=== PATIENT | male | born 1940 | race African-American/Black ===

== ENCOUNTER 2020-02-02 15:12 | Observation (INO) | payer OTHER ==
--- OUTSIDE RECORDS SUMMARY | 2020-02-02 15:14 | XMS REPORT ---
:1940 Author Organization [facility] t Address [address] [place] [address] Care Team Providers Name Role Phone Unavailable Unavailable Unavailable Problems This patient has no known problems. Allergies, Adverse Reactions, Alerts This patient has no known allergies or adverse reactions. Medications This patient has no known medications.
--- NOTE | 2020-02-02 16:06 | RAD REPORT ---
EXAM DESCRIPTION: RAD - Chest Single View - 02/02/2020 3:44 pm CLINICAL HISTORY: fall, chest pain COMPARISON: 2016 TECHNIQUE: AP portable chest image was obtained 02/02/2020 3:44 pm . FINDINGS: Lung volumes are low. No pulmonary contusion or focal lung parenchymal process. Interstiti al markings are not substantially different. Heart and vasculature are normal. No measurable pleural effusion and no pneumothorax. Bone detail is limited. Directed imaging can be performed as warranted. No acute aortic findings suspected. IMPRESSION: No acute cardiopulmonary process.
--- NOTE | 2020-02-02 16:17 | RAD REPORT ---
EXAM DESCRIPTION: CT - CTHCSPWOC - 02/02/2020 4:04 pm CLINICAL HISTORY: fall, head and neck injury COMPARISON: HEAD BRAIN W O CONTRAST dated 05/20/2012 TECHNIQUE: Axial 5 mm thick images of the head were obtained. Axial 2 mm thick images of the cervic al spine were obtained with sagittal and coronal reconstruction images generated and reviewed. All CT scans are performed using dose optimization technique as appropriate and may include automated exposure control or mA/KV adjustment according to patient size. FINDINGS: No intracranial hemorrhage, mass, edema or acute intracranial finding. No suspicion for ac mi'kmaq infarction. Moderate severity atrophy and chronic ischemic changes are present. These changes hav e progressed from 2012. Ventricles are in proportion to volume loss. Mastoid air cells and paranasal sinuses are clear. No globe or orbit abnormality seen. No significant scalp hematoma or soft tissue i njury. Cervical bodies are normal in height. Significant C5-6 and C6-7 disc space narrowing and endplate spu rring. Bilateral bony foraminal encroachment changes are present. Minimal C4-5 disc space narrowing. There is minimal retrolisthesis of C5 on C6. No fracture or acute bony abnormality. Central canal de tail is inherently limited. No paraspinal mass or hematoma. IMPRESSION: Atrophy and chronic ischemic change progressive from the 2012 comparison. No acute intra cranial finding. Prominent cervical spine degenerative change without acute finding.
[2020-02-02 16:24] LABS: ALT/SGPT 32 U/L (12-78); Albumin 3.6 g/dL (3.4-5.0); Alkaline Phosphatase 80 U/L (45-117); BUN Blood Urea Nitrogen 14 mg/dL (7-18); Bicarbonate 24 mmol/L (21-32); Bilirubin Direct 0.1 mg/dL (0-0.2); Bilirubin Total 0.5 mg/dL (0.2-1.0); Glucose Level 96 mg/dL (74-106); NT PRO-BNP 406 pg/mL (<450); Potassium 3.6 mmol/L (3.5-5.1); Protein, Total 7.7 g/dL (6.4-8.2); Sodium Level 140 mmol/L (136-145); Troponin (Emerg Dept Use Only) < 0.02 ng/mL (0.0-0.045)
[2020-02-02 16:25] LABS: AST/SGOT 34 U/L (15-37); Magnesium 1.9 mg/dL (1.8-2.4)
[2020-02-02 16:29] LABS: Absolute Lymphocytes (CBC) 0.5 K/uL (0.7-4.9); Basophils % 0.2 % (0-1.3); Hematocrit 47.3 % (39.6-49.0); Lymphocytes % 7.1 % (15.3-44.8); MPV 9.7 fL (7.6-11.3); Protime INR 1.07; RBC Red Blood Cell Count 4.95 M/uL (4.33-5.43)
[2020-02-02] MEDS ORDERED: METOPROLOL TAR 25 MG TAB ONE (16:29)
[2020-02-02] MEDS ORDERED: ASPIRIN 81 MG CHEWABLE TABLET ONE (17:20)
[2020-02-02] MEDS ORDERED: ACETAMINOPHEN 325 MG TABLET ONE (17:20)
[2020-02-02] MEDS ORDERED: ENOXAPARIN 80 MG/0.8 ML SQ ONE (17:21)
--- NOTE | 2020-02-02 17:36 | EDPHYS ---
Physician Documentation [facility] Name: Wade Chavez Age: 79 yrs Sex: Male : 1940 Arrival Date: 02/02/2020 Time: 15:15 Bed 5 Private MD: ED Physician Sterling Dotson HPI: 02/01 15:30 This 79 yrs old Black Male presents to ER via EMS with complaints of fall. cp 15:30 Details of fall: The patient fell from an upright position, while walking. Onset: The cp symptoms/episode began/occurred last night. Associated injuries: The patient sustained injury to the head, pain, neck injury, pain with movement. 15:30 Patient reports trip and fall times 2 yesterday evening while walking. Tripped over cp carpet on floor. Reports dizziness that is worse when moving head over past several days. Denies loss of consciousness . Historical: - Allergies: 16:13 No Known Allergies; ls4 - Home Meds: 20:07 metoprolol tartrate 50 mg Oral tab 1 tab 2 times per day [Active]; losartan 25 mg oral rv tab 1 tab once daily [Active]; amlodipine 5 mg tab 1 tab once daily [Active]; lovastatin 20 mg Oral tab 1 tab once daily [Active]; - PMHx: 16:13 GERD; High Cholesterol; Hypertension; ls4 20:07 Atrial Fib; prostate cancer; Cancer; rv - PSHx: 16:13 chest surg; right hand pain; ls4 - Immunization history:: Adult Immunizations up to date, Flu vaccine is up to date. - Social history:: Smoking status: Patient denies any tobacco usage or history of. ROS: 15:35 Constitutional: Negative for body aches, chills, fever, poor PO intake. cp 15:35 Eyes: Negative for injury, pain, redness, and discharge. cp 15:35 ENT: Negative for drainage from ear(s), ear pain, sore throat, difficulty swallowing, difficulty handling secretions. 15:35 Neck: Positive for pain with movement. 15:35 Cardiovascular: Negative for chest pain, edema, palpitations. 15:35 Respiratory: Negative for cough, shortness of breath, wheezing. 15:35 Abdomen/GI: Negative for abdominal pain, nausea, vomiting, and diarrhea. 15:35 Back: Negative for pain at rest, pain with movement. 15:35 MS/extremity: Negative for injury or acute deformity, decreased range of motion, paresthesias. 15:35 Skin: Negative for rash. 15:35 Neuro: Positive for headache, Negative for altered mental status, dizziness, weakness. 15:35 All other systems are negative. Exam: 15:45 Constitutional: The patient appears in no acute distress, alert, awake, cp non-diaphoretic, non-toxic, well developed, well nourished. 15:45 Head/Face: Normocephalic, atraumatic. cp 15:45 Eyes: Periorbital structures: appear normal, Pupils: equal, round, and reactive to light and accomodation, Extraocular movements: intact throughout, Conjunctiva: normal, no exudate, no injection, Lids and lashes: appear normal, bilaterally. 15:45 ENT: External ear(s): are unremarkable, Nose: is normal, Mouth: Lips: moist, Oral mucosa: moist, Posterior pharynx: is normal, airway is patent. 15:45 Neck: C-spine: vertebral tenderness, that is mild, appreciated at C6 and C7, crepitus, is not appreciated, ROM/movement: pain, that is mild, with any movement, limited range of motion, is not appreciated, nuchal rigidity, is not appreciated. 15:45 Chest/axilla: Inspection: normal, Palpation: is normal, no crepitus, no tenderness. 15:45 Cardiovascular: Rate: normal, Rhythm: irregular, Edema: is not appreciated, JVD: is not appreciated. 15:45 Respiratory: the patient does not display signs of respiratory distress, Respirations: normal, no use of accessory muscles, no retractions, labored breathing, is not present, Breath sounds: are clear throughout, no decreased breath sounds. 15:45 Abdomen/GI: Inspection: abdomen appears normal, Bowel sounds: active, all quadrants, Palpation: abdomen is soft and non-tender, in all quadrants. 15:45 Back: pain, is absent, ROM is normal. 15:45 Neuro: Orientation: to person, place \T\ time. Mentation: is normal, Cerebellar function: cp is grossly normal, Motor: moves all fours, strength is normal, Sensation: is normal. 15:50 ECG was reviewed by the Attending Physician. cp Vital Signs: 15:15 BP 129 / 89; Pulse 97; Resp 14; Temp 97.9(O); Pulse Ox 99% on R/A; Weight 76.66 kg; ls4 Height 5 ft. 6 in. (167.64 cm) (R); Pain 3/10; 16:44 BP 134 / 92; Pulse 95; Resp 14; Temp 98.0(O); Pulse Ox 99% on R/A; Pain 3/10; ls4 17:29 BP 136 / 90; Pulse 88; Resp 14; Pulse Ox 99% on R/A; Pain 0/10; ls4 18:20 BP 127 / 96; Pulse 90; Resp 15; Pulse Ox 95% ; bp 19:00 BP 127 / 96; Pulse 87; Resp 14; Temp 97.8(O); Pulse Ox 99% on R/A; Pain 0/10; ls4 20:27 BP 134 / 99; Pulse 91; Resp 13; Pulse Ox 94% on R/A; ls4 15:15 Body Mass Index 27.28 (76.66 kg, 167.64 cm) ls4 MDM: 15:25 Patient medically screened. cp 16:00 Differential diagnosis: closed head injury, contusion, fracture, multiple trauma. cp 16:50 Data reviewed: vital signs, nurses notes, lab test result(s), EKG, radiologic studies, cp and as a result, I will admit patient. 16:50 Test interpretation: by ED physician or midlevel provider: ECG. cp 16:51 Physician consultation: Hector Doty DO was called at 16:51, left message on [email or web address] 02/01 15:27 Order name: Basic Metabolic Panel; Complete Time: 16:46 cp 02/01 15:27 Order name: CBC with Diff cp 02/01 16:46 Interpretation: Normal except: JOAQUIN% 86.9; LYM% 7.1; LYMA 0.5. cp 02/01 15:27 Order name: Hepatic Function; Complete Time: 16:46 cp 02/01 16:47 Interpretation: Normal except: GLOB 4.1; A/G 0.9. cp 02/01 15:27 Order name: Magnesium; Complete Time: 16:46 cp 02/01 15:27 Order name: NT PRO-BNP; Complete Time: 16:46 cp 02/01 15:27 Order name: Protime (+inr); Complete Time: 16:46 cp 02/01 15:27 Order name: Troponin (emerg Dept Use Only); Complete Time: 16:46 cp 02/01 18:12 Order name: Alcohol Serum/Plasma EDMS 02/01 18:12 Order name: Urine Drug Screen EDMS 02/01 18:12 Order name: Basic Metabolic Panel EDMS 02/01 18:12 Order name: Basic Metabolic Panel EDMS 02/01 18:12 Order name: Basic Metabolic Panel EDMS 02/01 18:13 Order name: CBC with Automated Diff EDMS 02/01 18:13 Order name: CBC with Automated Diff EDMS 02/01 15:27 Order name: CT Head C Spine; Complete Time: 16:22 cp 02/01 15:27 Order name: XRAY Chest (1 view); Complete Time: 16:22 cp 02/01 18:12 Order name: Echo with Doppler EDMS 02/01 18:13 Order name: CBC with Automated Diff EDMS 02/01 18:13 Order name: T4 Free EDMS 02/01 18:13 Order name: T4 Free EDMS 02/01 18:13 Order name: Thyroid Stimulating Hormone EDMS 02/01 18:13 Order name: Thyroid Stimulating Hormone EDMS 02/01 18:13 Order name: Troponin I EDMS 02/01 18:13 Order name: Troponin I EDMS 02/01 18:13 Order name: Troponin I EDMS 02/01 18:18 Order name: Magnesium EDMS 02/01 18:18 Order name: Magnesium EDMS 02/01 18:18 Order name: Magnesium EDMS 02/01 19:29 Order name: CBC Smear Scan EDMS 02/01 15:27 Order name: EKG; Complete Time: 15:29 cp 07 15:27 Order name: Cardiac monitoring; Complete Time: 17:35 cp 0507 15:27 Order name: EKG - Nurse/Tech; Complete Time: 17:35 cp 0507 15:27 Order name: IV Saline Lock; Complete Time: 17:35 cp 05/07 15:27 Order name: Labs collected and sent; Complete Time: 17:35 cp 05/07 15:27 Order name: O2 Per Protocol; Complete Time: 17:35 cp 0507 15:27 Order name: O2 Sat Monitoring; Complete Time: 17:35 cp 0507 18:12 Order name: CONS Physician Consult [facility] 02/01 18:12 Order name: Heart Healthy [facility] 02/01 18:12 Order name: EKG Electrocardiogram [facility] 02/01 18:12 Order name: EKG Electrocardiogram [facility] EC:50 Rate is 91 beats/min. Rhythm is irregularly irregular. QRS interval is normal. QT cp interval is normal. T waves are Inverted in leads III, aVF, aVR. Interpreted by me. Reviewed by me. Administered Medications: 16:23 Drug: Lopressor (metoprolol TARTRATE) 25 mg Route: PO; ls4 17:01 Drug: Lovenox 80 mg Route: Sub-Q; Site: left lower abdomen; ls4 17:30 Follow up: Response: No adverse reaction; Marked relief of symptoms ls4 17:01 Drug: Tylenol 650 mg Route: PO; ls4 17:30 Follow up: Response: No adverse reaction; Marked relief of symptoms; Pain is decreased ls4 17:01 Drug: Aspirin Chewable Tablet 324 mg Route: PO; ls4 17:30 Follow up: Response: No adverse reaction; Marked relief of symptoms; Pain is decreased ls4 Disposition: 02/02 01:25 Co-signature as Attending Physician, Sterling Dotson MD I agree with the assessment and kdr plan of care. Disposition: 02/02/20 17:35 Hospitalization ordered by Hector Doty for Observation. Preliminary diagnosis is Unspecified atrial fibrillation. - Bed requested for Telemetry/MedSurg (observation). - Status is Observation. ls4 - Condition is Stable. - Problem is new. - Symptoms have improved. Signatures: Dispatcher [employer] [facility] Cierra [place] RN RN dw Rittger, Kevin, MD MD [facility] Mark Fuchs PA PA cp Douglas Correia RN RN rv Belem Perez RN RN ls4 Corrections: (The following items were deleted from the chart) 02/01 16:46 16:46 Normal except: JOAQUIN% 86.9; LYM% 7.1. cp cp 18:17 17:35 Hospitalization Ordered by Hector Doty DO for Observation. Preliminary dw diagnosis is Unspecified atrial fibrillation. Bed requested for Telemetry/MedSurg (observation). Status is Observation. Condition is Stable. Problem is new. Symptoms have improved. cp 20: 16:13 Home Meds: lisinopril 10 mg Oral tab 1 tab once daily; ls4 rv 20:07 16:13 Home Meds: metoprolol tartrate 50 mg Oral tab 1 tab 2 times per day; ls4 rv 20: 16:13 Home Meds: pantoprazole 40 mg Oral TbEC 1 tab once daily; ls4 rv 20: 16:13 Home Meds: unknown cholesterol medication; ls4 rv 20:41 18:17 02/02/2020 17:35 Hospitalization Ordered by Hector Doty DO for Observation. ls4 Preliminary diagnosis is Unspecified atrial fibrillation. Bed requested for Telemetry/MedSurg (observation). Status is Observation. Condition is Stable. Problem is new. Symptoms have improved. dw
--- NOTE | 2020-02-02 17:36 | ER ---
Nurse's Notes [facility] Name: Wade Chavez Age: 79 yrs Sex: Male : 1940 Arrival Date: 02/02/2020 Time: 15:15 Bed 5 Private MD: Diagnosis: Unspecified atrial fibrillation Presentation: 02/01 15:15 Chief complaint: EMS states: PT HAD A FALL LAST EVENING. PT HIT HEAD AND NOW NECK AND ls4 HEAD HURT WHEN HE TURNS HIS HEAD. PT STATES HIS FOOT GOT STUCK ON THE TAPE THAT HOLDS HIS CARPET DOWN TO THE FLOOR. PT DENIES DIZZINESS BEFORE FALL BUT NOW HAS SOME DIZZINESS. PT DOES NOT TAKE BLOOD THINNERS OR ASPIRIN. Coronavirus screen: Proceed with normal triage. Patient denies a cough. Patient denies shortness of breath or difficulty breathing. Patient denies measured and/or subjective temperature greater than 100.4F prior to today's visit. Patient denies travel on a cruise ship or to a country the [facility] currently lists as an affected area. Patient denies contact with known and/or suspected case of COVID-19. Ebola Screen: No symptoms or risks identified at this time. Initial Sepsis Screen: Does the patient meet any 2 criteria? No. Patient's initial sepsis screen is negative. Does the patient have a suspected source of infection? No. Patient's initial sepsis screen is negative. Risk Assessment: Do you want to hurt yourself or someone else? Patient reports no desire to harm self or others. Onset of symptoms was February 01, 2020 at 18:00. Care prior to arrival: None. Activity prior to arrival: None. 15:15 Method Of Arrival: EMS: [facility] ls4 15:15 Acuity: SHER 3 ls4 Triage Assessment: 16:18 General: Appears in no apparent distress. comfortable, Behavior is calm, cooperative. ls4 Pain: Complains of pain in left parietal area, right parietal area, occipital area, base of the skull and right base of the skull Pain currently is 3 out of 10 on a pain scale. at worst was 7 out of 10 on a pain scale. Neuro: No deficits noted. Cardiovascular: Denies chest pain, diaphoresis, fatigue, lightheadedness, nausea, palpitations, shortness of breath, syncope, vomiting, Capillary refill < 3 seconds Clubbing of nail beds is absent Thorax Patient's skin is warm and dry. Rhythm is atrial fibrillation With PVC's. Respiratory: Airway is patent Respiratory effort is even, unlabored, Respiratory pattern is regular, Breath sounds are clear bilaterally. GI: No deficits noted. No signs and/or symptoms were reported involving the gastrointestinal system. : No deficits noted. No signs and/or symptoms were reported regarding the genitourinary system. Derm: No deficits noted. No signs and/or symptoms reported regarding the dermatologic system. Musculoskeletal: No deficits noted. No signs and/or symptoms reported regarding the musculoskeletal system. Historical: - Allergies: 16:13 No Known Allergies; ls4 - Home Meds: 20:07 metoprolol tartrate 50 mg Oral tab 1 tab 2 times per day [Active]; losartan 25 mg oral rv tab 1 tab once daily [Active]; amlodipine 5 mg tab 1 tab once daily [Active]; lovastatin 20 mg Oral tab 1 tab once daily [Active]; - PMHx: 16:13 GERD; High Cholesterol; Hypertension; ls4 20:07 Atrial Fib; prostate cancer; Cancer; rv - PSHx: 16:13 chest surg; right hand pain; ls4 - Immunization history:: Adult Immunizations up to date, Flu vaccine is up to date. - Social history:: Smoking status: Patient denies any tobacco usage or history of. Screenin:20 Fall Risk None identified. ls4 16:10 Abuse screen: Denies threats or abuse. Denies injuries from another. Nutritional ls4 screening: No deficits noted. Tuberculosis screening: No symptoms or risk factors identified. Assessment: 17:35 Reassessment: Patient appears in no apparent distress at this time. No changes from ls4 previously documented assessment. Patient and/or family updated on plan of care and expected duration. Pain level reassessed. Patient is alert, oriented x 3, equal unlabored respirations, skin warm/dry/pink. General: Appears in no apparent distress. comfortable. Respiratory: Airway is patent Respiratory effort is even, unlabored, Respiratory pattern is regular, Breath sounds are clear bilaterally. Denies cough, shortness of breath labored breathing, pain with respiration, pain with cough, pain with movement, air hunger. 18:20 Reassessment: ADMIT IN PROCESS. BED ASSIGNED FOR FOLLOWING SHIFT. VS STABLE ON MONITOR. bp 19:02 Reassessment: Patient appears in no apparent distress at this time. No changes from ls4 previously documented assessment. Patient and/or family updated on plan of care and expected duration. Pain level reassessed. Patient is alert, oriented x 3, equal unlabored respirations, skin warm/dry/pink. CALLED TO GIVE REPORT. TORY ANSWERED, PUT ON HOLD AND WILL CALL BACK AFTER SHIFT CHANGE. Vital Signs: 15:15 BP 129 / 89; Pulse 97; Resp 14; Temp 97.9(O); Pulse Ox 99% on R/A; Weight 76.66 kg; ls4 Height 5 ft. 6 in. (167.64 cm) (R); Pain 3/10; 16:44 BP 134 / 92; Pulse 95; Resp 14; Temp 98.0(O); Pulse Ox 99% on R/A; Pain 3/10; ls4 17:29 BP 136 / 90; Pulse 88; Resp 14; Pulse Ox 99% on R/A; Pain 0/10; ls4 18:20 BP 127 / 96; Pulse 90; Resp 15; Pulse Ox 95% ; bp 19:00 BP 127 / 96; Pulse 87; Resp 14; Temp 97.8(O); Pulse Ox 99% on R/A; Pain 0/10; ls4 20:27 BP 134 / 99; Pulse 91; Resp 13; Pulse Ox 94% on R/A; ls4 15:15 Body Mass Index 27.28 (76.66 kg, 167.64 cm) ls4 ED Course: 15:15 Patient arrived in ED. em1 15:18 Mark Fuchs PA is PHCP. cp 15:18 Sterling Dotson MD is Attending Physician. cp 15:20 Patient has correct armband on for positive identification. Bed in low position. Call ls4 light in reach. Side rails up X 1. welder oxyhydrogen on. Pulse ox on. NIBP on. Warm blanket given. Verbal reassurance given. Diet: Patient is NPO. 15:20 No provider procedures requiring assistance completed. Inserted saline lock: 18 gauge ls4 in right forearm, using aseptic technique. Blood collected. Patient maintains SpO2 saturation greater than 95% on room air. 15:44 XRAY Chest (1 view) In Process Unspecified. EDMS 16:05 CT Head C Spine In Process Unspecified. EDMS 16:06 Belem Perez, RN is Primary Nurse. ls4 16:10 Triage completed. ls4 16:11 Arm band placed on. ls4 17:35 Hector Doty DO is Hospitalizing Provider. cp 20:21 Patient admitted, IV remains in place. ls4 Administered Medications: 16:23 Drug: Lopressor (metoprolol TARTRATE) 25 mg Route: PO; ls4 17:01 Drug: Lovenox 80 mg Route: Sub-Q; Site: left lower abdomen; ls4 17:30 Follow up: Response: No adverse reaction; Marked relief of symptoms ls4 17:01 Drug: Tylenol 650 mg Route: PO; ls4 17:30 Follow up: Response: No adverse reaction; Marked relief of symptoms; Pain is decreased ls4 17:01 Drug: Aspirin Chewable Tablet 324 mg Route: PO; ls4 17:30 Follow up: Response: No adverse reaction; Marked relief of symptoms; Pain is decreased ls4 Outcome: 17:35 Decision to Hospitalize by Provider. cp 20:18 Admitted to Tele accompanied by tech, room 206, with chart, Report called to BETHANY murguia RN 20:18 Condition: stable 20:18 Instructed on the need for admit, SPOKE TO PT . PT UPDATED MEDLIST. PT IS COMPLIANT WITH MEDICATIONS PER . PT NO LONGER ON OMEPRAZOLE OR LISINIPRIL. CONFIRMED THAT HE HAD 2 MECHANICAL FALLS LAST EVENING WHEN TAPE FROM AN AREA RUG WAS STUCK TO HIS SHOE AND ON THE 2ND FALL HE HIT THE COFFEE TABLE WITH HIS HEAD. (PT HAS NO VISIBLE OR PALPABLE INJURY) Demonstrated understanding of instructions. 20:41 Patient left the ED. ls4 Signatures: Dispatcher [employer] [place] em1 Mark Fuchs PA PA cp Alphonse Blankenship RN RN bp Douglas Correia RN RN rv Belem Perez RN RN ls4 Corrections: (The following items were deleted from the chart) 20:07 16:13 Home Meds: lisinopril 10 mg Oral tab 1 tab once daily; ls4 rv 20: 16:13 Home Meds: metoprolol tartrate 50 mg Oral tab 1 tab 2 times per day; ls4 rv 20: 16:13 Home Meds: pantoprazole 40 mg Oral TbEC 1 tab once daily; ls4 rv 20: 16:13 Home Meds: unknown cholesterol medication; ls4 rv
[2020-02-02] MEDS ORDERED: ONDANSETRON 4 MG/2 ML VIAL IV PRN (18:02)
--- NOTE | 2020-02-02 18:16 | P.HP ---
Certification for Inpatient Patient admitted to: Observation With expected LOS: <2 Midnights Patient will require the following post-hospital care: None Practitioner: I am a practitioner with admitting privileges, knowledge of patient current condition, hospital course, and medical plan of care. Services: Services provided to patient in accordance with Admission requirements found in Title 42 Section 412.3 of the Code of Federal Regulations <Clint Harrell - Last Filed: 02/02/20 18:11> Patient History Date of Service: 02/02/20 Primary Care Provider: Unknown Reason for admission: New onset atrial fibrillation, dizziness History of Present Illness: 79-year-old male with history of hypertension, GERD, hyperlipidemia presented to the emergency department 2 days status post mechanical fall over the carpet in his living room with complaint of dizziness. During his evaluation in the emergency department the patient was found to have atrial fibrillation. This was not present on his prior EKGs. Patient received cardiac workup while in the emergency department which did not show any elevation in his troponin or BNP, chest x-ray was without any acute findings. At this time ER provider requested admission for further evaluation and management of this patient's condition. When I saw the patient in the immediate emergency department he appeared calm, cooperative, and in no distress. The patient reported that around noon today he began to notice that he is feeling dizzy but denies any chest pain or palpitations. Patient's heart rate was in the 90s. Patient reports that he has not had this feeling before, denies any known history of atrial fibrillation. Patient states that he does not take any blood thinners currently. Patient will be admitted for further evaluation management of his new onset atrial fibrillation. Home medications list reviewed: Yes - Past Medical/Surgical History Has patient received pneumonia vaccine in the past: No Diabetic: No -: Hypertension -: GERD -: Hyperlipidemia Past Surgical History: Reviewed- Non-Contributory Psychosocial/ Personal History: Patient lives at home with family. - Family History Family History: Reviewed- Non-Contributory - Social History Smoking Status: Never smoker Alcohol use: Yes CD- Drugs: No Caffeine use: Yes Place of Residence: Home <Clint Harrell - Last Filed: 02/02/20 18:11> Date of Service: 02/02/20 <Hector Doty - Last Filed: 02/02/20 18:29> Allergies No Known Allergies Allergy (Unverified 05/20/12 18:57) Home Medications: Lisinopril 10 mg PO DAILY 05/20/12 Metoprolol Tartrate 50 mg PO BID 05/20/12 Baclofen 10 mg PO DAILYPRN PRN #0 tablet 05/22/12 Lisinopril 10 mg PO DAILY #0 tablet 05/22/12 Metoprolol Tartrate [Lopressor] 50 mg PO BID #0 tablet 05/22/12 Pantoprazole [Protonix Tab] 40 mg PO BID #0 tab 05/22/12 Review of Systems General: Unremarkable Eyes: Unremarkable ENT: Unremarkable Respiratory: Unremarkable Cardiovascular: Unremarkable Gastrointestinal: Unremarkable Genitourinary: Unremarkable Musculoskeletal: Unremarkable Integumentary: Unremarkable Neurological: Other (Lightheadedness), As per HPI Lymphatics: Unremarkable <Clint Harrell - Last Filed: 02/02/20 18:11> Physical Examination - Physical Exam General: Alert, In no apparent distress, Oriented x3 HEENT: Atraumatic, Normocephalic Neck: Supple Respiratory: Clear to auscultation bilaterally, Normal air movement Cardiovascular: No edema, Normal S1 S2, Irregular heart rate/rhythm Capillary refill: <2 Seconds Gastrointestinal: Normal bowel sounds, Soft and benign Musculoskeletal: No clubbing, No swelling, No contractures Integumentary: No significant lesion Neurological: Normal speech, Normal tone - Studies Laboratory Data (last 24 hrs) 02/02/20 15:55: PT 12.6 H, INR 1.07 02/02/20 15:55: WBC 7.2, Hgb 15.9, Hct 47.3, Plt Count 183 02/02/20 15:55: Sodium 140, Potassium 3.6, BUN 14, Creatinine 0.89, Glucose 96, Magnesium 1.9, Total Bilirubin 0.5, AST 34, ALT 32, Alkaline Phosphatase 80 <Clint Harrell - Last Filed: 02/02/20 18:11> - Studies Laboratory Data (last 24 hrs) 02/02/20 15:55: PT 12.6 H, INR 1.07 02/02/20 15:55: WBC 7.2, Hgb 15.9, Hct 47.3, Plt Count 183 02/02/20 15:55: Sodium 140, Potassium 3.6, BUN 14, Creatinine 0.89, Glucose 96, Magnesium 1.9, Total Bilirubin 0.5, AST 34, ALT 32, Alkaline Phosphatase 80 <Hector Doty - Last Filed: 02/02/20 18:29> Assessment and Plan - Plan Assessment Dizziness likely secondary to new onset atrial fibrillation not on chronic anticoagulation Hypertension GERD Hyperlipidemia Plan Dizziness likely secondary to new onset atrial fibrillation not on chronic anticoagulation- patient received a CT scan of head and neck in the emergency department to rule out any traumatic causes of his dizziness. Patient states he did not know when the patient fibrillation began as he did not have any palpitations or chest pain. Will place patient on Lovenox 1 milligram/kilogram twice daily and obtain an echocardiogram to evaluate heart function. Will assess thyroid function with the morning labs and obtain a urine drug screen in addition to a serum alcohol level. Cardiology has been consulted on this case and will assist in determining the need for chronic anticoagulation. Patient will remain on telemetry throughout this hospitalization. Hypertension- patient takes metoprolol 50 mg once daily at home and lisinopril, blood pressure is on the low end of normal in the emergency department. Will resume metoprolol at 25 mg once daily and continue to monitor blood pressure. GERD- will obtain and continue patient's home medication. Hyperlipidemia-will obtain and continue patient's home medication. Discharge Plan: Home Plan to discharge in: 24 Hours - Advance Directives Does patient have a Living Will: No Does patient have a Durable POA for Healthcare: No - Code Status/Comfort Care Code Status Assessed: Yes (Patient is full code) Critical Care: No Time Spent Managing Pts Care (In Minutes): 55 <Clint Harrell - Last Filed: 02/02/20 18:11> - Plan Case discussed at length with nurse practitioner. Agree with current plan of care. Patient likely with new onset atrial fibrillation. Will consult cardiology. Cardiology informed. Will continue with metoprolol at this time. Patient currently on Lovenox. This can be transition to chronic anti coagulation therapy-Xarelto or Eliquis at discharge. Await further recommendations from cardiology. Will obtain echocardiogram. Will also check thyroid panel. Patient with history of hypertension, GERD, alcohol. Will obtain urine drug screen and alcohol level. <Hector Doty - Last Filed: 02/02/20 18:29>
[2020-02-02] MEDS ORDERED: NA CHLORIDE 0.9% 1,000 ML IV SCH (19:00)
[2020-02-02 19:29] LABS: Blood Morphology Comment NOT SEEN (NOT SEEN); Platelet Estimate ADEQ; Urine White Blood Cell Casts OK
[2020-02-02 23:06] VITALS: BMI 27.3
[2020-02-02] MEDS ORDERED: PANTOPRAZOLE 40MG TABLET PO ONE (23:28)
[2020-02-02 23:57] LABS: Barbiturates NEGATIVE (NEGATIVE); Benzodiazepines NEGATIVE (NEGATIVE); Cocaine NEGATIVE (NEGATIVE); METHAMPHETAM NEGATIVE (NEGATIVE); Methadone NEGATIVE (NEGATIVE); Opiates POSITIVE (NEGATIVE); Phencyclidine NEGATIVE (NEGATIVE); THC Cannibis NEGATIVE (NEGATIVE)
[2020-02-03] MEDS: ENOXAPARIN 80 MG/0.8 ML SQ SCH ×2 (05:24→17:11)
[2020-02-03] MEDS ORDERED: METOPROLOL XL 25 MG TAB PO SCH (06:00)
[2020-02-03 06:07] LABS: Absolute Lymphocytes (CBC) 0.7 K/uL (0.7-4.9); Basophils % 0.2 % (0-1.3); Hematocrit 45.2 % (39.6-49.0); Lymphocytes % 9.9 % (15.3-44.8); MPV 9.8 fL (7.6-11.3); RBC Red Blood Cell Count 4.67 M/uL (4.33-5.43)
[2020-02-03] MEDS ORDERED: PANTOPRAZOLE 40MG TABLET PO SCH (06:30)
[2020-02-03 06:57] LABS: BUN Blood Urea Nitrogen 13 mg/dL (7-18); Bicarbonate 26 mmol/L (21-32); Glucose Level 92 mg/dL (74-106); Magnesium 1.6 mg/dL (1.8-2.4); Sodium Level 137 mmol/L (136-145); Thyroid Stimulating Hormone 0.898 uIU/mL (0.360-3.740); Troponin I < 0.02 ng/mL (0.0-0.045)
[2020-02-03] MEDS ORDERED: MAGNESIUM SULFATE 1 gm IVPB 1 GM/100 ML BAG IV ONE (06:58)
[2020-02-03] MEDS: ACETAMINOPHEN 500 MG TAB PO PRN ×3 (08:28→15:41)
[2020-02-03] MEDS ORDERED: AMLODIPINE 5 MG TAB PO SCH (09:00)
[2020-02-03] MEDS ORDERED: METOPROLOL XL 50 MG TAB PO SCH (09:00)
[2020-02-03] MEDS ORDERED: LOSARTAN POTASSIUM 50 MG TABLET PO SCH (09:00)
[2020-02-03] MEDS ORDERED: HOME MED 1 EA UNK (Losartan Potassium [Losartan Potassium] 25 MG) PO SCH (09:00)
--- NOTE | 2020-02-03 09:48 | RAD REPORT ---
EXAM DESCRIPTION: RAD - Chest Pa And Lat (2 Views) - 02/03/2020 9:11 am CLINICAL HISTORY: cough, eval for chf Chest pain. COMPARISON: Chest Single View dated 02/02/2020; Chest Single View dated 04/04/2017; CHEST SINGLE VIEW da wes 03/01/2015; CHEST PA AND LAT 2 VIEW dated 05/22/2014 FINDINGS: The lungs are clear. The heart is mildly prominent size with a tortuous thoracic aorta. No displaced fractures.
--- NOTE | 2020-02-03 10:36 | EKG ---
Test Date: 2020-02-02 Test Time: 15:45:21 [employer]: ROJELIO MEASUREMENT RESULTS: Intervals: Rate: 91 OR: QRSD: 82 QT: 382 QTc: 469 [place]: P: OR: QRS: 168 T: -14 INTERPRETIVE STATEMENTS: Atrial fibrillation Right axis deviation Moderate voltage criteria for LVH, may be normal variant T wave abnormality, consider inferior ischemia or digitalis effect Abnormal ECG Compared to ECG 04/04/2017 02:04:51 Right-axis deviation now present Left ventricular hypertrophy now present Sinus rhythm no longer present Left-axis deviation no longer present T-wave abnormality still present Possible ischemia still present Electronically Signed On 02-03-20 10:34:49 CDT by Delroy Rodriguez
[2020-02-03] MEDS ORDERED: PNEUMOCOCCAL VACCINE 0.5 ML IMVAC ONE (11:00)
--- NOTE | 2020-02-03 11:23 | ECHO ---
HEIGHT: 5 ft 5 in WEIGHT: 164 lb 0 oz DATE OF STUDY: 02/03/[address]: Clint Harrell NP 2-DIMENSIONAL: YES M.MODE: YES DOPPLER: YES COLOR FLOW: YES TDS: PORTABLE: DEFINITY: BUBBLE STUDY: DIAGNOSIS: NEW ONSET ATRIAL FIBRILLATION CARDIAC HISTORY: CATHERIZATION: NO SURGERY: NO PROSTHETIC VALVE: NO PACEMAKER: NO MEASUREMENTS (cm) DIASTOLIC (NORMALS) SYSTOLIC (NORMALS) IVSd 0.9 (0.6-1.2) LA Diam 3.6 (1.9-4.0) LVEF 63% LVIDd 4.7 (3.5-5.7) LVIDs 3.1 (2.0-3.5) %FS 34% LVPWd 1.0 (0.6-1.2) Ao Diam 3.2 (2.0-3.7) 2 DIMENSIONAL ASSESSMENT: RIGHT ATRIUM: NORMAL LEFT ATRIUM: NORMAL RIGHT VENTRICLE: NORMAL LEFT VENTRICLE: NORMAL TRICUSPID VALVE: NORMAL MITRAL VALVE: NORMAL PULMONIC VALVE: NORMAL AORTIC VALVE: NORMAL PERICARDIAL EFFUSION: NONE AORTIC ROOT: NORMAL LEFT VENTRICULAR WALL MOTION: NORMAL DOPPLER/COLOR FLOW: NORMAL COMMENTS: ATRIAL FIBRILLATION. NORMAL LEFT VENTRICULAR SIZE AND FUNCTION. NO WALL MOTION ABNORMALITY. NO EFFUSION. TECHNOLOGIST: KAI BURKETT
--- NOTE | 2020-02-03 15:00 | P.DS ---
Admission Date: 02/02/20 Discharge Date: 02/03/20 Primary Care Provider: Unknown Disposition: ROUTINE DISCHARGE Discharge Condition: GOOD Reason for Admission: New onset atrial fibrillation, dizziness Consultations: Cardiology-Dr. Rodriguez Procedures: CT Head: FINDINGS: No intracranial hemorrhage, mass, edema or acute intracranial finding. No suspicion for acute infarction. Moderate severity atrophy and chronic ischemic changes are present. These changes have progressed from 2012. Ventricles are in proportion to volume loss. Mastoid air cells and paranasal sinuses are clear. No globe or orbit abnormality seen. No significant scalp hematoma or soft tissue injury. Cervical bodies are normal in height. Significant C5-6 and C6-7 disc space narrowing and endplate spurring. Bilateral bony foraminal encroachment changes are present. Minimal C4-5 disc space narrowing. There is minimal retrolisthesis of C5 on C6. No fracture or acute bony abnormality. Central canal detail is inherently limited. No paraspinal mass or hematoma. IMPRESSION: Atrophy and chronic ischemic change progressive from the 2012 comparison. No acute intracranial finding. Prominent cervical spine degenerative change without acute finding. ECHO: EF 63% FINDINGS: No intracranial hemorrhage, mass, edema or acute intracranial finding. No suspicion for acute infarction. Moderate severity atrophy and chronic ischemic changes are present. These changes have progressed from 2012. Ventricles are in proportion to volume loss. Mastoid air cells and paranasal sinuses are clear. No globe or orbit abnormality seen. No significant scalp hematoma or soft tissue injury. Cervical bodies are normal in height. Significant C5-6 and C6-7 disc space narrowing and endplate spurring. Bilateral bony foraminal encroachment changes are present. Minimal C4-5 disc space narrowing. There is minimal retrolisthesis of C5 on C6. No fracture or acute bony abnormality. Central canal detail is inherently limited. No paraspinal mass or hematoma. IMPRESSION: Atrophy and chronic ischemic change progressive from the 2012 comparison. No acute intracranial finding. Prominent cervical spine degenerative change without acute finding. CXR: COMPARISON: Chest Single View dated 02/02/2020; Chest Single View dated 04/04/2017; CHEST SINGLE VIEW dated 03/01/2015; CHEST PA AND LAT 2 VIEW dated 05/22/2014 FINDINGS: The lungs are clear. The heart is mildly prominent size with a tortuous thoracic aorta. No displaced fractures. Medical problem list: Dizziness likely secondary to new onset atrial fibrillation now on chronic anti coagulation therapy Hypertension GERD Hyperlipidemia Alcohol abuse Brief History of Present Illness: 71-year-old male with history of hypertension presented with dizziness. Patient found to have atrial fibrillation patient was admitted for further evaluation. Hospital Course: Patient presented with dizziness. Patient found to have new onset atrial fibrillation. Patient was admitted for further evaluation. Cardiology recommended rate control medication-metoprolol which he has been taking. Patient also started on anti coagulation therapy. Patient has done well. Echocardiogram unremarkable. At discharge patient will continue with Toprol-XL 50 mg 1 pill twice daily and Eliquis 5 mg 1 pill twice daily. Education on a to fibrillation, Eliquis will be provided. Recommend follow up with Cardiology in 1 week to follow up this hospitalization. Patient with underlying hypertension. This has remained stable. At discharge he will continue with Toprol-XL 50 mg 1 pill twice daily, Norvasc 5 mg daily, and Cozaar 25 mg daily. Recommend to maintain blood pressure less 150/80. Further adjustment to be done by his PCP or cardiology. Patient with GERD. At discharge patient may continue with his medication Protonix 40 mg daily. Patient with hyperlipidemia. This is remained stable. At discharge will continue with lovastatin 20 mg daily. Patient with elevated alcohol level. Alcohol cessation education provided. It will be important patient ceases alcohol as patient will be on chronic anti coagulation therapy. This could be further monitored by cardiology and PCP. Vital Signs/Physical Exam: Temp Pulse Resp BP Pulse Ox 97.2 F 117 H 20 133/97 H 97 02/03/20 12:00 02/03/20 12:00 02/03/20 12:00 02/03/20 12:00 02/03/20 12:00 General: Alert, In no apparent distress, Oriented x3, Cooperative HEENT: Atraumatic Neck: Supple Respiratory: Clear to auscultation bilaterally, Normal air movement Cardiovascular: Irregular heart rate/rhythm (AFib rate better controlled) Gastrointestinal: Normal bowel sounds, Soft and benign, Non-distended Integumentary: No erythema, No warmth, No cyanosis Neurological: Normal speech, Normal strength at 5/5 x4 extr, Normal tone, Normal affect Laboratory Data at Discharge: WBC 7.2 K/uL (4.3-10.9) 02/03/20 05:10 Hgb 15.3 g/dL (13.6-17.9) 02/03/20 05:10 Hct 45.2 % (39.6-49.0) 02/03/20 05:10 Plt Count 163 K/uL (152-406) 02/03/20 05:10 PT 12.6 SECONDS (9.5-12.5) H 02/02/20 15:55 INR 1.07 02/02/20 15:55 Sodium 137 mmol/L (136-145) 02/03/20 05:10 Potassium 4.0 mmol/L (3.5-5.1) 02/03/20 05:10 BUN 13 mg/dL (7-18) 02/03/20 05:10 Creatinine 0.71 mg/dL (0.55-1.3) 02/03/20 05:10 Glucose 92 mg/dL (74-106) 02/03/20 05:10 Magnesium 1.6 mg/dL (1.8-2.4) L 02/03/20 05:10 Total Bilirubin 0.5 mg/dL (0.2-1.0) 02/02/20 15:55 AST 34 U/L (15-37) 02/02/20 15:55 ALT 32 U/L (12-78) 02/02/20 15:55 Alkaline Phosphatase 80 U/L (45-117) 02/02/20 15:55 Troponin I < 0.02 ng/mL (0.0-0.045) 02/03/20 05:10 Home Medications: Albuterol Sulfate [Proair Hfa] 8.5 gm IH BID 02/02/20 Amlodipine [Norvasc*] 5 mg PO DAILY 02/02/20 Lovastatin 20 mg PO BEDTIME 02/02/20 Apixaban [Eliquis] 5 mg PO BID #60 tablet 02/03/20 Losartan Potassium 25 mg PO DAILY #30 02/03/20 Metoprolol Succinate [Toprol Xl*] 50 mg PO BID #60 tab 02/03/20 Pantoprazole [Protonix Tab*] 40 mg PO DAILYAC #30 tab 02/03/20 New Medications: Apixaban [Eliquis] 5 mg PO BID #60 tablet Losartan Potassium 25 mg PO DAILY #30 Pantoprazole [Protonix Tab*] 40 mg PO DAILYAC #30 tab Metoprolol Succinate [Toprol Xl*] 50 mg PO BID #60 tab Patient Discharge Instructions: 1. Recommend follow up with PCP in 1 week to follow up this hospitalization. 2. Patient presented with dizziness. Patient found to have new onset atrial fibrillation. Patient was admitted for further evaluation. Cardiology recommended rate control medication-metoprolol which he has been taking. Patient also started on anti coagulation therapy. Patient has done well. Echocardiogram unremarkable. At discharge patient will continue with Toprol-XL 50 mg 1 pill twice daily and Eliquis 5 mg 1 pill twice daily. Education on a to fibrillation, Eliquis will be provided. Recommend follow up with Cardiology in 1 week to follow up this hospitalization. 3. Patient with underlying hypertension. This has remained stable. At discharge he will continue with Toprol-XL 50 mg 1 pill twice daily, Norvasc 5 mg daily, and Cozaar 25 mg daily. Recommend to maintain blood pressure less 150/80. Further adjustment to be done by his PCP or cardiology. Patient with GERD. At discharge patient may continue with his medication Protonix 40 mg daily. 4. Patient with hyperlipidemia. This is remained stable. At discharge will continue with lovastatin 20 mg daily. 5. Patient with elevated alcohol level. Alcohol cessation education provided. It will be important patient ceases alcohol as patient will be on chronic anti coagulation therapy. This could be further monitored by cardiology and PCP. Diet: AHA Activity: Ad codie Time spent managing pt's care (in minutes): 55
[2020-02-03 15:07] VITALS: O2SAT 98
[2020-02-03 16:12] VITALS: BP 157/102; TEMP 96.7
--- NOTE | 2020-02-03 17:06 | EKG ---
Test Date: 2020-02-03 Test Time: 10:18:47 [employer] Controller: SERENA MEASUREMENT RESULTS: Intervals: Rate: 102 [place]: QRSD: 78 QT: 308 QTc: 401 [place]: P: AL: QRS: -46 T: -5 INTERPRETIVE STATEMENTS: Atrial fibrillation with rapid ventricular response Left axis deviation Abnormal ECG Compared to ECG 02/02/2020 15:45:21 Left-axis deviation now present Right-axis deviation no longer present Left ventricular hypertrophy no longer present T-wave abnormality no longer present Possible ischemia no longer present Electronically Signed On 02-03-20 17:04:27 CDT by Delroy Rodriguez
[2020-02-03] MEDS ORDERED: ATORVASTATIN 10 MG TAB PO SCH (21:00)
[2020-02-03] MEDS ORDERED: HOME MED 1 EA UNK (Lovastatin [Lovastatin] 20 MG) PO SCH (21:00)
--- NOTE | 2020-02-04 06:34 | CON ---
Date of Consultation: 02/03/2020 Reason For Consultation: Atrial fibrillation. History Of Present Illness: Mr. Chavez is a 79-year-old black male. He is known to have chronic atri al fibrillation. Has had a history of prostate cancer, gastroesophageal reflux disease, hypertension , dyslipidemia as well as COPD. He fell on the back of his head, but no syncope. He denied any ches t pain, shortness of breath, nausea, vomiting, diaphoresis, PND, orthopnea, pedal edema, or palpitati on. When he was admitted, he was noted to have atrial fibrillation at rate of 115. He was hypertens reynold, had positive opiates on his drug screen. His workup otherwise was fairly unremarkable. TSH was still pending. Past Medical History: As stated above. Allergies: NONE. Review of Systems: Negative. Social History: Negative. Family History: Noncontributory. Medications: At home include metformin, Norvasc, losartan, inhalers, and lovastatin. Physical Examination: Vital Signs: He was in atrial fibrillation at rate 115. No symptoms. Blood pressure is 185/110. HEENT: Negative. Neck: Supple with no bruit. Chest: Clear. Cardiac: Revealed atrial fibrillation. Abdomen: Benign. Extremities: Revealed no clubbing, cyanosis, or edema. Diagnostic Data: As stated earlier. Impression And Plan: Chronic atrial fibrillation, rapid ventricular response. I think he needs to b e on beta-blockers, and I think he needs to be anticoagulated with Eliquis or Xarelto. I think he ne eds to have an echocardiogram, TSH. His other problems including hypertension, chronic obstructive p ulmonary disease, dyslipidemia, gastroesophageal reflux disease seem to be stable. We will see what the echo shows, but I am comfortable with him going home on beta-blockers and an anticoagulant and I will see him in the office as an outpatient. Patient is not having any cardiac symptoms and he did n ot have any syncope. JACQUELINE/SAMANTHA Voice ID: [id number] Report ID: [id number]
== END 2020-02-03 17:25 | disposition home or self-care (01) ==
LOC: ER 15:12 → ERHOLD 17:51 → 2ND 20:21
PROVIDERS: ADMIT Family Medicine; ATTEND Family Medicine
DX: I48.91 Unspecified atrial fibrillation (principal); I10 Essential (primary) hypertension; J44.9 Chronic obstructive pulmonary disease, unspecified; E78.5 Hyperlipidemia, unspecified; K21.9 Gastro-esophageal reflux disease without esophagitis; F10.10 Alcohol abuse, uncomplicated; W01.0XXA Fall on same level from slipping, tripping and stumbling without subsequent striking against object, initial encounter; Y93.9 Activity, unspecified; Y92.9 Unspecified place or not applicable; Z72.89 Other problems related to lifestyle; R78.1 Finding of opiate drug in blood; Z23 Encounter for immunization; Z85.46 Personal history of malignant neoplasm of prostate
CPT/HCPCS: 93005 ×2; 93306; 85025 ×2; 80048 ×2; 36415 ×2; 80320; 83735 ×2; 85610; 80076; 80307 ×8; 84443; 84484 ×2; 84439; 83880; 70450; 72125; 71045; 71046; 90471; 90670; 96372; 99285; J3475; J1650 ×3; J7030; J2405; G0378 ×3

== ENCOUNTER 2021-12-08 10:53 | Emergency (ER) | payer OTHER ==
--- OUTSIDE RECORDS SUMMARY | 2021-12-08 10:55 | XMS REPORT | Continuity of Care Document ---
:1940 Author Organization [facility] t Address [address] [place] [address] Dr. Gonsalez [address] [place] [id number] Care Team Providers Name Role Phone Unavailable Unavailable Unavailable Problems This patient has no known problems. Allergies, Adverse Reactions, Alerts This patient has no known allergies or adverse reactions. Medications This patient has no known medications. Procedures This patient has no known procedures. Results This patient has no known results.
[2021-12-08 11:12] LABS: Hematocrit 43.4 % (39.6-49.0); Lymphocytes % 16.4 % (15.3-44.8); MPV 8.9 fL (7.6-11.3); RBC Red Blood Cell Count 4.56 M/uL (4.33-5.43)
[2021-12-08 11:21] LABS: Protime INR 1.19
[2021-12-08 11:32] LABS: ALT/SGPT 20 U/L (12-78); AST/SGOT 19 U/L (15-37); Albumin 3.2 g/dL (3.4-5.0); Alkaline Phosphatase 69 U/L (45-117); BUN Blood Urea Nitrogen 14 mg/dL (7-18); Bicarbonate 25 mmol/L (21-32); Bilirubin Direct 0.1 mg/dL (0-0.2); Bilirubin Total 0.3 mg/dL (0.2-1.0); Glucose Level 130 mg/dL (74-106); Magnesium 1.8 mg/dL (1.8-2.4); Potassium 3.6 mmol/L (3.5-5.1); Sodium Level 144 mmol/L (136-145)
[2021-12-08 11:33] LABS: NT PRO-BNP 472 pg/mL (<450)
[2021-12-08] MEDS ORDERED: NITROGLYCERIN 0.4 MG/TAB SL ONE (12:18)
--- NOTE | 2021-12-08 12:30 | RAD REPORT ---
EXAM DESCRIPTION: RAD - Chest Single View - 12/08/2021 12:05 pm CLINICAL HISTORY: CHEST PAIN COMPARISON: Chest Pa And Lat (2 Views) dated 02/03/2020; Chest Single View dated 02/02/2020; Chest Singl e View dated 04/04/2017; CHEST SINGLE VIEW dated 03/01/2015 FINDINGS: Lines: None. Lungs: No evidence of edema or pneumonia. Pleural: No significant pleural effusions or pneumothorax. Cardiac: The heart size is within normal limits. Bones: No acute fractures. Other: IMPRESSION: No acute cardiopulmonary disease.
[2021-12-08] MEDS ORDERED: FENTANYL CITR 100 MCG/2 ML ONE (12:42)
[2021-12-08] MEDS ORDERED: ONDANSETRON 4 MG/2 ML VIAL ONE (12:42)
[2021-12-08] MEDS ORDERED: NA CHLORIDE 0.9% 500 ML ONE (12:42)
[2021-12-08] MEDS ORDERED: PANTOPRAZOLE 40 MG INJ ONE (13:15)
[2021-12-08] MEDS ORDERED: OCTREOTIDE ACETATE 100 MCG/ML ONE (13:16)
[2021-12-08] MEDS ORDERED: OCTREOTIDE 500 MCG in NA CHLORIDE 0.9% 500 ML IV SCH (14:00)
[2021-12-08] MEDS ORDERED: PANTOPRAZOLE INJ 80 MG in NA CHLORIDE 0.9% 250 ML IV SCH (14:00)
--- NOTE | 2021-12-08 14:41 | ER ---
Nurse's Notes [facility] Name: Wade Chavez Age: 80 yrs Sex: Male : 1940 Arrival Date: 12/08/2021 Time: 10:55 Bed 7 Private MD: Diagnosis: GI Bleed/ Gastrointestinal hemorrhage, unspecified-Upper GI bleed Presentation: 12/08 10:55 Chief complaint: EMS states: Pt c/o mid-sternal chest pain that began at approx 2 am ph this morning when he got up to use the restroom. Describes pain as intermittent and squeezing. Denies N/V, or SOB. Hx of GERD and HTN, BP 116/80, HR 99 Spo2 98% RA. Coronavirus screen: Vaccine status: Patient reports receiving the 2nd dose of the covid vaccine. At this time, the client does not indicate any symptoms associated with coronavirus-19. Ebola Screen: No symptoms or risks identified at this time. Initial Sepsis Screen: Does the patient meet any 2 criteria? No. Patient's initial sepsis screen is negative. Does the patient have a suspected source of infection? No. Patient's initial sepsis screen is negative. Risk Assessment: Do you want to hurt yourself or someone else? Patient reports no desire to harm self or others. Onset of symptoms was December 08, 2021. 10:55 Method Of Arrival: EMS: [facility] 10:55 Acuity: SHER 3 ph Triage Assessment: 11:01 General: Appears in no apparent distress. comfortable, Behavior is calm, cooperative, ph appropriate for age, Denies fever, feeling ill. Pain: Complains of pain in mid-sternal area Pain radiates to diaphragm Quality of pain is described as sharp, squeezing. Neuro: Level of Consciousness is awake, alert, obeys commands, Oriented to person, place, time, situation. Cardiovascular: Reports chest pain, Denies diaphoresis, lightheadedness, nausea, shortness of breath, Capillary refill < 3 seconds in bilateral fingers Patient's skin is warm and dry. Rhythm is irregular Chest pain quality is sharp, squeezing. Respiratory: Airway is patent Respiratory effort is even, unlabored, Respiratory pattern is regular, symmetrical. GI: Reports epigastric pain, Patient currently denies diarrhea, nausea, vomiting. : No signs and/or symptoms were reported regarding the genitourinary system. Derm: Skin is intact, Skin is pink, warm \\T\\ dry. 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 Circulation, motion, and sensation intact. Range of motion: intact in all extremities. Historical: - Allergies: 11:00 No Known Allergies; ph - Home Meds: 11:00 amlodipine 5 mg tab 1 tab once daily [Active]; losartan 25 mg Oral tab 1 tab once daily ph [Active]; lovastatin 20 mg Oral tab 1 tab once daily [Active]; metoprolol tartrate 50 mg Oral tab 1 tab 2 times per day [Active]; - PMHx: 11:00 Atrial Fib; Cancer; GERD; High Cholesterol; Hypertension; Prostate Cancer; ph - Immunization history:: Adult Immunizations unknown. - Social history:: Smoking status: Patient denies any tobacco usage or history of. Screenin:03 Abuse screen: Denies threats or abuse. Denies injuries from another. Nutritional ph screening: No deficits noted. Tuberculosis screening: No symptoms or risk factors identified. Fall Risk None identified. Assessment: 12:55 Reassessment: Patient appears in no apparent distress at this time. Patient and/or ph family updated on plan of care and expected duration. Pain level reassessed. Patient is alert, oriented x 3, equal unlabored respirations, skin warm/dry/pink. Pt reports that chest pain has increased, no relief from nitro, ERP notified and order received for IV pain medication. Returned to pt's room and states, " He just threw up the lining of his stomach again. He's had to be in the hospital for that before." also states, " He likes to drink that alcohol too." Reports that pt is not a daily drinker but drinks regularly. States, " He don't drink every day but when he does he will finish the bottle." Small amount of coffee ground emesis noted in basin. Guaiac + for blood. PRASANNA Osei notified, additional labs ordered. 14:00 Reassessment: Patient appears in no apparent distress at this time. Patient and/or ph family updated on plan of care and expected duration. Pain level reassessed. Patient is alert, oriented x 3, equal unlabored respirations, skin warm/dry/pink. Patient denies pain at this time. 15:31 Reassessment: Patient appears in no apparent distress at this time. Patient and/or ph family updated on plan of care and expected duration. Pain level reassessed. Patient is alert, oriented x 3, equal unlabored respirations, skin warm/dry/pink. Report called to Cierra CASTRO at [facility], awaiting EMS for transport. 16:30 Reassessment: Patient appears in no apparent distress at this time. Patient and/or ph family updated on plan of care and expected duration. Pain level reassessed. Patient is alert, oriented x 3, equal unlabored respirations, skin warm/dry/pink. [facility] at bedside, pt transferred to [facility]. Vital Signs: 10:55 BP 120 / 98; Pulse 105; Resp 18; Temp 97.9; Pulse Ox 95% ; Weight 79.38 kg; Height 5 ph ft. 6 in. (167.64 cm); 12:28 BP 97 / 70; Pulse 124; Resp 22; Pulse Ox 100% on R/A; ph 13:33 BP 117 / 84; Pulse 79; Resp 18; Pulse Ox 98% on R/A; ph 14:31 BP 117 / 98; Pulse 116; Resp 15; Pulse Ox 95% ; jl7 15:21 BP 143 / 99; Pulse 115; Resp 18; Temp 97.8; Pulse Ox 97% on R/A; ph 10:55 Body Mass Index 28.25 (79.38 kg, 167.64 cm) ph Vitals: 12:28 Cardiac Rhythm Assessment Atrial fibrillation. ph ED Course: 10:55 Patient arrived in ED. ph 11:00 Sea Carlson NP is PHCP. pm1 11:00 Mark Qureshi MD is Attending Physician. pm1 11:00 Triage completed. 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 11:03 Patient has correct armband on for positive identification. Bed in low position. Call light in reach. Side rails up X 1. collar turner on. Pulse ox on. NIBP on. Door closed. Noise minimized. Warm blanket given. 11:03 Patient maintains SpO2 saturation greater than 95% on room air. ph 11:08 Inserted saline lock: 20 gauge in right forearm, using aseptic technique. Blood jw7 collected. 11:11 Cortney Villavicencio, RN is Primary Nurse. ph 11:21 EKG done, by ED staff, reviewed by Sea Carlson NP. jw7 12:05 XRAY Chest (1 view) In Process Unspecified. EDMS 13:30 Inserted saline lock: 22 gauge in left hand, using aseptic technique. ph 15:22 No provider procedures requiring assistance completed. Patient transferred, IV remains ph in place. 15:23 1425 started transfer to [facility]. sp 15:[address] Kristopher Man accepted pt 1438 [facility] admin approval. sp Administered Medications: 11:15 Drug: Nitroglycerin 0.4 mg Route: Sublingual; ph 13:32 Follow up: Response: No adverse reaction; Pain is unchanged, physician notified ph 12:50 Drug: NS 0.9% 500 ml Volume: 500 ml; Route: IV; Rate: 1 bolus; Site: right antecubital; ph 13:33 Follow up: Response: No adverse reaction; IV Status: Completed infusion; IV Intake: ph 500ml 12:53 Drug: Zofran (Ondansetron) 4 mg Route: IVP; Site: right antecubital; ph 13:32 Follow up: Response: No adverse reaction; Nausea is decreased; Vomiting decreased ph 12:55 Drug: fentaNYL (PF) 25 mcg Route: IVP; Site: right antecubital; ph 13:32 Follow up: Response: No adverse reaction; Pain is decreased; RASS: Drowsy (-1) ph 13:25 Drug: Octreotide 50 mcg Route: IV; Rate: calculated rate; Site: right antecubital; ph 15:22 Follow up: Response: No adverse reaction; IV Status: Completed infusion ph 13:26 Drug: ProTONIX (pantoprazole) 40 mg Route: IVP; Site: right antecubital; ph 13:32 Follow up: Response: No adverse reaction ph 13:56 Drug: ProTONIX (pantoprazole) 8 mg/hr Route: IV; Rate: 25 ml/hr; Site: right jl7 antecubital; 15:22 Follow up: Response: No adverse reaction; IV Status: Infusion continued upon transfer ph 13:57 Drug: Octreotide Infusion (50 mcg/hr) - (Octreotide 500 mcg, NS 0.9% 500 ml) Route: IV; jl7 Rate: 50 ml/hr; Site: left hand; 15:22 Follow up: Response: No adverse reaction; IV Status: Infusion continued upon transfer ph Intake: 13:33 IV: 500ml; Total: 500ml. ph Outcome: 14:41 ER care complete, transfer ordered by . pm1 16:38 Patient left the ED. ph 16:38 Transferred by ground EMS [facility] to [facility], Transfer ph form completed. X-rays sent w/ patient. 16:38 Condition: stable 16:38 Instructed on the need for admit. Signatures: Dispatcher [employer] EDMS Kellie García Patricia, RN RN Sea Pereyra, PRASANNA FIELD CONTROL INSPECTOR pm1 Jason Durbin RN RN jl7 Annemarie Siddiqi 7
--- NOTE | 2021-12-08 14:42 | EDPHYS ---
Physician Documentation [facility] Name: Wade Chavez Age: 80 yrs Sex: Male : 1940 Arrival Date: 12/08/2021 Time: 10:55 Bed 7 Private MD: ED Physician Mark Qureshi HPI: 12/08 11:00 This 80 yrs old Black Male presents to ER via EMS with complaints of Chest Pain. pm1 11:00 The patient or guardian reports chest pain that is located primarily in the mid-sternal pm1 area. Onset: today, at 02:00. The pain radiates to back and forth between right and left chest. Associated signs and symptoms: Pertinent negatives: abdominal pain, cough, dizziness, headache, nausea, shortness of breath, vomiting, diarrhea. The chest pain is described as sharp. Duration: The patient or guardian reports multiple episodes, that wax and wane. Modifying factors: The symptoms are alleviated by nothing. the symptoms are aggravated by nothing. Severity of pain: in the emergency department the pain is a 8 / 10. EMS care prior to arrival includes: aspirin. The patient has not experienced similar symptoms in the past. The patient has not recently seen a physician. Patient presents to the ER with complaints of chest pain that started at 2 AM today. Patient was awake at that time. The pain lasted approximately 2 hours and then resolved. Patient went to sleep and then the pain resolved and returned a few times. Prior to arrival his chest pain lasted for 1 hour. 13:19 Patient drank 1 pint [place], whiskey yesterday. Drank similar amount of alcohol 3 pm1 days prior. Patient drinks heavy 2-3 times per week. Patient denies alcohol withdrawal or seizures. Drinking like this his whole life per . Historical: - Allergies: 11:00 No Known Allergies; ph - Home Meds: 11:00 amlodipine 5 mg tab 1 tab once daily [Active]; losartan 25 mg Oral tab 1 tab once daily ph [Active]; lovastatin 20 mg Oral tab 1 tab once daily [Active]; metoprolol tartrate 50 mg Oral tab 1 tab 2 times per day [Active]; - PMHx: 11:00 Atrial Fib; Cancer; GERD; High Cholesterol; Hypertension; Prostate Cancer; ph - Immunization history:: Adult Immunizations unknown. - Social history:: Smoking status: Patient denies any tobacco usage or history of. ROS: 11:00 Constitutional: Negative for fever, chills, and weight loss, Respiratory: Negative for pm1 shortness of breath, cough, wheezing, and pleuritic chest pain. 11:00 Abdomen/GI: Negative for abdominal pain, nausea, vomiting, diarrhea, and constipation, Back: Negative for injury and pain, MS/Extremity: Negative for injury and deformity, Skin: Negative for injury, rash, and discoloration, Neuro: Negative for headache, weakness, numbness, tingling, and seizure. 11:00 Cardiovascular: Positive for chest pain, Negative for edema. 11:00 All other systems are negative. Exam: 11:00 Constitutional: This is a well developed, well nourished patient who is awake, alert, pm1 and in no acute distress. Head/Face: Normocephalic, atraumatic. 11:00 Back: No spinal tenderness. No costovertebral tenderness. Full range of motion. Skin: Warm, dry with normal turgor. Normal color with no rashes, no lesions, and no evidence of cellulitis. MS/ Extremity: Pulses equal, no cyanosis. Neurovascular intact. Full, normal range of motion. 11:00 ENT: Mouth: no acute changes, Lips: normal, moist, Oral mucosa: normal, pink and intact, moist. 11:00 Cardiovascular: Exam negative for acute changes, Rate: tachycardic, actual rate is 105 bpm, Rhythm: irregular, Pulses: no pulse deficits are appreciated, Heart sounds: normal, normal S1and S2, Edema: 11:00 Respiratory: Exam negative for acute changes, respiratory distress, shortness of breath, Breath sounds: are clear throughout. 11:00 Neuro: Exam negative for acute changes, Orientation: is normal, Mentation: is normal, Motor: is normal, moves all fours. 12:52 Abdomen/GI: small amount, approximately 60 mL of coffee ground emesis present in basin. pm1 14:29 Abdomen/GI: Rectal exam: rectal tone normal, Stool: brown, guaiac negative, Patient Service Specialist: pm1 Annemarie internetworking technician RN nurse. Vital Signs: 10:55 BP 120 / 98; Pulse 105; Resp 18; Temp 97.9; Pulse Ox 95% ; Weight 79.38 kg; Height 5 ph ft. 6 in. (167.64 cm); 12:28 BP 97 / 70; Pulse 124; Resp 22; Pulse Ox 100% on R/A; ph 13:33 BP 117 / 84; Pulse 79; Resp 18; Pulse Ox 98% on R/A; ph 14:31 BP 117 / 98; Pulse 116; Resp 15; Pulse Ox 95% ; jl7 15:21 BP 143 / 99; Pulse 115; Resp 18; Temp 97.8; Pulse Ox 97% on R/A; ph 10:55 Body Mass Index 28.25 (79.38 kg, 167.64 cm) ph MDM: 11:00 Patient medically screened. pm1 11:03 Data reviewed: vital signs. pm1 14:39 Physician consultation: MD Man was contacted at 14:39, regarding patient's condition, pm1 and will see patient. 12/08 11:00 Order name: Basic Metabolic Panel pm1 12/08 11:00 Order name: CBC with Diff pm1 12/08 11:00 Order name: LFT's pm1 12/08 11:00 Order name: Magnesium; Complete Time: 11:37 pm1 12/08 11:00 Order name: NT PRO-BNP; Complete Time: 11:37 pm1 12/08 11:00 Order name: PT-INR; Complete Time: 11:37 pm1 12/08 11:00 Order name: Troponin HS; Complete Time: 11:37 pm1 12/08 11:01 Order name: Basic Metabolic Panel; Complete Time: 11:37 EDMS 12/08 11:01 Order name: CBC with Automated Diff; Complete Time: 11:37 EDMS 12/08 11:01 Order name: Liver (Hepatic) Function; Complete Time: 11:37 EDMS 12/08 12:52 Order name: ETOH Level; Complete Time: 14:08 pm1 12/08 13:08 Order name: COVID-19 SARS RT PCR (Document "Date of Onset" if Symptomatic); Complete pm1 Time: 14:22 12/08 13:08 Order name: Type And Screen; Complete Time: 15:50 pm1 12/08 14:31 Order name: Lactate pm1 12/08 11:00 Order name: XRAY Chest (1 view); Complete Time: 12:35 pm1 12/08 11:00 Order name: EKG; Complete Time: 11:01 pm1 12/08 11:00 Order name: Cardiac monitoring; Complete Time: 11: pm12/08 11:00 Order name: EKG - Nurse/Tech; Complete Time: : pm12/08 11:00 Order name: IV Saline Lock; Complete Time: : pm12/08 11:00 Order name: Labs collected and sent; Complete Time: : pm12/08 11:00 Order name: O2 Per Protocol; Complete Time: 12/08 11:00 Order name: O2 Sat Monitoring; Complete Time: : pm Administered Medications: 11:15 Drug: Nitroglycerin 0.4 mg Route: Sublingual; ph 13:32 Follow up: Response: No adverse reaction; Pain is unchanged, physician notified ph 12:50 Drug: NS 0.9% 500 ml Volume: 500 ml; Route: IV; Rate: 1 bolus; Site: right antecubital; ph 13:33 Follow up: Response: No adverse reaction; IV Status: Completed infusion; IV Intake: ph 500ml 12:53 Drug: Zofran (Ondansetron) 4 mg Route: IVP; Site: right antecubital; ph 13:32 Follow up: Response: No adverse reaction; Nausea is decreased; Vomiting decreased ph 12:55 Drug: fentaNYL (PF) 25 mcg Route: IVP; Site: right antecubital; ph 13:32 Follow up: Response: No adverse reaction; Pain is decreased; RASS: Drowsy (-1) ph 13:25 Drug: Octreotide 50 mcg Route: IV; Rate: calculated rate; Site: right antecubital; ph 15:22 Follow up: Response: No adverse reaction; IV Status: Completed infusion ph 13:26 Drug: ProTONIX (pantoprazole) 40 mg Route: IVP; Site: right antecubital; ph 13:32 Follow up: Response: No adverse reaction ph 13:56 Drug: ProTONIX (pantoprazole) 8 mg/hr Route: IV; Rate: 25 ml/hr; Site: right jl7 antecubital; 15:22 Follow up: Response: No adverse reaction; IV Status: Infusion continued upon transfer ph 13:57 Drug: Octreotide Infusion (50 mcg/hr) - (Octreotide 500 mcg, NS 0.9% 500 ml) Route: IV; jl7 Rate: 50 ml/hr; Site: left hand; 15:22 Follow up: Response: No adverse reaction; IV Status: Infusion continued upon transfer ph Disposition: 18:31 Co-signature as Attending Physician, Mark LI I agree with the assessment and opal plan of care. Disposition Summary: 12/08/21 14:41 Transfer Ordered Transfer Location: [facility] pm1 Reason: Higher level of care pm1 Condition: Stable pm1 Problem: new pm1 Symptoms: have improved pm1 Accepting Physician: Donovan(12/08/21 16:38) ph Diagnosis - GI Bleed/ Gastrointestinal hemorrhage, unspecified - Upper GI bleed pm1 Forms: - Medication Reconciliation Form pm1 - SBAR form pm1 Signatures: Dispatcher [employer] EDMark Maciel MD MD cha Hall, Patricia, RN RN ph Sea Carlson, PRASANNA INPATIENT AUDITOR pm1 Jason Durbin RN RN jl7 Corrections: (The following items were deleted from the chart) 16:38 14:41 Donovan pm1 ph
[2021-12-08 16:56] VITALS: BP 143/99; TEMP 97.8; O2SAT 97
== END 2021-12-08 16:38 | disposition short-term general hospital (02) ==
LOC: ER 10:53
DX: K92.2 Gastrointestinal hemorrhage, unspecified (principal); I10 Essential (primary) hypertension; E78.00 Pure hypercholesterolemia, unspecified; K21.9 Gastro-esophageal reflux disease without esophagitis; I48.91 Unspecified atrial fibrillation; Z20.822 Contact with and (suspected) exposure to COVID-19
CPT/HCPCS: 93005; 85025; 80048; 36415; 80320; 86900; 83735; 86850; 85610; 86901; 80076; 84484; 83880; 71045; 99285; U0003; J2354 ×2; C9113 ×2; J3010; J7050; J7040 ×2; J2405

== ENCOUNTER 2025-06-16 10:48 | Inpatient (IN) | payer OTHER ==
--- OUTSIDE RECORDS SUMMARY | 2025-06-16 11:02 | XMS REPORT | Continuity of Care Document ---
Author Name Unknown Address [address] [facility] [address] [place] [address] Organization [facility] [place] Address [address] [facility] 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 Name Role Phone [facility] NATA, [facility] Primary Care Physician BON NORMAN Attending Clinician Unavailable Rivka Ureña Attending Clinician [phone] DK ACE Attending Clinician Unavailable Dk Ace MD Attending Clinician +- [phone] Doctor Unassigned, [place] Attending Clinician U Cesar Woods Attending Clinician +- [phone] CESAR MERCEDES Attending Clinician Unavailable 2, [facility] Attending Clinician Unavailable Vaccine, [facility] Attending Clinician Unavailable TOMMY KRAUS Attending Clinician Unavailable Tommy Kraus MD Attending Clinician [phone] Savage Lopez MD Attending Clinician [phone] Tommy Paez MD Attending Clinician [phone] TOMMY PAEZ Attending Clinician UnavailLORETA Whittaker Attending Clinician UnavailLoreta Whittaker MD Attending Clinician Julia Varner RN Attending Clinician Unavailable MIRTHA JOHNSON Attending Clinician UnavailYadiel Weir MD Attending Clinician Mariann LI, Mirtha Ca Attending Clinician TOMMY KRAUS Admitting Clinician Unavailable MIRTHA JOHNSON Admitting Clinician Unavailab jesenia Johnson MD, Mirtha Ca Admitting Clinician Payers Payer Name Policy Type Policy Number Effective Date Expirati on Date Source [place] [id number] 2021 00:00:00 Problems Condition Name Condition Details Condition Category Status Onset Date Resolution Date Last Treatment Date Treating Clinician Comments Source Mixed hyperlipid emia Mixed hyperlipid emia Disease Active 5-17 00:00: 00 [facility] Low vitamin D level Low vitamin D level Disease Active 5-17 00:00: 00 [facility] Arthritis, multiple joint involvemen t Arthritis, multiple joint involvemen t Disease Active 5-17 00:00: 00 [facility] Tachycardi a Tachycardi a Disease Active 7-05 00:00: 00 [facility] Chronic liver disease Chronic liver disease Disease Active 4- 00:00: 00 [facility] Calculus of gallbladde r without cholecysti tis without obstructio n Calculus of gallbladde r without cholecysti tis without obstructio n Disease Active 4-01 00:00: 00 [facility] Chronic alcohol use Chronic alcohol use Disease Active 4- 00:00: 00 [facility] Prostate carcinoma Prostate carcinoma Disease Active 4-01 00:00: 00 [facility] Chronic atrial fibrillati on Chronic atrial fibrillati on Disease Active 4-01 00:00: 00 [facility] Essential hypertensi on Essential hypertensi on Disease Active 4-01 00:00: 00 [facility] 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 Disease Active 3-13 00:00: 00 [facility] Allergies, Adverse Reactions, Alerts Allergy Name Allergy Type Status Severity Reaction(s) Onset Date Inactive Date Treating Clinician Comments Source none (Not Checked) Propensi ty to adverse reaction to drug Active 01-25 00:00: 00 Eric Stanton NO KNOWN ALLERGIE S Drug Class Active [facility] Social History Social Habit Start Date Stop Date Quantity Comments Source Gender identity [facility] SDOH Alcohol Frequency [facility] History SDOH Alcohol Std Drinks [facility] History SDOH Alcohol Binge [facility] Alcohol intake 2023-09-08 00:00:00 2023-09-08 00:00:00 Current drinker of alcohol (finding) [facility] Alcoholic beverage intake 2023-09-08 00:00:00 2023-09-08 00:00:00 Current drinker of alcohol (finding) [facility] Exposure to SARS-CoV-2 (event) 2023-02-01 00:00:00 2023-02-11 07:47:[address] [facility] History of Social function 2022-10-14 00:00:00 2022-10-14 00:00:[address] [facility] Tobacco use and exposure 2021-12-08 00:00:00 2021-12-08 00:00:00 Smokeless tobacco non-user [facility] Alcohol Comment 2021-12-08 00:00:00 2021-12-08 00:00:00 heavy hard liquor usage 2-[address] [facility] Sex assigned at 1940 00:00:00 1940 00:00:[address] [facility] Smoking Status Start Date Stop Date Source Never smoked tobacco [facility] Medications Ordered Medication Name Filled Medication Name Start Date Stop Date Current Medication? Ordering Clinician Indication Dosage Frequency Signature (SIG) Comments Components Source thiamine HCl (vitamin B1) 100 mg tablet 04-18 00:00: 00 Yes 1mg Eric Stanton amlodipine 5 mg tablet 04-18 00:00: 00 Yes 1mg Eric Stanton folic acid 1 mg tablet 04-18 00:00: 00 Yes 1mg Eric Stanton metoprolol succinate ER 25 mg tablet,exte nded release 24 hr - 00:00: 00 Yes 3mg Eric Stanton lovastatin 20 mg tablet - 00:00: 00 Yes 1mg Eric Stanton losartan 25 mg tablet - 00:00: 00 Yes 1mg Eric Stanton gabapentin 100 mg capsule - 00:00: 00 Yes 1mg Eric Stanton thiamine HCl (vitamin B1) 100 mg tablet 5-29 00:00: 00 Yes 1mg Eric Stanton folic acid 1 mg tablet -25 00:00: 00 Yes 1mg Eric Stanton metoprolol succinate ER 25 mg tablet,exte nded release 24 hr -25 00:00: 00 Yes 3mg Eric Stanton amlodipine 5 mg tablet 4-16 00:00: 00 Yes 1mg Eric Stanton lovastatin 20 mg tablet 4-16 00:00: 00 Yes 1mg Eric Stanton losartan 25 mg tablet 4-16 00:00: 00 Yes 1mg Eric Stanton gabapentin 100 mg capsule 4-16 00:00: 00 Yes 1mg Eric Statnon amlodipine 5 mg tablet 2023-09 2- 00:00: 00 Yes 1mg Eric Stanton losartan 25 mg tablet 2023-09 2- 00:00: 00 Yes 1mg Eric Stanton gabapentin 100 mg capsule 2023-09 2-02 00:00: 00 Yes 1mg Eric Stanton benzonatate 100 mg capsule 2023-09 0-15 00:00: 00 Yes 12mg Eric Stanton thiamine HCl (vitamin B1) 100 mg tablet 2023-09 0-11 00:00: 00 Yes mg Eric Stanton folic acid 1 mg tablet 2023-09 0-11 00:00: 00 Yes 1mg Eric Stanton montelukast 10 mg tablet 2023-09 0-11 00:00: 00 Yes 1mg Eric Stanton amlodipine 5 mg tablet 9-09 00:00: 00 Yes 1mg Eric Stanton David Low Dose Aspirin 81 mg tablet,carole yed release 01-25 00:00: 00 Yes 1mg Eric Stanton amlodipine 5 mg tablet 01-25 00:00: 00 Yes 1mg Eric Stanton folic acid 1 mg tablet 01-25 00:00: 00 Yes 1mg Eric Stanton furosemide 20 mg tablet 01-25 00:00: 00 Yes 1mg Eric Stanton metoprolol succinate ER 25 mg tablet,exte nded release 24 hr 01-25 00:00: 00 Yes 3mg Eric Stanton lovastatin 20 mg tablet 01-25 00:00: 00 Yes 1mg Eric Stanton thiamine HCl (vitamin B1) 100 mg tablet 01-25 00:00: 00 Yes 1mg Eric Stanton losartan 25 mg tablet 01-25 00:00: 00 Yes 1mg Eric Stanton gabapentin 100 mg capsule 01-25 00:00: 00 Yes 1mg Eric Stanton losartan 25 mg tablet 12-22 00:00: 00 Yes mg Eric Stanton thiamine 100 mg tablet 3 00:00: 00 Yes [id number] 100mg TAKE 1 TABLET BY MOUTH EVERY DAY IN THE MORNING [facility] thiamine HCl (vitamin B1) 100 mg tablet 12-06 00:00: 00 Yes mg Eric Stanton amlodipine 5 mg tablet 2- 00:00: 00 Yes mg Eric Stanton amLODIPine 5 mg tablet 2022-09 2 00:00: 00 Yes [id number] 5mg Take 1 tablet by mouth in the morning. [facility] furosemide 20 mg tablet 2022-09 00:00: 00 Yes [id number] 20mg Take 1 tablet by mouth in the morning. [facility] gabapentin 100 mg capsule 2022-09 00:00: 00 Yes [id number] 100mg Take 1 capsule by mouth in the morning and 1 capsule at noon and 1 capsule in the evening. [facility] losartan 25 mg tablet 2022-0915 00:00: 00 Yes [id number] 25mg Take 1 tablet by mouth in the morning. [facility] lovastatin 20 mg tablet 2022-09 00:00: 00 Yes [id number] 20mg Take 1 tablet by mouth at bedtime. [facility] metoprolol succinate XL 25 mg 24 hr tablet 2022-09 00:00: 00 Yes [id number] TAKE 3 TABLES BY MOUTH TWICE A DAY [facility] pantoprazol e 40 mg EC tablet 2022-09 00:00: 00 Yes [id number] 40mg Take 1 tablet by mouth in the morning and 1 tablet in the evening. [facility] TAKE 1 TABLET BY MOUTH EVERYDAY AT BEDTIME 2022-09 00:00: 00 Yes Eric Stanton TAKE 1 TABLET BY MOUTH EVERY DAY IN THE MORNING 2022-09 00:00: 00 Yes Eric Stanton TAKE 1 TABLET BY MOUTH EVERY DAY IN THE MORNING 2022-09 00:00: 00 Yes Eric Stanton TAKE 1 CAPSULE BY MOUTH IN THE MORNING AT AT NOON AND IN THE EVENING 2022-09 00:00: 00 Yes Eric Stanton cetirizine 10 mg tablet 2022-09 09:08: 51 09-08 00:00 :00 No 10mg Take 10 mg by mouth daily. [facility] metoprolol succinate ER 25 mg tablet,exte nded release 24 hr 2022-09 00:00: 00 Yes mg Eric Stanton gabapentin 100 mg capsule 2022-09 00:00: 00 09-11 00:00 :00 No [id number] TAKE 1 CAPSULE BY MOUTH THREE TIMES A DAY, MORNING, NOON, AND EVENING [facility] TAKE 3 TABLETS BY MOUTH TWICE A DAY 06-03 00:00: 00 Yes Eric Stanton TAKE 1 TABLET DAILY. 03-11 00:00: 00 02-08 00:00 :00 No 20 Eric Stanton TAKE 5 ML EVERY 4 TO 6 HOURS NEEDED. 03-11 00:00: 00 02-08 00:00 :00 No [id number] Eric Stanton TAKE 2 TABLETS ON DAY 1 THEN TAKE 1 TABLET A DAY FOR 4 DAYS. 03-11 00:00: 00 02-08 00:00 :00 No 250 Eric Stanton 1 CAP EVERY 8 HOURS NEEDED FOR COUGH 03-11 00:00: 00 02-08 00:00 :00 No 200 Eric Stanton gabapentin 100 mg capsule 02-12 00:00: 00 Yes mg Eric Stanton TAKE 1 TABLET BY MOUTH EVERY DAY IN THE MORNING 02-11 00:00: 00 Yes Eric Stanton furosemide 20 mg tablet 02-11 00:00: 00 Yes mg Eric Stanton TAKE 1 CAPSULE BY MOUTH IN THE MORNING AT AT NOON AND IN THE EVENING 02-11 00:00: 00 Yes Eric Stanton TAKE 1 TABLET BY MOUTH EVERY DAY IN THE MORNING 02-11 00:00: 00 Yes Eric Stanton TAKE 1 TABLET BY MOUTH EVERY DAY IN THE MORNING 02-11 00:00: 00 Yes Eric Stanton thiamine 100 mg tablet 02-11 00:00: 00 12-06 00:00 :00 No [id number] 100mg Take 1 tablet by mouth in the morning. [facility] pantoprazol e 40 mg EC tablet 02-11 00:00: 00 09-11 00:00 :00 No [id number] 40mg Take 1 tablet by mouth in the morning and 1 tablet in the evening. [facility] losartan 25 mg tablet 02-11 00:00: 00 09-11 00:00 :00 No [id number] 25mg Take 1 tablet by mouth in the morning. [facility] furosemide 20 mg tablet 02-11 00:00: 00 09-11 00:00 :00 No [id number] 20mg Take 1 tablet by mouth in the morning. [facility] amLODIPine 5 mg tablet 02-11 00:00: 00 09-11 00:00 :00 No [id number] 5mg Take 1 tablet by mouth in the morning. [facility] lovastatin 20 mg tablet 02-11 00:00: 00 09-11 00:00 :00 No [id number] 20mg Take 1 tablet by mouth at bedtime. [facility] gabapentin 100 mg capsule -17 00:00: 00 09-08 00:00 :00 No [id number] 100mg Take 1 capsule by mouth in the morning and 1 capsule at noon and 1 capsule in the evening. [facility] lovastatin 20 mg tablet 5-16 00:00: 00 Yes mg Eric Stanton TAKE 1 TABLET BY MOUTH EVERY DAY -24 00:00: 00 Yes Eric Stanton TAKE 3 TABLES BY MOUTH TWICE A DAY -19 00:00: 00 Yes Eric Stanton TAKE 1 TABLET BY MOUTH DAILY 2- 00:00: 00 02-08 00:00 :00 No 20 Eric Stanton TAKE 1 TABLET DAILY. - 00:00: 00 02-08 00:00 :00 No 5 Eric Stanton TAKE 1 TABLET BY MOUTH EVERYDAY AT BEDTIME 10-14 00:00: 00 Yes Eric Stanton lovastatin 20 mg tablet 10-14 00:00: 00 02-11 00:00 :00 No [id number] 20mg Take 1 tablet by mouth at bedtime. [facility] TAKE 1 TABLET BY MOUTH EVERY DAY -09 00:00: 00 Yes Eric Stanton TAKE 1 TABLET BID 2021-09 00:00: 00 02-08 00:00 :00 No 5 Eric Stanton TAKE 1 TABLET DAILY. 2021-09 00:00: 00 02-08 00:00 :00 No 5 Eric Stanton Dose Unknown 2021-09 00:00: 00 Yes Eric Stanton TAKE 1 TABLET BY MOUTH EVERY DAY 2021-09- 00:00: 00 No METOPROLOL SUCCINATE ER 50MG ER TAB 2021-09 0-18 00:00: 00 Yes Eric Stanton METOPROLOL SUCCINATE ER 50MG ER TAB 2021-09 0-18 00:00: 00 No TAKE 1 TABLET BY MOUTH EVERY MORNING 2021-09 00:00: 00 Yes Eric Stanton vitamin B-12 (B-12 DOTS) 500 mcg tablet 2021-09 09:38: 45 07-02 00:00 :00 No 500ug Take 500 mcg by mouth daily. [facility] TAKE 1 TABLET BY MOUTH EVERY DAY IN THE MORNING 2021-09 00:00: 00 Yes Eric Stanton TAKE 1 TABLET BY MOUTH EVERY DAY IN THE MORNING 2021-09 00:00: 00 Yes Eric Stanton foLIC acid 1 mg tablet 2021-09 00:00: 00 Yes [id number] 1mg Take 1 tablet by mouth in the morning. [facility] calcium carbonate (CALCIUM 500) 500 mg calcium (1,250 mg) tablet 2021-09 00:00: 00 Yes [id number] 500mg Take 1 tablet by mouth in the morning. [facility] vitamin B-12 (B-12 DOTS) 500 mcg tablet 2021-09 00:00: 00 Yes [id number] 500ug Take 1 tablet by mouth in the morning. [facility] Diclofenac Sodium (VOLTAREN) 1 % gel 2021-09 00:00: 00 Yes [id number] 103 Apply 4g to affected area QID [facility] Lidocaine 5 % cream 2021-09 00:00: 00 Yes [id number] 103 Apply to area(s) 2 (two) times daily as needed for Pain (scale 4-6). Apply 5g to affected areas BID PRN [facility] thiamine 100 mg tablet 2021-09 00:00: 00 02-11 00:00 :00 No [id number] 100mg Take 1 tablet by mouth in the morning. [facility] pantoprazol e 40 mg EC tablet 2021-09 00:00: 00 02-11 00:00 :00 No [id number] 40mg Take 1 tablet by mouth in the morning and 1 tablet in the evening. [facility] apixaban (ELIQUIS) 2.5 mg tablet 2021-09 00:00: 00 02-11 00:00 :00 No [id number] 5mg Take 2 tablets by mouth in the morning and 2 tablets in the evening. Indication s: atrial fibrillati on [facility] amLODIPine 5 mg tablet 2021-09 0- 00:00: 00 02-11 00:00 :00 No [id number] 5mg Take 1 tablet by mouth in the morning. [facility] furosemide 20 mg tablet 2021-09 0- 00:00: 00 02-11 00:00 :00 No [id number] 20mg Take 1 tablet by mouth in the morning. [facility] losartan 25 mg tablet 2021-09 0 00:00: 00 02-11 00:00 :00 No [id number] 25mg Take 1 tablet by mouth in the morning. [facility] gabapentin 100 mg capsule 2021-09 0 00:00: 00 02-11 00:00 :00 No [id number] 103 100mg Take 1 capsule by mouth in the morning and 1 capsule at noon and 1 capsule in the evening. [facility] metoprolol succinate XL 25 mg 24 hr tablet 2021-09 00:00: 00 01-14 00:00 :00 No [id number] 50mg Take 2 tablets by mouth in the morning and 2 tablets in the evening. [facility] METOPROLOL SUCCINATE XL 25 mg 24 hr tablet 04-17 00:00: 00 07-02 00:00 :00 No [id number] TAKE 3 TABLETS BY MOUTH 2 TIMES DAILY. [facility] ELIQUIS 5MG 04-14 00:00: 00 Yes 5000 Eric Stanton AMLODIPINE BESYLATE 5MG TAB 04-07 00:00: 00 Yes Eric Stanton TAKE 1 TABLET BY MOUTH EVERY DAY 04-07 00:00: 00 Yes 100 Eric Stanton AMLODIPINE BESYLATE 5MG TAB 04-07 00:00: 00 No TAKE 1 TABLET BY MOUTH EVERY DAY 04-07 00:00: 00 No 100 METOPROLOL SUCCINATE ER 25MG ER 04-05 00:00: 00 Yes [id number] Eric Stanton FUROSEMIDE 20MG 04-01 00:00: 00 Yes Eric Stanton PANTOPRAZOL E SODIUM 40MG DR 04-01 00:00: 00 Yes Eric Stanton TAKE 1 TABLET BY MOUTH EVERY DAY 04-01 00:00: 00 Yes Eric Stanton TAKE 1 TABLET BY MOUTH EVERY DAY 04-01 00:00: 00 Yes Eric Stanton TAKE 1 TABLET BY MOUTH EVERY DAY 04-01 00:00: 00 Yes Eric Stanton multivitami n tablet 04-01 00:00: 00 Yes [id number] 1{tbl} Take 1 tablet by mouth daily. [facility] metoprolol succinate XL 25 mg 24 hr tablet 04-01 00:00: 00 Yes [id number] 75mg Take 3 tablets by mouth 2 (two) times daily. [facility] apixaban (ELIQUIS) 2.5 mg tablet 04-01 00:00: 00 07-02 00:00 :00 No [id number] 5mg Take 2 tablets by mouth 2 (two) times daily. Indication s: atrial fibrillati on [facility] losartan 25 mg tablet 04-01 00:00: 00 07-02 00:00 :00 No [id number] 25mg Take 1 tablet by mouth daily. [facility] furosemide 20 mg tablet 04-01 00:00: 00 07-02 00:00 :00 No [id number] 20mg Take 1 tablet by mouth daily. [facility] amLODIPine 5 mg tablet 04-01 00:00: 00 07-02 00:00 :00 No [id number] 5mg Take 1 tablet by mouth daily. [facility] thiamine 100 mg tablet 04-01 00:00: 00 07-02 00:00 :00 No [id number] 100mg Take 1 tablet by mouth daily. [facility] pantoprazol e 40 mg EC tablet 04-01 00:00: 00 07-02 00:00 :00 No [id number] 40mg Take 1 tablet by mouth 2 (two) times daily. [facility] foLIC acid 1 mg tablet 05 00:00: 00 07-02 00:00 :00 No [id number] 1mg Take 1 tablet by mouth daily. [facility] AMLODIPINE BESYLATE 5MG 01-21 00:00: 00 Yes 5000 Eric Satnton cetirizine 10 mg tablet 12-27 14:03: 37 Yes 10mg Take 10 mg by mouth daily. [facility] Cholecalcif obi, Vitamin D3, 25 mcg (1,000 unit) capsule 12-27 14:03: 37 Yes 1{saqibu le} Take 1 capsule by mouth. [facility] NON-FORMULA RY MEDICATION 12-27 14:03: 37 Yes 1250mg 1,250 mg daily. Elderberry Sambucus [facility] vitamin B-12 (B-12 DOTS) 500 mcg tablet 12-27 14:03: 37 Yes 500ug Take 500 mcg by mouth daily. [facility] amLODIPine 5 mg tablet 12-27 00:00: 00 04-01 00:00 :00 No [id number] 5mg Take 1 tablet by mouth daily. [facility] apixaban (ELIQUIS) 2.5 mg tablet 12-27 00:00: 00 04-01 00:00 :00 No [id number] 5mg Take 2 tablets by mouth 2 (two) times daily. Indication s: atrial fibrillati on [facility] furosemide 20 mg tablet 12-27 00:00: 00 04-01 00:00 :00 No [id number] 20mg Take 1 tablet by mouth daily. [facility] losartan 25 mg tablet 12-27 00:00: 00 04-01 00:00 :00 No [id number] 25mg Take 1 tablet by mouth daily. [facility] foLIC acid 1 mg tablet 3-16 00:00: 00 04-01 00:00 :00 No [id number] 1mg Take 1 tablet by mouth daily. [facility] multivitami n tablet 12-11 00:00: 00 04-01 00:00 :00 No [id number] 1{tbl} Take 1 tablet by mouth daily. [facility] thiamine 100 mg tablet 12-11 00:00: 00 04-01 00:00 :00 No [id number] 100mg Take 1 tablet by mouth daily. [facility] METOPROLOL SUCCINATE ER 25MG ER 12-10 00:00: 00 Yes [id number] Eric Stanton TAKE 1 TABLET BY MOUTH EVERY DAY 12-10 00:00: 00 Yes Eric Stanton TAKE 1 TABLET BY MOUTH EVERY DAY 12-10 00:00: 00 Yes Eric Stanton metoprolol succinate XL 25 mg 24 hr tablet 12-10 00:00: 00 04-01 00:00 :00 No [id number] 75mg Take 3 tablets by mouth 2 (two) times daily. [facility] pantoprazol e 40 mg EC tablet 12-10 00:00: 00 04-01 00:00 :00 No [id number] 40mg Take 1 tablet by mouth 2 (two) times daily. [facility] pantoprazol e 40 mg tablet,carole yed release 2019-09 00:00: 00 Yes 1mg Eric Stanton furosemide 20 mg tablet 2019-09 00:00: 00 Yes 1mg Eric Stanton pantoprazol e 40 mg tablet,carole yed release 2019-09 00:00: 00 No 1mg furosemide 20 mg tablet 2019-09 00:00: 00 No 1mg metoprolol succinate ER 50 mg tablet,exte nded release 24 hr 02-05 00:00: 00 Yes 1mg Eric Stanton Eliquis 5 mg tablet 02-05 00:00: 00 Yes 1mg Eric Stanton metoprolol succinate ER 50 mg tablet,exte nded release 24 hr 02-05 00:00: 00 No 1mg Eliquis 5 mg tablet 02-05 00:00: 00 No 1mg ProAir HFA 90 mcg/actuati on aerosol inhaler 12-05 00:00: 00 Yes 12mcg/a arlyn samy Stanton amlodipine 5 mg tablet 12-05 00:00: 00 Yes 1mg Eric Stanton lovastatin 20 mg tablet 12-05 00:00: 00 Yes 1mg rEic Stanton losartan 25 mg tablet 12-05 00:00: 00 Yes 1mg Eric Stanton metoprolol tartrate 50 mg tablet 12-05 00:00: 00 Yes 1mg Eric Stanton ProAir HFA 90 mcg/actuati on aerosol inhaler 12-05 00:00: 00 No 12mcg/a lorino samy amlodipine 5 mg tablet 12-05 00:00: 00 No 1mg lovastatin 20 mg tablet 12-05 00:00: 00 No 1mg losartan 25 mg tablet 12-05 00:00: 00 No 1mg metoprolol tartrate 50 mg tablet 12-05 00:00: 00 No 1mg amlodipine 5 mg tablet 2018-09 0 00:00: 00 Yes 1mg Eric Stanton lovastatin 20 mg tablet 2018-09 0 00:00: 00 Yes 1mg Eric Stanton losartan 25 mg tablet 2018-09 0 00:00: 00 Yes 1mg Eric Stanton metoprolol tartrate 50 mg tablet 2018-09 0 00:00: 00 Yes 1mg Eric Stanton amlodipine 5 mg tablet 2018-09 0 00:00: 00 No 1mg lovastatin 20 mg tablet 2018-09 00:00: 00 No 1mg losartan 25 mg tablet 2018-09 0 00:00: 00 No 1mg metoprolol tartrate 50 mg tablet 2018-09 0 00:00: 00 No 1mg amlodipine 5 mg tablet 03-23 00:00: 00 Yes 1mg Eric Stanton lovastatin 20 mg tablet 03-23 00:00: 00 Yes 1mg Eric Stanton metoprolol tartrate 50 mg tablet 03-23 00:00: 00 Yes 1mg Eric Stanton amlodipine 5 mg tablet 03-23 00:00: 00 No 1mg lovastatin 20 mg tablet 03-23 00:00: 00 No 1mg metoprolol tartrate 50 mg tablet 03-23 00:00: 00 No 1mg chlorpromaz ine 25 mg tablet 10-08 00:00: 00 Yes 1mg Eric Stanton chlorpromaz ine 25 mg tablet 10-08 00:00: 00 No 1mg amlodipine 5 mg tablet 10-07 00:00: 00 Yes 1mg Eric Stanton lovastatin 20 mg tablet 10-07 00:00: 00 Yes 1mg Eric Stanton metoprolol tartrate 50 mg tablet 10-07 00:00: 00 Yes 1mg Eric Stanton Zofran 4 mg tablet 10-07 00:00: 00 Yes 1mg Eric Stanton amlodipine 5 mg tablet 10-07 00:00: 00 No 1mg lovastatin 20 mg tablet 10-07 00:00: 00 No 1mg metoprolol tartrate 50 mg tablet 10-07 00:00: 00 No 1mg Zofran 4 mg tablet 10-07 00:00: 00 No 1mg amlodipine 5 mg tablet 2017-09 00:00: 00 Yes 1mg Eric Stanton amlodipine 5 mg tablet 2017-09 00:00: 00 No 1mg amlodipine 10 mg tablet 2017-09 00:00: 00 Yes 1mg Eric Stanton amlodipine 10 mg tablet 2017-09 00:00: 00 No 1mg amlodipine 5 mg tablet 2017-09 00:00: 00 No 1mg lisinopril 10 mg tablet 2017-09 00:00: 00 No 1mg amlodipine 5 mg tablet 2017-09 00:00: 00 Yes 1mg Eric Stanton lisinopril 10 mg tablet 2017-09 00:00: 00 Yes 1mg Eric Stanton amlodipine 5 mg tablet 06-04 00:00: 00 No 1mg amlodipine 5 mg tablet 06-04 00:00: 00 Yes 1mg Eric Stanton lovastatin 20 mg tablet 05-21 00:00: 00 No 1mg metoprolol tartrate 50 mg tablet 05-21 00:00: 00 No 1mg lovastatin 20 mg tablet 05-21 00:00: 00 Yes 1mg Eric Stanton metoprolol tartrate 50 mg tablet 05-21 00:00: 00 Yes 1mg Eric Stanton lovastatin 20 mg tablet 03-04 00:00: 00 No 1mg lovastatin 20 mg tablet 03-04 00:00: 00 Yes 1mg Eric Stanton lovastatin 20 mg tablet 11-11 00:00: 00 No 1mg lovastatin 20 mg tablet 11-11 00:00: 00 Yes 1mg Eric Stanton metoprolol tartrate 50 mg tablet 11-03 00:00: 00 No 1mg metoprolol tartrate 50 mg tablet 11-03 00:00: 00 Yes 1mg Eric Stanton lovastatin 20 mg tablet 2016-09 00:00: 00 No 1mg lisinopril 10 mg tablet 2016-09 00:00: 00 No 1mg lovastatin 20 mg tablet 2016-09 00:00: 00 Yes 1mg Eric Stanton lisinopril 10 mg tablet 2016-09 00:00: 00 Yes 1mg Eric Stanton metoprolol tartrate 50 mg tablet 2016-09 00:00: 00 No 1mg metoprolol tartrate 50 mg tablet 2016-09 00:00: 00 Yes 1mg Eric Stanton lovastatin 20 mg tablet 03-04 00:00: 00 Yes 1mg Eric Stanton lovastatin 20 mg tablet 03-04 00:00: 00 No 1mg pantoprazol e 20 mg tablet,carole yed release 03-03 00:00: 00 Yes 1mg Eric Stanton lisinopril 10 mg tablet 03-03 00:00: 00 Yes 1mg Eric Stanton metoprolol tartrate 50 mg tablet 03-03 00:00: 00 Yes 1mg Eric Stanton pantoprazol e 20 mg tablet,carole yed release 03-03 00:00: 00 No 1mg lisinopril 10 mg tablet 03-03 00:00: 00 No 1mg metoprolol tartrate 50 mg tablet 03-03 00:00: 00 No 1mg pantoprazol e 40 mg tablet,carole yed release 12-10 00:00: 00 Yes 1mg Eric Stanton metoprolol tartrate 50 mg tablet 12-10 00:00: 00 Yes 1mg Eric Stanton pantoprazol e 40 mg tablet,carole yed release 12-10 00:00: 00 No 1mg metoprolol tartrate 50 mg tablet 12-10 00:00: 00 No 1mg metoprolol tartrate 50 mg tablet 11-11 00:00: 00 Yes 1mg Eric Stanton amlodipine 5 mg tablet 11-11 00:00: 00 Yes 1mg Eric Stanton metoprolol tartrate 50 mg tablet 11-11 00:00: 00 No 1mg amlodipine 5 mg tablet 11-11 00:00: 00 No 1mg pantoprazol e 40 mg tablet,carole yed release 2015-09 00:00: 00 Yes 1mg Eric Stanton pantoprazol e 40 mg tablet,carole yed release 2015-09 00:00: 00 No 1mg amlodipine 5 mg tablet 04-23 00:00: 00 Yes 1mg Eric Stanton Protonix 40 mg tablet,carole yed release 04-23 00:00: 00 Yes 1mg Eric Stanton metoprolol tartrate 50 mg tablet 04-23 00:00: 00 Yes 1mg Eric Stanton amlodipine 5 mg tablet 04-23 00:00: 00 No 1mg Protonix 40 mg tablet,carole yed release 04-23 00:00: 00 No 1mg metoprolol tartrate 50 mg tablet 04-23 00:00: 00 No 1mg Protonix 40 mg tablet,carole yed release 04-09 00:00: 00 Yes 1mg Eric Stanton amlodipine 5 mg tablet 04-09 00:00: 00 Yes 1mg Eric Stanton metoprolol tartrate 50 mg tablet 04-09 00:00: 00 Yes 1mg Eric Stanton Protonix 40 mg tablet,carole yed release 04-09 00:00: 00 No 1mg amlodipine 5 mg tablet 04-09 00:00: 00 No 1mg metoprolol tartrate 50 mg tablet 04-09 00:00: 00 No 1mg Immunizations Ordered Immunization Name Filled Immunization Name Date Status Comments Source Influenza Virus Vaccine,quad Im,preserve Free 65+ (FLUAD) 2023-12-07 00:00:[address] [facility] Pneumococcal Polysaccharide, PPSV23 (PNEUMOVAX) 2023-12-07 00:00:[address] [facility] SARS-COV-2 COVID-19 MODERNA 12+ YRS VACCINE 2023-12-07 00:00:[address] [facility] SARS-COV-2 COVID-19 VACCINE 12 YRS+, BIVALENT 0.5ML, IM, (MODERNA-BLUE TOP) 2023-12-07 00:00:[address] [facility] Pneumococcal 20 Conjugate, PCV20 (Prevnar 20) 2023-12-07 00:00:[address] [facility] Pneumococcal Polysaccharide, PPSV23 (PNEUMOVAX) 2023-09-23 00:00:[address] [facility] SARS-COV-2 COVID-19 MODERNA 12+ YRS VACCINE 2023-09-23 00:00:[address] [facility] SARS-COV-2 COVID-19 VACCINE 12 YRS+, BIVALENT 0.5ML, IM, (MODERNA-BLUE TOP) 2023-09-23 00:00:[address] [facility] Pneumococcal 20 Conjugate, PCV20 (Prevnar 20) 2023-09-23 00:00:[address] [facility] Influenza Virus Vaccine,quad Im,preserve Free 65+ (FLUAD) 2023-09-23 00:00:[address] [facility] Influenza Virus Vaccine,quad Im,preserve Free 65+ (FLUAD) 2023-09-11 00:00:[address] [facility] Pneumococcal Polysaccharide, PPSV23 (PNEUMOVAX) 2023-09-11 00:00:[address] [facility] SARS-COV-2 COVID-19 MODERNA 12+ YRS VACCINE 2023-09-11 00:00:[address] [facility] SARS-COV-2 COVID-19 VACCINE 12 YRS+, BIVALENT 0.5ML, IM, (MODERNA-BLUE TOP) 2023-09-11 00:00:[address] [facility] Pneumococcal 20 Conjugate, PCV20 (Prevnar 20) 2023-09-11 00:00:[address] [facility] Influenza Virus Vaccine,quad Im,preserve Free 65+ (FLUAD) 2023-09-10 00:00:[address] [facility] Pneumococcal Polysaccharide, PPSV23 (PNEUMOVAX) 2023-09-10 00:00:[address] [facility] SARS-COV-2 COVID-19 MODERNA 12+ YRS VACCINE 2023-09-10 00:00:[address] [facility] SARS-COV-2 COVID-19 VACCINE 12 YRS+, BIVALENT 0.5ML, IM, (MODERNA-BLUE TOP) 2023-09-10 00:00:[address] [facility] Pneumococcal 20 Conjugate, PCV20 (Prevnar 20) 2023-09-10 00:00:[address] [facility] Pneumococcal Polysaccharide, PPSV23 (PNEUMOVAX) 2023-09-08 09:00:[address] [facility] SARS-COV-2 COVID-19 VACCINE 12 YRS+, BIVALENT 0.5ML, IM, (MODERNA-BLUE TOP) 2023-09-08 09:00:[address] [facility] Pneumococcal 20 Conjugate, PCV20 (Prevnar 20) 2023-09-08 09:00:[address] [facility] Influenza Virus Vaccine,quad Im,preserve Free 65+ (FLUAD) 2023-09-08 09:00:[address] [facility] SARS-COV-2 COVID-19 MODERNA 12+ YRS VACCINE 2023-09-08 09:00:[address] [facility] Influenza Virus Vaccine,quad Im,preserve Free 65+ (FLUAD) 2023-09-08 00:00:[address] [facility] Pneumococcal Polysaccharide, PPSV23 (PNEUMOVAX) 2023-09-08 00:00:[address] [facility] SARS-COV-2 COVID-19 MODERNA 12+ YRS VACCINE 2023-09-08 00:00:[address] [facility] SARS-COV-2 COVID-19 VACCINE 12 YRS+, BIVALENT 0.5ML, IM, (MODERNA-BLUE TOP) 2023-09-08 00:00:[address] [facility] Pneumococcal 20 Conjugate, PCV20 (Prevnar 20) 2023-09-08 00:00:[address] [facility] Influenza Virus Vaccine,quad Im,preserve Free 65+ (FLUAD) 2023-09-08 00:00:[address] [facility] Pneumococcal Polysaccharide, PPSV23 (PNEUMOVAX) 2023-09-08 00:00:[address] [facility] SARS-COV-2 COVID-19 MODERNA 12+ YRS VACCINE 2023-09-08 00:00:[address] [facility] SARS-COV-2 COVID-19 VACCINE 12 YRS+, BIVALENT 0.5ML, IM, (MODERNA-BLUE TOP) 2023-09-08 00:00:[address] [facility] Pneumococcal 20 Conjugate, PCV20 (Prevnar 20) 2023-09-08 00:00:[address] [facility] Influenza Virus Vaccine,quad Im,preserve Free 65+ (FLUAD) 2023-09-08 00:00:[address] [facility] Pneumococcal 20 Conjugate, PCV20 (Prevnar 20) 2023-09-08 00:00:00 Completed Influenza Virus Vaccine,quad Im,preserve Free 65+ (FLUAD) 2023-09-07 00:00:[address] [facility] Pneumococcal Polysaccharide, PPSV23 (PNEUMOVAX) 2023-09-07 00:00:[address] [facility] SARS-COV-2 COVID-19 MODERNA 12+ YRS VACCINE 2023-09-07 00:00:[address] [facility] SARS-COV-2 COVID-19 VACCINE 12 YRS+, BIVALENT 0.5ML, IM, (MODERNA-BLUE TOP) 2023-09-07 00:00:[address] [facility] Influenza Virus Vaccine,quad Im,preserve Free 65+ 2022-10-14 00:00:[address] [facility] SARS-COV-2 COVID-19 VACCINE 12 YRS+, BIVALENT 0.5ML, IM, (MODERNA) 2022-10-14 00:00:[address] [facility] Influenza Virus Vaccine,quad Im,preserve Free 65+ 2022-10-14 00:00:[address] [facility] SARS-COV-2 COVID-19 VACCINE 12 YRS+, BIVALENT 0.5ML, IM, (MODERNA-BLUE TOP) 2022-10-14 00:00:[address] [facility] Influenza Virus Vaccine,quad Im,preserve Free 65+ 2022-10-14 00:00:[address] [facility] SARS-COV-2 COVID-19 VACCINE 12 YRS+, BIVALENT 0.5ML, IM, (MODERNA-BLUE TOP) 2022-10-14 00:00:[address] [facility] Influenza Virus Vaccine,quad Im,preserve Free 65+ (FLUAD) 2022-10-14 00:00:[address] [facility] SARS-COV-2 COVID-19 VACCINE 12 YRS+, BIVALENT 0.5ML, IM, (MODERNA-BLUE TOP) 2022-10-14 00:00:[address] [facility] Influenza Virus Vaccine,quad Im,preserve Free 65+ (FLUAD) 2022-10-14 00:00:00 Completed SARS-COV-2 COVID-19 VACCINE 12 YRS+, BIVALENT 0.5ML, IM, (MODERNA-BLUE TOP) 2022-10-14 00:00:00 Completed Influenza Virus Vaccine,quad Im,preserve Free 65+ 2022-10-14 00:00:[address] [facility] SARS-COV-2 COVID-19 VACCINE 12 YRS+, BIVALENT 0.5ML, IM, (MODERNA BOOSTER) 2022-10-14 00:00:[address] [facility] Influenza Virus Vaccine,quad Im,preserve Free 65+ 2022-10-14 00:00:[address] [facility] SARS-COV-2 COVID-19 VACCINE 12 YRS+, BIVALENT 0.5ML, IM, (MODERNA BOOSTER) 2022-10-14 00:00:[address] [facility] Influenza Virus Vaccine,quad Im,preserve Free 65+ 2022-10-14 00:00:[address] [facility] SARS-COV-2 COVID-19 VACCINE 12 YRS+, BIVALENT 0.5ML, IM, (MODERNA BOOSTER) 2022-10-14 00:00:[address] [facility] SARS-COV-2 COVID-19 MODERNA 12+ YRS VACCINE 2022-04-05 00:00:[address] [facility] SARS-COV-2 COVID-19 MODERNA 12+ YRS VACCINE 2022-04-05 00:00:[address] [facility] SARS-COV-2 COVID-19 MODERNA 12+ YRS VACCINE 2022-04-05 00:00:[address] [facility] SARS-COV-2 COVID-19 MODERNA 12+ YRS VACCINE 2022-04-05 00:00:[address] [facility] SARS-COV-2 COVID-19 MODERNA 12+ YRS VACCINE 2022-04-05 00:00:00 Completed SARS-COV-2 COVID-19 MODERNA 12+ YRS VACCINE 2022-04-05 00:00:[address] [facility] SARS-COV-2 COVID-19 MODERNA 12+ YRS VACCINE 2022-04-05 00:00:[address] [facility] SARS-COV-2 COVID-19 MODERNA 12+ YRS VACCINE 2022-04-05 00:00:[address] [facility] SARS-COV-2 COVID-19 MODERNA 12+ YRS VACCINE 2022-04-05 00:00:[address] [facility] SARS-COV-2 COVID-19 MODERNA 12+ YRS VACCINE 2022-04-05 00:00:[address] [facility] SARS-COV-2 COVID-19 MODERNA 12+ YRS VACCINE 2022-04-05 00:00:[address] [facility] Influenza Virus Vaccine,quad Im,preserve Free 2021 00:00:[address] [facility] Pneumococcal Polysaccharide, PPSV23 (PNEUMOVAX) 2021 00:00:[address] [facility] Influenza Virus Vaccine,quad Im,preserve Free 2021 00:00:[address] [facility] Pneumococcal Polysaccharide, PPSV23 (PNEUMOVAX) 2021 00:00:00 Completed [facility] Influenza Virus Vaccine,quad Im,preserve Free 65+ 2021 00:00:[address] [facility] Pneumococcal Polysaccharide, PPSV23 (PNEUMOVAX) 2021 00:00:[address] [facility] Influenza Virus Vaccine,quad Im,preserve Free 65+ (FLUAD) 2021 00:00:[address] [facility] Pneumococcal Polysaccharide, PPSV23 (PNEUMOVAX) 2021 00:00:[address] [facility] Influenza Virus Vaccine,quad Im,preserve Free 65+ (FLUAD) 2021 00:00:[address] [facility] Pneumococcal Polysaccharide, PPSV23 (PNEUMOVAX) 2021 00:00:00 Completed Influenza Virus Vaccine,quad Im,preserve Free 65+ 2021 00:00:[address] [facility] Pneumococcal Polysaccharide, PPSV23 (PNEUMOVAX) 2021 00:00:[address] [facility] Influenza Virus Vaccine,quad Im,preserve Free 65+ 2021 00:00:[address] [facility] Pneumococcal Polysaccharide, PPSV23 (PNEUMOVAX) 2021 00:00:[address] [facility] Influenza Virus Vaccine,quad Im,preserve Free 65+ 2021 00:00:[address] [facility] Pneumococcal Polysaccharide, PPSV23 (PNEUMOVAX) 2021 00:00:[address] [facility] Influenza Virus Vaccine,quad Im,preserve Free 65+ 2021 00:00:[address] [facility] Pneumococcal Polysaccharide, PPSV23 (PNEUMOVAX) 2021 00:00:[address] [facility] Influenza Virus Vaccine,quad Im,preserve Free 65+ 2021 00:00:[address] [facility] Pneumococcal Polysaccharide, PPSV23 (PNEUMOVAX) 2021 00:00:[address] [facility] Influenza Virus Vaccine,quad Im,preserve Free 65+ 2021 00:00:[address] [facility] Pneumococcal Polysaccharide, PPSV23 (PNEUMOVAX) 2021 00:00:[address] [facility] Influenza Virus Vaccine,quad Im,preserve Free + 2021 00:00:[address] [facility] Pneumococcal Polysaccharide, PPSV23 (PNEUMOVAX) 2021 00:00:[address] [facility] Influenza Virus Vaccine,quad Im,preserve Free 65+ 2021 00:00:[address] [facility] Pneumococcal Polysaccharide, PPSV23 (PNEUMOVAX) 2021 00:00:[address] [facility] SARS-COV-2 COVID-19 MODERNA 12+ YRS VACCINE 2021-08-26 00:00:[address] [facility] SARS-COV-2 COVID-19 MODERNA 12+ YRS VACCINE 2021-08-26 00:00:[address] [facility] SARS-COV-2 COVID-19 MODERNA 12+ YRS VACCINE 2021-08-26 00:00:[address] [facility] SARS-COV-2 COVID-19 MODERNA 12+ YRS VACCINE 2021-08-26 00:00:[address] [facility] SARS-COV-2 COVID-19 MODERNA 12+ YRS VACCINE 2021-08-26 00:00:00 Completed SARS-COV-2 COVID-19 MODERNA 12+ YRS VACCINE 2021-08-26 00:00:[address] [facility] SARS-COV-2 COVID-19 MODERNA 12+ YRS VACCINE 2021-08-26 00:00:[address] [facility] SARS-COV-2 COVID-19 MODERNA 12+ YRS VACCINE 2021-08-26 00:00:[address] [facility] SARS-COV-2 COVID-19 MODERNA 12+ YRS VACCINE 2021-08-26 00:00:[address] [facility] SARS-COV-2 COVID-19 MODERNA 12+ YRS VACCINE 2021-08-26 00:00:[address] [facility] SARS-COV-2 COVID-19 MODERNA 12+ YRS VACCINE 2021-08-26 00:00:[address] [facility] Moderna COVID-19 Vaccine Moderna COVID-19 Vaccine 2020-12-08 00:00:00 Completed Eric Stanton Moderna COVID-19 Vaccine 2020-12-08 00:00:00 Completed SARS-COV-2 COVID-19 MODERNA 12+ YRS VACCINE 2020-12-07 00:00:[address] [facility] SARS-COV-2 COVID-19 MODERNA 12+ YRS VACCINE 2020-12-07 00:00:[address] [facility] SARS-COV-2 COVID-19 MODERNA 12+ YRS VACCINE 2020-12-07 00:00:[address] [facility] SARS-COV-2 COVID-19 MODERNA 12+ YRS VACCINE 2020-12-07 00:00:[address] [facility] SARS-COV-2 COVID-19 MODERNA 12+ YRS VACCINE 2020-12-07 00:00:00 Completed SARS-COV-2 COVID-19 MODERNA 12+ YRS VACCINE 2020-12-07 00:00:[address] [facility] SARS-COV-2 COVID-19 MODERNA 12+ YRS VACCINE 2020-12-07 00:00:[address] [facility] SARS-COV-2 COVID-19 MODERNA 12+ YRS VACCINE 2020-12-07 00:00:[address] [facility] SARS-COV-2 COVID-19 MODERNA 12+ YRS VACCINE 2020-12-07 00:00:[address] [facility] SARS-COV-2 COVID-19 MODERNA 12+ YRS VACCINE 2020-12-07 00:00:[address] [facility] SARS-COV-2 COVID-19 MODERNA 12+ YRS VACCINE 2020-12-07 00:00:[address] [facility] SARS-COV-2 COVID-19 MODERNA 12+ YRS VACCINE 2020-11-02 00:00:[address] [facility] SARS-COV-2 COVID-19 MODERNA 12+ YRS VACCINE 2020-11-02 00:00:[address] [facility] SARS-COV-2 COVID-19 MODERNA 12+ YRS VACCINE 2020-11-02 00:00:[address] [facility] SARS-COV-2 COVID-19 MODERNA 12+ YRS VACCINE 2020-11-02 00:00:[address] [facility] SARS-COV-2 COVID-19 MODERNA 12+ YRS VACCINE 2020-11-02 00:00:00 Completed SARS-COV-2 COVID-19 MODERNA 12+ YRS VACCINE 2020-11-02 00:00:[address] [facility] SARS-COV-2 COVID-19 MODERNA 12+ YRS VACCINE 2020-11-02 00:00:[address] [facility] SARS-COV-2 COVID-19 MODERNA 12+ YRS VACCINE 2020-11-02 00:00:[address] [facility] SARS-COV-2 COVID-19 MODERNA 12+ YRS VACCINE 2020-11-02 00:00:[address] [facility] SARS-COV-2 COVID-19 MODERNA 12+ YRS VACCINE 2020-11-02 00:00:[address] [facility] SARS-COV-2 COVID-19 MODERNA 12+ YRS VACCINE 2020-11-02 00:00:[address] [facility] Influenza, seasonal, inj Influenza, seasonal, inj 2018-08-05 00:00:00 Completed Eric Stanton Influenza, seasonal, inj 2018-08-05 00:00:00 Completed Tdap Tdap 2018-06-04 00:00:00 Completed Eric Stanton pneumococcal polysacchar pneumococcal polysacchar 2018-06-04 00:00:00 Completed Eric Stanton Tdap 2018-06-04 00:00:00 Completed pneumococcal polysacchar 2018-06-04 00:00:00 Completed Vital Signs Vital Name Observation Time Observation Value Comments S ource Systolic blood pressure 2023-09-08 14:49:00 121 mm[Hg] [facility] Diastolic blood pressure 2023-09-08 14:49:00 87 mm[Hg] [facility] Heart rate 2023-09-08 14:49:00 90 /min [facility] Body temperature 2023-09-08 14:49:[address] [facility] Body height 2023-09-08 14:49:00 167.6 cm [facility] Body weight 2023-09-08 14:49:00 75.297 kg [facility] BMI 2023-09-08 14:49:00 26.79 kg/m2 [facility] Oxygen saturation in Arterial blood by Pulse oximetry 2023-09-08 14:49:00 97 /min [facility] Systolic blood pressure 2023-02-11 13:11:00 104 mm[Hg] [facility] Diastolic blood pressure 2023-02-11 13:11:00 71 mm[Hg] [facility] Heart rate 2023-02-11 13:11:00 85 /min [facility] Respiratory rate 2023-02-11 13:11:00 18 /min [facility] Body height 2023-02-11 13:11:00 165.1 cm [facility] Body weight 2023-02-11 13:11:00 74.934 kg [facility] BMI 2023-02-11 13:11:00 27.49 kg/m2 [facility] Oxygen saturation in Arterial blood by Pulse oximetry 2023-02-11 13:11:00 95 /min [facility] Systolic blood pressure 2022-10-14 15:09:00 136 mm[Hg] [facility] Diastolic blood pressure 2022-10-14 15:09:00 83 mm[Hg] [facility] Heart rate 2022-10-14 15:09:00 109 /min [facility] Body temperature 2022-10-14 15:09:[address] [facility] Respiratory rate 2022-10-14 15:09:00 18 /min [facility] Body height 2022-10-14 15:09:00 167.6 cm [facility] Body weight 2022-10-14 15:09:00 77.565 kg [facility] BMI 2022-10-14 15:09:00 27.60 kg/m2 [facility] Oxygen saturation in Arterial blood by Pulse oximetry 2022-10-14 15:09:00 94 /min [facility] Systolic blood pressure 2022-07-02 13:56:00 123 mm[Hg] [facility] Diastolic blood pressure 2022-07-02 13:56:00 77 mm[Hg] [facility] Heart rate 2022-07-02 13:56:00 80 /min [facility] Body temperature 2022-07-02 13:56:[address] [facility] Respiratory rate 2022-07-02 13:56:00 18 /min [facility] Body height 2022-07-02 13:56:00 167.6 cm [facility] Body weight 2022-07-02 13:56:00 76.975 kg [facility] BMI 2022-07-02 13:56:00 27.39 kg/m2 [facility] Oxygen saturation in Arterial blood by Pulse oximetry 2022-07-02 13:56:00 98 /min [facility] Systolic blood pressure 2022-04-01 14:13:00 123 mm[Hg] [facility] Diastolic blood pressure 2022-04-01 14:13:00 85 mm[Hg] [facility] Heart rate 2022-04-01 14:13:00 97 /min [facility] Body temperature 2022-04-01 14:13:[address] [facility] Respiratory rate 2022-04-01 14:13:00 18 /min [facility] Body height 2022-04-01 14:13:00 165.1 cm [facility] Body weight 2022-04-01 14:13:00 77.111 kg [facility] BMI 2022-04-01 14:13:00 28.29 kg/m2 [facility] Oxygen saturation in Arterial blood by Pulse oximetry 2022-04-01 14:13:00 94 /min [facility] BP Systolic 2025-04-18 08:38:00 105 mm[Hg] Ruy Stanton BP Diastolic 2025-04-18 08:38:00 74 mm[Hg] Yung Stanton Weight Measured 2025-04-18 08:38:00 167.80 pounds Eric Stanton Height Measured 2025-04-18 08:38:00 Eric Stanton Body Temperature 2025-04-18 08:38:00 98.10 degrees Eric Stanton Heart Rate 2025-04-18 08:38:00 82.00 /min Kristen en F Maixmino Respiratory Rate 2025-04-18 08:38:00 18.00 /min Eric F Maximino BP Systolic 2025-03-22 14:26:00 113 mm[Hg] Step hen F Maximino BP Diastolic 2025-03-22 14:26:00 82 mm[Hg] Yung phen F Maximino Weight Measured 2025-03-22 14:26:00 165.60 pounds Eric F Maximino Height Measured 2025-03-22 14:26:00 64.50 inches Eric F Maximino Body Temperature 2025-03-22 14:26:00 98.30 degrees Eric F Maximino Heart Rate 2025-03-22 14:26:00 75.00 /min Kristen en F Maximino Respiratory Rate 2025-03-22 14:26:00 18.00 /min Eric F Maximino BP Systolic 2025-01-11 10:24:00 122 mm[Hg] Step hen F Maximino BP Diastolic 2025-01-11 10:24:00 80 mm[Hg] Yung phen F Maximino Weight Measured 2025-01-11 10:24:00 165.00 pounds Eric F Maximino Height Measured 2025-01-11 10:24:00 64.50 inches Eric F Maximino Body Temperature 2025-01-11 10:24:00 98.10 degrees Eric F Maximino Heart Rate 2025-01-11 10:24:00 86.00 /min Kristen en F Maximino Respiratory Rate 2025-01-11 10:24:00 18.00 /min Eric F Maximion BP Systolic 2024-08-29 14:03:00 125 mm[Hg] Step hen F Maximino BP Diastolic 2024-08-29 14:03:00 75 mm[Hg] Yung phen F Maximino Weight Measured 2024-08-29 14:03:00 170.00 pounds Eric F Maximino Height Measured 2024-08-29 14:03:00 64.50 inches Eric F Maximino Body Temperature 2024-08-29 14:03:00 97.60 degrees Eric F Maximino Heart Rate 2024-08-29 14:03:00 84.00 /min Kristen en F Maximino Respiratory Rate 2024-08-29 14:03:00 16.00 /min Eric F Maximino BP Systolic 2024-07-12 16:07:00 102 mm[Hg] Step hen F Maximino BP Diastolic 2024-07-12 16:07:00 71 mm[Hg] Yung phen F Maximino Weight Measured 2024-07-12 16:07:00 169.40 pounds Eric F Maximino Height Measured 2024-07-12 16:07:00 64.50 inches Eric F Maximino Body Temperature 2024-07-12 16:07:00 98.30 degrees Eric F Maximino Heart Rate 2024-07-12 16:07:00 88.00 /min Kristen en F Maximino Respiratory Rate 2024-07-12 16:07:00 18.00 /min Eric F Maximino BP Systolic 2024-07-08 11:28:00 108 mm[Hg] Step hen F Maximino BP Diastolic 2024-07-08 11:28:00 77 mm[Hg] Yung phen F Maximino Weight Measured 2024-07-08 11:28:00 168.80 pounds Eric F Maximino Height Measured 2024-07-08 11:28:00 64.50 inches Eric F Maximino Body Temperature 2024-07-08 11:28:00 98.60 degrees Eric F Maximino Heart Rate 2024-07-08 11:28:00 71.00 /min Kristen en F Maximino Respiratory Rate 2024-07-08 11:28:00 18.00 /min Eric F Maximino Weight Measured 2024-01-26 08:03:00 169.20 pounds Eric F Maximino Height Measured 2024-01-26 08:03:00 64.50 inches Eric F Maximino Body Temperature 2024-01-26 08:03:00 97.40 degrees Eric F Maximino Heart Rate 2024-01-26 08:03:00 77.00 /min Kristen en F Maximino Respiratory Rate 2024-01-26 08:03:00 18.00 /min Eric F Maximino BP Systolic 2024-01-26 08:03:00 118 mm[Hg] Step hen F Maximino BP Diastolic 2024-01-26 08:03:00 84 mm[Hg] Yung phen F Maximino BP Systolic 2023-03-11 14:31:00 125 mm[Hg] Step hen F Maximino BP Diastolic 2023-03-11 14:31:00 83 mm[Hg] Yung phen F Maximino Weight Measured 2023-03-11 14:31:00 167.00 pounds Eric F Maximino Height Measured 2023-03-11 14:31:00 64.50 inches Eric F Maximino Body Temperature 2023-03-11 14:31:00 98.20 degrees Eric F Maximino Heart Rate 2023-03-11 14:31:00 73.00 /min Kristen en F Maximino Respiratory Rate 2023-03-11 14:31:00 18.00 /min Eric F Maximino BP Systolic 2022-11-07 16:51:00 112 mm[Hg] Step hen F Maximino BP Diastolic 2022-11-07 16:51:00 75 mm[Hg] Yung phen F Maximino Weight Measured 2022-11-07 16:51:00 170.80 pounds Eric F Maximino Height Measured 2022-11-07 16:51:00 64.50 inches Eric F Maximino Body Temperature 2022-11-07 16:51:00 98.20 degrees Eric F Maximino Heart Rate 2022-11-07 16:51:00 86.00 /min Kristen en F Maximino Respiratory Rate 2022-11-07 16:51:00 18.00 /min Eric F Maximino BP Systolic 2022-08-07 16:42:00 112 mm[Hg] Step hen F Maximino BP Diastolic 2022-08-07 16:42:00 61 mm[Hg] Yung phen F Maximino Weight Measured 2022-08-07 16:42:00 170.80 pounds Eric F Maximino Height Measured 2022-08-07 16:42:00 64.50 inches Eric F Maximino Body Temperature 2022-08-07 16:42:00 98.30 degrees Eric F Maximino Heart Rate 2022-08-07 16:42:00 83.00 /min Kristen en F Maximino Respiratory Rate 2022-08-07 16:42:00 16.00 /min Eric F Maximino BP Systolic 2020-08-14 10:40:00 104 mm[Hg] Step hen F Maximino BP Diastolic 2020-08-14 10:40:00 72 mm[Hg] Yung phen F Maximino Weight Measured 2020-08-14 10:40:00 174.60 pounds Eric F Maximino Height Measured 2020-08-14 10:40:00 64.50 inches Eric F Maximino Body Temperature 2020-08-14 10:40:00 98.70 degrees Eric F Maximino Heart Rate 2020-08-14 10:40:00 97.00 /min Kristen en F Maximino Respiratory Rate 2020-08-14 10:40:00 16.00 /min Eric F Maximino BP Systolic 2020-02-06 15:58:00 115 mm[Hg] Step hen F Maximino BP Diastolic 2020-02-06 15:58:00 75 mm[Hg] Yung phen F Maximino Weight Measured 2020-02-06 15:58:00 163.60 pounds Eric F Maximino Height Measured 2020-02-06 15:58:00 64.50 inches Eric F Maximino Body Temperature 2020-02-06 15:58:00 97.80 degrees Eric F Maximino Heart Rate 2020-02-06 15:58:00 90.00 /min Kristen en F Maximnio Respiratory Rate 2020-02-06 15:58:00 18.00 /min Eric F Maximino BP Systolic 2019-12-06 11:03:00 156 mm[Hg] Step hen F Maximino BP Diastolic 2019-12-06 11:03:00 115 mm[Hg] Yung phen F Maximino Weight Measured 2019-12-06 11:03:00 169.00 pounds Eric F Maximino Height Measured 2019-12-06 11:03:00 64.50 inches Eric F Maximino Body Temperature 2019-12-06 11:03:00 98.60 degrees Eric F Maximino Heart Rate 2019-12-06 11:03:00 107.00 /min Step hen F Maximino Respiratory Rate 2019-12-06 11:03:00 18.00 /min Eric F Maximino BP Systolic 2019-07-07 09:52:00 112 mm[Hg] Step hen F Maximino BP Diastolic 2019-07-07 09:52:00 80 mm[Hg] Yung phen F Maximino Weight Measured 2019-07-07 09:52:00 169.20 pounds Eric F Maximino Height Measured 2019-07-07 09:52:00 64.50 inches Eric F Maximino Body Temperature 2019-07-07 09:52:00 98.70 degrees Eric F Maximino Heart Rate 2019-07-07 09:52:00 96.00 /min Kristen en F Maximino Respiratory Rate 2019-07-07 09:52:00 Eric F Maximino BP Systolic 2019-03-23 10:39:00 129 mm[Hg] Step hen F Maximino BP Diastolic 2019-03-23 10:39:00 91 mm[Hg] Yung phen F Maximino Weight Measured 2019-03-23 10:39:00 168.40 pounds Eric F Maximino Height Measured 2019-03-23 10:39:00 64.50 inches Eric F Maximino Body Temperature 2019-03-23 10:39:00 98.40 degrees Eric F Maximino Heart Rate 2019-03-23 10:39:00 104.00 /min Step hen F Maximino Respiratory Rate 2019-03-23 10:39:00 16.00 /min Eric F Maximino BP Systolic 2018-10-07 10:19:00 113 mm[Hg] Step hen F Maximino BP Diastolic 2018-10-07 10:19:00 76 mm[Hg] Yung phen F Maximino Weight Measured 2018-10-07 10:19:00 166.80 pounds Eric F Maximino Height Measured 2018-10-07 10:19:00 64.50 inches Eric F Maximino Body Temperature 2018-10-07 10:19:00 98.50 degrees Eric F Maximino Heart Rate 2018-10-07 10:19:00 87.00 /min Kristen en F Maximino Respiratory Rate 2018-10-07 10:19:00 16.00 /min Eric F Maximino BP Systolic 2018-09-03 09:06:00 111 mm[Hg] BP Diastolic 2018-09-03 09:06:00 84 mm[Hg] Weight Measured 2018-09-03 09:06:00 167.60 pounds Height Measured 2018-09-03 09:06:00 64.50 inches Body Temperature 2018-09-03 09:06:00 98.20 degrees Heart Rate 2018-09-03 09:06:00 72.00 /min Respiratory Rate 2018-09-03 09:06:00 16.00 /min BP Systolic 2018-08-05 09:53:00 119 mm[Hg] BP Diastolic 2018-08-05 09:53:00 85 mm[Hg] Weight Measured 2018-08-05 09:53:00 169.00 pounds Height Measured 2018-08-05 09:53:00 64.50 inches Body Temperature 2018-08-05 09:53:00 98.10 degrees Heart Rate 2018-08-05 09:53:00 96.00 /min Respiratory Rate 2018-08-05 09:53:00 16.00 /min BP Systolic 2018-06-17 11:08:00 114 mm[Hg] BP Diastolic 2018-06-17 11:08:00 73 mm[Hg] Weight Measured 2018-06-17 11:08:00 167.20 pounds Height Measured 2018-06-17 11:08:00 64.50 inches Body Temperature 2018-06-17 11:08:00 98.40 degrees Heart Rate 2018-06-17 11:08:00 84.00 /min Respiratory Rate 2018-06-17 11:08:00 16.00 /min Procedures Procedure Date / Time Performed Performing Clinician Source EXTERNAL PROVIDER RECORDS 2023-09-23 06:01:00 Doctor Unassigned, [place] [facility] FLU VACC(),65+YR,0. 5 ML,IM,ADJUVANTED,QUAD(FL UAD) 2023-09-08 15:13:[address] [facility] PNEUMOCOCCAL 20 CONJUGATE (PREVNAR 20) VACCINE 2023-09-08 15:13:[address] [facility] AUTHORIZATION TO RELEASE PHI TO [facility] 2023-09-08 06:01:00 Doctor Unassigned, [place] [facility] ASSIGNMENT OF BENEFITS 2023-02-11 12:47:03 Docto r Unassigned, [place] [facility] SARS-COV-2 COVID-19 VACCINE 12 YRS+, BIVALENT 0.5ML, IM (MODERNA BOOSTER) 2022-10-14 15:36:37 Doctor Unassigned, [place] [facility] FLU VACC(),65+YR,0. 5 ML,IM,ADJUVANTED,QUAD([place] UAD) 2022-10-14 15:21:[address] [facility] NOTICE OF BILLING PRACTICES FOR MEDICARE PATIENTS 2022-10-14 14:59:14 Doctor Unassigned, [place] [facility] [address] Ecg Routine Ecg W/least 12 Lds W/i r 2016-12-09 00:00:00 Eric Stanton 01958 Ecg Routine Ecg W/least 12 Lds W/i r 2016-11-11 00:00:00 Eric Stanton Plan of Care Planned Activity Planned Date Details Comments Source Goal Plan of Care Note [code = 78640-5] Goal Plan of Care Note [code = 53905-9] Goal Plan of Care Note [code = 24813-7] Goal Plan of Care Note [code = 42489-9] Goal Plan of Care Note [code = 52046-3] Goal Plan of Care Note [code = 71550-9] Goal Plan of Care Note [code = 98210-7] Goal Plan of Care Note [code = 60788-9] Goal Plan of Care Note [code = 14788-4] Goal Plan of Care Note [code = 57638-1] Goal Plan of Care Note [code = 03758-7] Goal Plan of Care Note [code = 94747-1] Goal Plan of Care Note [code = 42104-3] Goal Plan of Care Note [code = 50893-1] Goal Plan of Care Note [code = 27375-5] Goal Plan of Care Note [code = 76679-4] Goal Plan of Care Note [code = 85151-0] Goal Plan of Care Note [code = 59201-2] Goal Plan of Care Note [code = 30830-3] Goal Plan of Care Note [code = 79216-8] Goal Plan of Care Note [code = 67364-8] Goal Plan of Care Note [code = 17586-2] Goal Plan of Care Note [code = 41291-0] Goal Plan of Care Note [code = 29804-4] Goal Plan of Care Note [code = 18178-8] Goal Plan of Care Note [code = 49554-1] Goal Plan of Care Note [code = 62172-4] Encounters Start Date/Time End Date/Time Encounter Type Admission Type Attending Clinicians Care Facility Care Department Encounter ID Source 2025-05-23 14:30:00 2025-05-23 14:30:00 Outpatient R [facility] [id number] [facility] 2025-05-17 00:00:00 2025-05-17 17:08:42 Letter (Out) Rivka Ureña [facility] 1.2.840.114 350.1.13.10 4.2.7.2.686 [id number] [facility] 2025-04-18 08:38:09 2025-04-18 08:38:09 Outpatient SFA S[facility] [id number] Eric Stanton 2025-04-18 00:00:00 2025-04-18 00:00:00 Outpatient Visit SFA [id number] Eric Stanton 2025-03-22 14:16:49 2025-03-22 14:16:49 Outpatient SFA SFA [id number] Eric Stanton 2025-03-22 00:00:00 2025-03-22 00:00:00 Outpatient Visit SFA [id number] Eric Stanton 2025-03-06 10:41:41 2025-03-06 10:41:41 Outpatient SFA SFA [id number] Eric Stanton 2025-02-14 14:41:08 2025-02-14 14:41:08 Outpatient SFA SFA [id number] Eric Stanton 2025-01-24 11:31:44 2025-01-24 11:31:44 Outpatient SFA SFA [id number] Eric Stanton 2025-01-19 14:51:44 2025-01-19 14:51:44 Outpatient SFA SFA [id number] Eric Stanton 2025-01-11 10:17:26 2025-01-11 10:17:26 Outpatient SFA SFA [id number] Eric Estrada Maximino 2025-01-11 00:00:00 2025-01-11 00:00:00 Outpatient Visit SFA [id number] Eric Stanton 2024-08-29 13:50:30 2024-08-29 13:50:30 Outpatient SFA SFA [id number] Eric Estrada Maximino 2024-08-29 00:00:00 2024-08-29 00:00:[address] [facility] [id number] Eric Stanton 2024-07-12 00:00:00 2024-07-12 00:00:[address] [facility] [id number] Eric Stanton 2024-07-08 11:19:08 2024-07-08 11:19:[address] [facility] [id number] Eric Stanton 2024-07-08 00:00:00 2024-07-08 00:00:[address] [facility] [id number] Eric Stanton 2024-03-09 08:40:00 2024-03-09 08:40:00 Outpatient R [facility] [id number] [facility] 2024-01-26 08:20:32 2024-01-26 08:20:[address] [facility] [id number] Eric Stanton 2024-01-26 00:00:00 2024-01-26 00:00:[address] [facility] [id number] Eric Stanton 2024-01-22 13:09:31 2024-01-22 13:09:[address] [facility] [id number] Eric Estrada Maximino 2023-12-07 00:00:00 2023-12-07 00:00:00 Refill Dk Ace [facility] .840.114 350.1.13.10 4.2.7.2.686 [id number] [facility] 2023-09-23 00:00:00 2023-09-23 00:00:00 Orders Only Doctor Unassigned, [place] [facility] .840.114 350.1.13.10 4.2.7.2.686 [id number] [facility] 2023-09-11 00:00:00 2023-09-11 00:00:00 Telephone Cesar Mercedes [facility] 1.2.840.114 350.1.13.10 4.2.7.2.686 [id number] [facility] 2023-09-10 00:00:00 2023-09-10 00:00:00 Refill Dk Ace [facility] 1.2840.114 350.1.13.10 4.2.7.2.686 [id number] [facility] 2023-09-08 09:00:00 2023-09-08 09:26:43 Outpatient R [facility] [id number] [facility] 2023-09-08 09:00:00 2023-09-08 09:26:43 Office Visit Cesar Mercedes [facility] 1.2840.114 350.1.13.10 4.2.7.2.686 [id number] [facility] 2023-09-08 00:00:00 2023-09-08 00:00:00 Telephone Dk Ace [facility] 1.2.840.114 350.1.13.10 4.2.7.2.686 [id number] [facility] 2023-09-08 00:00:00 2023-09-08 00:00:00 Orders Only Doctor Unassigned, [place] [facility] 1.2840.114 350.1.13.10 4.2.7.2.686 [id number] [facility] 2023-09-07 00:00:00 2023-09-07 00:00:00 Refill [place], Peter [facility] 1.2.840.114 350.1.13.10 4.2.7.2.686 [id number] [facility] 2023-08-14 08:40:00 2023-08-14 08:40:00 Outpatient R D[facility] [id number] [facility] 2023-06-03 00:00:00 2023-06-03 00:00:00 Refill Dk Ace [facility] 1.2.840.114 350.1.13.10 4.2.7.2.686 [id number] [facility] 2023-03-11 14:19:18 2023-03-11 14:19:[address] [facility] [id number] Eric Stanton 2023-03-10 13:00:00 2023-03-10 13:00:00 Outpatient R [facility] [id number] [facility] 2023-02-11 08:00:00 2023-02-11 08:47:03 Office Visit Dk Ace [facility] 1.2.840.114 350.1.13.10 4.2.7.2.686 [id number] [facility] 2023-02-11 08:00:00 2023-02-11 08:47:03 Outpatient R DK [facility] [id number] [facility] 2023-02-11 00:00:00 2023-02-11 00:00:00 Orders Only Doctor Unassigned, [place] [facility] 1.2.840.114 350.1.13.10 4.2.7.2.686 [id number] [facility] 2023-02-05 10:15:00 2023-02-05 10:30:00 Lithographer Apprentice Visit 2, Adc Lab [place], Peter [facility] 1..840.114 350.1.13.10 4.2.7.2.686 [id number] [facility] 2023-02-05 10:15:00 2023-02-05 09:24:17 Outpatient R DK [facility] [id number] [facility] 2023-01-14 00:00:00 2023-01-14 00:00:00 Refill Dk Ace [facility] 1.2840.114 350.1.13.10 4.2.7.2.686 [id number] [facility] 2022-11-07 16:44:39 2022-11-07 16:44:[address] [facility] [id number] Eric Stanton 2022-10-14 09:00:00 2022-10-14 09:41:53 Outpatient R [facility] [id number] [facility] 2022-10-14 09:00:00 2022-10-14 09:41:53 [facility] 1.284.114 350.1.13.10 4.2.7.2.686 [id number] [facility] 2022-10-14 09:30:00 2022-10-14 09:30:00 Imm/Inj Visit Vaccine, Adc Family Medicine Cesar Mercedes [facility] 1.284.114 350.1.13.10 4.2.7.2.686 [id number] [facility] 2022-10-14 00:00:00 2022-10-14 00:00:00 Orders Only Doctor Unassigned, [place] [facility] 1.20.114 350.1.13.10 4.2.7.2.686 [id number] [facility] 2022-10-07 10:15:00 2022-10-07 10:51:39 Outpatient R DK [facility] [id number] [facility] 2022-10-07 10:15:00 2022-10-07 10:30:00 Lithographer Apprentice Visit 2, [facility] 1..840.114 350.1.13.10 4.2.7.2.686 [id number] [facility] 2022-09-30 08:00:00 2022-09-30 08:00:00 Outpatient R DK [facility] [id number] [facility] 2022-08-07 16:36:46 2022-08-07 16:36:[address] [facility] [id number] Eric Stanton 2022-08-07 00:00:00 2022-08-07 00:00:00 Outpatient Visit [id number] 2022-07-02 08:40:00 2022-07-02 09:51:53 Outpatient R DK [facility] [id number] [facility] 2022-07-02 08:40:00 2022-07-02 09:51:53 Office Visit Alejandrodennyleticia [facility] 1..840.114 350.1.13.10 4.2.7.2.686 [id number] [facility] 2022-04-16 00:00:00 2022-04-16 00:00:[address] [facility] 1..840.114 350.1.13.10 4.2.7.2.686 [id number] [facility] 2022-04-01 09:00:00 2022-04-01 10:04:30 Outpatient R DK [facility] [id number] [facility] 2022-04-01 09:00:00 2022-04-01 10:04:30 [facility] 1.2.840.114 350.1.13.10 4.2.7.2.686 [id number] [facility] 2022-04-01 09:00:00 2022-04-01 10:04:30 Outpatient R DK [facility] [id number] [facility] 2022-04-01 09:00:00 2022-04-01 09:00:00 Outpatient R DK [facility] [id number] [facility] 2022-04-01 09:00:00 2022-04-01 09:00:00 Outpatient R DK [facility] [id number] [facility] 2022-04-01 09:00:00 2022-04-01 09:00:00 Outpatient R DK [facility] [id number] [facility] 2022-04-01 09:00:00 2022-04-01 09:00:00 Outpatient R DK [facility] [id number] [facility] 2022-04-01 00:00:00 2022-04-01 00:00:00 Telephone Dk Ace [facility] 1.2.840.114 350.1.13.10 4.2.7.2.686 [id number] [facility] 2022-02-20 13:35:05 2022-02-20 23:59:00 Outpatient R TOMMY KRAUS [facility] [id number] [facility] 2022-02-20 13:35:05 2022-02-20 23:59:00 Hospital [facility] Tommy Kraus [facility] 1..840.114 350.1.13.10 4.2.7.2.686 [id number] [facility] 2022-02-03 00:00:00 2022-02-03 00:00:00 Outpatient TOMMY VUONG [facility] [id number] [facility] 2022-01-30 11:00:00 2022-01-30 11:30:00 Office Visit Savage Lopez [facility] 1..840.114 350.1.13.10 4.2.7.2.686 [id number] [facility] 2022-01-30 11:00:00 2022-01-30 11:00:00 Outpatient R TOMMY PAEZ [facility] [id number] [facility] 2022-01-30 11:00:00 2022-01-30 11:00:00 Outpatient R TOMMY PAEZ [facility] [id number] [facility] 2022-01-30 11:00:00 2022-01-30 11:00:00 Outpatient R TOMMY PAEZ [facility] [id number] [facility] 2022-01-30 11:00:00 2022-01-30 11:00:00 Outpatient R TOMMY PAEZ [facility] [id number] [facility] 2022-01-14 11:00:00 2022-01-14 12:54:08 Outpatient R LORETA BAE [facility] [id number] [facility] 2022-01-14 11:00:00 2022-01-14 12:54:08 Office Visit L[facility] 1..840.114 350.1.13.10 4.2.7.2.686 [id number] [facility] 2022-01-14 11:00:00 2022-01-14 12:54:08 Outpatient R LORETA BAE [facility] [id number] [facility] 2022-01-14 11:00:00 2022-01-14 12:54:08 Outpatient R LORETA BAE [facility] [id number] [facility] 2022-01-14 11:00:00 2022-01-14 11:00:00 Outpatient R LORETA BAE [facility] [id number] [facility] 2022-01-14 11:00:00 2022-01-14 11:00:00 Outpatient R LORETA BAE [facility] [id number] [facility] 2022-01-14 09:00:00 2022-01-14 09:55:24 Office Visit Tommy Kraus [facility] 1.2.840.114 350.1.13.10 4.2.7.2.686 [id number] [facility] 2022-01-14 09:00:00 2022-01-14 09:55:24 Outpatient R TOMMY KRAUS [facility] [id number] [facility] 2022-01-14 09:00:00 2022-01-14 09:55:24 Outpatient R TOMMY KRAUS [facility] [id number] [facility] 2022-01-14 09:00:00 2022-01-14 09:55:24 Outpatient R TOMMY KRAUS [facility] [id number] [facility] 2022-01-14 09:00:00 2022-01-14 09:55:24 Outpatient R TOMMY KRAUS [facility] [id number] [facility] 2021 14:40:00 2021 15:28:37 Outpatient R DK [facility] [id number] [facility] 2021 14:40:00 2021 15:28:37 Office Visit Dk Ace [facility] 1.2.840.114 350.1.13.10 4.2.7.2.686 [id number] [facility] 2021 14:00:00 2021 15:21:12 Outpatient R DK [facility] [id number] [facility] 2021 14:00:00 2021 15:21:12 Office Visit Dk Ace [facility] 1.2840.114 350.1.13.10 4.2.7.2.686 [id number] [facility] 2021 14:00:00 2021 15:21:12 Outpatient R DK [facility] [id number] [facility] 2021 14:00:00 2021 15:21:12 Outpatient R DK [facility] [id number] [facility] 2021 14:00:00 2021 15:21:12 Outpatient R DK [facility] [id number] [facility] 2021-12-23 00:00:00 2021-12-23 00:00:00 Orders Only Doctor Unassigned, [place] [facility] 1.840.114 350.1.13.10 4.2.7.2.686 [id number] [facility] 2021-12-11 00:00:00 2021-12-11 00:00:00 Transition of Care Julia Varner 1.84.114 350.1.13.10 4.2.7.2.686 [id number] [facility] 2021-12-08 17:56:00 2021-12-10 17:51:00 Outpatient [facility] [id number] [facility] 2021-12-08 17:56:00 2021-12-10 17:51:00 Hospital Encounter Yadiel Kulkarni Owen [facility] 1.2.840.114 350.1.13.10 4.2.7.2.686 [id number] [facility] 2021-12-08 17:56:00 2021-12-10 17:51:00 Outpatient MIRTHA SH[facility] [id number] [facility] 2021-12-08 17:56:00 2021-12-10 17:51:00 Outpatient MIRTHA SH[facility]MA [facility] [id number] [facility] 2021-12-08 17:56:00 2021-12-10 17:51:00 Outpatient MIRTHA SH[facility]MA [facility] [id number] [facility] Results Test Description Test Time Test Comments Results Result Co mments Source Eric StantonPSA (FREE AND TOTAL)2025-03-08 00:00:00* Test Item Value Reference Range Interpretation Comme nts PSA, TOTAL (test code = 2857-1) 6.8 ng/mL PSA, FREE (test code = 22645-8) 0.8 ng/mL PSA, % FREE (test code = 35816-3) 12 %(calc) Eric StantonVITAMIN B1 (THIAMINE), BLOOD, LC/MS/[id number] 00:00:00* Test Item Value Reference Range Interpretation Comme nts VITAMIN B1 (THIAMINE), BLOOD , LC/MS/MS (test code = 91341-6) 63 nmol/L Eric StantonVITAMIN B1 (THIAMINE), BLOOD, LC/MS/[id number] 00:00:00* Test Item Value Reference Range Interpretation Comme nts VITAMIN B1 (THIAMINE), BLOOD , LC/MS/MS (test code = 09217-3) 63 nmol/L Eric CablaleroA, [id number] 00:00:00* Test Item Value Reference Range Interpretation Comme nts PSA, TOTAL (test code = 2857-1) 5.20 ng/mL Eric StantonFOLATE, [id number] 00:00:00* Test Item Value Reference Range Interpretation Comme nts FOLATE, SERUM (test code = 2284-8) >24.0 ng/mL Eric StantonPSA, [id number] 00:00:00* Test Item Value Reference Range Interpretation Comme nts PSA, TOTAL (test code = 2857-1) 5.20 ng/mL Eric StantonFOLATE, [id number] 00:00:00* Test Item Value Reference Range Interpretation Comme nts FOLATE, SERUM (test code = 2284-8) >24.0 ng/mL Eric StantonCOMPREHENSIVE METABOLIC [id number] 00:00:00* Test Item Value Reference Range Interpretation Comme nts GLUCOSE (test code = 2345-7) 103 mg/dL UREA NITROGEN (BUN) (test code = 3094-0) 11 mg/dL CREATININE (test code = 2160-0) 0.87 mg/dL EGFR (test code = 88553-7) 86 mL/min/1.73m2 BUN/CREATININE RATIO (test code = 3097-3) SEE NOTE: (calc) SODIUM (test code = 2951-2) 140 mmol/L POTASSIUM (test code = 2823-3) 4.4 mmol/L CHLORIDE (test code = 2075-0) 103 mmol/L CARBON DIOXIDE (test code = 2027-9) 27 mmol/L CALCIUM (test code = 38607-0) 9.7 mg/dL PROTEIN, TOTAL (test code = 2885-2) 6.8 g/dL ALBUMIN (test code = 1751-7) 3.5 g/dL GLOBULIN (test code = 19723-0) 3.3 g/dL(calc) ALBUMIN/GLOBULIN RATIO (test code = 1759-0) 1.1 (calc) BILIRUBIN, TOTAL (test code = 1975-2) 0.8 mg/dL ALKALINE PHOSPHATASE (test code = 6768-6) 68 U/L AST (test code = 1920-8) 23 U/L ALT (test code = 1742-6) 17 U/L Eric StantonHEMOGLOBIN [id number] 00:00:00* Test Item Value Reference Range Interpretation Comme charo HEMOGLOBIN A1c (test code = 4548-4) 5.6 % Eric StantonLIPID [id number] 00:00:00* Test Item Value Reference Range Interpretation Comme nts CHOLESTEROL, TOTAL (test cod e = 2093-3) 170 mg/dL HDL CHOLESTEROL (test code = 2085-9) 52 mg/dL TRIGLYCERIDES (test code = 2571-8) 77 mg/dL LDL-CHOLESTEROL (test code = 52804-8) 101 mg/dL(calc) CHOL/HDLC RATIO (test code = 9830-1) 3.3 (calc) NON HDL CHOLESTEROL (test code = 12031-6) 118 mg/dL(calc) Eric StantonCOMPREHENSIVE METABOLIC [id number] 00:00:00* Test Item Value Reference Range Interpretation Comme nts GLUCOSE (test code = 2345-7) 103 mg/dL UREA NITROGEN (BUN) (test code = 3094-0) 11 mg/dL CREATININE (test code = 2160-0) 0.87 mg/dL EGFR (test code = 22907-4) 86 mL/min/1.73m2 BUN/CREATININE RATIO (test code = 3097-3) SEE NOTE: (calc) SODIUM (test code = 2951-2) 140 mmol/L POTASSIUM (test code = 2823-3) 4.4 mmol/L CHLORIDE (test code = 2075-0) 103 mmol/L CARBON DIOXIDE (test code = 2027-9) 27 mmol/L CALCIUM (test code = 50131-3) 9.7 mg/dL PROTEIN, TOTAL (test code = 2885-2) 6.8 g/dL ALBUMIN (test code = 1751-7) 3.5 g/dL GLOBULIN (test code = 33974-5) 3.3 g/dL(calc) ALBUMIN/GLOBULIN RATIO (test code = 1759-0) 1.1 (calc) BILIRUBIN, TOTAL (test code = 1975-2) 0.8 mg/dL ALKALINE PHOSPHATASE (test code = 6768-6) 68 U/L AST (test code = 1920-8) 23 U/L ALT (test code = 1742-6) 17 U/L Eric StantonHEMOGLOBIN [id number] 00:00:00* Test Item Value Reference Range Interpretation Comme nts HEMOGLOBIN A1c (test code = 4548-4) 5.6 % Eric StantonLIPID [id number] 00:00:00* Test Item Value Reference Range Interpretation Comme nts CHOLESTEROL, TOTAL (test cod e = 2093-3) 170 mg/dL HDL CHOLESTEROL (test code = 2085-9) 52 mg/dL TRIGLYCERIDES (test code = 2571-8) 77 mg/dL LDL-CHOLESTEROL (test code = 18616-7) 101 mg/dL(calc) CHOL/HDLC RATIO (test code = 9830-1) 3.3 (calc) NON HDL CHOLESTEROL (test code = 51265-0) 118 mg/dL(calc) Eric StantonCOMPREHENSIVE METABOLIC [id number] 06:32:39* Test Item Value Reference Range Interpretation Comme nts GLUCOSE (test code = 7) 83 MG/DL 70-99 BUN (test code = 8) 13 MG/DL 8-23 CREATININE (test code = 2214) 0.96 MG/DL 0.80-1.40 eGFR (2020 CKD-EPI) (test co de = 92424) 79 ML/MIN/1.73 >60 CALC BUN/CREAT (test code = 2235) 14 RATIO 6-28 SODIUM (test code = 2231) 140 MEQ/L 133-146 POTASSIUM (test code = 2228) 4.8 MEQ/L 3.5-5.4 CHLORIDE (test code = 2215) 104 MEQ/L 95-107 CARBON DIOXIDE (test code = 2206) 23 MEQ/L 19-31 CALCIUM (test code = 2209) 9.6 MG/DL 8.5-10.5 PROTEIN, TOTAL (test code = 2229) 6.9 G/DL 6.1-8.3 ALBUMIN (test code = 2201) 4.1 G/DL 3.5-5.2 CALC GLOBULIN (test code = 2240) 2.8 G/DL 1.9-3.7 CALC A/G RATIO (test code = 2234) 1.5 RATIO 1.0-2.6 BILIRUBIN, TOTAL (test code = 7) 0.5 MG/DL <=1.2 ALKALINE PHOSPHATASE (test code = 4) 69 U/L 40-125 AST (test code = 2218) 28 U/L 9-50 ALT (test code = 2219) 17 U/L 5-50 LIPID [id number] 06:32:39* Test Item Value Reference Range Interpretation Comme nts CHOLESTEROL (test code = 2210) 173 MG/DL <200 TRIGLYCERIDES (test code = 2232) 56 MG/DL <150 HDL CHOLESTEROL (test code = 2220) 44 MG/DL >39 CALC LDL CHOL (test code = 2237) 115 MG/DL <100 H NOTE: CALCULATED LDL IS BASED ON RAYSHAWN-MCFADDEN METHOD WHICHINCLUDES ADJUSTABLE TRIGLYCERIDE:VLDL CHOLESTEROL RATIO.THIS FACTOR VARIES BY MEASURED TRIGLYCERIDE AND NON-HDLCHOLESTEROL CONCENTRATIONS WITH INCREASED CALCULATED LDL SEENIN HIGHER TRIGLYCERIDE OR LOWER NON-HDL SPECIMENS. FOR MOREINFORMATION, SEE CLIENT ANNOUNCEMENT AT [email or web address] [email or web address] RATIO LDL/HDL (test code = 2238) 2.61 RATIO <3.55 UNLESS OTHERW ISE INDICATED, ALL TESTING PERFORMED AT [facility] [address] [place] [address] REACH TRUCK OPERATOR: TAE JC M.D. IA NUMBER [id number] [facility] [place]. [id number] COMPREHENSIVE METABOLIC [id number] 00:00:00* Test Item Value Reference Range Interpretation Comme nts GLUCOSE (test code = 2217) 83 MG/DL BUN (test code = 2208) 13 MG/DL CREATININE (test code = 2214) 0.96 MG/DL eGFR (2020 CKD-EPI) (test co de = 98954) 79 ML/MIN/1.73 CALC BUN/CREAT (test code = 2235) 14 RATIO SODIUM (test code = 2231) 140 MEQ/L POTASSIUM (test code = 2228) 4.8 MEQ/L CHLORIDE (test code = 2215) 104 MEQ/L CARBON DIOXIDE (test code = 2206) 23 MEQ/L CALCIUM (test code = 2209) 9.6 MG/DL PROTEIN, TOTAL (test code = 2229) 6.9 G/DL ALBUMIN (test code = 2201) 4.1 G/DL CALC GLOBULIN (test code = 2240) 2.8 G/DL CALC A/G RATIO (test code = 2234) 1.5 RATIO BILIRUBIN, TOTAL (test code = 2207) 0.5 MG/DL ALKALINE PHOSPHATASE (test code = 2204) 69 U/L AST (test code = 2218) 28 U/L ALT (test code = 2219) 17 U/L Eric StantonLIPID [id number] 00:00:00* Test Item Value Reference Range Interpretation Comme nts CHOLESTEROL (test code = 2210) 173 MG/DL TRIGLYCERIDES (test code = 2232) 56 MG/DL HDL CHOLESTEROL (test code = 2220) 44 MG/DL CALC LDL CHOL (test code = 2237) 115 MG/DL RISK RATIO LDL/HDL (test cod e = 2238) 2.61 RATIO Eric StantonCOMPREHENSIVE METABOLIC [id number] 00:00:00* Test Item Value Reference Range Interpretation Comme nts GLUCOSE (test code = 2217) 83 MG/DL BUN (test code = 2208) 13 MG/DL CREATININE (test code = 2214) 0.96 MG/DL eGFR (2020 CKD-EPI) (test co de = 61987) 79 ML/MIN/1.73 CALC BUN/CREAT (test code = 2235) 14 RATIO SODIUM (test code = 2231) 140 MEQ/L POTASSIUM (test code = 2228) 4.8 MEQ/L CHLORIDE (test code = 2215) 104 MEQ/L CARBON DIOXIDE (test code = 2206) 23 MEQ/L CALCIUM (test code = 2209) 9.6 MG/DL PROTEIN, TOTAL (test code = 2229) 6.9 G/DL ALBUMIN (test code = 2201) 4.1 G/DL CALC GLOBULIN (test code = 2240) 2.8 G/DL CALC A/G RATIO (test code = 2234) 1.5 RATIO BILIRUBIN, TOTAL (test code = 2207) 0.5 MG/DL ALKALINE PHOSPHATASE (test code = 2204) 69 U/L AST (test code = 2218) 28 U/L ALT (test code = 2219) 17 U/L Eric StantonLIPID [id number] 00:00:00* Test Item Value Reference Range Interpretation Comme nts CHOLESTEROL (test code = 2210) 173 MG/DL TRIGLYCERIDES (test code = 2232) 56 MG/DL HDL CHOLESTEROL (test code = 2220) 44 MG/DL CALC LDL CHOL (test code = 2237) 115 MG/DL RISK RATIO LDL/HDL (test cod e = 2238) 2.61 RATIO Eric F AustinCOMPREHENSIVE METABOLIC [id number] 00:00:00* Test Item Value Reference Range Interpretation Comme nts GLUCOSE (test code = 2217) 83 MG/DL BUN (test code = 2208) 13 MG/DL CREATININE (test code = 2214) 0.96 MG/DL eGFR (2020 CKD-EPI) (test co de = 05156) 79 ML/MIN/1.73 CALC BUN/CREAT (test code = 2235) 14 RATIO SODIUM (test code = 2231) 140 MEQ/L POTASSIUM (test code = 2228) 4.8 MEQ/L CHLORIDE (test code = 2215) 104 MEQ/L CARBON DIOXIDE (test code = 2206) 23 MEQ/L CALCIUM (test code = 2209) 9.6 MG/DL PROTEIN, TOTAL (test code = 2229) 6.9 G/DL ALBUMIN (test code = 2201) 4.1 G/DL CALC GLOBULIN (test code = 2240) 2.8 G/DL CALC A/G RATIO (test code = 2234) 1.5 RATIO BILIRUBIN, TOTAL (test code = 2207) 0.5 MG/DL ALKALINE PHOSPHATASE (test code = 2204) 69 U/L AST (test code = 2218) 28 U/L ALT (test code = 2219) 17 U/L Eric Estrada AustinLIPID [id number] 00:00:00* Test Item Value Reference Range Interpretation Comme nts CHOLESTEROL (test code = 2210) 173 MG/DL TRIGLYCERIDES (test code = 2232) 56 MG/DL HDL CHOLESTEROL (test code = 2220) 44 MG/DL CALC LDL CHOL (test code = 2237) 115 MG/DL RISK RATIO LDL/HDL (test cod e = 2238) 2.61 RATIO Eric Estrada AustinCOMPREHENSIVE METABOLIC [id number] 00:00:00* Test Item Value Reference Range Interpretation Comme nts GLUCOSE (test code = 2217) 83 MG/DL BUN (test code = 2208) 13 MG/DL CREATININE (test code = 2214) 0.96 MG/DL eGFR (2020 CKD-EPI) (test co de = 34270) 79 ML/MIN/1.73 CALC BUN/CREAT (test code = 2235) 14 RATIO SODIUM (test code = 2231) 140 MEQ/L POTASSIUM (test code = 2228) 4.8 MEQ/L CHLORIDE (test code = 2215) 104 MEQ/L CARBON DIOXIDE (test code = 2206) 23 MEQ/L CALCIUM (test code = 2209) 9.6 MG/DL PROTEIN, TOTAL (test code = 2229) 6.9 G/DL ALBUMIN (test code = 2201) 4.1 G/DL CALC GLOBULIN (test code = 2240) 2.8 G/DL CALC A/G RATIO (test code = 2234) 1.5 RATIO BILIRUBIN, TOTAL (test code = 2207) 0.5 MG/DL ALKALINE PHOSPHATASE (test code = 2204) 69 U/L AST (test code = 2218) 28 U/L ALT (test code = 2219) 17 U/L Eric Estrada [place] RidgeLIP[place] [id number] 00:00:00* Test Item Value Reference Range Interpretation Comme nts CHOLESTEROL (test code = 2210) 173 MG/DL TRIGLYCERIDES (test code = 2232) 56 MG/DL HDL CHOLESTEROL (test code = 2220) 44 MG/DL CALC LDL CHOL (test code = 2237) 115 MG/DL RISK RATIO LDL/HDL (test cod e = 2238) 2.61 RATIO Eric Estrada MaximinoCOMPREHENSIVE METABOLIC [id number] 00:00:00* Test Item Value Reference Range Interpretation Comme nts GLUCOSE (test code = 2217) 83 MG/DL BUN (test code = 2208) 13 MG/DL CREATININE (test code = 2214) 0.96 MG/DL eGFR (2020 CKD-EPI) (test co de = 44064) 79 ML/MIN/1.73 CALC BUN/CREAT (test code = 2235) 14 RATIO SODIUM (test code = 2231) 140 MEQ/L POTASSIUM (test code = 2228) 4.8 MEQ/L CHLORIDE (test code = 2215) 104 MEQ/L CARBON DIOXIDE (test code = 2206) 23 MEQ/L CALCIUM (test code = 2209) 9.6 MG/DL PROTEIN, TOTAL (test code = 2229) 6.9 G/DL ALBUMIN (test code = 2201) 4.1 G/DL CALC GLOBULIN (test code = 2240) 2.8 G/DL CALC A/G RATIO (test code = 2234) 1.5 RATIO BILIRUBIN, TOTAL (test code = 2207) 0.5 MG/DL ALKALINE PHOSPHATASE (test code = 2204) 69 U/L AST (test code = 2218) 28 U/L ALT (test code = 2219) 17 U/L Eric StantonLIPID [id number] 00:00:00* Test Item Value Reference Range Interpretation Comme nts CHOLESTEROL (test code = 2210) 173 MG/DL TRIGLYCERIDES (test code = 2232) 56 MG/DL HDL CHOLESTEROL (test code = 2220) 44 MG/DL CALC LDL CHOL (test code = 2237) 115 MG/DL RISK RATIO LDL/HDL (test cod e = 2238) 2.61 RATIO Eric StantonCOMPREHENSIVE METABOLIC [id number] 00:00:00* Test Item Value Reference Range Interpretation Comme nts GLUCOSE (test code = 2217) 83 MG/DL BUN (test code = 2208) 13 MG/DL CREATININE (test code = 2214) 0.96 MG/DL eGFR (2020 CKD-EPI) (test co de = 73170) 79 ML/MIN/1.73 CALC BUN/CREAT (test code = 2235) 14 RATIO SODIUM (test code = 2231) 140 MEQ/L POTASSIUM (test code = 2228) 4.8 MEQ/L CHLORIDE (test code = 2215) 104 MEQ/L CARBON DIOXIDE (test code = 2206) 23 MEQ/L CALCIUM (test code = 2209) 9.6 MG/DL PROTEIN, TOTAL (test code = 2229) 6.9 G/DL ALBUMIN (test code = 2201) 4.1 G/DL CALC GLOBULIN (test code = 2240) 2.8 G/DL CALC A/G RATIO (test code = 2234) 1.5 RATIO BILIRUBIN, TOTAL (test code = 2207) 0.5 MG/DL ALKALINE PHOSPHATASE (test code = 2204) 69 U/L AST (test code = 2218) 28 U/L ALT (test code = 2219) 17 U/L Eric Estrada AustinLIP[place] [id number] 00:00:00* Test Item Value Reference Range Interpretation Comme nts CHOLESTEROL (test code = 2210) 173 MG/DL TRIGLYCERIDES (test code = 2232) 56 MG/DL HDL CHOLESTEROL (test code = 2220) 44 MG/DL CALC LDL CHOL (test code = 2237) 115 MG/DL RISK RATIO LDL/HDL (test cod e = 2238) 2.61 RATIO Eric Estrada AustinVITAMIN [id number] 18:05:18* Test Item Value Reference Range Interpretation Comme nts VITAMIN B1 (test code = 4952) 232 nmol/L 64-201 H This test was de veloped and its performance characteristicsdetermined by [facility] ([facility]). It has not beencleared or approved by the U.S. Food and Drug Administration (FDA).The FDA has determined that such clearance or approval is notnecessary. This test is used for clinical purposes and should not beregarded as investigational or for research. [facility] is qualified toperform high complexity testing under the Clinical LaboratoryImprovement Amendments (CLIA). TESTING PERFORMED AT [facility] [address] [place] [address], [address], [place] [id number] CLIA NO: [id number] VITAMIN [id number] 00:00:00* Test Item Value Reference Range Interpretation Comme nts VITAMIN B1 (test code = 4952) 232 nmol/L Eric Estrada AustinVITAMIN [id number] 00:00:00* Test Item Value Reference Range Interpretation Comme nts VITAMIN B1 (test code = 4952) 232 nmol/L Eric Estrada AustinVITAMIN [id number] 00:00:00* Test Item Value Reference Range Interpretation Comme nts VITAMIN B1 (test code = 4952) 232 nmol/L Eric Estrada AustinVITAMIN [id number] 00:00:00* Test Item Value Reference Range Interpretation Comme nts VITAMIN B1 (test code = 4952) 232 nmol/L Eric Estrada AustinVITAMIN [id number] 00:00:00* Test Item Value Reference Range Interpretation Comme nts VITAMIN B1 (test code = 4952) 232 nmol/L Eric Estrada AustinVITAMIN [id number] 00:00:00* Test Item Value Reference Range Interpretation Comme nts VITAMIN B1 (test code = 4952) 232 nmol/L Eric StantonFOLIC [id number] 04:57:54* Test Item Value Reference Range Interpretation Comme nts FOLIC ACID (test code = 2695) 9.4 UG/L SEE BELOW INTERPRETI VE RANGES DEFICIENCY . . . . . . . . . . . . . . . UG/L <4.0 POSSIBLE DEFICIENCY. . . . . . . . . . . UG/L 4.0-5.9 SUFFICIENT . . . . . . . . . . . . . . . UG/L >=6.0 PSA, [id number] 04:57:02* Test Item Value Reference Range Interpretation Comme nts PSA, TOTAL (test code = 2606) 7.24 NG/ML <=4.00 H NOTE: Methodolog y is Angelica Padmaja Electrochemiluminescence Immunoassay traceable to WHO reference standard 96/760. HEMOGLOBIN [id number] 03:14:08* Test Item Value Reference Range Interpretation Comme nts HEMOGLOBIN A1c (test code = 56918) 5.7 % 4.2-5.6 H [employer] GUIDELINES FOR HGB A1C: PREDIABETES/INCREASED RISK . . . . . . . 5.7-6.4% DIAGNOSIS OF DIABETES . . . . . . . . . >=6.5% WITH CONFIRMATION OR APPROPRIATE SYMPTOMS NOTE: ASSAY MAY BE AFFECTED BY HEMOGLOBINOPATHIES (SICKLE CELL ANEMIA, S-C DISEASE, OTHERS) OR ARTIFICIALLY LOWERED BY DECREASED RED CELL SURVIVAL (HEMOLYTIC ANEMIAS, BLOOD LOSS, ETC.). CONSIDER ALTERNATE TESTING OR LABORATORY CONSULTATION. UNLESS OTHERWISE INDICATED, ALL TESTING PERFORMED AT [facility] [address] [place] [address] REACH TRUCK OPERATOR: TAE JC M.D. CLIA NUMBER [id number] [facility] [place]. [id number] FOLIC [id number] 00:00:00* Test Item Value Reference Range Interpretation Comme nts FOLIC ACID (test code = 2695) 9.4 UG/L Eric StantonPSA, [id number] 00:00:00* Test Item Value Reference Range Interpretation Comme nts PSA, TOTAL (test code = 2606) 7.24 NG/ML Eric StantonHEMOGLOBIN [id number] 00:00:00* Test Item Value Reference Range Interpretation Comme nts HEMOGLOBIN A1c (test code = 00261) 5.7 % Eric StantonFOLIC [id number] 00:00:00* Test Item Value Reference Range Interpretation Comme nts FOLIC ACID (test code = 2695) 9.4 UG/L Eric StantonPSA, [id number] 00:00:00* Test Item Value Reference Range Interpretation Comme nts PSA, TOTAL (test code = 2606) 7.24 NG/ML Eric Estrada AustinHEMOGLOBIN [id number] 00:00:00* Test Item Value Reference Range Interpretation Comme nts HEMOGLOBIN A1c (test code = 13667) 5.7 % Eric Estrada AustinFOLIC [id number] 00:00:00* Test Item Value Reference Range Interpretation Comme nts FOLIC ACID (test code = 2695) 9.4 UG/L Eric StantonPSA, [id number] 00:00:00* Test Item Value Reference Range Interpretation Comme nts PSA, TOTAL (test code = 2606) 7.24 NG/ML Eric Estrada AustinHEMOGLOBIN [id number] 00:00:00* Test Item Value Reference Range Interpretation Comme nts HEMOGLOBIN A1c (test code = 13615) 5.7 % Eric Estrada AustinFOLIC [id number] 00:00:00* Test Item Value Reference Range Interpretation Comme nts FOLIC ACID (test code = 2695) 9.4 UG/L Eric StantonPSA, [id number] 00:00:00* Test Item Value Reference Range Interpretation Comme nts PSA, TOTAL (test code = 2606) 7.24 NG/ML Eric Estrada AustinHEMOGLOBIN [id number] 00:00:00* Test Item Value Reference Range Interpretation Comme nts HEMOGLOBIN A1c (test code = 77287) 5.7 % Eric Estrada AustinFOLIC [id number] 00:00:00* Test Item Value Reference Range Interpretation Comme nts FOLIC ACID (test code = 2695) 9.4 UG/L Eric StantonPSA, [id number] 00:00:00* Test Item Value Reference Range Interpretation Comme nts PSA, TOTAL (test code = 2606) 7.24 NG/ML Eric Estrada AustinHEMOGLOBIN [id number] 00:00:00* Test Item Value Reference Range Interpretation Comme nts HEMOGLOBIN A1c (test code = 47945) 5.7 % Eric Estrada AustinFOLIC [id number] 00:00:00* Test Item Value Reference Range Interpretation Comme charo FOLIC ACID (test code = 2695) 9.4 UG/L Eric StantonPSA, [id number] 00:00:00* Test Item Value Reference Range Interpretation Comme charo PSA, TOTAL (test code = 2606) 7.24 NG/ML Eric StantonHEMOGLOBIN [id number] 00:00:00* Test Item Value Reference Range Interpretation Comme charo HEMOGLOBIN A1c (test code = 04638) 5.7 % Eric StantonCOMPREHENSIVE METABOLIC [id number] 04:19:21* Test Item Value Reference Range Interpretation Comme charo GLUCOSE (test code = 7) 96 MG/DL 70-99 BUN (test code = 2207) 11 MG/DL 8-23 CREATININE (test code = 2214) 0.86 MG/DL 0.80-1.40 eGFR (2020 CKD-EPI) (test code = 09300) 88 ML/MIN/1.73 >60 CALC BUN/CREAT (test code = 2235) 13 RATIO 6-28 SODIUM (test code = 223) 145 MEQ/L 133-146 POTASSIUM (test code = 2228) 3.9 MEQ/L 3.5-5.4 CHLORIDE (test code = 2215) 106 MEQ/L 95-107 CARBON DIOXIDE (test code = 2206) 24 MEQ/L 19-31 CALCIUM (test code = 2209) 9.6 MG/DL 8.5-10.5 PROTEIN, TOTAL (test code = 222) 7.4 G/DL 6.1-8.3 ALBUMIN (test code = 2201) 4.2 G/DL 3.5-5.2 CALC GLOBULIN (test code = 2240) 3.2 G/DL 1.9-3.7 CALC A/G RATIO (test code = 2234) 1.3 RATIO 1.0-2.6 BILIRUBIN, TOTAL (test code = 2207) 0.5 MG/DL See_Comment [Automated me ssage] The system which generated this result transmitted reference range: <=1.2. The reference range was not used to interpret this result as normal/abnormal. ALKALINE PHOSPHATASE (test code = 4) 82 U/L 40-125 AST (test code = 2218) 28 U/L 9-50 ALT (test code = 2219) 17 U/L 5-50 LIPID [id number] 04:19:21* Test Item Value Reference Range Interpretation Comme nts CHOLESTEROL (test code = 2210) 235 MG/DL <200 H TRIGLYCERIDES (test code = 2232) 82 MG/DL <150 HDL CHOLESTEROL (test code = 2220) 52 MG/DL >39 CALC LDL CHOL (test code = 2237) 164 MG/DL <100 H NOTE: CALCULATED LDL IS BASED ON RAYSHAWN-MCFADDEN METHOD WHICHINCLUDES ADJUSTABLE TRIGLYCERIDE:VLDL CHOLESTEROL RATIO.THIS FACTOR VARIES BY MEASURED TRIGLYCERIDE AND NON-HDLCHOLESTEROL CONCENTRATIONS WITH INCREASED CALCULATED LDL SEENIN HIGHER TRIGLYCERIDE OR LOWER NON-HDL SPECIMENS. FOR MOREINFORMATION, SEE CLIENT ANNOUNCEMENT AT [email or web address] RISK RATIO LDL/HDL (test code = 2238) 3.15 RATIO <3.55 [facility] has i mportant pathology staff changes effective 11/26/2022. New pathology staff will provide uninterrupted, excellent patient care and clinical consultation. See URL: [email or web address]. UNLESS OTHERWISE INDICATED, ALL TESTING PERFORMED AT [facility] [address] [place] [address] CLIA: [id number], CAP: [id number] LIPID [id number] 00:00:00* Test Item Value Reference Range Interpretation Comme nts CHOLESTEROL (test code = 2210) 235 MG/DL TRIGLYCERIDES (test code = 2232) 82 MG/DL HDL CHOLESTEROL (test code = 2220) 52 MG/DL CALC LDL CHOL (test code = 2237) 164 MG/DL RISK RATIO LDL/HDL (test cod e = 2238) 3.15 RATIO Eric StantonCOMPREHENSIVE METABOLIC [id number] 00:00:00* Test Item Value Reference Range Interpretation Comme nts GLUCOSE (test code = 2217) 96 MG/DL BUN (test code = 2208) 11 MG/DL CREATININE (test code = 2214) 0.86 MG/DL eGFR (2020 CKD-EPI) (test co de = 27572) 88 ML/MIN/1.73 CALC BUN/CREAT (test code = 2235) 13 RATIO SODIUM (test code = 2231) 145 MEQ/L POTASSIUM (test code = 2228) 3.9 MEQ/L CHLORIDE (test code = 2215) 106 MEQ/L CARBON DIOXIDE (test code = 2206) 24 MEQ/L CALCIUM (test code = 2209) 9.6 MG/DL PROTEIN, TOTAL (test code = 2229) 7.4 G/DL ALBUMIN (test code = 2201) 4.2 G/DL CALC GLOBULIN (test code = 2240) 3.2 G/DL CALC A/G RATIO (test code = 2234) 1.3 RATIO BILIRUBIN, TOTAL (test code = 2207) 0.5 MG/DL ALKALINE PHOSPHATASE (test code = 2204) 82 U/L AST (test code = 2218) 28 U/L ALT (test code = 2219) 17 U/L Eric StantonLIPID [id number] 00:00:00* Test Item Value Reference Range Interpretation Comme nts CHOLESTEROL (test code = 2210) 235 MG/DL TRIGLYCERIDES (test code = 2232) 82 MG/DL HDL CHOLESTEROL (test code = 2220) 52 MG/DL CALC LDL CHOL (test code = 2237) 164 MG/DL RISK RATIO LDL/HDL (test cod e = 2238) 3.15 RATIO Eric StantonCOMPREHENSIVE METABOLIC [id number] 00:00:00* Test Item Value Reference Range Interpretation Comme nts GLUCOSE (test code = 2217) 96 MG/DL BUN (test code = 2208) 11 MG/DL CREATININE (test code = 2214) 0.86 MG/DL eGFR (2020 CKD-EPI) (test co de = 33582) 88 ML/MIN/1.73 CALC BUN/CREAT (test code = 2235) 13 RATIO SODIUM (test code = 2231) 145 MEQ/L POTASSIUM (test code = 2228) 3.9 MEQ/L CHLORIDE (test code = 2215) 106 MEQ/L CARBON DIOXIDE (test code = 2206) 24 MEQ/L CALCIUM (test code = 2209) 9.6 MG/DL PROTEIN, TOTAL (test code = 2229) 7.4 G/DL ALBUMIN (test code = 2201) 4.2 G/DL CALC GLOBULIN (test code = 2240) 3.2 G/DL CALC A/G RATIO (test code = 2234) 1.3 RATIO BILIRUBIN, TOTAL (test code = 2207) 0.5 MG/DL ALKALINE PHOSPHATASE (test code = 2204) 82 U/L AST (test code = 2218) 28 U/L ALT (test code = 2219) 17 U/L Eric Estrada AustinLIPID [id number] 00:00:00* Test Item Value Reference Range Interpretation Comme nts CHOLESTEROL (test code = 2210) 235 MG/DL TRIGLYCERIDES (test code = 2232) 82 MG/DL HDL CHOLESTEROL (test code = 2220) 52 MG/DL CALC LDL CHOL (test code = 2237) 164 MG/DL RISK RATIO LDL/HDL (test cod e = 2238) 3.15 RATIO Eric StantonCOMPREHENSIVE METABOLIC [id number] 00:00:00* Test Item Value Reference Range Interpretation Comme nts GLUCOSE (test code = 2217) 96 MG/DL BUN (test code = 2208) 11 MG/DL CREATININE (test code = 2214) 0.86 MG/DL eGFR (2020 CKD-EPI) (test co de = 06325) 88 ML/MIN/1.73 CALC BUN/CREAT (test code = 2235) 13 RATIO SODIUM (test code = 2231) 145 MEQ/L POTASSIUM (test code = 2228) 3.9 MEQ/L CHLORIDE (test code = 2215) 106 MEQ/L CARBON DIOXIDE (test code = 2206) 24 MEQ/L CALCIUM (test code = 2209) 9.6 MG/DL PROTEIN, TOTAL (test code = 2229) 7.4 G/DL ALBUMIN (test code = 2201) 4.2 G/DL CALC GLOBULIN (test code = 2240) 3.2 G/DL CALC A/G RATIO (test code = 2234) 1.3 RATIO BILIRUBIN, TOTAL (test code = 2207) 0.5 MG/DL ALKALINE PHOSPHATASE (test code = 2204) 82 U/L AST (test code = 2218) 28 U/L ALT (test code = 2219) 17 U/L Eric Estrada [place] [id number] 00:00:00* Test Item Value Reference Range Interpretation Comme nts CHOLESTEROL (test code = 2210) 235 MG/DL TRIGLYCERIDES (test code = 2232) 82 MG/DL HDL CHOLESTEROL (test code = 2220) 52 MG/DL CALC LDL CHOL (test code = 2237) 164 MG/DL RISK RATIO LDL/HDL (test cod e = 2238) 3.15 RATIO Eric StantonCOMPREHENSIVE METABOLIC [id number] 00:00:00* Test Item Value Reference Range Interpretation Comme nts GLUCOSE (test code = 2217) 96 MG/DL BUN (test code = 2208) 11 MG/DL CREATININE (test code = 2214) 0.86 MG/DL eGFR (2020 CKD-EPI) (test co de = 59088) 88 ML/MIN/1.73 CALC BUN/CREAT (test code = 2235) 13 RATIO SODIUM (test code = 2231) 145 MEQ/L POTASSIUM (test code = 2228) 3.9 MEQ/L CHLORIDE (test code = 2215) 106 MEQ/L CARBON DIOXIDE (test code = 2206) 24 MEQ/L CALCIUM (test code = 2209) 9.6 MG/DL PROTEIN, TOTAL (test code = 2229) 7.4 G/DL ALBUMIN (test code = 2201) 4.2 G/DL CALC GLOBULIN (test code = 2240) 3.2 G/DL CALC A/G RATIO (test code = 2234) 1.3 RATIO BILIRUBIN, TOTAL (test code = 2207) 0.5 MG/DL ALKALINE PHOSPHATASE (test code = 2204) 82 U/L AST (test code = 2218) 28 U/L ALT (test code = 2219) 17 U/L Eric Estrada [place] [id number] 00:00:00* Test Item Value Reference Range Interpretation Comme nts CHOLESTEROL (test code = 2210) 235 MG/DL TRIGLYCERIDES (test code = 2232) 82 MG/DL HDL CHOLESTEROL (test code = 2220) 52 MG/DL CALC LDL CHOL (test code = 2237) 164 MG/DL RISK RATIO LDL/HDL (test cod e = 2238) 3.15 RATIO Eric Estrada [place]IVE [place]AB[place] [id number] 00:00:00* Test Item Value Reference Range Interpretation Comme nts GLUCOSE (test code = 2217) 96 MG/DL BUN (test code = 2208) 11 MG/DL CREATININE (test code = 2214) 0.86 MG/DL eGFR (2020 CKD-EPI) (test co de = 75373) 88 ML/MIN/1.73 CALC BUN/CREAT (test code = 2235) 13 RATIO SODIUM (test code = 2231) 145 MEQ/L POTASSIUM (test code = 2228) 3.9 MEQ/L CHLORIDE (test code = 2215) 106 MEQ/L CARBON DIOXIDE (test code = 2206) 24 MEQ/L CALCIUM (test code = 2209) 9.6 MG/DL PROTEIN, TOTAL (test code = 2229) 7.4 G/DL ALBUMIN (test code = 2201) 4.2 G/DL CALC GLOBULIN (test code = 2240) 3.2 G/DL CALC A/G RATIO (test code = 2234) 1.3 RATIO BILIRUBIN, TOTAL (test code = 2207) 0.5 MG/DL ALKALINE PHOSPHATASE (test code = 2204) 82 U/L AST (test code = 2218) 28 U/L ALT (test code = 2219) 17 U/L Eric Estrada [place] [id number] 00:00:00* Test Item Value Reference Range Interpretation Comme nts CHOLESTEROL (test code = 2210) 235 MG/DL TRIGLYCERIDES (test code = 2232) 82 MG/DL HDL CHOLESTEROL (test code = 2220) 52 MG/DL CALC LDL CHOL (test code = 2237) 164 MG/DL RISK RATIO LDL/HDL (test cod e = 2238) 3.15 RATIO Eric StantonCOMPREHENSIVE METABOLIC [id number] 00:00:00* Test Item Value Reference Range Interpretation Comme nts GLUCOSE (test code = 2217) 96 MG/DL BUN (test code = 2208) 11 MG/DL CREATININE (test code = 2214) 0.86 MG/DL eGFR (2020 CKD-EPI) (test co de = 92548) 88 ML/MIN/1.73 CALC BUN/CREAT (test code = 2235) 13 RATIO SODIUM (test code = 2231) 145 MEQ/L POTASSIUM (test code = 2228) 3.9 MEQ/L CHLORIDE (test code = 2215) 106 MEQ/L CARBON DIOXIDE (test code = 2206) 24 MEQ/L CALCIUM (test code = 2209) 9.6 MG/DL PROTEIN, TOTAL (test code = 2229) 7.4 G/DL ALBUMIN (test code = 2201) 4.2 G/DL CALC GLOBULIN (test code = 2240) 3.2 G/DL CALC A/G RATIO (test code = 2234) 1.3 RATIO BILIRUBIN, TOTAL (test code = 2207) 0.5 MG/DL ALKALINE PHOSPHATASE (test code = 2204) 82 U/L AST (test code = 2218) 28 U/L ALT (test code = 2219) 17 U/L Eric Estrada AustinLIPID [id number] 00:00:00* Test Item Value Reference Range Interpretation Comme nts CHOLESTEROL (test code = 2210) 235 MG/DL TRIGLYCERIDES (test code = 2232) 82 MG/DL HDL CHOLESTEROL (test code = 2220) 52 MG/DL CALC LDL CHOL (test code = 2237) 164 MG/DL RISK RATIO LDL/HDL (test cod e = 2238) 3.15 RATIO Eric StantonCOMPREHENSIVE METABOLIC [id number] 00:00:00* Test Item Value Reference Range Interpretation Comme nts GLUCOSE (test code = 2217) 96 MG/DL BUN (test code = 2208) 11 MG/DL CREATININE (test code = 2214) 0.86 MG/DL eGFR (2020 CKD-EPI) (test co de = 92547) 88 ML/MIN/1.73 CALC BUN/CREAT (test code = 2235) 13 RATIO SODIUM (test code = 2231) 145 MEQ/L POTASSIUM (test code = 2228) 3.9 MEQ/L CHLORIDE (test code = 2215) 106 MEQ/L CARBON DIOXIDE (test code = 2206) 24 MEQ/L CALCIUM (test code = 2209) 9.6 MG/DL PROTEIN, TOTAL (test code = 2229) 7.4 G/DL ALBUMIN (test code = 2201) 4.2 G/DL CALC GLOBULIN (test code = 2240) 3.2 G/DL CALC A/G RATIO (test code = 2234) 1.3 RATIO BILIRUBIN, TOTAL (test code = 2207) 0.5 MG/DL ALKALINE PHOSPHATASE (test code = 2204) 82 U/L AST (test code = 2218) 28 U/L ALT (test code = 2219) 17 U/L Eric Estrada MaximinoHEPATITIS PANEL, ACUTE [ADDED]2020-08-16 00:00:00* Test Item Value Reference Range Interpretation Comme nts HEPATITIS A IgM (test code = 39910) NON-REACTIVE HEPATITIS B CORE IgM (test code = 4644) NON-REACTIVE HEPATITIS B SURF AG (test code = 2739) REACTIVE HBSAG CONFIRMATION TEST (test code = 2741) CONFIRMED REACTIVE HEPATITIS C ANTIBODY (test code = 4675) NON-REACTIVE INTERPRETATION HEPATITIS A: (test code = 2552) (NOTE) INTERPRETATION HEPATITIS B: (test code = 76269) (NOTE) INTERPRETATION HEPATITIS C: (test code = 94686) (NOTE) Eric Estrada AustinHEPATITIS PANEL, ACUTE [ADDED]2020-08-16 00:00:00* Test Item Value Reference Range Interpretation Comme nts HEPATITIS A IgM (test code = 26453) NON-REACTIVE HEPATITIS B CORE IgM (test code = 4644) NON-REACTIVE HEPATITIS B SURF AG (test code = 2739) REACTIVE HBSAG CONFIRMATION TEST (test code = 2741) CONFIRMED REACTIVE HEPATITIS C ANTIBODY (test code = 4675) NON-REACTIVE INTERPRETATION HEPATITIS A: (test code = 2552) (NOTE) INTERPRETATION HEPATITIS B: (test code = 02279) (NOTE) INTERPRETATION HEPATITIS C: (test code = 81590) (NOTE) Eric StantonHEPATITIS PANEL, ACUTE [ADDED]2020-08-16 00:00:00* Test Item Value Reference Range Interpretation Comme nts HEPATITIS A IgM (test code = 36228) NON-REACTIVE HEPATITIS B CORE IgM (test code = 4644) NON-REACTIVE HEPATITIS B SURF AG (test code = 2739) REACTIVE HBSAG CONFIRMATION TEST (test code = 2741) CONFIRMED REACTIVE HEPATITIS C ANTIBODY (test code = 4675) NON-REACTIVE INTERPRETATION HEPATITIS A: (test code = 2552) (NOTE) INTERPRETATION HEPATITIS B: (test code = 36499) (NOTE) INTERPRETATION HEPATITIS C: (test code = 37055) (NOTE) Eric Estrada [place] RidgeHEPATITIS PANEL, ACUTE [ADDED]2020-08-16 00:00:00* Test Item Value Reference Range Interpretation Comme nts HEPATITIS A IgM (test code = 87626) NON-REACTIVE HEPATITIS B CORE IgM (test code = 4644) NON-REACTIVE HEPATITIS B SURF AG (test code = 2739) REACTIVE HBSAG CONFIRMATION TEST (test code = 2741) CONFIRMED REACTIVE HEPATITIS C ANTIBODY (test code = 4675) NON-REACTIVE INTERPRETATION HEPATITIS A: (test code = 2552) (NOTE) INTERPRETATION HEPATITIS B: (test code = 21372) (NOTE) INTERPRETATION HEPATITIS C: (test code = 03359) (NOTE) Eric Estrada AustinHEPATITIS PANEL, ACUTE [ADDED]2020-08-16 00:00:00* Test Item Value Reference Range Interpretation Comme nts HEPATITIS A IgM (test code = 69092) NON-REACTIVE HEPATITIS B CORE IgM (test code = 4644) NON-REACTIVE HEPATITIS B SURF AG (test code = 2739) REACTIVE HBSAG CONFIRMATION TEST (test code = 2741) CONFIRMED REACTIVE HEPATITIS C ANTIBODY (test code = 4675) NON-REACTIVE INTERPRETATION HEPATITIS A: (test code = 2552) (NOTE) INTERPRETATION HEPATITIS B: (test code = 24328) (NOTE) INTERPRETATION HEPATITIS C: (test code = 10243) (NOTE) HEPATITIS PANEL, ACUTE [ADDED]2020-08-16 00:00:00* Test Item Value Reference Range Interpretation Comme nts HEPATITIS A IgM (test code = 65543) NON-REACTIVE HEPATITIS B CORE IgM (test code = 4644) NON-REACTIVE HEPATITIS B SURF AG (test code = 2739) REACTIVE HBSAG CONFIRMATION TEST (test code = 2741) CONFIRMED REACTIVE HEPATITIS C ANTIBODY (test code = 4675) NON-REACTIVE INTERPRETATION HEPATITIS A: (test code = 2552) (NOTE) INTERPRETATION HEPATITIS B: (test code = 93035) (NOTE) INTERPRETATION HEPATITIS C: (test code = 61086) (NOTE) Eric StantonHEPATITIS PANEL, ACUTE [ADDED]2020-08-16 00:00:00* Test Item Value Reference Range Interpretation Comme nts HEPATITIS A IgM (test code = 29894) NON-REACTIVE HEPATITIS B CORE IgM (test code = 4644) NON-REACTIVE HEPATITIS B SURF AG (test code = 2739) REACTIVE HBSAG CONFIRMATION TEST (test code = 2741) CONFIRMED REACTIVE HEPATITIS C ANTIBODY (test code = 4675) NON-REACTIVE INTERPRETATION HEPATITIS A: (test code = 2552) (NOTE) INTERPRETATION HEPATITIS B: (test code = 62583) (NOTE) INTERPRETATION HEPATITIS C: (test code = 22877) (NOTE) Eric StantonHEPATITIS PANEL, ACUTE [ADDED]2020-08-16 00:00:00* Test Item Value Reference Range Interpretation Comme nts HEPATITIS A IgM (test code = 20953) NON-REACTIVE HEPATITIS B CORE IgM (test code = 4644) NON-REACTIVE HEPATITIS B SURF AG (test code = 2739) REACTIVE HBSAG CONFIRMATION TEST (test code = 2741) CONFIRMED REACTIVE HEPATITIS C ANTIBODY (test code = 4675) NON-REACTIVE INTERPRETATION HEPATITIS A: (test code = 2552) (NOTE) INTERPRETATION HEPATITIS B: (test code = 13595) (NOTE) INTERPRETATION HEPATITIS C: (test code = 89409) (NOTE) Eric StantonLIPID [id number] 00:00:00* Test Item Value Reference Range Interpretation Comme nts CHOLESTEROL (test code = 2210) 185 MG/DL TRIGLYCERIDES (test code = 2232) 50 MG/DL HDL CHOLESTEROL (test code = 2220) 61 MG/DL CALC LDL CHOL (test code = 2237) 111 MG/DL RISK RATIO LDL/HDL (test cod e = 2238) 1.82 RATIO Eric StantonCOMPREHENSIVE METABOLIC [id number] 00:00:00* Test Item Value Reference Range Interpretation Comme nts GLUCOSE (test code = 2217) 91 MG/DL BUN (test code = 2208) 12 MG/DL CREATININE (test code = 2214) 1.04 MG/DL eGFR AMER. (test cod e = 73882) 79 ML/MIN/1.73 eGFR NON- AMER. (test code = 50904) 68 ML/MIN/1.73 CALC BUN/CREAT (test code = 2235) 12 RATIO SODIUM (test code = 2231) 144 MEQ/L POTASSIUM (test code = 2228) 3.9 MEQ/L CHLORIDE (test code = 2215) 104 MEQ/L CARBON DIOXIDE (test code = 2206) 28 MEQ/L CALCIUM (test code = 2209) 9.9 MG/DL PROTEIN, TOTAL (test code = 2229) 7.5 G/DL ALBUMIN (test code = 2201) 4.4 G/DL CALC GLOBULIN (test code = 2240) 3.1 G/DL CALC A/G RATIO (test code = 2234) 1.4 RATIO BILIRUBIN, TOTAL (test code = 2207) 0.7 MG/DL ALKALINE PHOSPHATASE (test code = 2204) 70 U/L AST (test code = 2218) 28 U/L ALT (test code = 2219) 18 U/L Eric StantonPSA, [id number] 00:00:00* Test Item Value Reference Range Interpretation Comme nts PSA, TOTAL (test code = 2606) 5.74 NG/ML Eric StantonCBC W/AUTO [id number] 00:00:00* Test Item Value Reference Range Interpretation Comme nts WBC (test code = 1001) 6.0 K/UL RBC (test code = 1002) 4.92 M/UL HEMOGLOBIN (test code = 1003) 15.9 G/DL HEMATOCRIT (test code = 1004) 45.6 % MCV (test code = 1005) 92.7 fL MCH (test code = 1006) 32.3 PG MCHC (test code = 1007) 34.9 G/DL RDW (test code = 1038) 12.9 % NEUTROPHILS (test code = 1008) 69.5 % LYMPHOCYTES (test code = 1010) 20.1 % MONOCYTES (test code = 1011) 9.7 % EOSINOPHILS (test code = 1012) 0.7 % BASOPHILS (test code = 1013) 0.0 % PLATELET COUNT (test code = 1015) 201 K/UL Eric StantonHEMOGLOBIN [id number] 00:00:00* Test Item Value Reference Range Interpretation Comme nts HEMOGLOBIN A1c (test code = 68240) 5.7 % Eric StantonLIPID [id number] 00:00:00* Test Item Value Reference Range Interpretation Comme nts CHOLESTEROL (test code = 2210) 185 MG/DL TRIGLYCERIDES (test code = 2232) 50 MG/DL HDL CHOLESTEROL (test code = 2220) 61 MG/DL CALC LDL CHOL (test code = 2237) 111 MG/DL RISK RATIO LDL/HDL (test cod e = 2238) 1.82 RATIO Eric StantonCOMPREHENSIVE METABOLIC [id number] 00:00:00* Test Item Value Reference Range Interpretation Comme nts GLUCOSE (test code = 2217) 91 MG/DL BUN (test code = 2208) 12 MG/DL CREATININE (test code = 2214) 1.04 MG/DL eGFR AMER. (test cod e = 71120) 79 ML/MIN/1.73 eGFR NON- AMER. (test code = 57898) 68 ML/MIN/1.73 CALC BUN/CREAT (test code = 2235) 12 RATIO SODIUM (test code = 2231) 144 MEQ/L POTASSIUM (test code = 2228) 3.9 MEQ/L CHLORIDE (test code = 2215) 104 MEQ/L CARBON DIOXIDE (test code = 2206) 28 MEQ/L CALCIUM (test code = 2209) 9.9 MG/DL PROTEIN, TOTAL (test code = 2229) 7.5 G/DL ALBUMIN (test code = 2201) 4.4 G/DL CALC GLOBULIN (test code = 2240) 3.1 G/DL CALC A/G RATIO (test code = 2234) 1.4 RATIO BILIRUBIN, TOTAL (test code = 2207) 0.7 MG/DL ALKALINE PHOSPHATASE (test code = 2204) 70 U/L AST (test code = 2218) 28 U/L ALT (test code = 2219) 18 U/L Eric StantonPSA, [id number] 00:00:00* Test Item Value Reference Range Interpretation Comme nts PSA, TOTAL (test code = 2606) 5.74 NG/ML Eric StantonCBC W/AUTO [id number] 00:00:00* Test Item Value Reference Range Interpretation Comme nts WBC (test code = 1001) 6.0 K/UL RBC (test code = 1002) 4.92 M/UL HEMOGLOBIN (test code = 1003) 15.9 G/DL HEMATOCRIT (test code = 1004) 45.6 % MCV (test code = 1005) 92.7 fL MCH (test code = 1006) 32.3 PG MCHC (test code = 1007) 34.9 G/DL RDW (test code = 1038) 12.9 % NEUTROPHILS (test code = 1008) 69.5 % LYMPHOCYTES (test code = 1010) 20.1 % MONOCYTES (test code = 1011) 9.7 % EOSINOPHILS (test code = 1012) 0.7 % BASOPHILS (test code = 1013) 0.0 % PLATELET COUNT (test code = 1015) 201 K/UL Eric StantonHEMOGLOBIN [id number] 00:00:00* Test Item Value Reference Range Interpretation Comme nts HEMOGLOBIN A1c (test code = 83644) 5.7 % Eric StantonLIPID [id number] 00:00:00* Test Item Value Reference Range Interpretation Comme nts CHOLESTEROL (test code = 2210) 185 MG/DL TRIGLYCERIDES (test code = 2232) 50 MG/DL HDL CHOLESTEROL (test code = 2220) 61 MG/DL CALC LDL CHOL (test code = 2237) 111 MG/DL RISK RATIO LDL/HDL (test cod e = 2238) 1.82 RATIO Eric StantonCOMPREHENSIVE METABOLIC [id number] 00:00:00* Test Item Value Reference Range Interpretation Comme nts GLUCOSE (test code = 2217) 91 MG/DL BUN (test code = 2208) 12 MG/DL CREATININE (test code = 2214) 1.04 MG/DL eGFR AMER. (test cod e = 20388) 79 ML/MIN/1.73 eGFR NON- AMER. (test code = 53241) 68 ML/MIN/1.73 CALC BUN/CREAT (test code = 2235) 12 RATIO SODIUM (test code = 2231) 144 MEQ/L POTASSIUM (test code = 2228) 3.9 MEQ/L CHLORIDE (test code = 2215) 104 MEQ/L CARBON DIOXIDE (test code = 2206) 28 MEQ/L CALCIUM (test code = 2209) 9.9 MG/DL PROTEIN, TOTAL (test code = 2229) 7.5 G/DL ALBUMIN (test code = 2201) 4.4 G/DL CALC GLOBULIN (test code = 2240) 3.1 G/DL CALC A/G RATIO (test code = 2234) 1.4 RATIO BILIRUBIN, TOTAL (test code = 2207) 0.7 MG/DL ALKALINE PHOSPHATASE (test code = 2204) 70 U/L AST (test code = 2218) 28 U/L ALT (test code = 2219) 18 U/L Eric StantonPSA, [id number] 00:00:00* Test Item Value Reference Range Interpretation Comme nts PSA, TOTAL (test code = 2606) 5.74 NG/ML Eric StantonCBC W/AUTO [id number] 00:00:00* Test Item Value Reference Range Interpretation Comme nts WBC (test code = 1001) 6.0 K/UL RBC (test code = 1002) 4.92 M/UL HEMOGLOBIN (test code = 1003) 15.9 G/DL HEMATOCRIT (test code = 1004) 45.6 % MCV (test code = 1005) 92.7 fL MCH (test code = 1006) 32.3 PG MCHC (test code = 1007) 34.9 G/DL RDW (test code = 1038) 12.9 % NEUTROPHILS (test code = 1008) 69.5 % LYMPHOCYTES (test code = 1010) 20.1 % MONOCYTES (test code = 1011) 9.7 % EOSINOPHILS (test code = 1012) 0.7 % BASOPHILS (test code = 1013) 0.0 % PLATELET COUNT (test code = 1015) 201 K/UL Eric StantonHEMOGLOBIN [id number] 00:00:00* Test Item Value Reference Range Interpretation Comme nts HEMOGLOBIN A1c (test code = 34423) 5.7 % HEMOGLOBIN [id number] 00:00:00* Test Item Value Reference Range Interpretation Comme nts HEMOGLOBIN A1c (test code = 50755) 5.7 % Eric StantonLIPID [id number] 00:00:00* Test Item Value Reference Range Interpretation Comme nts CHOLESTEROL (test code = 2210) 185 MG/DL TRIGLYCERIDES (test code = 2232) 50 MG/DL HDL CHOLESTEROL (test code = 2220) 61 MG/DL CALC LDL CHOL (test code = 2237) 111 MG/DL RISK RATIO LDL/HDL (test cod e = 2238) 1.82 RATIO Eric StantonCOMPREHENSIVE METABOLIC [id number] 00:00:00* Test Item Value Reference Range Interpretation Comme nts GLUCOSE (test code = 2217) 91 MG/DL BUN (test code = 2208) 12 MG/DL CREATININE (test code = 2214) 1.04 MG/DL eGFR AMER. (test cod e = 48792) 79 ML/MIN/1.73 eGFR NON- AMER. (test code = 04580) 68 ML/MIN/1.73 CALC BUN/CREAT (test code = 2235) 12 RATIO SODIUM (test code = 2231) 144 MEQ/L POTASSIUM (test code = 2228) 3.9 MEQ/L CHLORIDE (test code = 2215) 104 MEQ/L CARBON DIOXIDE (test code = 2206) 28 MEQ/L CALCIUM (test code = 2209) 9.9 MG/DL PROTEIN, TOTAL (test code = 2229) 7.5 G/DL ALBUMIN (test code = 2201) 4.4 G/DL CALC GLOBULIN (test code = 2240) 3.1 G/DL CALC A/G RATIO (test code = 2234) 1.4 RATIO BILIRUBIN, TOTAL (test code = 2207) 0.7 MG/DL ALKALINE PHOSPHATASE (test code = 2204) 70 U/L AST (test code = 2218) 28 U/L ALT (test code = 2219) 18 U/L Eric StantonLIPID [id number] 00:00:00* Test Item Value Reference Range Interpretation Comme nts CHOLESTEROL (test code = 2210) 185 MG/DL TRIGLYCERIDES (test code = 2232) 50 MG/DL HDL CHOLESTEROL (test code = 2220) 61 MG/DL CALC LDL CHOL (test code = 2237) 111 MG/DL RISK RATIO LDL/HDL (test cod e = 2238) 1.82 RATIO PSA, [id number] 00:00:00* Test Item Value Reference Range Interpretation Comme nts PSA, TOTAL (test code = 2606) 5.74 NG/ML Eric Estrada MaximinoCBC W/AUTO [id number] 00:00:00* Test Item Value Reference Range Interpretation Comme nts WBC (test code = 1001) 6.0 K/UL RBC (test code = 1002) 4.92 M/UL HEMOGLOBIN (test code = 1003) 15.9 G/DL HEMATOCRIT (test code = 1004) 45.6 % MCV (test code = 1005) 92.7 fL MCH (test code = 1006) 32.3 PG MCHC (test code = 1007) 34.9 G/DL RDW (test code = 1038) 12.9 % NEUTROPHILS (test code = 1008) 69.5 % LYMPHOCYTES (test code = 1010) 20.1 % MONOCYTES (test code = 1011) 9.7 % EOSINOPHILS (test code = 1012) 0.7 % BASOPHILS (test code = 1013) 0.0 % PLATELET COUNT (test code = 1015) 201 K/UL Eric Estrada MaximinoCOMPREHENSIVE METABOLIC [id number] 00:00:00* Test Item Value Reference Range Interpretation Comme nts GLUCOSE (test code = 2217) 91 MG/DL BUN (test code = 2208) 12 MG/DL CREATININE (test code = 2214) 1.04 MG/DL eGFR AMER. (test cod e = 38757) 79 ML/MIN/1.73 eGFR NON- AMER. (test code = 11721) 68 ML/MIN/1.73 CALC BUN/CREAT (test code = 2235) 12 RATIO SODIUM (test code = 2231) 144 MEQ/L POTASSIUM (test code = 2228) 3.9 MEQ/L CHLORIDE (test code = 2215) 104 MEQ/L CARBON DIOXIDE (test code = 2206) 28 MEQ/L CALCIUM (test code = 2209) 9.9 MG/DL PROTEIN, TOTAL (test code = 2229) 7.5 G/DL ALBUMIN (test code = 2201) 4.4 G/DL CALC GLOBULIN (test code = 2240) 3.1 G/DL CALC A/G RATIO (test code = 2234) 1.4 RATIO BILIRUBIN, TOTAL (test code = 2207) 0.7 MG/DL ALKALINE PHOSPHATASE (test code = 220) 70 U/L AST (test code = 2218) 28 U/L ALT (test code = 2219) 18 U/L PSA, [id number] 00:00:00* Test Item Value Reference Range Interpretation Comme [facility] PSA, TOTAL (test code = 2606) 5.74 NG/ML HEMOGLOBIN [id number] 00:00:00* Test Item Value Reference Range Interpretation Comme [facility] HEMOGLOBIN A1c (test code = 51563) 5.7 % [facility]PA[facility] W/AUTO [id number] 00:00:00* Test Item Value Reference Range Interpretation Comme nts WBC (test code = 1001) 6.0 K/UL RBC (test code = 1002) 4.92 M/UL HEMOGLOBIN (test code = 1003) 15.9 G/DL HEMATOCRIT (test code = 1004) 45.6 % MCV (test code = 1005) 92.7 fL MCH (test code = 1006) 32.3 PG MCHC (test code = 1007) 34.9 G/DL RDW (test code = 1038) 12.9 % NEUTROPHILS (test code = 1008) 69.5 % LYMPHOCYTES (test code = 1010) 20.1 % MONOCYTES (test code = 1011) 9.7 % EOSINOPHILS (test code = 1012) 0.7 % BASOPHILS (test code = 1013) 0.0 % PLATELET COUNT (test code = 1015) 201 K/UL LIPID [id number] 00:00:00* Test Item Value Reference Range Interpretation Comme nts CHOLESTEROL (test code = 2210) 185 MG/DL TRIGLYCERIDES (test code = 2232) 50 MG/DL HDL CHOLESTEROL (test code = 2220) 61 MG/DL CALC LDL CHOL (test code = 2237) 111 MG/DL RISK RATIO LDL/HDL (test cod e = 2238) 1.82 RATIO Eric StantonCOMPREHENSIVE METABOLIC [id number] 00:00:00* Test Item Value Reference Range Interpretation Comme nts GLUCOSE (test code = 2217) 91 MG/DL BUN (test code = 2208) 12 MG/DL CREATININE (test code = 2214) 1.04 MG/DL eGFR AMER. (test cod e = 91571) 79 ML/MIN/1.73 eGFR NON- AMER. (test code = 34497) 68 ML/MIN/1.73 CALC BUN/CREAT (test code = 2235) 12 RATIO SODIUM (test code = 2231) 144 MEQ/L POTASSIUM (test code = 2228) 3.9 MEQ/L CHLORIDE (test code = 2215) 104 MEQ/L CARBON DIOXIDE (test code = 2206) 28 MEQ/L CALCIUM (test code = 2209) 9.9 MG/DL PROTEIN, TOTAL (test code = 2229) 7.5 G/DL ALBUMIN (test code = 2201) 4.4 G/DL CALC GLOBULIN (test code = 2240) 3.1 G/DL CALC A/G RATIO (test code = 2234) 1.4 RATIO BILIRUBIN, TOTAL (test code = 2207) 0.7 MG/DL ALKALINE PHOSPHATASE (test code = 2204) 70 U/L AST (test code = 2218) 28 U/L ALT (test code = 2219) 18 U/L Eric StantonPSA, [id number] 00:00:00* Test Item Value Reference Range Interpretation Comme nts PSA, TOTAL (test code = 2606) 5.74 NG/ML Eric StantonCBC W/AUTO [id number] 00:00:00* Test Item Value Reference Range Interpretation Comme nts WBC (test code = 1001) 6.0 K/UL RBC (test code = 1002) 4.92 M/UL HEMOGLOBIN (test code = 1003) 15.9 G/DL HEMATOCRIT (test code = 1004) 45.6 % MCV (test code = 1005) 92.7 fL MCH (test code = 1006) 32.3 PG MCHC (test code = 1007) 34.9 G/DL RDW (test code = 1038) 12.9 % NEUTROPHILS (test code = 1008) 69.5 % LYMPHOCYTES (test code = 1010) 20.1 % MONOCYTES (test code = 1011) 9.7 % EOSINOPHILS (test code = 1012) 0.7 % BASOPHILS (test code = 1013) 0.0 % PLATELET COUNT (test code = 1015) 201 K/UL Eric StantonHEMOGLOBIN [id number] 00:00:00* Test Item Value Reference Range Interpretation Comme nts HEMOGLOBIN A1c (test code = 72569) 5.7 % Eric StantonLIPID [id number] 00:00:00* Test Item Value Reference Range Interpretation Comme nts CHOLESTEROL (test code = 2210) 185 MG/DL TRIGLYCERIDES (test code = 2232) 50 MG/DL HDL CHOLESTEROL (test code = 2220) 61 MG/DL CALC LDL CHOL (test code = 2237) 111 MG/DL RISK RATIO LDL/HDL (test cod e = 2238) 1.82 RATIO Eric StantonCOMPREHENSIVE METABOLIC [id number] 00:00:00* Test Item Value Reference Range Interpretation Comme nts GLUCOSE (test code = 2217) 91 MG/DL BUN (test code = 2208) 12 MG/DL CREATININE (test code = 2214) 1.04 MG/DL eGFR AMER. (test cod e = 40207) 79 ML/MIN/1.73 eGFR NON- AMER. (test code = 23405) 68 ML/MIN/1.73 CALC BUN/CREAT (test code = 2235) 12 RATIO SODIUM (test code = 2231) 144 MEQ/L POTASSIUM (test code = 2228) 3.9 MEQ/L CHLORIDE (test code = 2215) 104 MEQ/L CARBON DIOXIDE (test code = 2206) 28 MEQ/L CALCIUM (test code = 2209) 9.9 MG/DL PROTEIN, TOTAL (test code = 2229) 7.5 G/DL ALBUMIN (test code = 2201) 4.4 G/DL CALC GLOBULIN (test code = 2240) 3.1 G/DL CALC A/G RATIO (test code = 2234) 1.4 RATIO BILIRUBIN, TOTAL (test code = 2207) 0.7 MG/DL ALKALINE PHOSPHATASE (test code = 2204) 70 U/L AST (test code = 2218) 28 U/L ALT (test code = 2219) 18 U/L Eric StantonPSA, [id number] 00:00:00* Test Item Value Reference Range Interpretation Comme nts PSA, TOTAL (test code = 2606) 5.74 NG/ML Eric StantonCBC W/AUTO [id number] 00:00:00* Test Item Value Reference Range Interpretation Comme nts WBC (test code = 1001) 6.0 K/UL RBC (test code = 1002) 4.92 M/UL HEMOGLOBIN (test code = 1003) 15.9 G/DL HEMATOCRIT (test code = 1004) 45.6 % MCV (test code = 1005) 92.7 fL MCH (test code = 1006) 32.3 PG MCHC (test code = 1007) 34.9 G/DL RDW (test code = 1038) 12.9 % NEUTROPHILS (test code = 1008) 69.5 % LYMPHOCYTES (test code = 1010) 20.1 % MONOCYTES (test code = 1011) 9.7 % EOSINOPHILS (test code = 1012) 0.7 % BASOPHILS (test code = 1013) 0.0 % PLATELET COUNT (test code = 1015) 201 K/UL Eric StantonHEMOGLOBIN [id number] 00:00:00* Test Item Value Reference Range Interpretation Comme nts HEMOGLOBIN A1c (test code = 49609) 5.7 % Eric StantonLIPID [id number] 00:00:00* Test Item Value Reference Range Interpretation Comme nts CHOLESTEROL (test code = 2210) 185 MG/DL TRIGLYCERIDES (test code = 2232) 50 MG/DL HDL CHOLESTEROL (test code = 2220) 61 MG/DL CALC LDL CHOL (test code = 2237) 111 MG/DL RISK RATIO LDL/HDL (test cod e = 2238) 1.82 RATIO Eric StantonCOMPREHENSIVE METABOLIC [id number] 00:00:00* Test Item Value Reference Range Interpretation Comme nts GLUCOSE (test code = 2217) 91 MG/DL BUN (test code = 2208) 12 MG/DL CREATININE (test code = 2214) 1.04 MG/DL eGFR AMER. (test cod e = 86370) 79 ML/MIN/1.73 eGFR NON- AMER. (test code = 06809) 68 ML/MIN/1.73 CALC BUN/CREAT (test code = 2235) 12 RATIO SODIUM (test code = 2231) 144 MEQ/L POTASSIUM (test code = 2228) 3.9 MEQ/L CHLORIDE (test code = 2215) 104 MEQ/L CARBON DIOXIDE (test code = 2206) 28 MEQ/L CALCIUM (test code = 2209) 9.9 MG/DL PROTEIN, TOTAL (test code = 2229) 7.5 G/DL ALBUMIN (test code = 2201) 4.4 G/DL CALC GLOBULIN (test code = 2240) 3.1 G/DL CALC A/G RATIO (test code = 2234) 1.4 RATIO BILIRUBIN, TOTAL (test code = 2207) 0.7 MG/DL ALKALINE PHOSPHATASE (test code = 2204) 70 U/L AST (test code = 2218) 28 U/L ALT (test code = 2219) 18 U/L Eric StantonPSA, [id number] 00:00:00* Test Item Value Reference Range Interpretation Comme nts PSA, TOTAL (test code = 2606) 5.74 NG/ML Eric StantonCBC W/AUTO [id number] 00:00:00* Test Item Value Reference Range Interpretation Comme nts WBC (test code = 1001) 6.0 K/UL RBC (test code = 1002) 4.92 M/UL HEMOGLOBIN (test code = 1003) 15.9 G/DL HEMATOCRIT (test code = 1004) 45.6 % MCV (test code = 1005) 92.7 fL MCH (test code = 1006) 32.3 PG MCHC (test code = 1007) 34.9 G/DL RDW (test code = 1038) 12.9 % NEUTROPHILS (test code = 1008) 69.5 % LYMPHOCYTES (test code = 1010) 20.1 % MONOCYTES (test code = 1011) 9.7 % EOSINOPHILS (test code = 1012) 0.7 % BASOPHILS (test code = 1013) 0.0 % PLATELET COUNT (test code = 1015) 201 K/UL Eric Estrada AustinHEMOGLOBIN [id number] 00:00:00* Test Item Value Reference Range Interpretation Comme nts HEMOGLOBIN A1c (test code = 83979) 5.7 % Eric Estrada [id number] (COVID-19) by RT-PCR (HIGH RISK)2020-04-14 00:00:00* Test Item Value Reference Range Interpretation Comme nts SARS-CoV-2 INTERPRETATION (test code = 59785) NEGATIVE SOURCE (test code = 00699) NASOPHARYNGEAL rEic Estrada [id number] (COVID-19) by RT-PCR (HIGH RISK)2020-04-14 00:00:00* Test Item Value Reference Range Interpretation Comme nts SARS-CoV-2 INTERPRETATION (test code = 35203) NEGATIVE SOURCE (test code = 92906) NASOPHARYNGEAL Eric Estrada [id number] (COVID-19) by RT-PCR (HIGH RISK)2020-04-14 00:00:00* Test Item Value Reference Range Interpretation Comme nts SARS-CoV-2 INTERPRETATION (test code = 78184) NEGATIVE SOURCE (test code = 37506) NASOPHARYNGEAL Eric Estrada [id number] (COVID-19) by RT-PCR (HIGH RISK)2020-04-14 00:00:00* Test Item Value Reference Range Interpretation Comme nts SARS-CoV-2 INTERPRETATION (test code = 83318) NEGATIVE SOURCE (test code = 87020) NASOPHARYNGEAL Eric F SwmmqxRZTA-IiB-6 (COVID-19) by RT-PCR (HIGH RISK)2020-04-14 00:00:00* Test Item Value Reference Range Interpretation Comme nts SARS-CoV-2 INTERPRETATION (test code = 71556) NEGATIVE SOURCE (test code = 26556) NASOPHARYNGEAL SARS-CoV-2 (COVID-19) by RT-PCR (HIGH RISK)2020-04-14 00:00:00* Test Item Value Reference Range Interpretation Comme nts SARS-CoV-2 INTERPRETATION (test code = 07480) NEGATIVE SOURCE (test code = 05074) NASOPHARYNGEAL Eric F AwhvbyFONW-VvZ-2 (COVID-19) by RT-PCR (HIGH RISK)2020-04-14 00:00:00* Test Item Value Reference Range Interpretation Comme nts SARS-CoV-2 INTERPRETATION (test code = 33295) NEGATIVE SOURCE (test code = 91481) NASOPHARYNGEAL Eric F TevhhvJGXA-NhF-7 (COVID-19) by RT-PCR (HIGH RISK)2020-04-14 00:00:00* Test Item Value Reference Range Interpretation Comme nts SARS-CoV-2 INTERPRETATION (test code = 39219) NEGATIVE SOURCE (test code = 71603) NASOPHARYNGEAL Eric F PnyxxyAXXX-LnP-0 (COVID-19) by RT-PCR (HIGH RISK)2020-04-05 00:00:00* Test Item Value Reference Range Interpretation Comme nts SARS-CoV-2 INTERPRETATION (test code = 05746) INCONCLUSIVE SOURCE (test code = 94355) NASOPHARYNGEAL Eric F WygyniELXL-AfG-0 (COVID-19) by RT-PCR (HIGH RISK)2020-04-05 00:00:00* Test Item Value Reference Range Interpretation Comme nts SARS-CoV-2 INTERPRETATION (test code = 78892) INCONCLUSIVE SOURCE (test code = 59701) NASOPHARYNGEAL Eric F JlsfspEEVB-RiC-6 (COVID-19) by RT-PCR (HIGH RISK)2020-04-05 00:00:00* Test Item Value Reference Range Interpretation Comme nts SARS-CoV-2 INTERPRETATION (test code = 35832) INCONCLUSIVE SOURCE (test code = 44945) NASOPHARYNGEAL Eric F HhnsbvUKYW-MvL-1 (COVID-19) by RT-PCR (HIGH RISK)2020-04-05 00:00:00* Test Item Value Reference Range Interpretation Comme nts SARS-CoV-2 INTERPRETATION (test code = 31103) INCONCLUSIVE SOURCE (test code = 42480) NASOPHARYNGEAL Eric F YtttcmUQTX-VeR-6 (COVID-19) by RT-PCR (HIGH RISK)2020-04-05 00:00:00* Test Item Value Reference Range Interpretation Comme nts SARS-CoV-2 INTERPRETATION (test code = 52809) INCONCLUSIVE SOURCE (test code = 61669) NASOPHARYNGEAL SARS-CoV-2 (COVID-19) by RT-PCR (HIGH RISK)2020-04-05 00:00:00* Test Item Value Reference Range Interpretation Comme nts SARS-CoV-2 INTERPRETATION (test code = 45755) INCONCLUSIVE SOURCE (test code = 01467) NASOPHARYNGEAL Eric Estrada StvhqyDCXB-EtO-4 (COVID-19) by RT-PCR (HIGH RISK)2020-04-05 00:00:00* Test Item Value Reference Range Interpretation Comme nts SARS-CoV-2 INTERPRETATION (test code = 05542) INCONCLUSIVE SOURCE (test code = 56386) NASOPHARYNGEAL Eric Estrada PiyxumPGCL-EvP-4 (COVID-19) by RT-PCR (HIGH RISK)2020-04-05 00:00:00* Test Item Value Reference Range Interpretation Comme nts SARS-CoV-2 INTERPRETATION (test code = 59807) INCONCLUSIVE SOURCE (test code = 97708) NASOPHARYNGEAL Eric StantonHEMOGLOBIN [id number] 00:00:00* Test Item Value Reference Range Interpretation Comme nts HEMOGLOBIN A1c (test code = 89535) 5.7 % Eric StantonCOMPREHENSIVE METABOLIC [id number] 00:00:00* Test Item Value Reference Range Interpretation Comme nts GLUCOSE (test code = 2217) 118 MG/DL BUN (test code = 2208) 10 MG/DL CREATININE (test code = 2214) 0.87 MG/DL eGFR AMER. (test cod e = 69141) 96 ML/MIN/1.73 eGFR NON- AMER. (test code = 08440) 83 ML/MIN/1.73 CALC BUN/CREAT (test code = 2235) 11 RATIO SODIUM (test code = 2231) 146 MEQ/L POTASSIUM (test code = 2228) 4.1 MEQ/L CHLORIDE (test code = 2215) 107 MEQ/L CARBON DIOXIDE (test code = 2206) 22 MEQ/L CALCIUM (test code = 2209) 9.5 MG/DL PROTEIN, TOTAL (test code = 2229) 6.8 G/DL ALBUMIN (test code = 2201) 3.9 G/DL CALC GLOBULIN (test code = 2240) 2.9 G/DL CALC A/G RATIO (test code = 2234) 1.3 RATIO BILIRUBIN, TOTAL (test code = 2207) 0.4 MG/DL ALKALINE PHOSPHATASE (test code = 2204) 67 U/L AST (test code = 2218) 30 U/L ALT (test code = 2219) 17 U/L Eric StantonCBC W/AUTO [id number] 00:00:00* Test Item Value Reference Range Interpretation Comme nts WBC (test code = 1001) 4.7 K/UL RBC (test code = 1002) 4.66 M/UL HEMOGLOBIN (test code = 1003) 15.7 G/DL HEMATOCRIT (test code = 1004) 44.1 % MCV (test code = 1005) 94.6 fL MCH (test code = 1006) 33.7 PG MCHC (test code = 1007) 35.6 G/DL RDW (test code = 1038) 13.0 % NEUTROPHILS (test code = 1008) 70.3 % LYMPHOCYTES (test code = 1010) 18.9 % MONOCYTES (test code = 1011) 10.0 % EOSINOPHILS (test code = 1012) 0.6 % BASOPHILS (test code = 1013) 0.2 % PLATELET COUNT (test code = 1015) 205 K/UL Eric StantonLIPID [id number] 00:00:00* Test Item Value Reference Range Interpretation Comme nts CHOLESTEROL (test code = 2210) 166 MG/DL TRIGLYCERIDES (test code = 2232) 60 MG/DL HDL CHOLESTEROL (test code = 2220) 58 MG/DL CALC LDL CHOL (test code = 2237) 96 MG/DL RISK RATIO LDL/HDL (test cod e = 2238) 1.66 RATIO Eric StantonHEMOGLOBIN [id number] 00:00:00* Test Item Value Reference Range Interpretation Comme charo HEMOGLOBIN A1c (test code = 61602) 5.7 % Eric StantonCOMPREHENSIVE METABOLIC [id number] 00:00:00* Test Item Value Reference Range Interpretation Comme nts GLUCOSE (test code = 2217) 118 MG/DL BUN (test code = 2208) 10 MG/DL CREATININE (test code = 2214) 0.87 MG/DL eGFR AMER. (test cod e = 48456) 96 ML/MIN/1.73 eGFR NON- AMER. (test code = 34866) 83 ML/MIN/1.73 CALC BUN/CREAT (test code = 2235) 11 RATIO SODIUM (test code = 2231) 146 MEQ/L POTASSIUM (test code = 2228) 4.1 MEQ/L CHLORIDE (test code = 2215) 107 MEQ/L CARBON DIOXIDE (test code = 2206) 22 MEQ/L CALCIUM (test code = 2209) 9.5 MG/DL PROTEIN, TOTAL (test code = 2229) 6.8 G/DL ALBUMIN (test code = 2201) 3.9 G/DL CALC GLOBULIN (test code = 2240) 2.9 G/DL CALC A/G RATIO (test code = 2234) 1.3 RATIO BILIRUBIN, TOTAL (test code = 2207) 0.4 MG/DL ALKALINE PHOSPHATASE (test code = 2204) 67 U/L AST (test code = 2218) 30 U/L ALT (test code = 2219) 17 U/L Eric StantonCBC W/AUTO [id number] 00:00:00* Test Item Value Reference Range Interpretation Comme nts WBC (test code = 1001) 4.7 K/UL RBC (test code = 1002) 4.66 M/UL HEMOGLOBIN (test code = 1003) 15.7 G/DL HEMATOCRIT (test code = 1004) 44.1 % MCV (test code = 1005) 94.6 fL MCH (test code = 1006) 33.7 PG MCHC (test code = 1007) 35.6 G/DL RDW (test code = 1038) 13.0 % NEUTROPHILS (test code = 1008) 70.3 % LYMPHOCYTES (test code = 1010) 18.9 % MONOCYTES (test code = 1011) 10.0 % EOSINOPHILS (test code = 1012) 0.6 % BASOPHILS (test code = 1013) 0.2 % PLATELET COUNT (test code = 1015) 205 K/UL Eric StantonLIPID [id number] 00:00:00* Test Item Value Reference Range Interpretation Comme nts CHOLESTEROL (test code = 2210) 166 MG/DL TRIGLYCERIDES (test code = 2232) 60 MG/DL HDL CHOLESTEROL (test code = 2220) 58 MG/DL CALC LDL CHOL (test code = 2237) 96 MG/DL RISK RATIO LDL/HDL (test cod e = 2238) 1.66 RATIO Eric StantonHEMOGLOBIN [id number] 00:00:00* Test Item Value Reference Range Interpretation Comme nts HEMOGLOBIN A1c (test code = 69304) 5.7 % Eric StantonCOMPREHENSIVE METABOLIC [id number] 00:00:00* Test Item Value Reference Range Interpretation Comme nts GLUCOSE (test code = 2217) 118 MG/DL BUN (test code = 2208) 10 MG/DL CREATININE (test code = 2214) 0.87 MG/DL eGFR AMER. (test cod e = 11116) 96 ML/MIN/1.73 eGFR NON- AMER. (test code = 06789) 83 ML/MIN/1.73 CALC BUN/CREAT (test code = 2235) 11 RATIO SODIUM (test code = 2231) 146 MEQ/L POTASSIUM (test code = 2228) 4.1 MEQ/L CHLORIDE (test code = 2215) 107 MEQ/L CARBON DIOXIDE (test code = 2206) 22 MEQ/L CALCIUM (test code = 2209) 9.5 MG/DL PROTEIN, TOTAL (test code = 2229) 6.8 G/DL ALBUMIN (test code = 2201) 3.9 G/DL CALC GLOBULIN (test code = 2240) 2.9 G/DL CALC A/G RATIO (test code = 2234) 1.3 RATIO BILIRUBIN, TOTAL (test code = 2207) 0.4 MG/DL ALKALINE PHOSPHATASE (test code = 2204) 67 U/L AST (test code = 2218) 30 U/L ALT (test code = 2219) 17 U/L Eric StantonCBC W/AUTO [id number] 00:00:00* Test Item Value Reference Range Interpretation Comme nts WBC (test code = 1001) 4.7 K/UL RBC (test code = 1002) 4.66 M/UL HEMOGLOBIN (test code = 1003) 15.7 G/DL HEMATOCRIT (test code = 1004) 44.1 % MCV (test code = 1005) 94.6 fL MCH (test code = 1006) 33.7 PG MCHC (test code = 1007) 35.6 G/DL RDW (test code = 1038) 13.0 % NEUTROPHILS (test code = 1008) 70.3 % LYMPHOCYTES (test code = 1010) 18.9 % MONOCYTES (test code = 1011) 10.0 % EOSINOPHILS (test code = 1012) 0.6 % BASOPHILS (test code = 1013) 0.2 % PLATELET COUNT (test code = 1015) 205 K/UL Eric Estrada AustinLIPID [id number] 00:00:00* Test Item Value Reference Range Interpretation Comme nts CHOLESTEROL (test code = 2210) 166 MG/DL TRIGLYCERIDES (test code = 2232) 60 MG/DL HDL CHOLESTEROL (test code = 2220) 58 MG/DL CALC LDL CHOL (test code = 2237) 96 MG/DL RISK RATIO LDL/HDL (test cod e = 2238) 1.66 RATIO Eric StantonHEMOGLOBIN [id number] 00:00:00* Test Item Value Reference Range Interpretation Comme nts HEMOGLOBIN A1c (test code = 46536) 5.7 % Eric Estrada AustinLIPID [id number] 00:00:00* Test Item Value Reference Range Interpretation Comme nts CHOLESTEROL (test code = 2210) 166 MG/DL TRIGLYCERIDES (test code = 2232) 60 MG/DL HDL CHOLESTEROL (test code = 2220) 58 MG/DL CALC LDL CHOL (test code = 2237) 96 MG/DL RISK RATIO LDL/HDL (test cod e = 2238) 1.66 RATIO COMPREHENSIVE METABOLIC [id number] 00:00:00* Test Item Value Reference Range Interpretation Comme nts GLUCOSE (test code = 2217) 118 MG/DL BUN (test code = 2208) 10 MG/DL CREATININE (test code = 2214) 0.87 MG/DL eGFR AMER. (test cod e = 54344) 96 ML/MIN/1.73 eGFR NON- AMER. (test code = 14479) 83 ML/MIN/1.73 CALC BUN/CREAT (test code = 2235) 11 RATIO SODIUM (test code = 2231) 146 MEQ/L POTASSIUM (test code = 2228) 4.1 MEQ/L CHLORIDE (test code = 2215) 107 MEQ/L CARBON DIOXIDE (test code = 2206) 22 MEQ/L CALCIUM (test code = 2209) 9.5 MG/DL PROTEIN, TOTAL (test code = 2229) 6.8 G/DL ALBUMIN (test code = 2201) 3.9 G/DL CALC GLOBULIN (test code = 2240) 2.9 G/DL CALC A/G RATIO (test code = 2234) 1.3 RATIO BILIRUBIN, TOTAL (test code = 2207) 0.4 MG/DL ALKALINE PHOSPHATASE (test code = 2204) 67 U/L AST (test code = 2218) 30 U/L ALT (test code = 2219) 17 U/L Eric StantonHEMOGLOBIN [id number] 00:00:00* Test Item Value Reference Range Interpretation Comme nts HEMOGLOBIN A1c (test code = 43856) 5.7 % CBC W/AUTO [id number] 00:00:00* Test Item Value Reference Range Interpretation Comme nts WBC (test code = 1001) 4.7 K/UL RBC (test code = 1002) 4.66 M/UL HEMOGLOBIN (test code = 1003) 15.7 G/DL HEMATOCRIT (test code = 1004) 44.1 % MCV (test code = 1005) 94.6 fL MCH (test code = 1006) 33.7 PG MCHC (test code = 1007) 35.6 G/DL RDW (test code = 1038) 13.0 % NEUTROPHILS (test code = 1008) 70.3 % LYMPHOCYTES (test code = 1010) 18.9 % MONOCYTES (test code = 1011) 10.0 % EOSINOPHILS (test code = 1012) 0.6 % BASOPHILS (test code = 1013) 0.2 % PLATELET COUNT (test code = 1015) 205 K/UL Eric StantonCOMPREHENSIVE METABOLIC [id number] 00:00:00* Test Item Value Reference Range Interpretation Comme nts GLUCOSE (test code = 2217) 118 MG/DL BUN (test code = 2208) 10 MG/DL CREATININE (test code = 2214) 0.87 MG/DL eGFR AMER. (test cod e = 98007) 96 ML/MIN/1.73 eGFR NON- AMER. (test code = 35207) 83 ML/MIN/1.73 CALC BUN/CREAT (test code = 2235) 11 RATIO SODIUM (test code = 2231) 146 MEQ/L POTASSIUM (test code = 2228) 4.1 MEQ/L CHLORIDE (test code = 2215) 107 MEQ/L CARBON DIOXIDE (test code = 2206) 22 MEQ/L CALCIUM (test code = 2209) 9.5 MG/DL PROTEIN, TOTAL (test code = 2229) 6.8 G/DL ALBUMIN (test code = 2201) 3.9 G/DL CALC GLOBULIN (test code = 2240) 2.9 G/DL CALC A/G RATIO (test code = 2234) 1.3 RATIO BILIRUBIN, TOTAL (test code = 2207) 0.4 MG/DL ALKALINE PHOSPHATASE (test code = 2204) 67 U/L AST (test code = 2218) 30 U/L ALT (test code = 221) 17 U/L LIPID [id number] 00:00:00* Test Item Value Reference Range Interpretation Comme nts CHOLESTEROL (test code = 2210) 166 MG/DL TRIGLYCERIDES (test code = 2232) 60 MG/DL HDL CHOLESTEROL (test code = 2220) 58 MG/DL CALC LDL CHOL (test code = 223) 96 MG/DL RISK RATIO LDL/HDL (test cod e = 223) 1.66 RATIO Eric StantonHEMOGLOBIN [id number] 00:00:00* Test Item Value Reference Range Interpretation Comme nts HEMOGLOBIN A1c (test code = 86944) 5.7 % Eric Estrada MaximinoCOMPREHENSIVE METABOLIC [id number] 00:00:00* Test Item Value Reference Range Interpretation Comme nts GLUCOSE (test code = 2217) 118 MG/DL BUN (test code = 2207) 10 MG/DL CREATININE (test code = 2214) 0.87 MG/DL eGFR AMER. (test cod e = 47152) 96 ML/MIN/1.73 eGFR NON- AMER. (test code = 64212) 83 ML/MIN/1.73 CALC BUN/CREAT (test code = 2235) 11 RATIO SODIUM (test code = 2231) 146 MEQ/L POTASSIUM (test code = 2228) 4.1 MEQ/L CHLORIDE (test code = 2215) 107 MEQ/L CARBON DIOXIDE (test code = 2206) 22 MEQ/L CALCIUM (test code = 2209) 9.5 MG/DL PROTEIN, TOTAL (test code = 2229) 6.8 G/DL ALBUMIN (test code = 2201) 3.9 G/DL CALC GLOBULIN (test code = 2240) 2.9 G/DL CALC A/G RATIO (test code = 2234) 1.3 RATIO BILIRUBIN, TOTAL (test code = 2207) 0.4 MG/DL ALKALINE PHOSPHATASE (test code = 2204) 67 U/L AST (test code = 2218) 30 U/L ALT (test code = 2219) 17 U/L Eric StantonCBC W/AUTO [id number] 00:00:00* Test Item Value Reference Range Interpretation Comme nts WBC (test code = 1001) 4.7 K/UL RBC (test code = 1002) 4.66 M/UL HEMOGLOBIN (test code = 1003) 15.7 G/DL HEMATOCRIT (test code = 1004) 44.1 % MCV (test code = 1005) 94.6 fL MCH (test code = 1006) 33.7 PG MCHC (test code = 1007) 35.6 G/DL RDW (test code = 1038) 13.0 % NEUTROPHILS (test code = 1008) 70.3 % LYMPHOCYTES (test code = 1010) 18.9 % MONOCYTES (test code = 1011) 10.0 % EOSINOPHILS (test code = 1012) 0.6 % BASOPHILS (test code = 1013) 0.2 % PLATELET COUNT (test code = 1015) 205 K/UL CBC W/AUTO [id number] 00:00:00* Test Item Value Reference Range Interpretation Comme nts WBC (test code = 1001) 4.7 K/UL RBC (test code = 1002) 4.66 M/UL HEMOGLOBIN (test code = 1003) 15.7 G/DL HEMATOCRIT (test code = 1004) 44.1 % MCV (test code = 1005) 94.6 fL MCH (test code = 1006) 33.7 PG MCHC (test code = 1007) 35.6 G/DL RDW (test code = 1038) 13.0 % NEUTROPHILS (test code = 1008) 70.3 % LYMPHOCYTES (test code = 1010) 18.9 % MONOCYTES (test code = 1011) 10.0 % EOSINOPHILS (test code = 1012) 0.6 % BASOPHILS (test code = 1013) 0.2 % PLATELET COUNT (test code = 1015) 205 K/UL Eric StantonLIPID [id number] 00:00:00* Test Item Value Reference Range Interpretation Comme nts CHOLESTEROL (test code = 2210) 166 MG/DL TRIGLYCERIDES (test code = 2232) 60 MG/DL HDL CHOLESTEROL (test code = 2220) 58 MG/DL CALC LDL CHOL (test code = 2237) 96 MG/DL RISK RATIO LDL/HDL (test cod e = 2238) 1.66 RATIO Eric StantonHEMOGLOBIN [id number] 00:00:00* Test Item Value Reference Range Interpretation Comme nts HEMOGLOBIN A1c (test code = 93352) 5.7 % Eric StantonCOMPREHENSIVE METABOLIC [id number] 00:00:00* Test Item Value Reference Range Interpretation Comme nts GLUCOSE (test code = 2217) 118 MG/DL BUN (test code = 2208) 10 MG/DL CREATININE (test code = 2214) 0.87 MG/DL eGFR AMER. (test cod e = 12993) 96 ML/MIN/1.73 eGFR NON- AMER. (test code = 64255) 83 ML/MIN/1.73 CALC BUN/CREAT (test code = 2235) 11 RATIO SODIUM (test code = 2231) 146 MEQ/L POTASSIUM (test code = 2228) 4.1 MEQ/L CHLORIDE (test code = 2215) 107 MEQ/L CARBON DIOXIDE (test code = 2206) 22 MEQ/L CALCIUM (test code = 2209) 9.5 MG/DL PROTEIN, TOTAL (test code = 2229) 6.8 G/DL ALBUMIN (test code = 2201) 3.9 G/DL CALC GLOBULIN (test code = 2240) 2.9 G/DL CALC A/G RATIO (test code = 2234) 1.3 RATIO BILIRUBIN, TOTAL (test code = 2207) 0.4 MG/DL ALKALINE PHOSPHATASE (test code = 2204) 67 U/L AST (test code = 2218) 30 U/L ALT (test code = 2219) 17 U/L Eric StantonCBC W/AUTO [id number] 00:00:00* Test Item Value Reference Range Interpretation Comme nts WBC (test code = 1001) 4.7 K/UL RBC (test code = 1002) 4.66 M/UL HEMOGLOBIN (test code = 1003) 15.7 G/DL HEMATOCRIT (test code = 1004) 44.1 % MCV (test code = 1005) 94.6 fL MCH (test code = 1006) 33.7 PG MCHC (test code = 1007) 35.6 G/DL RDW (test code = 1038) 13.0 % NEUTROPHILS (test code = 1008) 70.3 % LYMPHOCYTES (test code = 1010) 18.9 % MONOCYTES (test code = 1011) 10.0 % EOSINOPHILS (test code = 1012) 0.6 % BASOPHILS (test code = 1013) 0.2 % PLATELET COUNT (test code = 1015) 205 K/UL Eric Estrada [place] RidgeLIP[place] [id number] 00:00:00* Test Item Value Reference Range Interpretation Comme nts CHOLESTEROL (test code = 2210) 166 MG/DL TRIGLYCERIDES (test code = 2232) 60 MG/DL HDL CHOLESTEROL (test code = 2220) 58 MG/DL CALC LDL CHOL (test code = 2237) 96 MG/DL RISK RATIO LDL/HDL (test cod e = 2238) 1.66 RATIO Eric StantonHEMOGLOBIN [id number] 00:00:00* Test Item Value Reference Range Interpretation Comme nts HEMOGLOBIN A1c (test code = 84294) 5.7 % Eric StantonCOMPREHENSIVE METABOLIC [id number] 00:00:00* Test Item Value Reference Range Interpretation Comme nts GLUCOSE (test code = 2217) 118 MG/DL BUN (test code = 2208) 10 MG/DL CREATININE (test code = 2214) 0.87 MG/DL eGFR AMER. (test cod e = 72315) 96 ML/MIN/1.73 eGFR NON- AMER. (test code = 93613) 83 ML/MIN/1.73 CALC BUN/CREAT (test code = 2235) 11 RATIO SODIUM (test code = 2231) 146 MEQ/L POTASSIUM (test code = 2228) 4.1 MEQ/L CHLORIDE (test code = 2215) 107 MEQ/L CARBON DIOXIDE (test code = 2206) 22 MEQ/L CALCIUM (test code = 2209) 9.5 MG/DL PROTEIN, TOTAL (test code = 2229) 6.8 G/DL ALBUMIN (test code = 2201) 3.9 G/DL CALC GLOBULIN (test code = 2240) 2.9 G/DL CALC A/G RATIO (test code = 2234) 1.3 RATIO BILIRUBIN, TOTAL (test code = 2207) 0.4 MG/DL ALKALINE PHOSPHATASE (test code = 2204) 67 U/L AST (test code = 2218) 30 U/L ALT (test code = 2219) 17 U/L Eric StantonCBC W/AUTO [id number] 00:00:00* Test Item Value Reference Range Interpretation Comme nts WBC (test code = 1001) 4.7 K/UL RBC (test code = 1002) 4.66 M/UL HEMOGLOBIN (test code = 1003) 15.7 G/DL HEMATOCRIT (test code = 1004) 44.1 % MCV (test code = 1005) 94.6 fL MCH (test code = 1006) 33.7 PG MCHC (test code = 1007) 35.6 G/DL RDW (test code = 1038) 13.0 % NEUTROPHILS (test code = 1008) 70.3 % LYMPHOCYTES (test code = 1010) 18.9 % MONOCYTES (test code = 1011) 10.0 % EOSINOPHILS (test code = 1012) 0.6 % BASOPHILS (test code = 1013) 0.2 % PLATELET COUNT (test code = 1015) 205 K/UL Eric StantonLIPID [id number] 00:00:00* Test Item Value Reference Range Interpretation Comme nts CHOLESTEROL (test code = 2210) 166 MG/DL TRIGLYCERIDES (test code = 2232) 60 MG/DL HDL CHOLESTEROL (test code = 2220) 58 MG/DL CALC LDL CHOL (test code = 2237) 96 MG/DL RISK RATIO LDL/HDL (test cod e = 2238) 1.66 RATIO Eric StantonCOMPREHENSIVE METABOLIC [id number] 00:00:00* Test Item Value Reference Range Interpretation Comme nts GLUCOSE (test code = 2217) 96 MG/DL BUN (test code = 2208) 12 MG/DL CREATININE (test code = 2214) 0.90 MG/DL eGFR AMER. (test cod e = 57309) 96 ML/MIN/1.73 eGFR NON- AMER. (test code = 40712) 83 ML/MIN/1.73 CALC BUN/CREAT (test code = 2235) 13 RATIO SODIUM (test code = 2231) 138 MEQ/L POTASSIUM (test code = 2228) 4.0 MEQ/L CHLORIDE (test code = 2215) 100 MEQ/L CARBON DIOXIDE (test code = 2206) 26 MEQ/L CALCIUM (test code = 2209) 9.1 MG/DL PROTEIN, TOTAL (test code = 2229) 6.7 G/DL ALBUMIN (test code = 2201) 3.9 G/DL CALC GLOBULIN (test code = 2240) 2.8 G/DL CALC A/G RATIO (test code = 2234) 1.4 RATIO BILIRUBIN, TOTAL (test code = 2207) 0.9 MG/DL ALKALINE PHOSPHATASE (test code = 2204) 74 U/L AST (test code = 2218) 24 U/L ALT (test code = 2219) 17 U/L Eric F [place] RidgeCOMPREHENSIVE METABOLIC [id number] 00:00:00* Test Item Value Reference Range Interpretation Comme nts GLUCOSE (test code = 2217) 96 MG/DL BUN (test code = 2208) 12 MG/DL CREATININE (test code = 2214) 0.90 MG/DL eGFR AMER. (test cod e = 14961) 96 ML/MIN/1.73 eGFR NON- AMER. (test code = 95624) 83 ML/MIN/1.73 CALC BUN/CREAT (test code = 2235) 13 RATIO SODIUM (test code = 2231) 138 MEQ/L POTASSIUM (test code = 2228) 4.0 MEQ/L CHLORIDE (test code = 2215) 100 MEQ/L CARBON DIOXIDE (test code = 2206) 26 MEQ/L CALCIUM (test code = 2209) 9.1 MG/DL PROTEIN, TOTAL (test code = 2229) 6.7 G/DL ALBUMIN (test code = 2201) 3.9 G/DL CALC GLOBULIN (test code = 2240) 2.8 G/DL CALC A/G RATIO (test code = 2234) 1.4 RATIO BILIRUBIN, TOTAL (test code = 2207) 0.9 MG/DL ALKALINE PHOSPHATASE (test code = 2204) 74 U/L AST (test code = 2218) 24 U/L ALT (test code = 2219) 17 U/L [facility] [place] [facility] [id number] 00:00:00* Test Item Value Reference Range Interpretation Comme nts GLUCOSE (test code = 2217) 96 MG/DL BUN (test code = 2208) 12 MG/DL CREATININE (test code = 2214) 0.90 MG/DL eGFR AMER. (test cod e = 52472) 96 ML/MIN/1.73 eGFR NON- AMER. (test code = 66073) 83 ML/MIN/1.73 CALC BUN/CREAT (test code = 2235) 13 RATIO SODIUM (test code = 2231) 138 MEQ/L POTASSIUM (test code = 2228) 4.0 MEQ/L CHLORIDE (test code = 2215) 100 MEQ/L CARBON DIOXIDE (test code = 2206) 26 MEQ/L CALCIUM (test code = 2209) 9.1 MG/DL PROTEIN, TOTAL (test code = 2229) 6.7 G/DL ALBUMIN (test code = 2201) 3.9 G/DL CALC GLOBULIN (test code = 2240) 2.8 G/DL CALC A/G RATIO (test code = 2234) 1.4 RATIO BILIRUBIN, TOTAL (test code = 2207) 0.9 MG/DL ALKALINE PHOSPHATASE (test code = 2204) 74 U/L AST (test code = 2218) 24 U/L ALT (test code = 2219) 17 U/L Eric Estrada [place] [id number] 00:00:00* Test Item Value Reference Range Interpretation Comme nts GLUCOSE (test code = 2217) 96 MG/DL BUN (test code = 2208) 12 MG/DL CREATININE (test code = 2214) 0.90 MG/DL eGFR AMER. (test cod e = 22694) 96 ML/MIN/1.73 eGFR NON- AMER. (test code = 56273) 83 ML/MIN/1.73 CALC BUN/CREAT (test code = 2235) 13 RATIO SODIUM (test code = 2231) 138 MEQ/L POTASSIUM (test code = 2228) 4.0 MEQ/L CHLORIDE (test code = 2215) 100 MEQ/L CARBON DIOXIDE (test code = 2206) 26 MEQ/L CALCIUM (test code = 2209) 9.1 MG/DL PROTEIN, TOTAL (test code = 2229) 6.7 G/DL ALBUMIN (test code = 2201) 3.9 G/DL CALC GLOBULIN (test code = 2240) 2.8 G/DL CALC A/G RATIO (test code = 2234) 1.4 RATIO BILIRUBIN, TOTAL (test code = 2207) 0.9 MG/DL ALKALINE PHOSPHATASE (test code = 2204) 74 U/L AST (test code = 2218) 24 U/L ALT (test code = 2219) 17 U/L Eric StantonCOMPREHENSIVE METABOLIC [id number] 00:00:00* Test Item Value Reference Range Interpretation Comme nts GLUCOSE (test code = 2217) 96 MG/DL BUN (test code = 2208) 12 MG/DL CREATININE (test code = 2214) 0.90 MG/DL eGFR AMER. (test cod e = 15497) 96 ML/MIN/1.73 eGFR NON- AMER. (test code = 67817) 83 ML/MIN/1.73 CALC BUN/CREAT (test code = 2235) 13 RATIO SODIUM (test code = 2231) 138 MEQ/L POTASSIUM (test code = 2228) 4.0 MEQ/L CHLORIDE (test code = 2215) 100 MEQ/L CARBON DIOXIDE (test code = 2206) 26 MEQ/L CALCIUM (test code = 2209) 9.1 MG/DL PROTEIN, TOTAL (test code = 2229) 6.7 G/DL ALBUMIN (test code = 2201) 3.9 G/DL CALC GLOBULIN (test code = 2240) 2.8 G/DL CALC A/G RATIO (test code = 2234) 1.4 RATIO BILIRUBIN, TOTAL (test code = 2207) 0.9 MG/DL ALKALINE PHOSPHATASE (test code = 2204) 74 U/L AST (test code = 2218) 24 U/L ALT (test code = 2219) 17 U/L COMPREHENSIVE METABOLIC [id number] 00:00:00* Test Item Value Reference Range Interpretation Comme nts GLUCOSE (test code = 2217) 96 MG/DL BUN (test code = 2208) 12 MG/DL CREATININE (test code = 2214) 0.90 MG/DL eGFR AMER. (test cod e = 29824) 96 ML/MIN/1.73 eGFR NON- AMER. (test code = 14567) 83 ML/MIN/1.73 CALC BUN/CREAT (test code = 2235) 13 RATIO SODIUM (test code = 2231) 138 MEQ/L POTASSIUM (test code = 2228) 4.0 MEQ/L CHLORIDE (test code = 2215) 100 MEQ/L CARBON DIOXIDE (test code = 2206) 26 MEQ/L CALCIUM (test code = 2209) 9.1 MG/DL PROTEIN, TOTAL (test code = 2229) 6.7 G/DL ALBUMIN (test code = 2201) 3.9 G/DL CALC GLOBULIN (test code = 2240) 2.8 G/DL CALC A/G RATIO (test code = 2234) 1.4 RATIO BILIRUBIN, TOTAL (test code = 2207) 0.9 MG/DL ALKALINE PHOSPHATASE (test code = 2204) 74 U/L AST (test code = 2218) 24 U/L ALT (test code = 2219) 17 U/L [facility]strada [facility] [id number] 00:00:00* Test Item Value Reference Range Interpretation Comme nts GLUCOSE (test code = 2217) 96 MG/DL BUN (test code = 2208) 12 MG/DL CREATININE (test code = 2214) 0.90 MG/DL eGFR AMER. (test cod e = 39349) 96 ML/MIN/1.73 eGFR NON- AMER. (test code = 01550) 83 ML/MIN/1.73 CALC BUN/CREAT (test code = 2235) 13 RATIO SODIUM (test code = 2231) 138 MEQ/L POTASSIUM (test code = 2228) 4.0 MEQ/L CHLORIDE (test code = 2215) 100 MEQ/L CARBON DIOXIDE (test code = 2206) 26 MEQ/L CALCIUM (test code = 2209) 9.1 MG/DL PROTEIN, TOTAL (test code = 2229) 6.7 G/DL ALBUMIN (test code = 2201) 3.9 G/DL CALC GLOBULIN (test code = 2240) 2.8 G/DL CALC A/G RATIO (test code = 2234) 1.4 RATIO BILIRUBIN, TOTAL (test code = 2207) 0.9 MG/DL ALKALINE PHOSPHATASE (test code = 2204) 74 U/L AST (test code = 2218) 24 U/L ALT (test code = 2219) 17 U/L Eric F Villa RidgeCOMPREHENSIVE METABOLIC [id number] 00:00:00* Test Item Value Reference Range Interpretation Comme nts GLUCOSE (test code = 2217) 96 MG/DL BUN (test code = 2208) 12 MG/DL CREATININE (test code = 2214) 0.90 MG/DL eGFR AMER. (test cod e = 59318) 96 ML/MIN/1.73 eGFR NON- AMER. (test code = 82000) 83 ML/MIN/1.73 CALC BUN/CREAT (test code = 2235) 13 RATIO SODIUM (test code = 2231) 138 MEQ/L POTASSIUM (test code = 2228) 4.0 MEQ/L CHLORIDE (test code = 2215) 100 MEQ/L CARBON DIOXIDE (test code = 2206) 26 MEQ/L CALCIUM (test code = 2209) 9.1 MG/DL PROTEIN, TOTAL (test code = 2229) 6.7 G/DL ALBUMIN (test code = 2201) 3.9 G/DL CALC GLOBULIN (test code = 2240) 2.8 G/DL CALC A/G RATIO (test code = 2234) 1.4 RATIO BILIRUBIN, TOTAL (test code = 2207) 0.9 MG/DL ALKALINE PHOSPHATASE (test code = 2204) 74 U/L AST (test code = 2218) 24 U/L ALT (test code = 2219) 17 U/L Eric F AustinPSA, FREE AND [id number] 00:00:00* Test Item Value Reference Range Interpretation Comme nts PROSTATIC SPECIFIC AG (test code = 096557) 7.12 NG/ML FREE PSA (test code = 586870) 1.45 NG/ML % FREE PSA (test code = 786087) 20 % Eric F AustinPSA, FREE AND [id number] 00:00:00* Test Item Value Reference Range Interpretation Comme nts PROSTATIC SPECIFIC AG (test code = 062920) 7.12 NG/ML FREE PSA (test code = 764251) 1.45 NG/ML % FREE PSA (test code = 724110) 20 % Eric F AustinPSA, FREE AND [id number] 00:00:00* Test Item Value Reference Range Interpretation Comme nts PROSTATIC SPECIFIC AG (test code = 641254) 7.12 NG/ML FREE PSA (test code = 642655) 1.45 NG/ML % FREE PSA (test code = 907680) 20 % Eric Estrada AustinPSA, FREE AND [id number] 00:00:00* Test Item Value Reference Range Interpretation Comme nts PROSTATIC SPECIFIC AG (test code = 798546) 7.12 NG/ML FREE PSA (test code = 267306) 1.45 NG/ML % FREE PSA (test code = 381203) 20 % Eric Estrada AustinPSA, FREE AND [id number] 00:00:00* Test Item Value Reference Range Interpretation Comme nts PROSTATIC SPECIFIC AG (test code = 302145) 7.12 NG/ML FREE PSA (test code = 024165) 1.45 NG/ML % FREE PSA (test code = 925589) 20 % PSA, FREE AND [id number] 00:00:00* Test Item Value Reference Range Interpretation Comme nts PROSTATIC SPECIFIC AG (test code = 751710) 7.12 NG/ML FREE PSA (test code = 217727) 1.45 NG/ML % FREE PSA (test code = 858635) 20 % Eric Estrada AustinPSA, FREE AND [id number] 00:00:00* Test Item Value Reference Range Interpretation Comme nts PROSTATIC SPECIFIC AG (test code = 020379) 7.12 NG/ML FREE PSA (test code = 757953) 1.45 NG/ML % FREE PSA (test code = 172583) 20 % Eric Estrada AustinPSA, FREE AND [id number] 00:00:00* Test Item Value Reference Range Interpretation Comme nts PROSTATIC SPECIFIC AG (test code = 497268) 7.12 NG/ML FREE PSA (test code = 473802) 1.45 NG/ML % FREE PSA (test code = 797893) 20 % Eric StantonLIPID [id number] 00:00:00* Test Item Value Reference Range Interpretation Comme nts CHOLESTEROL (test code = 2210) 170 MG/DL TRIGLYCERIDES (test code = 2232) 58 MG/DL HDL CHOLESTEROL (test code = 2220) 62 MG/DL CALC LDL CHOL (test code = 2237) 96 MG/DL RISK RATIO LDL/HDL (test cod e = 2238) 1.55 RATIO Eric F [id number] 00:00:00* Test Item Value Reference Range Interpretation Comme nts TSH, THIRD GENERATION (test code = 2821) 3.030 UIU/ML Eric StantonPSA, [id number] 00:00:00* Test Item Value Reference Range Interpretation Comme nts PSA, TOTAL (test code = 2606) 6.37 NG/ML Eric StantonCOMPREHENSIVE METABOLIC [id number] 00:00:00* Test Item Value Reference Range Interpretation Comme nts GLUCOSE (test code = 2217) 103 MG/DL BUN (test code = 2208) 10 MG/DL CREATININE (test code = 2214) 0.90 MG/DL eGFR AMER. (test cod e = 50192) 96 ML/MIN/1.73 eGFR NON- AMER. (test code = 94457) 83 ML/MIN/1.73 CALC BUN/CREAT (test code = 2235) 11 RATIO SODIUM (test code = 2231) 143 MEQ/L POTASSIUM (test code = 2228) 4.6 MEQ/L CHLORIDE (test code = 2215) 103 MEQ/L CARBON DIOXIDE (test code = 2206) 25 MEQ/L CALCIUM (test code = 2209) 9.4 MG/DL PROTEIN, TOTAL (test code = 2229) 7.0 G/DL ALBUMIN (test code = 2201) 4.2 G/DL CALC GLOBULIN (test code = 2240) 2.8 G/DL CALC A/G RATIO (test code = 2234) 1.5 RATIO BILIRUBIN, TOTAL (test code = 2207) 1.0 MG/DL ALKALINE PHOSPHATASE (test code = 2204) 67 U/L AST (test code = 2218) 45 U/L ALT (test code = 2219) 31 U/L Eric StantonLIPID [id number] 00:00:00* Test Item Value Reference Range Interpretation Comme nts CHOLESTEROL (test code = 2210) 170 MG/DL TRIGLYCERIDES (test code = 2232) 58 MG/DL HDL CHOLESTEROL (test code = 2220) 62 MG/DL CALC LDL CHOL (test code = 2237) 96 MG/DL RISK RATIO LDL/HDL (test cod e = 2238) 1.55 RATIO Eric [id number] 00:00:00* Test Item Value Reference Range Interpretation Comme nts TSH, THIRD GENERATION (test code = 2821) 3.030 UIU/ML Eric StantonPSA, [id number] 00:00:00* Test Item Value Reference Range Interpretation Comme nts PSA, TOTAL (test code = 2606) 6.37 NG/ML Eric StantonCOMPREHENSIVE METABOLIC [id number] 00:00:00* Test Item Value Reference Range Interpretation Comme nts GLUCOSE (test code = 2217) 103 MG/DL BUN (test code = 2208) 10 MG/DL CREATININE (test code = 2214) 0.90 MG/DL eGFR AMER. (test cod e = 89016) 96 ML/MIN/1.73 eGFR NON- AMER. (test code = 95404) 83 ML/MIN/1.73 CALC BUN/CREAT (test code = 2235) 11 RATIO SODIUM (test code = 2231) 143 MEQ/L POTASSIUM (test code = 2228) 4.6 MEQ/L CHLORIDE (test code = 2215) 103 MEQ/L CARBON DIOXIDE (test code = 2206) 25 MEQ/L CALCIUM (test code = 2209) 9.4 MG/DL PROTEIN, TOTAL (test code = 2229) 7.0 G/DL ALBUMIN (test code = 2201) 4.2 G/DL CALC GLOBULIN (test code = 2240) 2.8 G/DL CALC A/G RATIO (test code = 2234) 1.5 RATIO BILIRUBIN, TOTAL (test code = 2207) 1.0 MG/DL ALKALINE PHOSPHATASE (test code = 2204) 67 U/L AST (test code = 2218) 45 U/L ALT (test code = 2219) 31 U/L Eric StantonLIPID [id number] 00:00:00* Test Item Value Reference Range Interpretation Comme nts CHOLESTEROL (test code = 2210) 170 MG/DL TRIGLYCERIDES (test code = 2232) 58 MG/DL HDL CHOLESTEROL (test code = 2220) 62 MG/DL CALC LDL CHOL (test code = 2237) 96 MG/DL RISK RATIO LDL/HDL (test cod e = 2238) 1.55 RATIO Eric [id number] 00:00:00* Test Item Value Reference Range Interpretation Comme nts TSH, THIRD GENERATION (test code = 2821) 3.030 UIU/ML Eric StantonPSA, [id number] 00:00:00* Test Item Value Reference Range Interpretation Comme nts PSA, TOTAL (test code = 2606) 6.37 NG/ML Eric StantonCOMPREHENSIVE METABOLIC [id number] 00:00:00* Test Item Value Reference Range Interpretation Comme nts GLUCOSE (test code = 2217) 103 MG/DL BUN (test code = 2208) 10 MG/DL CREATININE (test code = 2214) 0.90 MG/DL eGFR AMER. (test cod e = 26676) 96 ML/MIN/1.73 eGFR NON- AMER. (test code = 40029) 83 ML/MIN/1.73 CALC BUN/CREAT (test code = 2235) 11 RATIO SODIUM (test code = 2231) 143 MEQ/L POTASSIUM (test code = 2228) 4.6 MEQ/L CHLORIDE (test code = 2215) 103 MEQ/L CARBON DIOXIDE (test code = 2206) 25 MEQ/L CALCIUM (test code = 2209) 9.4 MG/DL PROTEIN, TOTAL (test code = 2229) 7.0 G/DL ALBUMIN (test code = 2201) 4.2 G/DL CALC GLOBULIN (test code = 2240) 2.8 G/DL CALC A/G RATIO (test code = 2234) 1.5 RATIO BILIRUBIN, TOTAL (test code = 2207) 1.0 MG/DL ALKALINE PHOSPHATASE (test code = 2204) 67 U/L AST (test code = 2218) 45 U/L ALT (test code = 2219) 31 U/L Eric StantonLIPID [id number] 00:00:00* Test Item Value Reference Range Interpretation Comme nts CHOLESTEROL (test code = 2210) 170 MG/DL TRIGLYCERIDES (test code = 2232) 58 MG/DL HDL CHOLESTEROL (test code = 2220) 62 MG/DL CALC LDL CHOL (test code = 2237) 96 MG/DL RISK RATIO LDL/HDL (test cod e = 2238) 1.55 RATIO LIPID [id number] 00:00:00* Test Item Value Reference Range Interpretation Comme nts CHOLESTEROL (test code = 2210) 170 MG/DL TRIGLYCERIDES (test code = 2232) 58 MG/DL HDL CHOLESTEROL (test code = 2220) 62 MG/DL CALC LDL CHOL (test code = 2237) 96 MG/DL RISK RATIO LDL/HDL (test cod e = 2238) 1.55 RATIO Eric [id number] 00:00:00* Test Item Value Reference Range Interpretation Comme nts TSH, THIRD GENERATION (test code = 2821) 3.030 UIU/ML Eric StantonPSA, [id number] 00:00:00* Test Item Value Reference Range Interpretation Comme nts PSA, TOTAL (test code = 2606) 6.37 NG/ML Eric [id number] 00:00:00* Test Item Value Reference Range Interpretation Comme nts TSH, THIRD GENERATION (test code = 2821) 3.030 UIU/ML PSA, [id number] 00:00:00* Test Item Value Reference Range Interpretation Comme nts PSA, TOTAL (test code = 2606) 6.37 NG/ML COMPREHENSIVE METABOLIC [id number] 00:00:00* Test Item Value Reference Range Interpretation Comme nts GLUCOSE (test code = 2217) 103 MG/DL BUN (test code = 2208) 10 MG/DL CREATININE (test code = 2214) 0.90 MG/DL eGFR AMER. (test cod e = 99276) 96 ML/MIN/1.73 eGFR NON- AMER. (test code = 94022) 83 ML/MIN/1.73 CALC BUN/CREAT (test code = 2235) 11 RATIO SODIUM (test code = 2231) 143 MEQ/L POTASSIUM (test code = 2228) 4.6 MEQ/L CHLORIDE (test code = 2215) 103 MEQ/L CARBON DIOXIDE (test code = 2206) 25 MEQ/L CALCIUM (test code = 2209) 9.4 MG/DL PROTEIN, TOTAL (test code = 2229) 7.0 G/DL ALBUMIN (test code = 2201) 4.2 G/DL CALC GLOBULIN (test code = 2240) 2.8 G/DL CALC A/G RATIO (test code = 2234) 1.5 RATIO BILIRUBIN, TOTAL (test code = 2207) 1.0 MG/DL ALKALINE PHOSPHATASE (test code = 2204) 67 U/L AST (test code = 2218) 45 U/L ALT (test code = 2219) 31 U/L Eric StantonLIPID [id number] 00:00:00* Test Item Value Reference Range Interpretation Comme nts CHOLESTEROL (test code = 2210) 170 MG/DL TRIGLYCERIDES (test code = 2232) 58 MG/DL HDL CHOLESTEROL (test code = 2220) 62 MG/DL CALC LDL CHOL (test code = 2237) 96 MG/DL RISK RATIO LDL/HDL (test cod e = 2238) 1.55 RATIO Eric [id number] 00:00:00* Test Item Value Reference Range Interpretation Comme nts TSH, THIRD GENERATION (test code = 2821) 3.030 UIU/ML Eric StantonPSA, [id number] 00:00:00* Test Item Value Reference Range Interpretation Comme nts PSA, TOTAL (test code = 2606) 6.37 NG/ML Eric StantonCOMPREHENSIVE METABOLIC [id number] 00:00:00* Test Item Value Reference Range Interpretation Comme nts GLUCOSE (test code = 2217) 103 MG/DL BUN (test code = 2208) 10 MG/DL CREATININE (test code = 2214) 0.90 MG/DL eGFR AMER. (test cod e = 71371) 96 ML/MIN/1.73 eGFR NON- AMER. (test code = 05944) 83 ML/MIN/1.73 CALC BUN/CREAT (test code = 2235) 11 RATIO SODIUM (test code = 2231) 143 MEQ/L POTASSIUM (test code = 2228) 4.6 MEQ/L CHLORIDE (test code = 2215) 103 MEQ/L CARBON DIOXIDE (test code = 2206) 25 MEQ/L CALCIUM (test code = 2209) 9.4 MG/DL PROTEIN, TOTAL (test code = 2229) 7.0 G/DL ALBUMIN (test code = 2201) 4.2 G/DL CALC GLOBULIN (test code = 2240) 2.8 G/DL CALC A/G RATIO (test code = 2234) 1.5 RATIO BILIRUBIN, TOTAL (test code = 2207) 1.0 MG/DL ALKALINE PHOSPHATASE (test code = 2204) 67 U/L AST (test code = 2218) 45 U/L ALT (test code = 2219) 31 U/L COMPREHENSIVE METABOLIC [id number] 00:00:00* Test Item Value Reference Range Interpretation Comme nts GLUCOSE (test code = 2217) 103 MG/DL BUN (test code = 2208) 10 MG/DL CREATININE (test code = 2214) 0.90 MG/DL eGFR AMER. (test cod e = 18081) 96 ML/MIN/1.73 eGFR NON- AMER. (test code = 16544) 83 ML/MIN/1.73 CALC BUN/CREAT (test code = 2235) 11 RATIO SODIUM (test code = 2231) 143 MEQ/L POTASSIUM (test code = 2228) 4.6 MEQ/L CHLORIDE (test code = 2215) 103 MEQ/L CARBON DIOXIDE (test code = 2206) 25 MEQ/L CALCIUM (test code = 2209) 9.4 MG/DL PROTEIN, TOTAL (test code = 2229) 7.0 G/DL ALBUMIN (test code = 2201) 4.2 G/DL CALC GLOBULIN (test code = 2240) 2.8 G/DL CALC A/G RATIO (test code = 2234) 1.5 RATIO BILIRUBIN, TOTAL (test code = 2207) 1.0 MG/DL ALKALINE PHOSPHATASE (test code = 2204) 67 U/L AST (test code = 2218) 45 U/L ALT (test code = 2219) 31 U/L Eric StantonLIPID [id number] 00:00:00* Test Item Value Reference Range Interpretation Comme nts CHOLESTEROL (test code = 2210) 170 MG/DL TRIGLYCERIDES (test code = 2232) 58 MG/DL HDL CHOLESTEROL (test code = 2220) 62 MG/DL CALC LDL CHOL (test code = 2237) 96 MG/DL RISK RATIO LDL/HDL (test cod e = 2238) 1.55 RATIO Eric [id number] 00:00:00* Test Item Value Reference Range Interpretation Comme nts TSH, THIRD GENERATION (test code = 2821) 3.030 UIU/ML Eric Estrada MaximinoPSA, [id number] 00:00:00* Test Item Value Reference Range Interpretation Comme nts PSA, TOTAL (test code = 2606) 6.37 NG/ML Eric StantonCOMPREHENSIVE METABOLIC [id number] 00:00:00* Test Item Value Reference Range Interpretation Comme nts GLUCOSE (test code = 2217) 103 MG/DL BUN (test code = 2208) 10 MG/DL CREATININE (test code = 2214) 0.90 MG/DL eGFR AMER. (test cod e = 00288) 96 ML/MIN/1.73 eGFR NON- AMER. (test code = 65727) 83 ML/MIN/1.73 CALC BUN/CREAT (test code = 2235) 11 RATIO SODIUM (test code = 2231) 143 MEQ/L POTASSIUM (test code = 2228) 4.6 MEQ/L CHLORIDE (test code = 2215) 103 MEQ/L CARBON DIOXIDE (test code = 2206) 25 MEQ/L CALCIUM (test code = 2209) 9.4 MG/DL PROTEIN, TOTAL (test code = 2229) 7.0 G/DL ALBUMIN (test code = 2201) 4.2 G/DL CALC GLOBULIN (test code = 2240) 2.8 G/DL CALC A/G RATIO (test code = 2234) 1.5 RATIO BILIRUBIN, TOTAL (test code = 2207) 1.0 MG/DL ALKALINE PHOSPHATASE (test code = 2204) 67 U/L AST (test code = 2218) 45 U/L ALT (test code = 2219) 31 U/L Eric StantonLIPID [id number] 00:00:00* Test Item Value Reference Range Interpretation Comme nts CHOLESTEROL (test code = 2210) 170 MG/DL TRIGLYCERIDES (test code = 2232) 58 MG/DL HDL CHOLESTEROL (test code = 2220) 62 MG/DL CALC LDL CHOL (test code = 2237) 96 MG/DL RISK RATIO LDL/HDL (test cod e = 2238) 1.55 RATIO Eric [id number] 00:00:00* Test Item Value Reference Range Interpretation Comme nts TSH, THIRD GENERATION (test code = 2821) 3.030 UIU/ML Eric StantonPSA, [id number] 00:00:00* Test Item Value Reference Range Interpretation Comme nts PSA, TOTAL (test code = 2606) 6.37 NG/ML Eric StantonCOMPREHENSIVE METABOLIC [id number] 00:00:00* Test Item Value Reference Range Interpretation Comme nts GLUCOSE (test code = 2217) 103 MG/DL BUN (test code = 2208) 10 MG/DL CREATININE (test code = 2214) 0.90 MG/DL eGFR AMER. (test cod e = 04834) 96 ML/MIN/1.73 eGFR NON- AMER. (test code = 78280) 83 ML/MIN/1.73 CALC BUN/CREAT (test code = 2235) 11 RATIO SODIUM (test code = 2231) 143 MEQ/L POTASSIUM (test code = 2228) 4.6 MEQ/L CHLORIDE (test code = 2215) 103 MEQ/L CARBON DIOXIDE (test code = 2206) 25 MEQ/L CALCIUM (test code = 2209) 9.4 MG/DL PROTEIN, TOTAL (test code = 2229) 7.0 G/DL ALBUMIN (test code = 2201) 4.2 G/DL CALC GLOBULIN (test code = 2240) 2.8 G/DL CALC A/G RATIO (test code = 2234) 1.5 RATIO BILIRUBIN, TOTAL (test code = 2207) 1.0 MG/DL ALKALINE PHOSPHATASE (test code = 2204) 67 U/L AST (test code = 2218) 45 U/L ALT (test code = 2219) 31 U/L Eric StantonCBC W/AUTO [id number] 00:00:00* Test Item Value Reference Range Interpretation Comme nts WBC (test code = 1001) 5.8 K/UL RBC (test code = 1002) 5.07 M/UL HEMOGLOBIN (test code = 1003) 16.3 G/DL HEMATOCRIT (test code = 1004) 47.4 % MCV (test code = 1005) 93.5 fL MCH (test code = 1006) 32.1 PG MCHC (test code = 1007) 34.4 G/DL RDW (test code = 1038) 13.1 % NEUTROPHILS (test code = 1008) 65.9 % LYMPHOCYTES (test code = 1010) 20.4 % MONOCYTES (test code = 1011) 13.0 % EOSINOPHILS (test code = 1012) 0.5 % BASOPHILS (test code = 1013) 0.2 % PLATELET COUNT (test code = 1015) 186 K/UL Eric Estrada AustinHEMOGLOBIN [id number] 00:00:00* Test Item Value Reference Range Interpretation Comme nts HEMOGLOBIN A1c (test code = 50079) 5.8 % Eric Estrada AustinCBC W/AUTO [id number] 00:00:00* Test Item Value Reference Range Interpretation Comme nts WBC (test code = 1001) 5.8 K/UL RBC (test code = 1002) 5.07 M/UL HEMOGLOBIN (test code = 1003) 16.3 G/DL HEMATOCRIT (test code = 1004) 47.4 % MCV (test code = 1005) 93.5 fL MCH (test code = 1006) 32.1 PG MCHC (test code = 1007) 34.4 G/DL RDW (test code = 1038) 13.1 % NEUTROPHILS (test code = 1008) 65.9 % LYMPHOCYTES (test code = 1010) 20.4 % MONOCYTES (test code = 1011) 13.0 % EOSINOPHILS (test code = 1012) 0.5 % BASOPHILS (test code = 1013) 0.2 % PLATELET COUNT (test code = 1015) 186 K/UL Eric StantonHEMOGLOBIN [id number] 00:00:00* Test Item Value Reference Range Interpretation Comme nts HEMOGLOBIN A1c (test code = 37539) 5.8 % Eric StantonCBC W/AUTO [id number] 00:00:00* Test Item Value Reference Range Interpretation Comme nts WBC (test code = 1001) 5.8 K/UL RBC (test code = 1002) 5.07 M/UL HEMOGLOBIN (test code = 1003) 16.3 G/DL HEMATOCRIT (test code = 1004) 47.4 % MCV (test code = 1005) 93.5 fL MCH (test code = 1006) 32.1 PG MCHC (test code = 1007) 34.4 G/DL RDW (test code = 1038) 13.1 % NEUTROPHILS (test code = 1008) 65.9 % LYMPHOCYTES (test code = 1010) 20.4 % MONOCYTES (test code = 1011) 13.0 % EOSINOPHILS (test code = 1012) 0.5 % BASOPHILS (test code = 1013) 0.2 % PLATELET COUNT (test code = 1015) 186 K/UL Eric Estrada AustinHEMOGLOBIN [id number] 00:00:00* Test Item Value Reference Range Interpretation Comme nts HEMOGLOBIN A1c (test code = 38448) 5.8 % Eric Estrada AustinCBC W/AUTO [id number] 00:00:00* Test Item Value Reference Range Interpretation Comme nts WBC (test code = 1001) 5.8 K/UL RBC (test code = 1002) 5.07 M/UL HEMOGLOBIN (test code = 1003) 16.3 G/DL HEMATOCRIT (test code = 1004) 47.4 % MCV (test code = 1005) 93.5 fL MCH (test code = 1006) 32.1 PG MCHC (test code = 1007) 34.4 G/DL RDW (test code = 1038) 13.1 % NEUTROPHILS (test code = 1008) 65.9 % LYMPHOCYTES (test code = 1010) 20.4 % MONOCYTES (test code = 1011) 13.0 % EOSINOPHILS (test code = 1012) 0.5 % BASOPHILS (test code = 1013) 0.2 % PLATELET COUNT (test code = 1015) 186 K/UL Eric Estrada [place]AUTO [id number] 00:00:00* Test Item Value Reference Range Interpretation Comme nts WBC (test code = 1001) 5.8 K/UL RBC (test code = 1002) 5.07 M/UL HEMOGLOBIN (test code = 1003) 16.3 G/DL HEMATOCRIT (test code = 1004) 47.4 % MCV (test code = 1005) 93.5 fL MCH (test code = 1006) 32.1 PG MCHC (test code = 1007) 34.4 G/DL RDW (test code = 1038) 13.1 % NEUTROPHILS (test code = 1008) 65.9 % LYMPHOCYTES (test code = 1010) 20.4 % MONOCYTES (test code = 1011) 13.0 % EOSINOPHILS (test code = 1012) 0.5 % BASOPHILS (test code = 1013) 0.2 % PLATELET COUNT (test code = 1015) 186 K/UL HEMOGLOBIN [id number] 00:00:00* Test Item Value Reference Range Interpretation Comme nts HEMOGLOBIN A1c (test code = 61360) 5.8 % Eric Estrada AustinCBC W/AUTO [id number] 00:00:00* Test Item Value Reference Range Interpretation Comme nts WBC (test code = 1001) 5.8 K/UL RBC (test code = 1002) 5.07 M/UL HEMOGLOBIN (test code = 1003) 16.3 G/DL HEMATOCRIT (test code = 1004) 47.4 % MCV (test code = 1005) 93.5 fL MCH (test code = 1006) 32.1 PG MCHC (test code = 1007) 34.4 G/DL RDW (test code = 1038) 13.1 % NEUTROPHILS (test code = 1008) 65.9 % LYMPHOCYTES (test code = 1010) 20.4 % MONOCYTES (test code = 1011) 13.0 % EOSINOPHILS (test code = 1012) 0.5 % BASOPHILS (test code = 1013) 0.2 % PLATELET COUNT (test code = 1015) 186 K/UL Eric StantonHEMOGLOBIN [id number] 00:00:00* Test Item Value Reference Range Interpretation Comme [facility] HEMOGLOBIN A1c (test code = 47183) 5.8 % HEMOGLOBIN [id number] 00:00:00* Test Item Value Reference Range Interpretation Comme [facility] HEMOGLOBIN A1c (test code = 89426) 5.8 % Erci Estrada [place]CBC W/AUTO [id number] 00:00:00* Test Item Value Reference Range Interpretation Comme nts WBC (test code = 1001) 5.8 K/UL RBC (test code = 1002) 5.07 M/UL HEMOGLOBIN (test code = 1003) 16.3 G/DL HEMATOCRIT (test code = 1004) 47.4 % MCV (test code = 1005) 93.5 fL MCH (test code = 1006) 32.1 PG MCHC (test code = 1007) 34.4 G/DL RDW (test code = 1038) 13.1 % NEUTROPHILS (test code = 1008) 65.9 % LYMPHOCYTES (test code = 1010) 20.4 % MONOCYTES (test code = 1011) 13.0 % EOSINOPHILS (test code = 1012) 0.5 % BASOPHILS (test code = 1013) 0.2 % PLATELET COUNT (test code = 1015) 186 K/UL Eric Estrada AustinHEMOGLOBIN [id number] 00:00:00* Test Item Value Reference Range Interpretation Comme nts HEMOGLOBIN A1c (test code = 88306) 5.8 % Eric StantonCBC W/AUTO [id number] 00:00:00* Test Item Value Reference Range Interpretation Comme nts WBC (test code = 1001) 5.8 K/UL RBC (test code = 1002) 5.07 M/UL HEMOGLOBIN (test code = 1003) 16.3 G/DL HEMATOCRIT (test code = 1004) 47.4 % MCV (test code = 1005) 93.5 fL MCH (test code = 1006) 32.1 PG MCHC (test code = 1007) 34.4 G/DL RDW (test code = 1038) 13.1 % NEUTROPHILS (test code = 1008) 65.9 % LYMPHOCYTES (test code = 1010) 20.4 % MONOCYTES (test code = 1011) 13.0 % EOSINOPHILS (test code = 1012) 0.5 % BASOPHILS (test code = 1013) 0.2 % PLATELET COUNT (test code = 1015) 186 K/UL Eric StantonHEMOGLOBIN [id number] 00:00:00* Test Item Value Reference Range Interpretation Comme charo HEMOGLOBIN A1c (test code = 15647) 5.8 % Eric StantonCOMPREHENSIVE METABOLIC [id number] 00:00:00* Test Item Value Reference Range Interpretation Comme nts GLUCOSE (test code = 2217) 98 MG/DL BUN (test code = 2208) 11 MG/DL CREATININE (test code = 2214) 0.83 MG/DL eGFR AMER. (test cod e = 26215) 100 ML/MIN/1.73 eGFR NON- AMER. (test code = 05491) 86 ML/MIN/1.73 CALC BUN/CREAT (test code = 2235) 13 RATIO SODIUM (test code = 2231) 141 MEQ/L POTASSIUM (test code = 2228) 3.6 MEQ/L CHLORIDE (test code = 2215) 104 MEQ/L CARBON DIOXIDE (test code = 2206) 27 MEQ/L CALCIUM (test code = 2209) 9.0 MG/DL PROTEIN, TOTAL (test code = 2229) 6.5 G/DL ALBUMIN (test code = 2201) 4.1 G/DL CALC GLOBULIN (test code = 2240) 2.4 G/DL CALC A/G RATIO (test code = 2234) 1.7 RATIO BILIRUBIN, TOTAL (test code = 2207) 0.6 MG/DL ALKALINE PHOSPHATASE (test code = 2204) 60 U/L AST (test code = 2218) 19 U/L ALT (test code = 2219) 11 U/L Eric Estrada AustinLIPID [id number] 00:00:00* Test Item Value Reference Range Interpretation Comme nts CHOLESTEROL (test code = 2210) 160 MG/DL TRIGLYCERIDES (test code = 2232) 37 MG/DL HDL CHOLESTEROL (test code = 2220) 48 MG/DL CALC LDL CHOL (test code = 2237) 105 MG/DL RISK RATIO LDL/HDL (test cod e = 2238) 2.18 RATIO Eric StantonCOMPREHENSIVE METABOLIC [id number] 00:00:00* Test Item Value Reference Range Interpretation Comme nts GLUCOSE (test code = 2217) 98 MG/DL BUN (test code = 2208) 11 MG/DL CREATININE (test code = 2214) 0.83 MG/DL eGFR AMER. (test cod e = 38950) 100 ML/MIN/1.73 eGFR NON- AMER. (test code = 84412) 86 ML/MIN/1.73 CALC BUN/CREAT (test code = 2235) 13 RATIO SODIUM (test code = 2231) 141 MEQ/L POTASSIUM (test code = 2228) 3.6 MEQ/L CHLORIDE (test code = 2215) 104 MEQ/L CARBON DIOXIDE (test code = 2206) 27 MEQ/L CALCIUM (test code = 2209) 9.0 MG/DL PROTEIN, TOTAL (test code = 2229) 6.5 G/DL ALBUMIN (test code = 2201) 4.1 G/DL CALC GLOBULIN (test code = 2240) 2.4 G/DL CALC A/G RATIO (test code = 2234) 1.7 RATIO BILIRUBIN, TOTAL (test code = 2207) 0.6 MG/DL ALKALINE PHOSPHATASE (test code = 2204) 60 U/L AST (test code = 2218) 19 U/L ALT (test code = 2219) 11 U/L Eric F AustinLIPID [id number] 00:00:00* Test Item Value Reference Range Interpretation Comme nts CHOLESTEROL (test code = 2210) 160 MG/DL TRIGLYCERIDES (test code = 2232) 37 MG/DL HDL CHOLESTEROL (test code = 2220) 48 MG/DL CALC LDL CHOL (test code = 2237) 105 MG/DL RISK RATIO LDL/HDL (test cod e = 2238) 2.18 RATIO Eric StantonCOMPREHENSIVE METABOLIC [id number] 00:00:00* Test Item Value Reference Range Interpretation Comme nts GLUCOSE (test code = 2217) 98 MG/DL BUN (test code = 2208) 11 MG/DL CREATININE (test code = 2214) 0.83 MG/DL eGFR AMER. (test cod e = 79937) 100 ML/MIN/1.73 eGFR NON- AMER. (test code = 76478) 86 ML/MIN/1.73 CALC BUN/CREAT (test code = 2235) 13 RATIO SODIUM (test code = 2231) 141 MEQ/L POTASSIUM (test code = 2228) 3.6 MEQ/L CHLORIDE (test code = 2215) 104 MEQ/L CARBON DIOXIDE (test code = 2206) 27 MEQ/L CALCIUM (test code = 2209) 9.0 MG/DL PROTEIN, TOTAL (test code = 2229) 6.5 G/DL ALBUMIN (test code = 2201) 4.1 G/DL CALC GLOBULIN (test code = 2240) 2.4 G/DL CALC A/G RATIO (test code = 2234) 1.7 RATIO BILIRUBIN, TOTAL (test code = 2207) 0.6 MG/DL ALKALINE PHOSPHATASE (test code = 2204) 60 U/L AST (test code = 2218) 19 U/L ALT (test code = 2219) 11 U/L Eric Estrada AustinLIPID [id number] 00:00:00* Test Item Value Reference Range Interpretation Comme nts CHOLESTEROL (test code = 2210) 160 MG/DL TRIGLYCERIDES (test code = 2232) 37 MG/DL HDL CHOLESTEROL (test code = 2220) 48 MG/DL CALC LDL CHOL (test code = 2237) 105 MG/DL RISK RATIO LDL/HDL (test cod e = 2238) 2.18 RATIO LIPID [id number] 00:00:00* Test Item Value Reference Range Interpretation Comme nts CHOLESTEROL (test code = 2210) 160 MG/DL TRIGLYCERIDES (test code = 2232) 37 MG/DL HDL CHOLESTEROL (test code = 2220) 48 MG/DL CALC LDL CHOL (test code = 2237) 105 MG/DL RISK RATIO LDL/HDL (test cod e = 2238) 2.18 RATIO Eric F AustinCOMPREHENSIVE METABOLIC [id number] 00:00:00* Test Item Value Reference Range Interpretation Comme nts GLUCOSE (test code = 2217) 98 MG/DL BUN (test code = 2208) 11 MG/DL CREATININE (test code = 2214) 0.83 MG/DL eGFR AMER. (test cod e = 05978) 100 ML/MIN/1.73 eGFR NON- AMER. (test code = 55310) 86 ML/MIN/1.73 CALC BUN/CREAT (test code = 2235) 13 RATIO SODIUM (test code = 2231) 141 MEQ/L POTASSIUM (test code = 2228) 3.6 MEQ/L CHLORIDE (test code = 2215) 104 MEQ/L CARBON DIOXIDE (test code = 2206) 27 MEQ/L CALCIUM (test code = 2209) 9.0 MG/DL PROTEIN, TOTAL (test code = 2229) 6.5 G/DL ALBUMIN (test code = 2201) 4.1 G/DL CALC GLOBULIN (test code = 2240) 2.4 G/DL CALC A/G RATIO (test code = 2234) 1.7 RATIO BILIRUBIN, TOTAL (test code = 2207) 0.6 MG/DL ALKALINE PHOSPHATASE (test code = 2204) 60 U/L AST (test code = 2218) 19 U/L ALT (test code = 2219) 11 U/L Eric Estrada AustinLIPID [id number] 00:00:00* Test Item Value Reference Range Interpretation Comme nts CHOLESTEROL (test code = 2210) 160 MG/DL TRIGLYCERIDES (test code = 2232) 37 MG/DL HDL CHOLESTEROL (test code = 2220) 48 MG/DL CALC LDL CHOL (test code = 2237) 105 MG/DL RISK RATIO LDL/HDL (test cod e = 2238) 2.18 RATIO Eric Estrada AustinCOMPREHENSIVE METABOLIC [id number] 00:00:00* Test Item Value Reference Range Interpretation Comme nts GLUCOSE (test code = 2217) 98 MG/DL BUN (test code = 2208) 11 MG/DL CREATININE (test code = 2214) 0.83 MG/DL eGFR AMER. (test cod e = 11690) 100 ML/MIN/1.73 eGFR NON- AMER. (test code = 49593) 86 ML/MIN/1.73 CALC BUN/CREAT (test code = 2235) 13 RATIO SODIUM (test code = 2231) 141 MEQ/L POTASSIUM (test code = 2228) 3.6 MEQ/L CHLORIDE (test code = 2215) 104 MEQ/L CARBON DIOXIDE (test code = 2206) 27 MEQ/L CALCIUM (test code = 2209) 9.0 MG/DL PROTEIN, TOTAL (test code = 2229) 6.5 G/DL ALBUMIN (test code = 2201) 4.1 G/DL CALC GLOBULIN (test code = 2240) 2.4 G/DL CALC A/G RATIO (test code = 2234) 1.7 RATIO BILIRUBIN, TOTAL (test code = 2207) 0.6 MG/DL ALKALINE PHOSPHATASE (test code = 2204) 60 U/L AST (test code = 2218) 19 U/L ALT (test code = 2219) 11 U/L Eric StantonCOMPREHENSIVE METABOLIC [id number] 00:00:00* Test Item Value Reference Range Interpretation Comme nts GLUCOSE (test code = 2217) 98 MG/DL BUN (test code = 2208) 11 MG/DL CREATININE (test code = 2214) 0.83 MG/DL eGFR AMER. (test cod e = 15877) 100 ML/MIN/1.73 eGFR NON- AMER. (test code = 34123) 86 ML/MIN/1.73 CALC BUN/CREAT (test code = 2235) 13 RATIO SODIUM (test code = 2231) 141 MEQ/L POTASSIUM (test code = 2228) 3.6 MEQ/L CHLORIDE (test code = 2215) 104 MEQ/L CARBON DIOXIDE (test code = 2206) 27 MEQ/L CALCIUM (test code = 2209) 9.0 MG/DL PROTEIN, TOTAL (test code = 2229) 6.5 G/DL ALBUMIN (test code = 2201) 4.1 G/DL CALC GLOBULIN (test code = 2240) 2.4 G/DL CALC A/G RATIO (test code = 2234) 1.7 RATIO BILIRUBIN, TOTAL (test code = 2207) 0.6 MG/DL ALKALINE PHOSPHATASE (test code = 2204) 60 U/L AST (test code = 2218) 19 U/L ALT (test code = 2219) 11 U/L LIPID [id number] 00:00:00* Test Item Value Reference Range Interpretation Comme nts CHOLESTEROL (test code = 2210) 160 MG/DL TRIGLYCERIDES (test code = 2232) 37 MG/DL HDL CHOLESTEROL (test code = 2220) 48 MG/DL CALC LDL CHOL (test code = 2237) 105 MG/DL RISK RATIO LDL/HDL (test cod e = 2238) 2.18 RATIO Eric StantonCOMPREHENSIVE METABOLIC [id number] 00:00:00* Test Item Value Reference Range Interpretation Comme nts GLUCOSE (test code = 2217) 98 MG/DL BUN (test code = 2208) 11 MG/DL CREATININE (test code = 2214) 0.83 MG/DL eGFR AMER. (test cod e = 16076) 100 ML/MIN/1.73 eGFR NON- AMER. (test code = 20679) 86 ML/MIN/1.73 CALC BUN/CREAT (test code = 2235) 13 RATIO SODIUM (test code = 2231) 141 MEQ/L POTASSIUM (test code = 2228) 3.6 MEQ/L CHLORIDE (test code = 2215) 104 MEQ/L CARBON DIOXIDE (test code = 2206) 27 MEQ/L CALCIUM (test code = 2209) 9.0 MG/DL PROTEIN, TOTAL (test code = 2229) 6.5 G/DL ALBUMIN (test code = 2201) 4.1 G/DL CALC GLOBULIN (test code = 2240) 2.4 G/DL CALC A/G RATIO (test code = 2234) 1.7 RATIO BILIRUBIN, TOTAL (test code = 2207) 0.6 MG/DL ALKALINE PHOSPHATASE (test code = 2204) 60 U/L AST (test code = 2218) 19 U/L ALT (test code = 2219) 11 U/L Eric F AustinLIPID [id number] 00:00:00* Test Item Value Reference Range Interpretation Comme nts CHOLESTEROL (test code = 2210) 160 MG/DL TRIGLYCERIDES (test code = 2232) 37 MG/DL HDL CHOLESTEROL (test code = 2220) 48 MG/DL CALC LDL CHOL (test code = 2237) 105 MG/DL RISK RATIO LDL/HDL (test cod e = 2238) 2.18 RATIO Eric Estrada AustinCOMPREHENSIVE METABOLIC [id number] 00:00:00* Test Item Value Reference Range Interpretation Comme nts GLUCOSE (test code = 2217) 98 MG/DL BUN (test code = 2208) 11 MG/DL CREATININE (test code = 2214) 0.83 MG/DL eGFR AMER. (test cod e = 16458) 100 ML/MIN/1.73 eGFR NON- AMER. (test code = 73563) 86 ML/MIN/1.73 CALC BUN/CREAT (test code = 2235) 13 RATIO SODIUM (test code = 2231) 141 MEQ/L POTASSIUM (test code = 2228) 3.6 MEQ/L CHLORIDE (test code = 2215) 104 MEQ/L CARBON DIOXIDE (test code = 2206) 27 MEQ/L CALCIUM (test code = 2209) 9.0 MG/DL PROTEIN, TOTAL (test code = 2229) 6.5 G/DL ALBUMIN (test code = 2201) 4.1 G/DL CALC GLOBULIN (test code = 2240) 2.4 G/DL CALC A/G RATIO (test code = 2234) 1.7 RATIO BILIRUBIN, TOTAL (test code = 2207) 0.6 MG/DL ALKALINE PHOSPHATASE (test code = 2204) 60 U/L AST (test code = 2218) 19 U/L ALT (test code = 2219) 11 U/L Eric Estrada AustinLIPID [id number] 00:00:00* Test Item Value Reference Range Interpretation Comme nts CHOLESTEROL (test code = 2210) 160 MG/DL TRIGLYCERIDES (test code = 2232) 37 MG/DL HDL CHOLESTEROL (test code = 2220) 48 MG/DL CALC LDL CHOL (test code = 2237) 105 MG/DL RISK RATIO LDL/HDL (test cod e = 2238) 2.18 RATIO Eric F AustinCOMPREHENSIVE METABOLIC [id number] 00:00:00* Test Item Value Reference Range Interpretation Comme nts GLUCOSE (test code = 2217) 112 MG/DL BUN (test code = 2208) 9 MG/DL CREATININE (test code = 2214) 0.78 MG/DL eGFR AMER. (test cod e = 66926) 102 ML/MIN/1.73 eGFR NON- AMER. (test code = 03706) 88 ML/MIN/1.73 CALC BUN/CREAT (test code = 2235) 12 RATIO SODIUM (test code = 2231) 145 MEQ/L POTASSIUM (test code = 2228) 4.3 MEQ/L CHLORIDE (test code = 2215) 104 MEQ/L CARBON DIOXIDE (test code = 2206) 26 MEQ/L CALCIUM (test code = 2209) 8.7 MG/DL PROTEIN, TOTAL (test code = 2229) 7.0 G/DL ALBUMIN (test code = 2201) 4.2 G/DL CALC GLOBULIN (test code = 2240) 2.8 G/DL CALC A/G RATIO (test code = 2234) 1.5 RATIO BILIRUBIN, TOTAL (test code = 2207) 0.3 MG/DL ALKALINE PHOSPHATASE (test code = 2204) 74 U/L AST (test code = 2218) 34 U/L ALT (test code = 2219) 22 U/L Eric Estrada AustinLIPID [id number] 00:00:00* Test Item Value Reference Range Interpretation Comme nts CHOLESTEROL (test code = 2210) 190 MG/DL TRIGLYCERIDES (test code = 2232) 63 MG/DL HDL CHOLESTEROL (test code = 2220) 67 MG/DL CALC LDL CHOL (test code = 2237) 110 MG/DL RISK RATIO LDL/HDL (test cod e = 2238) 1.65 RATIO Eric Estrada AustinCOMPREHENSIVE METABOLIC [id number] 00:00:00* Test Item Value Reference Range Interpretation Comme nts GLUCOSE (test code = 2217) 112 MG/DL BUN (test code = 2208) 9 MG/DL CREATININE (test code = 2214) 0.78 MG/DL eGFR AMER. (test cod e = 36785) 102 ML/MIN/1.73 eGFR NON- AMER. (test code = 02107) 88 ML/MIN/1.73 CALC BUN/CREAT (test code = 2235) 12 RATIO SODIUM (test code = 2231) 145 MEQ/L POTASSIUM (test code = 2228) 4.3 MEQ/L CHLORIDE (test code = 2215) 104 MEQ/L CARBON DIOXIDE (test code = 2206) 26 MEQ/L CALCIUM (test code = 2209) 8.7 MG/DL PROTEIN, TOTAL (test code = 2229) 7.0 G/DL ALBUMIN (test code = 2201) 4.2 G/DL CALC GLOBULIN (test code = 2240) 2.8 G/DL CALC A/G RATIO (test code = 2234) 1.5 RATIO BILIRUBIN, TOTAL (test code = 2207) 0.3 MG/DL ALKALINE PHOSPHATASE (test code = 2204) 74 U/L AST (test code = 2218) 34 U/L ALT (test code = 2219) 22 U/L Eric Etsrada Villa RidgeLIP[place] [id number] 00:00:00* Test Item Value Reference Range Interpretation Comme nts CHOLESTEROL (test code = 2210) 190 MG/DL TRIGLYCERIDES (test code = 2232) 63 MG/DL HDL CHOLESTEROL (test code = 2220) 67 MG/DL CALC LDL CHOL (test code = 2237) 110 MG/DL RISK RATIO LDL/HDL (test cod e = 2238) 1.65 RATIO Eric StantonCOMPREHENSIVE METABOLIC [id number] 00:00:00* Test Item Value Reference Range Interpretation Comme nts GLUCOSE (test code = 2217) 112 MG/DL BUN (test code = 2208) 9 MG/DL CREATININE (test code = 2214) 0.78 MG/DL eGFR AMER. (test cod e = 96371) 102 ML/MIN/1.73 eGFR NON- AMER. (test code = 10038) 88 ML/MIN/1.73 CALC BUN/CREAT (test code = 2235) 12 RATIO SODIUM (test code = 2231) 145 MEQ/L POTASSIUM (test code = 2228) 4.3 MEQ/L CHLORIDE (test code = 2215) 104 MEQ/L CARBON DIOXIDE (test code = 2206) 26 MEQ/L CALCIUM (test code = 2209) 8.7 MG/DL PROTEIN, TOTAL (test code = 2229) 7.0 G/DL ALBUMIN (test code = 2201) 4.2 G/DL CALC GLOBULIN (test code = 2240) 2.8 G/DL CALC A/G RATIO (test code = 2234) 1.5 RATIO BILIRUBIN, TOTAL (test code = 2207) 0.3 MG/DL ALKALINE PHOSPHATASE (test code = 2204) 74 U/L AST (test code = 2218) 34 U/L ALT (test code = 2219) 22 U/L Eric Estrada AustinLIPID [id number] 00:00:00* Test Item Value Reference Range Interpretation Comme nts CHOLESTEROL (test code = 2210) 190 MG/DL TRIGLYCERIDES (test code = 2232) 63 MG/DL HDL CHOLESTEROL (test code = 2220) 67 MG/DL CALC LDL CHOL (test code = 2237) 110 MG/DL RISK RATIO LDL/HDL (test cod e = 2238) 1.65 RATIO Eric StantonCOMPREHENSIVE METABOLIC [id number] 00:00:00* Test Item Value Reference Range Interpretation Comme nts GLUCOSE (test code = 2217) 112 MG/DL BUN (test code = 2208) 9 MG/DL CREATININE (test code = 2214) 0.78 MG/DL eGFR AMER. (test cod e = 08698) 102 ML/MIN/1.73 eGFR NON- AMER. (test code = 20436) 88 ML/MIN/1.73 CALC BUN/CREAT (test code = 2235) 12 RATIO SODIUM (test code = 2231) 145 MEQ/L POTASSIUM (test code = 2228) 4.3 MEQ/L CHLORIDE (test code = 2215) 104 MEQ/L CARBON DIOXIDE (test code = 2206) 26 MEQ/L CALCIUM (test code = 2209) 8.7 MG/DL PROTEIN, TOTAL (test code = 2229) 7.0 G/DL ALBUMIN (test code = 2201) 4.2 G/DL CALC GLOBULIN (test code = 2240) 2.8 G/DL CALC A/G RATIO (test code = 2234) 1.5 RATIO BILIRUBIN, TOTAL (test code = 2207) 0.3 MG/DL ALKALINE PHOSPHATASE (test code = 2204) 74 U/L AST (test code = 2218) 34 U/L ALT (test code = 2219) 22 U/L Eric StantonLIPID [id number] 00:00:00* Test Item Value Reference Range Interpretation Comme nts CHOLESTEROL (test code = 2210) 190 MG/DL TRIGLYCERIDES (test code = 2232) 63 MG/DL HDL CHOLESTEROL (test code = 2220) 67 MG/DL CALC LDL CHOL (test code = 2237) 110 MG/DL RISK RATIO LDL/HDL (test cod e = 2238) 1.65 RATIO Eric StantonCOMPREHENSIVE METABOLIC [id number] 00:00:00* Test Item Value Reference Range Interpretation Comme nts GLUCOSE (test code = 2217) 112 MG/DL BUN (test code = 2208) 9 MG/DL CREATININE (test code = 2214) 0.78 MG/DL eGFR AMER. (test cod e = 32852) 102 ML/MIN/1.73 eGFR NON- AMER. (test code = 62957) 88 ML/MIN/1.73 CALC BUN/CREAT (test code = 2235) 12 RATIO SODIUM (test code = 2231) 145 MEQ/L POTASSIUM (test code = 2228) 4.3 MEQ/L CHLORIDE (test code = 2215) 104 MEQ/L CARBON DIOXIDE (test code = 2206) 26 MEQ/L CALCIUM (test code = 2209) 8.7 MG/DL PROTEIN, TOTAL (test code = 2229) 7.0 G/DL ALBUMIN (test code = 2201) 4.2 G/DL CALC GLOBULIN (test code = 2240) 2.8 G/DL CALC A/G RATIO (test code = 2234) 1.5 RATIO BILIRUBIN, TOTAL (test code = 2207) 0.3 MG/DL ALKALINE PHOSPHATASE (test code = 2204) 74 U/L AST (test code = 2218) 34 U/L ALT (test code = 2219) 22 U/L COMPREHENSIVE METABOLIC [id number] 00:00:00* Test Item Value Reference Range Interpretation Comme nts GLUCOSE (test code = 2217) 112 MG/DL BUN (test code = 2208) 9 MG/DL CREATININE (test code = 2214) 0.78 MG/DL eGFR AMER. (test cod e = 36457) 102 ML/MIN/1.73 eGFR NON- AMER. (test code = 33956) 88 ML/MIN/1.73 CALC BUN/CREAT (test code = 2235) 12 RATIO SODIUM (test code = 2231) 145 MEQ/L POTASSIUM (test code = 2228) 4.3 MEQ/L CHLORIDE (test code = 2215) 104 MEQ/L CARBON DIOXIDE (test code = 2206) 26 MEQ/L CALCIUM (test code = 2209) 8.7 MG/DL PROTEIN, TOTAL (test code = 2229) 7.0 G/DL ALBUMIN (test code = 2201) 4.2 G/DL CALC GLOBULIN (test code = 2240) 2.8 G/DL CALC A/G RATIO (test code = 2234) 1.5 RATIO BILIRUBIN, TOTAL (test code = 2207) 0.3 MG/DL ALKALINE PHOSPHATASE (test code = 2204) 74 U/L AST (test code = 2218) 34 U/L ALT (test code = 2219) 22 U/L Eric Estrada AustinLIPID [id number] 00:00:00* Test Item Value Reference Range Interpretation Comme nts CHOLESTEROL (test code = 2210) 190 MG/DL TRIGLYCERIDES (test code = 2232) 63 MG/DL HDL CHOLESTEROL (test code = 2220) 67 MG/DL CALC LDL CHOL (test code = 2237) 110 MG/DL RISK RATIO LDL/HDL (test cod e = 2238) 1.65 RATIO LIPID [id number] 00:00:00* Test Item Value Reference Range Interpretation Comme nts CHOLESTEROL (test code = 2210) 190 MG/DL TRIGLYCERIDES (test code = 2232) 63 MG/DL HDL CHOLESTEROL (test code = 2220) 67 MG/DL CALC LDL CHOL (test code = 2237) 110 MG/DL RISK RATIO LDL/HDL (test cod e = 2238) 1.65 RATIO Eric F Villa RidgeCOMPREHENSIVE METABOLIC [id number] 00:00:00* Test Item Value Reference Range Interpretation Comme nts GLUCOSE (test code = 2217) 112 MG/DL BUN (test code = 2208) 9 MG/DL CREATININE (test code = 2214) 0.78 MG/DL eGFR AMER. (test cod e = 33681) 102 ML/MIN/1.73 eGFR NON- AMER. (test code = 94604) 88 ML/MIN/1.73 CALC BUN/CREAT (test code = 2235) 12 RATIO SODIUM (test code = 2231) 145 MEQ/L POTASSIUM (test code = 2228) 4.3 MEQ/L CHLORIDE (test code = 2215) 104 MEQ/L CARBON DIOXIDE (test code = 2206) 26 MEQ/L CALCIUM (test code = 2209) 8.7 MG/DL PROTEIN, TOTAL (test code = 2229) 7.0 G/DL ALBUMIN (test code = 2201) 4.2 G/DL CALC GLOBULIN (test code = 2240) 2.8 G/DL CALC A/G RATIO (test code = 2234) 1.5 RATIO BILIRUBIN, TOTAL (test code = 2207) 0.3 MG/DL ALKALINE PHOSPHATASE (test code = 2204) 74 U/L AST (test code = 2218) 34 U/L ALT (test code = 2219) 22 U/L Eric Estrada AustinLIPID [id number] 00:00:00* Test Item Value Reference Range Interpretation Comme nts CHOLESTEROL (test code = 2210) 190 MG/DL TRIGLYCERIDES (test code = 2232) 63 MG/DL HDL CHOLESTEROL (test code = 2220) 67 MG/DL CALC LDL CHOL (test code = 2237) 110 MG/DL RISK RATIO LDL/HDL (test cod e = 2238) 1.65 RATIO Eric StantonCOMPREHENSIVE METABOLIC [id number] 00:00:00* Test Item Value Reference Range Interpretation Comme nts GLUCOSE (test code = 2217) 112 MG/DL BUN (test code = 2208) 9 MG/DL CREATININE (test code = 2214) 0.78 MG/DL eGFR AMER. (test cod e = 75066) 102 ML/MIN/1.73 eGFR NON- AMER. (test code = 88420) 88 ML/MIN/1.73 CALC BUN/CREAT (test code = 2235) 12 RATIO SODIUM (test code = 2231) 145 MEQ/L POTASSIUM (test code = 2228) 4.3 MEQ/L CHLORIDE (test code = 2215) 104 MEQ/L CARBON DIOXIDE (test code = 2206) 26 MEQ/L CALCIUM (test code = 2209) 8.7 MG/DL PROTEIN, TOTAL (test code = 2229) 7.0 G/DL ALBUMIN (test code = 2201) 4.2 G/DL CALC GLOBULIN (test code = 2240) 2.8 G/DL CALC A/G RATIO (test code = 2234) 1.5 RATIO BILIRUBIN, TOTAL (test code = 2207) 0.3 MG/DL ALKALINE PHOSPHATASE (test code = 2204) 74 U/L AST (test code = 2218) 34 U/L ALT (test code = 2219) 22 U/L Eric Estrada AustinLIPID [id number] 00:00:00* Test Item Value Reference Range Interpretation Comme nts CHOLESTEROL (test code = 2210) 190 MG/DL TRIGLYCERIDES (test code = 2232) 63 MG/DL HDL CHOLESTEROL (test code = 2220) 67 MG/DL CALC LDL CHOL (test code = 2237) 110 MG/DL RISK RATIO LDL/HDL (test cod e = 2238) 1.65 RATIO Eric StantonCOMPREHENSIVE METABOLIC [id number] 00:00:00* Test Item Value Reference Range Interpretation Comme nts GLUCOSE (test code = 2217) 102 MG/DL BUN (test code = 2208) 7 MG/DL CREATININE (test code = 2214) 0.76 MG/DL eGFR AMER. (test cod e = 42021) 103 ML/MIN/1.73 eGFR NON- AMER. (test code = 98279) 89 ML/MIN/1.73 CALC BUN/CREAT (test code = 2235) 9 RATIO SODIUM (test code = 2231) 144 MEQ/L POTASSIUM (test code = 2228) 4.5 MEQ/L CHLORIDE (test code = 2215) 103 MEQ/L CARBON DIOXIDE (test code = 2206) 25 MEQ/L CALCIUM (test code = 2209) 9.1 MG/DL PROTEIN, TOTAL (test code = 2229) 7.0 G/DL ALBUMIN (test code = 2201) 4.4 G/DL CALC GLOBULIN (test code = 2240) 2.6 G/DL CALC A/G RATIO (test code = 2234) 1.7 RATIO BILIRUBIN, TOTAL (test code = 2207) 0.6 MG/DL ALKALINE PHOSPHATASE (test code = 2204) 64 U/L AST (test code = 2218) 31 U/L ALT (test code = 2219) 19 U/L Eric StantonLIPID [id number] 00:00:00* Test Item Value Reference Range Interpretation Comme nts CHOLESTEROL (test code = 2210) 205 MG/DL TRIGLYCERIDES (test code = 2232) 49 MG/DL HDL CHOLESTEROL (test code = 2220) 68 MG/DL CALC LDL CHOL (test code = 2237) 127 MG/DL RISK RATIO LDL/HDL (test cod e = 2238) 1.87 RATIO Eric StantonCOMPREHENSIVE METABOLIC [id number] 00:00:00* Test Item Value Reference Range Interpretation Comme nts GLUCOSE (test code = 2217) 102 MG/DL BUN (test code = 2208) 7 MG/DL CREATININE (test code = 2214) 0.76 MG/DL eGFR AMER. (test cod e = 83826) 103 ML/MIN/1.73 eGFR NON- AMER. (test code = 36346) 89 ML/MIN/1.73 CALC BUN/CREAT (test code = 2235) 9 RATIO SODIUM (test code = 2231) 144 MEQ/L POTASSIUM (test code = 2228) 4.5 MEQ/L CHLORIDE (test code = 2215) 103 MEQ/L CARBON DIOXIDE (test code = 2206) 25 MEQ/L CALCIUM (test code = 2209) 9.1 MG/DL PROTEIN, TOTAL (test code = 2229) 7.0 G/DL ALBUMIN (test code = 2201) 4.4 G/DL CALC GLOBULIN (test code = 2240) 2.6 G/DL CALC A/G RATIO (test code = 2234) 1.7 RATIO BILIRUBIN, TOTAL (test code = 2207) 0.6 MG/DL ALKALINE PHOSPHATASE (test code = 2204) 64 U/L AST (test code = 2218) 31 U/L ALT (test code = 2219) 19 U/L Eric StantonLIPID [id number] 00:00:00* Test Item Value Reference Range Interpretation Comme nts CHOLESTEROL (test code = 2210) 205 MG/DL TRIGLYCERIDES (test code = 2232) 49 MG/DL HDL CHOLESTEROL (test code = 2220) 68 MG/DL CALC LDL CHOL (test code = 2237) 127 MG/DL RISK RATIO LDL/HDL (test cod e = 2238) 1.87 RATIO Eric F AustinLIPID [id number] 00:00:00* Test Item Value Reference Range Interpretation Comme nts CHOLESTEROL (test code = 2210) 205 MG/DL TRIGLYCERIDES (test code = 2232) 49 MG/DL HDL CHOLESTEROL (test code = 2220) 68 MG/DL CALC LDL CHOL (test code = 2237) 127 MG/DL RISK RATIO LDL/HDL (test cod e = 2238) 1.87 RATIO COMPREHENSIVE METABOLIC [id number] 00:00:00* Test Item Value Reference Range Interpretation Comme nts GLUCOSE (test code = 2217) 102 MG/DL BUN (test code = 2208) 7 MG/DL CREATININE (test code = 2214) 0.76 MG/DL eGFR AMER. (test cod e = 32169) 103 ML/MIN/1.73 eGFR NON- AMER. (test code = 59296) 89 ML/MIN/1.73 CALC BUN/CREAT (test code = 2235) 9 RATIO SODIUM (test code = 2231) 144 MEQ/L POTASSIUM (test code = 2228) 4.5 MEQ/L CHLORIDE (test code = 2215) 103 MEQ/L CARBON DIOXIDE (test code = 2206) 25 MEQ/L CALCIUM (test code = 2209) 9.1 MG/DL PROTEIN, TOTAL (test code = 2229) 7.0 G/DL ALBUMIN (test code = 2201) 4.4 G/DL CALC GLOBULIN (test code = 2240) 2.6 G/DL CALC A/G RATIO (test code = 2234) 1.7 RATIO BILIRUBIN, TOTAL (test code = 2207) 0.6 MG/DL ALKALINE PHOSPHATASE (test code = 2204) 64 U/L AST (test code = 2218) 31 U/L ALT (test code = 2219) 19 U/L Eric Estrada [place] [id number] 00:00:00* Test Item Value Reference Range Interpretation Comme nts CHOLESTEROL (test code = 2210) 205 MG/DL TRIGLYCERIDES (test code = 2232) 49 MG/DL HDL CHOLESTEROL (test code = 2220) 68 MG/DL CALC LDL CHOL (test code = 2237) 127 MG/DL RISK RATIO LDL/HDL (test cod e = 2238) 1.87 RATIO Eric Estrada AustinCOMPREHENSIVE METABOLIC [id number] 00:00:00* Test Item Value Reference Range Interpretation Comme nts GLUCOSE (test code = 2217) 102 MG/DL BUN (test code = 2208) 7 MG/DL CREATININE (test code = 2214) 0.76 MG/DL eGFR AMER. (test cod e = 99449) 103 ML/MIN/1.73 eGFR NON- AMER. (test code = 12146) 89 ML/MIN/1.73 CALC BUN/CREAT (test code = 2235) 9 RATIO SODIUM (test code = 2231) 144 MEQ/L POTASSIUM (test code = 2228) 4.5 MEQ/L CHLORIDE (test code = 2215) 103 MEQ/L CARBON DIOXIDE (test code = 2206) 25 MEQ/L CALCIUM (test code = 2209) 9.1 MG/DL PROTEIN, TOTAL (test code = 2229) 7.0 G/DL ALBUMIN (test code = 2201) 4.4 G/DL CALC GLOBULIN (test code = 2240) 2.6 G/DL CALC A/G RATIO (test code = 2234) 1.7 RATIO BILIRUBIN, TOTAL (test code = 2207) 0.6 MG/DL ALKALINE PHOSPHATASE (test code = 2204) 64 U/L AST (test code = 2218) 31 U/L ALT (test code = 2219) 19 U/L Eric Estrada [place] [id number] 00:00:00* Test Item Value Reference Range Interpretation Comme nts CHOLESTEROL (test code = 2210) 205 MG/DL TRIGLYCERIDES (test code = 2232) 49 MG/DL HDL CHOLESTEROL (test code = 2220) 68 MG/DL CALC LDL CHOL (test code = 2237) 127 MG/DL RISK RATIO LDL/HDL (test cod e = 2238) 1.87 RATIO Eric Estrada [place] [id number] 00:00:00* Test Item Value Reference Range Interpretation Comme nts GLUCOSE (test code = 2217) 102 MG/DL BUN (test code = 2208) 7 MG/DL CREATININE (test code = 2214) 0.76 MG/DL eGFR AMER. (test cod e = 84255) 103 ML/MIN/1.73 eGFR NON- AMER. (test code = 41307) 89 ML/MIN/1.73 CALC BUN/CREAT (test code = 2235) 9 RATIO SODIUM (test code = 2231) 144 MEQ/L POTASSIUM (test code = 2228) 4.5 MEQ/L CHLORIDE (test code = 2215) 103 MEQ/L CARBON DIOXIDE (test code = 2206) 25 MEQ/L CALCIUM (test code = 2209) 9.1 MG/DL PROTEIN, TOTAL (test code = 2229) 7.0 G/DL ALBUMIN (test code = 2201) 4.4 G/DL CALC GLOBULIN (test code = 2240) 2.6 G/DL CALC A/G RATIO (test code = 2234) 1.7 RATIO BILIRUBIN, TOTAL (test code = 2207) 0.6 MG/DL ALKALINE PHOSPHATASE (test code = 2204) 64 U/L AST (test code = 2218) 31 U/L ALT (test code = 2219) 19 U/L Eric F MaximinoCOMPREHENSIVE METABOLIC [id number] 00:00:00* Test Item Value Reference Range Interpretation Comme nts GLUCOSE (test code = 2217) 102 MG/DL BUN (test code = 2208) 7 MG/DL CREATININE (test code = 2214) 0.76 MG/DL eGFR AMER. (test cod e = 04996) 103 ML/MIN/1.73 eGFR NON- AMER. (test code = 67139) 89 ML/MIN/1.73 CALC BUN/CREAT (test code = 2235) 9 RATIO SODIUM (test code = 2231) 144 MEQ/L POTASSIUM (test code = 2228) 4.5 MEQ/L CHLORIDE (test code = 2215) 103 MEQ/L CARBON DIOXIDE (test code = 2206) 25 MEQ/L CALCIUM (test code = 2209) 9.1 MG/DL PROTEIN, TOTAL (test code = 2229) 7.0 G/DL ALBUMIN (test code = 2201) 4.4 G/DL CALC GLOBULIN (test code = 2240) 2.6 G/DL CALC A/G RATIO (test code = 2234) 1.7 RATIO BILIRUBIN, TOTAL (test code = 2207) 0.6 MG/DL ALKALINE PHOSPHATASE (test code = 2204) 64 U/L AST (test code = 2218) 31 U/L ALT (test code = 2219) 19 U/L LIPID [id number] 00:00:00* Test Item Value Reference Range Interpretation Comme nts CHOLESTEROL (test code = 2210) 205 MG/DL TRIGLYCERIDES (test code = 2232) 49 MG/DL HDL CHOLESTEROL (test code = 2220) 68 MG/DL CALC LDL CHOL (test code = 2237) 127 MG/DL RISK RATIO LDL/HDL (test cod e = 2238) 1.87 RATIO Eric StantonCOMPREHENSIVE METABOLIC [id number] 00:00:00* Test Item Value Reference Range Interpretation Comme nts GLUCOSE (test code = 2217) 102 MG/DL BUN (test code = 2208) 7 MG/DL CREATININE (test code = 2214) 0.76 MG/DL eGFR AMER. (test cod e = 18605) 103 ML/MIN/1.73 eGFR NON- AMER. (test code = 08893) 89 ML/MIN/1.73 CALC BUN/CREAT (test code = 2235) 9 RATIO SODIUM (test code = 2231) 144 MEQ/L POTASSIUM (test code = 2228) 4.5 MEQ/L CHLORIDE (test code = 2215) 103 MEQ/L CARBON DIOXIDE (test code = 2206) 25 MEQ/L CALCIUM (test code = 2209) 9.1 MG/DL PROTEIN, TOTAL (test code = 2229) 7.0 G/DL ALBUMIN (test code = 2201) 4.4 G/DL CALC GLOBULIN (test code = 2240) 2.6 G/DL CALC A/G RATIO (test code = 2234) 1.7 RATIO BILIRUBIN, TOTAL (test code = 2207) 0.6 MG/DL ALKALINE PHOSPHATASE (test code = 2204) 64 U/L AST (test code = 2218) 31 U/L ALT (test code = 2219) 19 U/L Eric StantonLIPID [id number] 00:00:00* Test Item Value Reference Range Interpretation Comme nts CHOLESTEROL (test code = 2210) 205 MG/DL TRIGLYCERIDES (test code = 2232) 49 MG/DL HDL CHOLESTEROL (test code = 2220) 68 MG/DL CALC LDL CHOL (test code = 2237) 127 MG/DL RISK RATIO LDL/HDL (test cod e = 2238) 1.87 RATIO Eric StantonCOMPREHENSIVE METABOLIC [id number] 00:00:00* Test Item Value Reference Range Interpretation Comme nts GLUCOSE (test code = 2217) 102 MG/DL BUN (test code = 2208) 7 MG/DL CREATININE (test code = 2214) 0.76 MG/DL eGFR AMER. (test cod e = 62911) 103 ML/MIN/1.73 eGFR NON- AMER. (test code = 59704) 89 ML/MIN/1.73 CALC BUN/CREAT (test code = 2235) 9 RATIO SODIUM (test code = 2231) 144 MEQ/L POTASSIUM (test code = 2228) 4.5 MEQ/L CHLORIDE (test code = 2215) 103 MEQ/L CARBON DIOXIDE (test code = 2206) 25 MEQ/L CALCIUM (test code = 2209) 9.1 MG/DL PROTEIN, TOTAL (test code = 2229) 7.0 G/DL ALBUMIN (test code = 2201) 4.4 G/DL CALC GLOBULIN (test code = 2240) 2.6 G/DL CALC A/G RATIO (test code = 2234) 1.7 RATIO BILIRUBIN, TOTAL (test code = 2207) 0.6 MG/DL ALKALINE PHOSPHATASE (test code = 2204) 64 U/L AST (test code = 2218) 31 U/L ALT (test code = 2219) 19 U/L Eric Estrada AustinLIPID [id number] 00:00:00* Test Item Value Reference Range Interpretation Comme nts CHOLESTEROL (test code = 2210) 205 MG/DL TRIGLYCERIDES (test code = 2232) 49 MG/DL HDL CHOLESTEROL (test code = 2220) 68 MG/DL CALC LDL CHOL (test code = 2237) 127 MG/DL RISK RATIO LDL/HDL (test cod e = 2238) 1.87 RATIO Eric StantonCOMPREHENSIVE METABOLIC [id number] 00:00:00* Test Item Value Reference Range Interpretation Comme nts GLUCOSE (test code = 2217) 100 MG/DL BUN (test code = 2208) 10 MG/DL CREATININE (test code = 2214) 0.89 MG/DL eGFR AMER. (test cod e = 66333) 98 ML/MIN/1.73 eGFR NON- AMER. (test code = 67868) 84 ML/MIN/1.73 CALC BUN/CREAT (test code = 2235) 11 RATIO SODIUM (test code = 2231) 143 MEQ/L POTASSIUM (test code = 2228) 4.1 MEQ/L CHLORIDE (test code = 2215) 103 MEQ/L CARBON DIOXIDE (test code = 2206) 27 MEQ/L CALCIUM (test code = 2209) 9.3 MG/DL PROTEIN, TOTAL (test code = 2229) 6.7 G/DL ALBUMIN (test code = 2201) 4.0 G/DL CALC GLOBULIN (test code = 2240) 2.7 G/DL CALC A/G RATIO (test code = 2234) 1.5 RATIO BILIRUBIN, TOTAL (test code = 2207) 0.8 MG/DL ALKALINE PHOSPHATASE (test code = 2204) 60 U/L AST (test code = 2218) 28 U/L ALT (test code = 2219) 18 U/L Eric Estrada MaximinoLIPID [id number] 00:00:00* Test Item Value Reference Range Interpretation Comme nts CHOLESTEROL (test code = 2210) 196 MG/DL TRIGLYCERIDES (test code = 2232) 54 MG/DL HDL CHOLESTEROL (test code = 2220) 59 MG/DL CALC LDL CHOL (test code = 2237) 126 MG/DL RISK RATIO LDL/HDL (test cod e = 2238) 2.14 RATIO Eric Estrada MaximinoTHYROID II PROFILE (T3U, T4, T7, TSH)2016-12-10 00:00:00* Test Item Value Reference Range Interpretation Comme nts T3 UPTAKE (test code = 2817) 33.6 % T4 (THYROXINE) (test code = 2819) 7.5 UG/DL CALCULATED T7 (FTI) (test co de = 2820) 2.52 TSH (test code = 2821) 2.13 UIU/ML Eric Sean MaximinoHEMOGLOBIN [id number] 00:00:00* Test Item Value Reference Range Interpretation Comme nts HEMOGLOBIN A1c (test code = 81662) 5.8 % Eric F MaximinoCBC W/AUTO [id number] 00:00:00* Test Item Value Reference Range Interpretation Comme nts WBC (test code = 1001) 4.7 K/UL RBC (test code = 1002) 4.79 M/UL HEMOGLOBIN (test code = 1003) 15.6 G/DL HEMATOCRIT (test code = 1004) 46.0 % MCV (test code = 1005) 96.0 fL MCH (test code = 1006) 32.6 PG MCHC (test code = 1007) 33.9 G/DL RDW (test code = 1038) 13.3 % NEUTROPHILS (test code = 1008) 65.5 % LYMPHOCYTES (test code = 1010) 21.7 % MONOCYTES (test code = 1011) 11.1 % EOSINOPHILS (test code = 1012) 1.5 % BASOPHILS (test code = 1013) 0.2 % PLATELET COUNT (test code = 1015) 170 K/UL Eric Estrada MaximinoCOMPREHENSIVE METABOLIC [id number] 00:00:00* Test Item Value Reference Range Interpretation Comme nts GLUCOSE (test code = 2217) 100 MG/DL BUN (test code = 2208) 10 MG/DL CREATININE (test code = 2214) 0.89 MG/DL eGFR AMER. (test cod e = 72568) 98 ML/MIN/1.73 eGFR NON- AMER. (test code = 28370) 84 ML/MIN/1.73 CALC BUN/CREAT (test code = 2235) 11 RATIO SODIUM (test code = 2231) 143 MEQ/L POTASSIUM (test code = 2228) 4.1 MEQ/L CHLORIDE (test code = 2215) 103 MEQ/L CARBON DIOXIDE (test code = 2206) 27 MEQ/L CALCIUM (test code = 2209) 9.3 MG/DL PROTEIN, TOTAL (test code = 2229) 6.7 G/DL ALBUMIN (test code = 2201) 4.0 G/DL CALC GLOBULIN (test code = 2240) 2.7 G/DL CALC A/G RATIO (test code = 2234) 1.5 RATIO BILIRUBIN, TOTAL (test code = 2207) 0.8 MG/DL ALKALINE PHOSPHATASE (test code = 2204) 60 U/L AST (test code = 2218) 28 U/L ALT (test code = 2219) 18 U/L Eric StantonLIPID [id number] 00:00:00* Test Item Value Reference Range Interpretation Comme nts CHOLESTEROL (test code = 2210) 196 MG/DL TRIGLYCERIDES (test code = 2232) 54 MG/DL HDL CHOLESTEROL (test code = 2220) 59 MG/DL CALC LDL CHOL (test code = 2237) 126 MG/DL RISK RATIO LDL/HDL (test cod e = 2238) 2.14 RATIO Eric StantonTHYROID II PROFILE (T3U, T4, T7, TSH)2016-12-10 00:00:00* Test Item Value Reference Range Interpretation Comme nts T3 UPTAKE (test code = 2817) 33.6 % T4 (THYROXINE) (test code = 2819) 7.5 UG/DL CALCULATED T7 (FTI) (test co de = 2820) 2.52 TSH (test code = 2821) 2.13 UIU/ML Eric StantonHEMOGLOBIN [id number] 00:00:00* Test Item Value Reference Range Interpretation Comme nts HEMOGLOBIN A1c (test code = 08290) 5.8 % Eric StantonCBC W/AUTO [id number] 00:00:00* Test Item Value Reference Range Interpretation Comme nts WBC (test code = 1001) 4.7 K/UL RBC (test code = 1002) 4.79 M/UL HEMOGLOBIN (test code = 1003) 15.6 G/DL HEMATOCRIT (test code = 1004) 46.0 % MCV (test code = 1005) 96.0 fL MCH (test code = 1006) 32.6 PG MCHC (test code = 1007) 33.9 G/DL RDW (test code = 1038) 13.3 % NEUTROPHILS (test code = 1008) 65.5 % LYMPHOCYTES (test code = 1010) 21.7 % MONOCYTES (test code = 1011) 11.1 % EOSINOPHILS (test code = 1012) 1.5 % BASOPHILS (test code = 1013) 0.2 % PLATELET COUNT (test code = 1015) 170 K/UL Eric StantonCOMPREHENSIVE METABOLIC [id number] 00:00:00* Test Item Value Reference Range Interpretation Comme nts GLUCOSE (test code = 2217) 100 MG/DL BUN (test code = 2208) 10 MG/DL CREATININE (test code = 2214) 0.89 MG/DL eGFR AMER. (test cod e = 16537) 98 ML/MIN/1.73 eGFR NON- AMER. (test code = 18808) 84 ML/MIN/1.73 CALC BUN/CREAT (test code = 2235) 11 RATIO SODIUM (test code = 2231) 143 MEQ/L POTASSIUM (test code = 2228) 4.1 MEQ/L CHLORIDE (test code = 2215) 103 MEQ/L CARBON DIOXIDE (test code = 2206) 27 MEQ/L CALCIUM (test code = 2209) 9.3 MG/DL PROTEIN, TOTAL (test code = 2229) 6.7 G/DL ALBUMIN (test code = 2201) 4.0 G/DL CALC GLOBULIN (test code = 2240) 2.7 G/DL CALC A/G RATIO (test code = 2234) 1.5 RATIO BILIRUBIN, TOTAL (test code = 2207) 0.8 MG/DL ALKALINE PHOSPHATASE (test code = 2204) 60 U/L AST (test code = 2218) 28 U/L ALT (test code = 2219) 18 U/L Eric Estrada MaximinoLIPID [id number] 00:00:00* Test Item Value Reference Range Interpretation Comme nts CHOLESTEROL (test code = 2210) 196 MG/DL TRIGLYCERIDES (test code = 2232) 54 MG/DL HDL CHOLESTEROL (test code = 2220) 59 MG/DL CALC LDL CHOL (test code = 2237) 126 MG/DL RISK RATIO LDL/HDL (test cod e = 2238) 2.14 RATIO rEic Estrada MaximinoTHYROID II PROFILE (T3U, T4, T7, TSH)2016-12-10 00:00:00* Test Item Value Reference Range Interpretation Comme nts T3 UPTAKE (test code = 2817) 33.6 % T4 (THYROXINE) (test code = 2819) 7.5 UG/DL CALCULATED T7 (FTI) (test co de = 2820) 2.52 TSH (test code = 2821) 2.13 UIU/ML Eric Sean MaximinoHEMOGLOBIN [id number] 00:00:00* Test Item Value Reference Range Interpretation Comme nts HEMOGLOBIN A1c (test code = 33594) 5.8 % Eric F MaximinoCBC W/AUTO [id number] 00:00:00* Test Item Value Reference Range Interpretation Comme nts WBC (test code = 1001) 4.7 K/UL RBC (test code = 1002) 4.79 M/UL HEMOGLOBIN (test code = 1003) 15.6 G/DL HEMATOCRIT (test code = 1004) 46.0 % MCV (test code = 1005) 96.0 fL MCH (test code = 1006) 32.6 PG MCHC (test code = 1007) 33.9 G/DL RDW (test code = 1038) 13.3 % NEUTROPHILS (test code = 1008) 65.5 % LYMPHOCYTES (test code = 1010) 21.7 % MONOCYTES (test code = 1011) 11.1 % EOSINOPHILS (test code = 1012) 1.5 % BASOPHILS (test code = 1013) 0.2 % PLATELET COUNT (test code = 1015) 170 K/UL Eric Estrada MaximinoCOMPREHENSIVE METABOLIC [id number] 00:00:00* Test Item Value Reference Range Interpretation Comme nts GLUCOSE (test code = 2217) 100 MG/DL BUN (test code = 2208) 10 MG/DL CREATININE (test code = 2214) 0.89 MG/DL eGFR AMER. (test cod e = 95720) 98 ML/MIN/1.73 eGFR NON- AMER. (test code = 40066) 84 ML/MIN/1.73 CALC BUN/CREAT (test code = 2235) 11 RATIO SODIUM (test code = 2231) 143 MEQ/L POTASSIUM (test code = 2228) 4.1 MEQ/L CHLORIDE (test code = 2215) 103 MEQ/L CARBON DIOXIDE (test code = 2206) 27 MEQ/L CALCIUM (test code = 2209) 9.3 MG/DL PROTEIN, TOTAL (test code = 2229) 6.7 G/DL ALBUMIN (test code = 2201) 4.0 G/DL CALC GLOBULIN (test code = 2240) 2.7 G/DL CALC A/G RATIO (test code = 2234) 1.5 RATIO BILIRUBIN, TOTAL (test code = 2207) 0.8 MG/DL ALKALINE PHOSPHATASE (test code = 2204) 60 U/L AST (test code = 2218) 28 U/L ALT (test code = 2219) 18 U/L Eric StantonLIPID [id number] 00:00:00* Test Item Value Reference Range Interpretation Comme nts CHOLESTEROL (test code = 2210) 196 MG/DL TRIGLYCERIDES (test code = 2232) 54 MG/DL HDL CHOLESTEROL (test code = 2220) 59 MG/DL CALC LDL CHOL (test code = 2237) 126 MG/DL RISK RATIO LDL/HDL (test cod e = 2238) 2.14 RATIO Eric StantonTHYROID II PROFILE (T3U, T4, T7, TSH)2016-12-10 00:00:00* Test Item Value Reference Range Interpretation Comme nts T3 UPTAKE (test code = 2817) 33.6 % T4 (THYROXINE) (test code = 2819) 7.5 UG/DL CALCULATED T7 (FTI) (test co de = 2820) 2.52 TSH (test code = 2821) 2.13 UIU/ML Eric Estrada MaximinoCOMPREHENSIVE METABOLIC [id number] 00:00:00* Test Item Value Reference Range Interpretation Comme nts GLUCOSE (test code = 2217) 100 MG/DL BUN (test code = 2208) 10 MG/DL CREATININE (test code = 2214) 0.89 MG/DL eGFR AMER. (test cod e = 69416) 98 ML/MIN/1.73 eGFR NON- AMER. (test code = 40581) 84 ML/MIN/1.73 CALC BUN/CREAT (test code = 2235) 11 RATIO SODIUM (test code = 2231) 143 MEQ/L POTASSIUM (test code = 2228) 4.1 MEQ/L CHLORIDE (test code = 2215) 103 MEQ/L CARBON DIOXIDE (test code = 2206) 27 MEQ/L CALCIUM (test code = 2209) 9.3 MG/DL PROTEIN, TOTAL (test code = 2229) 6.7 G/DL ALBUMIN (test code = 2201) 4.0 G/DL CALC GLOBULIN (test code = 2240) 2.7 G/DL CALC A/G RATIO (test code = 2234) 1.5 RATIO BILIRUBIN, TOTAL (test code = 2207) 0.8 MG/DL ALKALINE PHOSPHATASE (test code = 2204) 60 U/L AST (test code = 2218) 28 U/L ALT (test code = 2219) 18 U/L HEMOGLOBIN [id number] 00:00:00* Test Item Value Reference Range Interpretation Comme nts HEMOGLOBIN A1c (test code = 32826) 5.8 % Eric Estrada AustinLIPID [id number] 00:00:00* Test Item Value Reference Range Interpretation Comme nts CHOLESTEROL (test code = 2210) 196 MG/DL TRIGLYCERIDES (test code = 2232) 54 MG/DL HDL CHOLESTEROL (test code = 2220) 59 MG/DL CALC LDL CHOL (test code = 2237) 126 MG/DL RISK RATIO LDL/HDL (test cod e = 2238) 2.14 RATIO THYROID II PROFILE (T3U, T4, T7, TSH)2016-12-10 00:00:00* Test Item Value Reference Range Interpretation Comme nts T3 UPTAKE (test code = 2817) 33.6 % T4 (THYROXINE) (test code = 2819) 7.5 UG/DL CALCULATED T7 (FTI) (test co de = 2820) 2.52 TSH (test code = 2821) 2.13 UIU/ML CBC W/AUTO [id number] 00:00:00* Test Item Value Reference Range Interpretation Comme nts WBC (test code = 1001) 4.7 K/UL RBC (test code = 1002) 4.79 M/UL HEMOGLOBIN (test code = 1003) 15.6 G/DL HEMATOCRIT (test code = 1004) 46.0 % MCV (test code = 1005) 96.0 fL MCH (test code = 1006) 32.6 PG MCHC (test code = 1007) 33.9 G/DL RDW (test code = 1038) 13.3 % NEUTROPHILS (test code = 1008) 65.5 % LYMPHOCYTES (test code = 1010) 21.7 % MONOCYTES (test code = 1011) 11.1 % EOSINOPHILS (test code = 1012) 1.5 % BASOPHILS (test code = 1013) 0.2 % PLATELET COUNT (test code = 1015) 170 K/UL Eric StantonCOMPREHENSIVE METABOLIC [id number] 00:00:00* Test Item Value Reference Range Interpretation Comme nts GLUCOSE (test code = 2217) 100 MG/DL BUN (test code = 2208) 10 MG/DL CREATININE (test code = 2214) 0.89 MG/DL eGFR AMER. (test cod e = 51580) 98 ML/MIN/1.73 eGFR NON- AMER. (test code = 60809) 84 ML/MIN/1.73 CALC BUN/CREAT (test code = 2235) 11 RATIO SODIUM (test code = 2231) 143 MEQ/L POTASSIUM (test code = 2228) 4.1 MEQ/L CHLORIDE (test code = 2215) 103 MEQ/L CARBON DIOXIDE (test code = 2206) 27 MEQ/L CALCIUM (test code = 2209) 9.3 MG/DL PROTEIN, TOTAL (test code = 2229) 6.7 G/DL ALBUMIN (test code = 2201) 4.0 G/DL CALC GLOBULIN (test code = 2240) 2.7 G/DL CALC A/G RATIO (test code = 2234) 1.5 RATIO BILIRUBIN, TOTAL (test code = 2207) 0.8 MG/DL ALKALINE PHOSPHATASE (test code = 2204) 60 U/L AST (test code = 2218) 28 U/L ALT (test code = 2219) 18 U/L Eric Estrada AustinLIPID [id number] 00:00:00* Test Item Value Reference Range Interpretation Comme nts CHOLESTEROL (test code = 2210) 196 MG/DL TRIGLYCERIDES (test code = 2232) 54 MG/DL HDL CHOLESTEROL (test code = 2220) 59 MG/DL CALC LDL CHOL (test code = 2237) 126 MG/DL RISK RATIO LDL/HDL (test cod e = 2238) 2.14 RATIO Eric StantonTHYROID II PROFILE (T3U, T4, T7, TSH)2016-12-10 00:00:00* Test Item Value Reference Range Interpretation Comme [facility] T3 UPTAKE (test code = 2817) 33.6 % T4 (THYROXINE) (test code = 2819) 7.5 UG/DL CALCULATED T7 (FTI) (test co de = 2820) 2.52 TSH (test code = 2821) 2.13 UIU/ML Eric Estrada AustinHEMOGLOBIN [id number] 00:00:00* Test Item Value Reference Range Interpretation Comme nts HEMOGLOBIN A1c (test code = 39466) 5.8 % Eric Estrada [place] [id number] 00:00:00* Test Item Value Reference Range Interpretation Comme nts HEMOGLOBIN A1c (test code = 44677) 5.8 % CBC W/AUTO [id number] 00:00:00* Test Item Value Reference Range Interpretation Comme nts WBC (test code = 1001) 4.7 K/UL RBC (test code = 1002) 4.79 M/UL HEMOGLOBIN (test code = 1003) 15.6 G/DL HEMATOCRIT (test code = 1004) 46.0 % MCV (test code = 1005) 96.0 fL MCH (test code = 1006) 32.6 PG MCHC (test code = 1007) 33.9 G/DL RDW (test code = 1038) 13.3 % NEUTROPHILS (test code = 1008) 65.5 % LYMPHOCYTES (test code = 1010) 21.7 % MONOCYTES (test code = 1011) 11.1 % EOSINOPHILS (test code = 1012) 1.5 % BASOPHILS (test code = 1013) 0.2 % PLATELET COUNT (test code = 1015) 170 K/UL CBC W/AUTO [id number] 00:00:00* Test Item Value Reference Range Interpretation Comme nts WBC (test code = 1001) 4.7 K/UL RBC (test code = 1002) 4.79 M/UL HEMOGLOBIN (test code = 1003) 15.6 G/DL HEMATOCRIT (test code = 1004) 46.0 % MCV (test code = 1005) 96.0 fL MCH (test code = 1006) 32.6 PG MCHC (test code = 1007) 33.9 G/DL RDW (test code = 1038) 13.3 % NEUTROPHILS (test code = 1008) 65.5 % LYMPHOCYTES (test code = 1010) 21.7 % MONOCYTES (test code = 1011) 11.1 % EOSINOPHILS (test code = 1012) 1.5 % BASOPHILS (test code = 1013) 0.2 % PLATELET COUNT (test code = 1015) 170 K/UL Eric Estrada AustinCOMPREHENSIVE METABOLIC [id number] 00:00:00* Test Item Value Reference Range Interpretation Comme nts GLUCOSE (test code = 2217) 100 MG/DL BUN (test code = 2208) 10 MG/DL CREATININE (test code = 2214) 0.89 MG/DL eGFR AMER. (test cod e = 79308) 98 ML/MIN/1.73 eGFR NON- AMER. (test code = 36108) 84 ML/MIN/1.73 CALC BUN/CREAT (test code = 2235) 11 RATIO SODIUM (test code = 2231) 143 MEQ/L POTASSIUM (test code = 2228) 4.1 MEQ/L CHLORIDE (test code = 2215) 103 MEQ/L CARBON DIOXIDE (test code = 2206) 27 MEQ/L CALCIUM (test code = 2209) 9.3 MG/DL PROTEIN, TOTAL (test code = 2229) 6.7 G/DL ALBUMIN (test code = 2201) 4.0 G/DL CALC GLOBULIN (test code = 2240) 2.7 G/DL CALC A/G RATIO (test code = 2234) 1.5 RATIO BILIRUBIN, TOTAL (test code = 2207) 0.8 MG/DL ALKALINE PHOSPHATASE (test code = 2204) 60 U/L AST (test code = 2218) 28 U/L ALT (test code = 2219) 18 U/L Eric Estrada MaximinoLIPID [id number] 00:00:00* Test Item Value Reference Range Interpretation Comme nts CHOLESTEROL (test code = 2210) 196 MG/DL TRIGLYCERIDES (test code = 2232) 54 MG/DL HDL CHOLESTEROL (test code = 2220) 59 MG/DL CALC LDL CHOL (test code = 2237) 126 MG/DL RISK RATIO LDL/HDL (test cod e = 2238) 2.14 RATIO Eric Estrada MaximinoTHYROID II PROFILE (T3U, T4, T7, TSH)2016-12-10 00:00:00* Test Item Value Reference Range Interpretation Comme nts T3 UPTAKE (test code = 2817) 33.6 % T4 (THYROXINE) (test code = 2819) 7.5 UG/DL CALCULATED T7 (FTI) (test co de = 2820) 2.52 TSH (test code = 2821) 2.13 UIU/ML Eric StantonHEMOGLOBIN [id number] 00:00:00* Test Item Value Reference Range Interpretation Comme nts HEMOGLOBIN A1c (test code = 50213) 5.8 % Eric Sean MaximinoCBC W/AUTO [id number] 00:00:00* Test Item Value Reference Range Interpretation Comme nts WBC (test code = 1001) 4.7 K/UL RBC (test code = 1002) 4.79 M/UL HEMOGLOBIN (test code = 1003) 15.6 G/DL HEMATOCRIT (test code = 1004) 46.0 % MCV (test code = 1005) 96.0 fL MCH (test code = 1006) 32.6 PG MCHC (test code = 1007) 33.9 G/DL RDW (test code = 1038) 13.3 % NEUTROPHILS (test code = 1008) 65.5 % LYMPHOCYTES (test code = 1010) 21.7 % MONOCYTES (test code = 1011) 11.1 % EOSINOPHILS (test code = 1012) 1.5 % BASOPHILS (test code = 1013) 0.2 % PLATELET COUNT (test code = 1015) 170 K/UL Eric StantonCOMPREHENSIVE METABOLIC [id number] 00:00:00* Test Item Value Reference Range Interpretation Comme nts GLUCOSE (test code = 2217) 100 MG/DL BUN (test code = 2208) 10 MG/DL CREATININE (test code = 2214) 0.89 MG/DL eGFR AMER. (test cod e = 33498) 98 ML/MIN/1.73 eGFR NON- AMER. (test code = 78647) 84 ML/MIN/1.73 CALC BUN/CREAT (test code = 2235) 11 RATIO SODIUM (test code = 2231) 143 MEQ/L POTASSIUM (test code = 2228) 4.1 MEQ/L CHLORIDE (test code = 2215) 103 MEQ/L CARBON DIOXIDE (test code = 2206) 27 MEQ/L CALCIUM (test code = 2209) 9.3 MG/DL PROTEIN, TOTAL (test code = 2229) 6.7 G/DL ALBUMIN (test code = 2201) 4.0 G/DL CALC GLOBULIN (test code = 2240) 2.7 G/DL CALC A/G RATIO (test code = 2234) 1.5 RATIO BILIRUBIN, TOTAL (test code = 2207) 0.8 MG/DL ALKALINE PHOSPHATASE (test code = 2204) 60 U/L AST (test code = 2218) 28 U/L ALT (test code = 2219) 18 U/L Eric StantonLIPID [id number] 00:00:00* Test Item Value Reference Range Interpretation Comme nts CHOLESTEROL (test code = 2210) 196 MG/DL TRIGLYCERIDES (test code = 2232) 54 MG/DL HDL CHOLESTEROL (test code = 2220) 59 MG/DL CALC LDL CHOL (test code = 2237) 126 MG/DL RISK RATIO LDL/HDL (test cod e = 2238) 2.14 RATIO Eric StantonTHYROID II PROFILE (T3U, T4, T7, TSH)2016-12-10 00:00:00* Test Item Value Reference Range Interpretation Comme nts T3 UPTAKE (test code = 2817) 33.6 % T4 (THYROXINE) (test code = 2819) 7.5 UG/DL CALCULATED T7 (FTI) (test co de = 2820) 2.52 TSH (test code = 2821) 2.13 UIU/ML Eric StantonHEMOGLOBIN [id number] 00:00:00* Test Item Value Reference Range Interpretation Comme nts HEMOGLOBIN A1c (test code = 98421) 5.8 % Eric StantonCBC W/AUTO [id number] 00:00:00* Test Item Value Reference Range Interpretation Comme nts WBC (test code = 1001) 4.7 K/UL RBC (test code = 1002) 4.79 M/UL HEMOGLOBIN (test code = 1003) 15.6 G/DL HEMATOCRIT (test code = 1004) 46.0 % MCV (test code = 1005) 96.0 fL MCH (test code = 1006) 32.6 PG MCHC (test code = 1007) 33.9 G/DL RDW (test code = 1038) 13.3 % NEUTROPHILS (test code = 1008) 65.5 % LYMPHOCYTES (test code = 1010) 21.7 % MONOCYTES (test code = 1011) 11.1 % EOSINOPHILS (test code = 1012) 1.5 % BASOPHILS (test code = 1013) 0.2 % PLATELET COUNT (test code = 1015) 170 K/UL Eric StantonCOMPREHENSIVE METABOLIC [id number] 00:00:00* Test Item Value Reference Range Interpretation Comme nts GLUCOSE (test code = 2217) 94 MG/DL BUN (test code = 2208) 13 MG/DL CREATININE (test code = 2214) 0.98 MG/DL eGFR AMER. (test cod e = 75081) 88 ML/MIN/1.73 eGFR NON- AMER. (test code = 12678) 76 ML/MIN/1.73 CALC BUN/CREAT (test code = 2235) 13 RATIO SODIUM (test code = 2231) 139 MEQ/L POTASSIUM (test code = 2228) 5.1 MEQ/L CHLORIDE (test code = 2215) 101 MEQ/L CARBON DIOXIDE (test code = 2206) 24 MEQ/L CALCIUM (test code = 2209) 9.5 MG/DL PROTEIN, TOTAL (test code = 2229) 6.9 G/DL ALBUMIN (test code = 2201) 4.1 G/DL CALC GLOBULIN (test code = 2240) 2.8 G/DL CALC A/G RATIO (test code = 2234) 1.5 RATIO BILIRUBIN, TOTAL (test code = 2207) 0.5 MG/DL ALKALINE PHOSPHATASE (test code = 2204) 55 U/L AST (test code = 2218) 44 U/L ALT (test code = 2219) 14 U/L [facility] [id number] 00:00:00* Test Item Value Reference Range Interpretation Comme nts GLUCOSE (test code = 2217) 94 MG/DL BUN (test code = 2208) 13 MG/DL CREATININE (test code = 2214) 0.98 MG/DL eGFR AMER. (test cod e = 68461) 88 ML/MIN/1.73 eGFR NON- AMER. (test code = 95309) 76 ML/MIN/1.73 CALC BUN/CREAT (test code = 2235) 13 RATIO SODIUM (test code = 2231) 139 MEQ/L POTASSIUM (test code = 2228) 5.1 MEQ/L CHLORIDE (test code = 2215) 101 MEQ/L CARBON DIOXIDE (test code = 2206) 24 MEQ/L CALCIUM (test code = 2209) 9.5 MG/DL PROTEIN, TOTAL (test code = 2229) 6.9 G/DL ALBUMIN (test code = 2201) 4.1 G/DL CALC GLOBULIN (test code = 2240) 2.8 G/DL CALC A/G RATIO (test code = 2234) 1.5 RATIO BILIRUBIN, TOTAL (test code = 2207) 0.5 MG/DL ALKALINE PHOSPHATASE (test code = 2204) 55 U/L AST (test code = 2218) 44 U/L ALT (test code = 2219) 14 U/L [facility]COM[facility] [id number] 00:00:00* Test Item Value Reference Range Interpretation Comme nts GLUCOSE (test code = 2217) 94 MG/DL BUN (test code = 2208) 13 MG/DL CREATININE (test code = 2214) 0.98 MG/DL eGFR AMER. (test cod e = 00028) 88 ML/MIN/1.73 eGFR NON- AMER. (test code = 71742) 76 ML/MIN/1.73 CALC BUN/CREAT (test code = 2235) 13 RATIO SODIUM (test code = 2231) 139 MEQ/L POTASSIUM (test code = 2228) 5.1 MEQ/L CHLORIDE (test code = 2215) 101 MEQ/L CARBON DIOXIDE (test code = 2206) 24 MEQ/L CALCIUM (test code = 2209) 9.5 MG/DL PROTEIN, TOTAL (test code = 2229) 6.9 G/DL ALBUMIN (test code = 2201) 4.1 G/DL CALC GLOBULIN (test code = 2240) 2.8 G/DL CALC A/G RATIO (test code = 2234) 1.5 RATIO BILIRUBIN, TOTAL (test code = 2207) 0.5 MG/DL ALKALINE PHOSPHATASE (test code = 2204) 55 U/L AST (test code = 2218) 44 U/L ALT (test code = 2219) 14 U/L Eric StantonCOMPREHENSIVE METABOLIC [id number] 00:00:00* Test Item Value Reference Range Interpretation Comme nts GLUCOSE (test code = 2217) 94 MG/DL BUN (test code = 2208) 13 MG/DL CREATININE (test code = 2214) 0.98 MG/DL eGFR AMER. (test cod e = 30579) 88 ML/MIN/1.73 eGFR NON- AMER. (test code = 86450) 76 ML/MIN/1.73 CALC BUN/CREAT (test code = 2235) 13 RATIO SODIUM (test code = 2231) 139 MEQ/L POTASSIUM (test code = 2228) 5.1 MEQ/L CHLORIDE (test code = 2215) 101 MEQ/L CARBON DIOXIDE (test code = 2206) 24 MEQ/L CALCIUM (test code = 2209) 9.5 MG/DL PROTEIN, TOTAL (test code = 2229) 6.9 G/DL ALBUMIN (test code = 2201) 4.1 G/DL CALC GLOBULIN (test code = 2240) 2.8 G/DL CALC A/G RATIO (test code = 2234) 1.5 RATIO BILIRUBIN, TOTAL (test code = 2207) 0.5 MG/DL ALKALINE PHOSPHATASE (test code = 2204) 55 U/L AST (test code = 2218) 44 U/L ALT (test code = 2219) 14 U/L Eric F [facility]COMPREHENSIVE MET[facility] [id number] 00:00:00* Test Item Value Reference Range Interpretation Comme nts GLUCOSE (test code = 2217) 94 MG/DL BUN (test code = 2208) 13 MG/DL CREATININE (test code = 2214) 0.98 MG/DL eGFR AMER. (test cod e = 24640) 88 ML/MIN/1.73 eGFR NON- AMER. (test code = 04826) 76 ML/MIN/1.73 CALC BUN/CREAT (test code = 2235) 13 RATIO SODIUM (test code = 2231) 139 MEQ/L POTASSIUM (test code = 2228) 5.1 MEQ/L CHLORIDE (test code = 2215) 101 MEQ/L CARBON DIOXIDE (test code = 2206) 24 MEQ/L CALCIUM (test code = 2209) 9.5 MG/DL PROTEIN, TOTAL (test code = 2229) 6.9 G/DL ALBUMIN (test code = 2201) 4.1 G/DL CALC GLOBULIN (test code = 2240) 2.8 G/DL CALC A/G RATIO (test code = 2234) 1.5 RATIO BILIRUBIN, TOTAL (test code = 2207) 0.5 MG/DL ALKALINE PHOSPHATASE (test code = 2204) 55 U/L AST (test code = 2218) 44 U/L ALT (test code = 2219) 14 U/L Eric F AustinCOMPREHENSIVE METABOLIC [id number] 00:00:00* Test Item Value Reference Range Interpretation Comme nts GLUCOSE (test code = 2217) 94 MG/DL BUN (test code = 2208) 13 MG/DL CREATININE (test code = 2214) 0.98 MG/DL eGFR AMER. (test cod e = 15255) 88 ML/MIN/1.73 eGFR NON- AMER. (test code = 15475) 76 ML/MIN/1.73 CALC BUN/CREAT (test code = 2235) 13 RATIO SODIUM (test code = 2231) 139 MEQ/L POTASSIUM (test code = 2228) 5.1 MEQ/L CHLORIDE (test code = 2215) 101 MEQ/L CARBON DIOXIDE (test code = 2206) 24 MEQ/L CALCIUM (test code = 2209) 9.5 MG/DL PROTEIN, TOTAL (test code = 2229) 6.9 G/DL ALBUMIN (test code = 2201) 4.1 G/DL CALC GLOBULIN (test code = 2240) 2.8 G/DL CALC A/G RATIO (test code = 2234) 1.5 RATIO BILIRUBIN, TOTAL (test code = 2207) 0.5 MG/DL ALKALINE PHOSPHATASE (test code = 2204) 55 U/L AST (test code = 2218) 44 U/L ALT (test code = 2219) 14 U/L COMPREHENSIVE METABOLIC [id number] 00:00:00* Test Item Value Reference Range Interpretation Comme nts GLUCOSE (test code = 2217) 94 MG/DL BUN (test code = 2208) 13 MG/DL CREATININE (test code = 2214) 0.98 MG/DL eGFR AMER. (test cod e = 35479) 88 ML/MIN/1.73 eGFR NON- AMER. (test code = 27846) 76 ML/MIN/1.73 CALC BUN/CREAT (test code = 2235) 13 RATIO SODIUM (test code = 2231) 139 MEQ/L POTASSIUM (test code = 2228) 5.1 MEQ/L CHLORIDE (test code = 2215) 101 MEQ/L CARBON DIOXIDE (test code = 2206) 24 MEQ/L CALCIUM (test code = 2209) 9.5 MG/DL PROTEIN, TOTAL (test code = 2229) 6.9 G/DL ALBUMIN (test code = 2201) 4.1 G/DL CALC GLOBULIN (test code = 2240) 2.8 G/DL CALC A/G RATIO (test code = 2234) 1.5 RATIO BILIRUBIN, TOTAL (test code = 2207) 0.5 MG/DL ALKALINE PHOSPHATASE (test code = 2204) 55 U/L AST (test code = 2218) 44 U/L ALT (test code = 2219) 14 U/L Eric StantonCOMPREHENSIVE METABOLIC [id number] 00:00:00* Test Item Value Reference Range Interpretation Comme nts GLUCOSE (test code = 2217) 94 MG/DL BUN (test code = 2208) 13 MG/DL CREATININE (test code = 2214) 0.98 MG/DL eGFR AMER. (test cod e = 35019) 88 ML/MIN/1.73 eGFR NON- AMER. (test code = 57670) 76 ML/MIN/1.73 CALC BUN/CREAT (test code = 2235) 13 RATIO SODIUM (test code = 2231) 139 MEQ/L POTASSIUM (test code = 2228) 5.1 MEQ/L CHLORIDE (test code = 2215) 101 MEQ/L CARBON DIOXIDE (test code = 2206) 24 MEQ/L CALCIUM (test code = 2209) 9.5 MG/DL PROTEIN, TOTAL (test code = 2229) 6.9 G/DL ALBUMIN (test code = 2201) 4.1 G/DL CALC GLOBULIN (test code = 2240) 2.8 G/DL CALC A/G RATIO (test code = 2234) 1.5 RATIO BILIRUBIN, TOTAL (test code = 2207) 0.5 MG/DL ALKALINE PHOSPHATASE (test code = 2204) 55 U/L AST (test code = 2218) 44 U/L ALT (test code = 2219) 14 U/L Eric Stanton Zac Date/Time Note Provider Source Eric Rollins [facility]2025-06-25 00:00:00 Eric Rollins [facility]2025-04-16 00:00:00 Eric Rollins [facility]2024-12-02 00:00:00 Eric Rollins [facility]2024-10-15 00:00:00 Eric Rollins [facility]2024-10-11 00:00:00 Eric [facility]2024-04-30 00:00:00 Eric [facility]2024-03-11 11:50:18 Images from the original note were not included. Refill request refilled per ambulatory refill guidelines. Notes: Name from pharmacy: THIAMINE 100 MG TABLET Will file in chart as: THIAMINE 100 mg tablet Sig: TAKE 1 TABLET BY MOUTH EVERY DAY IN THE MORNING Disp: 90 tablet Refills: 1 Start: 12/07/2023 Class: eRX For: Chronic alcohol use Last ordered: 9 months ago (02/11/2023) by Dk Ace MD Last refill: 09/22/2023 Rx #: [id number] Vitamins Ssydgv7812/07/2023 10:13 AM Protocol Details Valid encounter within last 12 months To be filled at: [facility]/pharmacy #[id number] - [place], [place] - [facility] [facility] Last Refilled: 09/22/2023 Recent Visits Date Type Provider Dept 09/08/23 Office Visit Cesar Mercedes FNP [facility] 02/11/23 Office Visit Dk Ace MD [facility] 10/14/22 Office Visit Cesar Mercedes FNP [facility] 07/02/22 Office Visit Dk Ace MD [facility] Showing recent visits within past 540 days with a meds authorizing provider and meeting all other requirements Future Appointments Date Type Provider Dept 03/09/24 Appointment Dk Ace MD [facility] Showing future appointments within next 150 days with a meds authorizing provider and meeting all other requirements [id number] 15:06:56 90 day supply request from [facility]
[2025-06-16 11:21] LABS: Absolute Lymphocytes (CBC) 1.0 K/uL (0.7-4.9); Hematocrit 46.5 % (39.6-49.0); Hemoglobin 16.0 g/dL (13.6-17.9); MCH 33.0 pg (27.0-35.0); MCHC 34.3 g/dL (32.0-36.0); MCV 96.1 fL (80-100); MPV 9.6 fL (7.6-11.3); Nucleated RBC Absolute Count 0.0 (0-0); Nucleated Red Blood Cells % 0.1 % (0-0); RBC Red Blood Cell Count 4.84 M/uL (4.33-5.43); White Blood Count 5.00 thou/uL (4.3-10.9)
--- NOTE | 2025-06-16 11:22 | RAD REPORT ---
EXAM: CT Ct Stroke Brain Wo Cont HISTORY: STROKE ALERT COMPARISON: 06/12/[address] 06/13/2025 brain MRI TECHNIQUE: Multiple contiguous axial images were obtained for a CT of the brain without contrast. Sag ittal and coronal reformats were performed. One or more of the following dose reduction techniques were used: Automated exposure control, adjus tment of the mA and kV according to patient size, and iterative reconstruction. Unless otherwise specified, incidental findings do not require dedicated imaging follow-up. FINDINGS: No evidence of hydrocephalus, intracranial hemorrhage, or extra-axial fluid collection. Bilateral basal ganglia hypodensities, with a new finding on the left side correlating to the finding s of ischemia recent MRI. Moderate brain atrophy with moderate periventricular and deep white matter hypodensities, nonspecific but suggestive of chronic microvascular ischemic changes, stable. The calvarium is intact. The visualized paranasal sinuses and mastoid air cells are essentially clear . IMPRESSION: Known left basal ganglia subacute infarct. Small right basal ganglia remote infarct versus prominent perivascular space, stable. No evidence of acute intracranial hemorrhage or mass effect. THIS REPORT CONTAINS FINDINGS THAT MAY BE CRITICAL TO PATIENT CARE. The findings were verbally commun icated via telephone to Waqas Bryant on 06/16/2025 11:01 AM.
--- NOTE | 2025-06-16 11:29 | RAD REPORT ---
EXAMINATION: CTA HEAD CLINICAL INDICATION: Male, 84 years old. STROKE ALERT TECHNIQUE: Axial CT images were obtained through the head after intravenous contrast utilizing angiog raphic protocol with 3D post-processing (maximum intensity projection images, volume rendered images and/or shaded surface rendered images). One or more of the following dose reduction technique s were used: Automated exposure control, adjustment of the mA and/or kV according to patient size, and/or iterative reconstruction. Unless otherwise specified, incidental findings do not require dedic ated imaging follow-up. COMPARISON: 06/12/2025 FINDINGS: ICA: The petrous, cavernous, and supraclinoid segments of the bilateral internal carotid arteries are normal. STEPHANIE: Anterior cerebral arteries are normal bilaterally. The anterior communicating artery is patent. MCA: Middle cerebral arteries are patent bilaterally with stable focal narrowing of the distal left M 1 segment. PLAYGROUND ATTENDANT: Posterior cerebral arteries are patent bilaterally with stable focal moderate to severe narrowin g of the proximal left P2 segment. Vertebrobasilar: The vertebral arteries are patent. The basilar artery is normal in appearance. 3D images confirm these findings. IMPRESSION: Stable focal narrowing of the distal left M1 segment proximal left M2 segment. No large vessel occlus ion.
--- NOTE | 2025-06-16 11:38 | RAD REPORT ---
EXAMINATION: CT Neck Angio CLINICAL INDICATION: Male, 84 years old. [facility] MAIN stroke alert Bed Name: 2 TECHNIQUE: Axial CT images were obtained from the aortic arch to the skull base after intravenous con trast utilizing angiographic protocol. Multiplanar reformats, as well as 3D post-processing (maximum intensity projection images, volume rendered images and/or shaded surface rendered images) w ere generated and reviewed. One or more of the following dose reduction techniques were used: Automated exposure control, adjustment of the mA and/or kV according to patient size, and/or iterativ e reconstruction. Unless otherwise specified, incidental findings do not require dedicated imaging follow-up. COMPARISON: 06/12/2025 FINDINGS: AORTA: The imaged aortic arch is normal. Normal three-vessel configuration of the arch. CCA: No artifact The common carotid arteries are patent and normal in caliber. ICA/ECA: Bilateral internal and external carotid arteries are patent. There is no significant interna l carotid artery stenosis. VERTEBRAL: The cervical vertebral arteries are patent to the skull base. Left vertebral artery is dom inant . SOFT TISSUE: No significant neck soft tissue abnormalities. The visualized lung apices are clear. 3D images confirm these findings. IMPRESSION: No significant flow abnormality of the neck vessels is identified. NASCET criteria used to quantify ICA stenosis, with the following grading scheme: Mild 0-49% stenosis Moderate 50-69% stenosis Severe 70-99% stenosis Reference: [place] Symptomatic Carotid Endarterectomy Trial Collaborators; Hazel BRANCH, Terese BENDER, Karla RB, et al. Beneficial effect of carotid endarterectomy in symptomatic patients with high-grade carotid stenosis. N Engl J Med. 1990May 12;325(7):445-53.
[2025-06-16 11:41] LABS: PT Prothrombin Time 19.7 SECONDS (10-13.0); PTT, Activated Partial Thromb 33.1 SECONDS (27.2-37.4); Protime INR 1.77
[2025-06-16] MEDS ORDERED: ASPIRIN 81 MG CHEWABLE TABLET ONE (11:42)
--- NOTE | 2025-06-16 11:58 | ER ---
Nurse's Notes [facility] Name: Wade Chavez Age: 84 yrs Sex: Male : 1940 Arrival Date: 06/16/2025 Time: 10:48 Bed 2 Private MD: Diagnosis: Slurred speech;Ischemic Stroke Presentation: 06/16 10:49 Ebola Screen: Ebola Screen: Patient denies travel to an Ebola-affected area in the 21 nh2 days before illness onset. No symptoms or risks identified at this time. 10:49 Chief complaint: EMS states: reports having slurred speech, R-sided weakness, and nh2 visual disturbances since 0900 this mornng. 10:49 Method Of Arrival: EMS nh2 10:49 Acuity: SHER 2 nh2 10:49 Onset of symptoms was June 16, 2025 at 09:00. nh2 10:49 Coronavirus screen: unable to complete. nh2 10:49 An acute neurological deficit is present. The charge nurse has been notified. The nh2 patient has been moved to a treatment area. Initial Sepsis Screen: Does the patient meet any 2 criteria? No. Patient's initial sepsis screen is negative. Does the patient have a suspected source of infection? No. Patient's initial sepsis screen is negative. Risk Assessment: Do you want to hurt yourself or someone else? Unable to obtain. Triage Assessment: 11:00 The onset of the patients symptoms was June 16, 2025 at 09:00. nh2 Stroke Activation: Symptom onset < 3 hours Physician: ED Attending; Name: ; Notified At: ; Arrived At: Physician: Mid-Level Provider; Name: ; Notified At: ; Arrived At: Physician: [not used]; Name: ; Notified At: ; Arrived At: Physician: [not used]; Name: ; Notified At: ; Arrived At: Physician: [not used]; Name: ; Notified At: ; Arrived At: Historical: - Allergies: 10:49 No Known Allergies; nh2 - PMHx: 10:49 Atrial Fib; Cancer; GERD; High Cholesterol; Hypertension; Prostate Cancer; nh2 10:49 CVA-right sided weakness deficit; ap3 - Immunization history:: Adult Immunizations unknown. - Infectious Disease History:: unknown. - Social history:: Smoking status: unknown. Screenin:00 [facility] ED Fall Risk Assessment (Adult) History of falling in the last 3 months, nh2 including since admission No falls in past 3 months (0 pts) Confusion or Disorientation Yes (5 pts) Intoxicated or Sedated No (0 pts) Impaired Gait Yes (1 pt) Mobility Assist Device Used No (0 pt) Altered Elimination No (0 pt) Score/Fall Risk Level 0 - 2 = Low Risk Oriented to surroundings, Maintained a safe environment, Educated pt \T\ family on fall prevention, incl call for assistance when getting out of bed, Assessed \T\ reinforced patient's understanding of fall precautions. Abuse screen: Denies threats or abuse. Denies injuries from another. Nutritional screening: No deficits noted. Tuberculosis screening: No symptoms or risk factors identified. Assessment: 10:55 General: Appears in no apparent distress. Behavior is calm, cooperative, appropriate nh2 for age. Pain: Denies pain. Neuro: Level of Consciousness is awake, alert, obeys commands, Oriented to person, place, Reports weakness. Cardiovascular: Patient's skin is warm and dry. Rhythm is sinus rhythm with multifocal PVCs. Respiratory: Airway is patent Trachea midline Respiratory effort is even, unlabored, Respiratory pattern is regular, symmetrical. GI: Abdomen is round obese. : No signs and/or symptoms were reported regarding the genitourinary system. Denies burning with urination. EENT: No signs and/or symptoms were reported regarding the EENT system. Derm: Skin is intact, Skin is dry. Musculoskeletal: Circulation, motion, and sensation intact. Range of motion: limited in R leg. 11:31 VAN Scoring: Arm Drift: Minor drift Visual Disturbance: No visual disturbance noted. es3 Aphasia: Expressive aphasia noted. Provider notified of +VAN scoring. Neglect: No neglect noted. [place] Swallow Protocol Exclusion Criteria: Exclusion Criteria Result: Proceed Brief Cognitive Screen What is your name? Normal, Where are you right now? Abnormal What year is it? Abnormal Oral Mechanism Examination Facial Symmetry: Normal, Motion: Normal, Lip Closure: Abnormal Oral Mechanism Result: Abnormal: . 3 oz Water Swallow Challenge: Pt able to drink all water without stopping, coughing, choking or throat clearing: Yes Result: PASS Notified: Waqas Bryant DO. TNKase (Tenecteplase) Screening: Indications: Definite evidence of stroke, ischemic, embolic, or hypertensive: Yes. Contraindications: Other: stroke one week ago. 12:01 Reassessment: Patient and/or family updated on plan of care and expected duration. Pain nh2 level reassessed. Patient denies pain at this time. 13:01 Reassessment: Patient and/or family updated on plan of care and expected duration. Pain nh2 level reassessed. Patient denies pain at this time. 13:45 Reassessment: DaughterHeather, at bedside requesting updates to be called at nh2 . Vital Signs: 10:49 BP 130 / 96; Pulse 72; Resp 18 S; Temp 97.5(TE); Pulse Ox 98% on R/A; nh2 10:50 BP 130 / 96; Pulse 76; Resp 18; Temp 98.1(O); Pulse Ox 100% on R/A; nh2 11:38 BP 132 / 104; Pulse 88; Resp 18; Pulse Ox 100% on R/A; nh2 12:08 BP 125 / 84; Pulse 70; Resp 12; Pulse Ox 100% on R/A; nh2 12:38 BP 145 / 98; Pulse 77; Resp 18; Pulse Ox 98% on R/A; nh2 13:08 BP 134 / 97; Pulse 67; Resp 18; Pulse Ox 99% on R/A; nh2 13:28 BP 124 / 86; Pulse 66; Resp 17; Pulse Ox 100% on R/A; nh2 NIH Stroke Scale Scores: 11:31 NIHSS Score: 9 es3 11:38 NIHSS Score: 9 ms3 12:01 NIHSS Score: 9 nh2 12:31 NIHSS Score: 9 nh2 13:01 NIHSS Score: 9 nh2 13:31 NIHSS Score: 9 nh2 ED Course: 10:49 Patient arrived in ED. eb 10:49 Arm band placed on. nh2 10:54 Waqas Bryant DO is Attending Physician. ms3 10:55 Provided Education on: using call light for assistance. nh2 11:00 Inserted saline lock: 22 gauge in left forearm, using aseptic technique. Blood nh2 collected. Flushed with 10 mL NS. 11:16 Vince Kay Jr, RN is Primary Nurse. nh2 11:17 CT Head Angio In Process Unspecified. EDMS 11:17 CT Neck Angio In Process Unspecified. EDMS 11:17 CT Stroke Brain w/o Contrast In Process Unspecified. EDMS 11:21 Triage completed. nh2 11:42 EKG done, by electronic systems technician. reviewed by Waqas Bryant DO. ts3 11:55 Patient has correct armband on for positive identification. Bed in low position. Call nh2 light in reach. Side rails up X2. 11:57 Prince Blankenship MD is Hospitalizing Provider. ms3 12:10 Stroke CXR 1 View In Process Unspecified. EDMS 13:37 No provider procedures requiring assistance completed. Patient admitted, IV remains in nh2 place. Administered Medications: 11:35 Drug: Aspirin PO Chewable Tablet 162 mg PO once Route: PO; nh2 12:03 Follow up: Response: No adverse reaction nh2 Medication: 11:39 VIS not applicable for this client. nh2 Point of Care Testing: Blood Glucose: 11:05 Blood Glucose: 86 mg/dL; [facility] Ranges: Outcome: 11:58 Decision to Hospitalize by Provider. ms3 13:48 Admitted to Tele accompanied by tech, family with patient, via stretcher, room 405, nh2 with chart, 13:48 Condition: stable 13:48 Instructed on the need for admit, Demonstrated understanding of instructions, follow-up care, 13:50 Patient left the ED. nh2 NIH Stroke Scale - NIH Stroke Score Date: 06/16/2025 Time: 11:31 Total Score = 9 10. Dysarthria (speech clarity - read or repeat words) - 1(Mild to Moderate) 11. Extinction and Inattention (visual/tactile/auditory/spatial/personal) - 0(No abnormality) 1a. Level of Consciousness (LOC) - 0(Alert) 1b. Level of Consciousness (LOC) (Month \T\ Age) - 1(One) 1c. LOC Commands (Open \T\ Closes Eyes/Inspector Air Carrier) - 0(Both) 2. Best Gaze (Lateral Gaze Paresis) - 0(Normal) 3. Visual Field Loss - 1(Partial hemianopia) 4. Facial Palsy - 0(Normal) 5a. Left Arm: Motor (10-second hold) - 0(No drift) 5b. Right Arm: Motor (10-second hold) - 1(Drift) 6a. Left Leg: Motor (5-second hold - always test supine) - 0(No drift) 6b. Right Leg: Motor (5-second hold - always test supine) - 2(Drift, some effort against gravity) 7. Limb Ataxia (finger/nose \T\ heel/singleton - test with eyes open) - 2(Present in two limbs) 8. Sensory Loss (pinprick arms/legs/face) - 0(Normal) 9. Best Language: Aphasia (description/naming/reading) - 1(Mild to moderate aphasia) Initials: es3 NIH Stroke Scale - NIH Stroke Score Date: 06/16/2025 Time: 11:38 Total Score = 9 10. Dysarthria (speech clarity - read or repeat words) - 1(Mild to Moderate) 11. Extinction and Inattention (visual/tactile/auditory/spatial/personal) - 0(No abnormality) 1a. Level of Consciousness (LOC) - 0(Alert) 1b. Level of Consciousness (LOC) (Month \T\ Age) - 1(One) 1c. LOC Commands (Open \T\ Closes Eyes/Inspector Air Carrier) - 0(Both) 2. Best Gaze (Lateral Gaze Paresis) - 0(Normal) 3. Visual Field Loss - 1(Partial hemianopia) 4. Facial Palsy - 0(Normal) 5a. Left Arm: Motor (10-second hold) - 0(No drift) 5b. Right Arm: Motor (10-second hold) - 1(Drift) 6a. Left Leg: Motor (5-second hold - always test supine) - 0(No drift) 6b. Right Leg: Motor (5-second hold - always test supine) - 2(Drift, some effort against gravity) 7. Limb Ataxia (finger/nose \T\ heel/singleton - test with eyes open) - 2(Present in two limbs) 8. Sensory Loss (pinprick arms/legs/face) - 0(Normal) 9. Best Language: Aphasia (description/naming/reading) - 1(Mild to moderate aphasia) Initials: ms3 NIH Stroke Scale - NIH Stroke Score Date: 06/16/2025 Time: 12:01 Total Score = 9 10. Dysarthria (speech clarity - read or repeat words) - 1(Mild to Moderate) 11. Extinction and Inattention (visual/tactile/auditory/spatial/personal) 1a. Level of Consciousness (LOC) - 0(Alert) 1b. Level of Consciousness (LOC) (Month \T\ Age) - 2(Neither) 1c. LOC Commands (Open \T\ Closes Eyes/Inspector Air Carrier) - 0(Both) 2. Best Gaze (Lateral Gaze Paresis) - 0(Normal) 3. Visual Field Loss - 1(Partial hemianopia) 4. Facial Palsy - 0(Normal) 5a. Left Arm: Motor (10-second hold) - 0(No drift) 5b. Right Arm: Motor (10-second hold) - 0(No drift) 6a. Left Leg: Motor (5-second hold - always test supine) - 0(No drift) 6b. Right Leg: Motor (5-second hold - always test supine) - 2(Drift, some effort against gravity) 7. Limb Ataxia (finger/nose \T\ heel/singleton - test with eyes open) - 2(Present in two limbs) 8. Sensory Loss (pinprick arms/legs/face) - 0(Normal) 9. Best Language: Aphasia (description/naming/reading) - 1(Mild to moderate aphasia) Initials: nh2 NIH Stroke Scale - NIH Stroke Score Date: 06/16/2025 Time: 12:31 Total Score = 9 10. Dysarthria (speech clarity - read or repeat words) - 1(Mild to Moderate) 11. Extinction and Inattention (visual/tactile/auditory/spatial/personal) - 0(No abnormality) 1a. Level of Consciousness (LOC) - 0(Alert) 1b. Level of Consciousness (LOC) (Month \T\ Age) - 2(Neither) 1c. LOC Commands (Open \T\ Closes Eyes/Inspector Air Carrier) - 0(Both) 2. Best Gaze (Lateral Gaze Paresis) - 0(Normal) 3. Visual Field Loss - 1(Partial hemianopia) 4. Facial Palsy - 0(Normal) 5a. Left Arm: Motor (10-second hold) - 0(No drift) 5b. Right Arm: Motor (10-second hold) - 0(No drift) 6a. Left Leg: Motor (5-second hold - always test supine) - 0(No drift) 6b. Right Leg: Motor (5-second hold - always test supine) - 2(Drift, some effort against gravity) 7. Limb Ataxia (finger/nose \T\ heel/singleton - test with eyes open) - 2(Present in two limbs) 8. Sensory Loss (pinprick arms/legs/face) - 0(Normal) 9. Best Language: Aphasia (description/naming/reading) - 1(Mild to moderate aphasia) Initials: nh2 NIH Stroke Scale - NIH Stroke Score Date: 06/16/2025 Time: 13:01 Total Score = 9 10. Dysarthria (speech clarity - read or repeat words) - 1(Mild to Moderate) 11. Extinction and Inattention (visual/tactile/auditory/spatial/personal) - 0(No abnormality) 1a. Level of Consciousness (LOC) - 0(Alert) 1b. Level of Consciousness (LOC) (Month \T\ Age) - 2(Neither) 1c. LOC Commands (Open \T\ Closes Eyes/Inspector Air Carrier) - 0(Both) 2. Best Gaze (Lateral Gaze Paresis) - 0(Normal) 3. Visual Field Loss - 1(Partial hemianopia) 4. Facial Palsy - 0(Normal) 5a. Left Arm: Motor (10-second hold) - 0(No drift) 5b. Right Arm: Motor (10-second hold) - 0(No drift) 6a. Left Leg: Motor (5-second hold - always test supine) - 0(No drift) 6b. Right Leg: Motor (5-second hold - always test supine) - 2(Drift, some effort against gravity) 7. Limb Ataxia (finger/nose \T\ heel/singleton - test with eyes open) - 2(Present in two limbs) 8. Sensory Loss (pinprick arms/legs/face) - 0(Normal) 9. Best Language: Aphasia (description/naming/reading) - 1(Mild to moderate aphasia) Initials: [facility] NIH Stroke Scale - NIH Stroke Score Date: 06/16/2025 Time: 13:31 Total Score = 9 10. Dysarthria (speech clarity - read or repeat words) - 1(Mild to Moderate) 11. Extinction and Inattention (visual/tactile/auditory/spatial/personal) - 0(No abnormality) 1a. Level of Consciousness (LOC) - 0(Alert) 1b. Level of Consciousness (LOC) (Month \T\ Age) - 2(Neither) 1c. LOC Commands (Open \T\ Closes Eyes/Inspector Air Carrier) - 0(Both) 2. Best Gaze (Lateral Gaze Paresis) - 0(Normal) 3. Visual Field Loss - 1(Partial hemianopia) 4. Facial Palsy - 0(Normal) 5a. Left Arm: Motor (10-second hold) - 0(No drift) 5b. Right Arm: Motor (10-second hold) - 0(No drift) 6a. Left Leg: Motor (5-second hold - always test supine) - 0(No drift) 6b. Right Leg: Motor (5-second hold - always test supine) - 2(Drift, some effort against gravity) 7. Limb Ataxia (finger/nose \T\ heel/singleton - test with eyes open) - 2(Present in two limbs) 8. Sensory Loss (pinprick arms/legs/face) - 0(Normal) 9. Best Language: Aphasia (description/naming/reading) - 1(Mild to moderate aphasia) Initials: nh2 Signatures: Dispatcher [employer] EDMS Akilah Silver RN RN ap3 Roopa Saleh Marcus, DO DO ms3 Diamond Peterson RN RN es3 Vince Kay Jr, RN RN nh2 Liliya Viramontes ts3 Corrections: (The following items were deleted from the chart) 11:37 10:49 Ebola Screen: Unable to complete the Ebola screening because: Ebola nh2 Screen: Unable to complete the Ebola screening because: nh2 11:57 10:55 Neuro: Level of Consciousness is awake, alert, obeys commands, Oriented nh2 to person, nh2 06/17 08:06/16 10:49 Ebola Screen: Unable to complete the Ebola screening because: Ebola nh2 Screen: Unable to complete the Ebola screening because: nh2 06/17 08:06/16 10:49 Stroke Activation: Symptom onset < 3 hours nh2 nh2 06/17 08:06/16 10:49 Stroke Activation: Symptom onset > 6 hours nh2 nh2
--- NOTE | 2025-06-16 11:59 | EDPHYS ---
Physician Documentation [facility] Name: Wade Chavez Age: 84 yrs Sex: Male : 1940 Arrival Date: 06/16/2025 Time: 10:48 Bed 2 Private MD: ED Physician Waqas Bryant HPI: 06/16 11:40 This 84 yrs old Black Male presents to ER via EMS with complaints of S/S of Possible ms3 Stroke. 11:40 84-year-old male with past medical history of atrial fibrillation, cancer, GERD, ms3 hyperlipidemia, hypertension, prostate cancer presents to the emergency department via [facility] for slurred speech. Patient recently diagnosed with stroke and discharged from the hospital.. Historical: - Allergies: 10:49 No Known Allergies; nh2 - PMHx: 10:49 Atrial Fib; Cancer; GERD; High Cholesterol; Hypertension; Prostate Cancer; nh2 10:49 CVA-right sided weakness deficit; ap3 - Immunization history:: Adult Immunizations unknown. - Infectious Disease History:: unknown. - Social history:: Smoking status: unknown. ROS: 11:40 Constitutional: Negative for fever, and chills. Cardiovascular: Negative for chest ms3 pain, and palpitations. Respiratory: Negative for shortness of breath, cough, wheezing, and pleuritic chest pain, Abdomen/GI: Negative for abdominal pain, nausea, vomiting, diarrhea, and constipation, MS/Extremity: Negative for injury and deformity, Skin: Negative for injury, rash, and discoloration, Exam: 11:36 ECG was reviewed by the Attending Physician. ms3 11:38 Constitutional: This is a well developed, well nourished patient who is awake, alert, ms3 and in no acute distress. Respiratory: Lungs have equal breath sounds bilaterally, clear to auscultation and percussion. No rales, rhonchi or wheezes noted. No increased work of breathing, no retractions or nasal flaring. Abdomen/GI: Soft, non-tender, with normal bowel sounds. No distension or tympany. No guarding or rebound. No evidence of tenderness throughout. Skin: Warm, dry with normal turgor. Normal color with no rashes, no lesions, and no evidence of cellulitis. MS/ Extremity: Pulses equal, no cyanosis. Neurovascular intact. Full, normal range of motion. 11:38 Cardiovascular: Rate: normal, Rhythm: irregularly irregular, Pulses: no pulse deficits are appreciated, Heart sounds: normal, normal S1and S2, 11:42 Radiologist reports: No intracranial hemorrhage ms3 Vital Signs: 10:49 BP 130 / 96; Pulse 72; Resp 18 S; Temp 97.5(TE); Pulse Ox 98% on R/A; nh2 10:50 BP 130 / 96; Pulse 76; Resp 18; Temp 98.1(O); Pulse Ox 100% on R/A; nh2 11:38 BP 132 / 104; Pulse 88; Resp 18; Pulse Ox 100% on R/A; nh2 12:08 BP 125 / 84; Pulse 70; Resp 12; Pulse Ox 100% on R/A; nh2 12:38 BP 145 / 98; Pulse 77; Resp 18; Pulse Ox 98% on R/A; nh2 13:08 BP 134 / 97; Pulse 67; Resp 18; Pulse Ox 99% on R/A; nh2 13:28 BP 124 / 86; Pulse 66; Resp 17; Pulse Ox 100% on R/A; nh2 NIH Stroke Scale Scores: 11:31 NIHSS Score: 9 es3 11:38 NIHSS Score: 9 ms3 12:01 NIHSS Score: 9 nh2 12:31 NIHSS Score: 9 nh2 13:01 NIHSS Score: 9 nh2 13:31 NIHSS Score: 9 nh2 MDM: 11:18 Medical Screening Exam initiated ms3 11:18 Differential diagnosis: CVA, metabolic disorder, drug effects. TNKase (Tenecteplase) ms3 Screening: Contraindications: Over 80 years old: Yes. Data reviewed: vital signs, nurses notes, lab test result(s), EKG, radiologic studies. 11:19 Management of patient was discussed with the following: Catalog Librarian: Dr Espino: TNKase ms3 contraindication of CVA on 06/13/2025. ASA, Plavix, Statin. 11:46 Consideration of Admission/Observation Patient was admitted/placed on observation. I ms3 considered the following discharge prescriptions or medication management in the emergency department Medications were administered in the Emergency Department. See MAR. Independent interpretation of the following test(s) in the Emergency Department EKG: See my EKG interpretation above CT Scan: My interpretation is CT head without contrast images reviewed by me did not reveal ICH. Counseling: I had a detailed discussion with the patient and/or guardian regarding the historical points, exam findings, and any diagnostic results supporting the discharge/admit diagnosis, lab results, radiology results, the need for further work-up and treatment in the hospital. 06/16 10:54 Order name: Basic Metabolic Panel ms3 06/16 10:54 Order name: CBC with Diff; Complete Time: 11:41 ms3 06/16 10:54 Order name: Hepatic Function ms3 06/16 10:54 Order name: High Sensitivity Troponin ms3 06/16 10:54 Order name: Magnesium ms3 06/16 10:54 Order name: Protime (+inr); Complete Time: 11:41 ms3 06/16 10:54 Order name: Ptt, Activated; Complete Time: 11:41 ms3 06/16 11:28 Order name: Glucose, Ancillary Testing; Complete Time: 11:41 EDMA 06/16 12:12 Order name: Phosphorus EDMA 06/16 12:12 Order name: Basic Metabolic Panel EDMA 06/16 12:12 Order name: Basic Metabolic Panel [facility] 06/16 12:12 Order name: CBC with Automated Diff EDMS 06/16 12:12 Order name: CBC with Automated Diff EDMA 06/16 12:25 Order name: CREATININE WHOLE BLOOD EDMA 06/16 10:54 Order name: CT Head Angio; Complete Time: 11:41 ms3 06/16 10:54 Order name: CT Neck Angio; Complete Time: 11:41 ms3 06/16 10:54 Order name: CT Stroke Brain w/o Contrast; Complete Time: 11:41 ms3 06/16 10:54 Order name: Stroke CXR 1 View ms3 06/16 12:13 Order name: Brain Wo Cont EDMA 06/16 12:12 Order name: Physical Therapy Consult EDMA 06/16 12:12 Order name: Occupational Therapy Consult EDMA 06/16 12:12 Order name: Speech Therapy Consult EDMA 06/16 12:53 Order name: Social Service Consult EDMA 06/16 10:54 Order name: Accucheck; Complete Time: 11:24 ms3 06/16 10:54 Order name: Cardiac monitoring; Complete Time: 11:24 ms3 06/16 10:54 Order name: EKG - Nurse/Tech; Complete Time: 11:24 3 06/16 10:54 Order name: IV Saline Lock; Complete Time: 11:24 ms3 06/16 10:54 Order name: Labs collected and sent; Complete Time: 11:10 ms3 06/16 10:54 Order name: NPO; Complete Time: 11:24 ms3 06/16 10:54 Order name: O2 Per Protocol; Complete Time: 11:24 ms3 06/16 10:54 Order name: O2 Sat Monitoring; Complete Time: 11:24 ms3 06/16 10:54 Order name: Stroke Swallow Screen; Complete Time: 12:03 ms3 EC:36 Rate is 82 beats/min. Rhythm is irregularly irregular. Left axis deviation noted. QRS ms3 interval is normal. Clinical impression: Atrial Fibrillation. Interpreted by me. Reviewed by me. Administered Medications: 11:35 Drug: Aspirin PO Chewable Tablet 162 mg PO once Route: PO; nh2 12:03 Follow up: Response: No adverse reaction nh2 Point of Care Testing: Blood Glucose: 11:05 Blood Glucose: 86 mg/dL; nh2 Ranges: Critical Glucose Levels:Adult <50 mg/dl or >400 mg/dl <40 mg/dl or >180 mg/dl Disposition Summary: 06/16/25 11:58 Hospitalization Ordered Notes: Hospitalization Status: Inpatient Admission ms3 Provider: Prince rupert Blankenship3 Location: Telemetry/MedSurg (Inpatient) ms3 Condition: Stable ms3 Problem: new ms3 Symptoms: are unchanged ms3 Bed/Room Type: [place] ms3 Room Assignment: 405(06/16/25 12:23) eb Diagnosis - Slurred speech ms3 - Ischemic Stroke ms3 Forms: - Medication Reconciliation Form ms3 - SBAR form ms3 - Leadership Thank You Letter ms3 NIH Stroke Scale - NIH Stroke Score Date: 06/16/2025 Time: 11:31 Total Score = 9 10. Dysarthria (speech clarity - read or repeat words) - 1(Mild to Moderate) 11. Extinction and Inattention (visual/tactile/auditory/spatial/personal) - 0(No abnormality) 1a. Level of Consciousness (LOC) - 0(Alert) 1b. Level of Consciousness (LOC) (Month \T\ Age) - 1(One) 1c. LOC Commands (Open \T\ Closes Eyes/Afterschool) - 0(Both) 2. Best Gaze (Lateral Gaze Paresis) - 0(Normal) 3. Visual Field Loss - 1(Partial hemianopia) 4. Facial Palsy - 0(Normal) 5a. Left Arm: Motor (10-second hold) - 0(No drift) 5b. Right Arm: Motor (10-second hold) - 1(Drift) 6a. Left Leg: Motor (5-second hold - always test supine) - 0(No drift) 6b. Right Leg: Motor (5-second hold - always test supine) - 2(Drift, some effort against gravity) 7. Limb Ataxia (finger/nose \T\ heel/singleton - test with eyes open) - 2(Present in two limbs) 8. Sensory Loss (pinprick arms/legs/face) - 0(Normal) 9. Best Language: Aphasia (description/naming/reading) - 1(Mild to moderate aphasia) Initials: es3 NIH Stroke Scale - NIH Stroke Score Date: 06/16/2025 Time: 11:38 Total Score = 9 10. Dysarthria (speech clarity - read or repeat words) - 1(Mild to Moderate) 11. Extinction and Inattention (visual/tactile/auditory/spatial/personal) - 0(No abnormality) 1a. Level of Consciousness (LOC) - 0(Alert) 1b. Level of Consciousness (LOC) (Month \T\ Age) - 1(One) 1c. LOC Commands (Open \T\ Closes Eyes/Afterschool) - 0(Both) 2. Best Gaze (Lateral Gaze Paresis) - 0(Normal) 3. Visual Field Loss - 1(Partial hemianopia) 4. Facial Palsy - 0(Normal) 5a. Left Arm: Motor (10-second hold) - 0(No drift) 5b. Right Arm: Motor (10-second hold) - 1(Drift) 6a. Left Leg: Motor (5-second hold - always test supine) - 0(No drift) 6b. Right Leg: Motor (5-second hold - always test supine) - 2(Drift, some effort against gravity) 7. Limb Ataxia (finger/nose \T\ heel/singleton - test with eyes open) - 2(Present in two limbs) 8. Sensory Loss (pinprick arms/legs/face) - 0(Normal) 9. Best Language: Aphasia (description/naming/reading) - 1(Mild to moderate aphasia) Initials: ms3 NIH Stroke Scale - NIH Stroke Score Date: 06/16/2025 Time: 12:01 Total Score = 9 10. Dysarthria (speech clarity - read or repeat words) - 1(Mild to Moderate) 11. Extinction and Inattention (visual/tactile/auditory/spatial/personal) 1a. Level of Consciousness (LOC) - 0(Alert) 1b. Level of Consciousness (LOC) (Month \T\ Age) - 2(Neither) 1c. LOC Commands (Open \T\ Closes Eyes/Afterschool) - 0(Both) 2. Best Gaze (Lateral Gaze Paresis) - 0(Normal) 3. Visual Field Loss - 1(Partial hemianopia) 4. Facial Palsy - 0(Normal) 5a. Left Arm: Motor (10-second hold) - 0(No drift) 5b. Right Arm: Motor (10-second hold) - 0(No drift) 6a. Left Leg: Motor (5-second hold - always test supine) - 0(No drift) 6b. Right Leg: Motor (5-second hold - always test supine) - 2(Drift, some effort against gravity) 7. Limb Ataxia (finger/nose \T\ heel/singleton - test with eyes open) - 2(Present in two limbs) 8. Sensory Loss (pinprick arms/legs/face) - 0(Normal) 9. Best Language: Aphasia (description/naming/reading) - 1(Mild to moderate aphasia) Initials: nh2 NIH Stroke Scale - NIH Stroke Score Date: 06/16/2025 Time: 12:31 Total Score = 9 10. Dysarthria (speech clarity - read or repeat words) - 1(Mild to Moderate) 11. Extinction and Inattention (visual/tactile/auditory/spatial/personal) - 0(No abnormality) 1a. Level of Consciousness (LOC) - 0(Alert) 1b. Level of Consciousness (LOC) (Month \T\ Age) - 2(Neither) 1c. LOC Commands (Open \T\ Closes Eyes/Afterschool) - 0(Both) 2. Best Gaze (Lateral Gaze Paresis) - 0(Normal) 3. Visual Field Loss - 1(Partial hemianopia) 4. Facial Palsy - 0(Normal) 5a. Left Arm: Motor (10-second hold) - 0(No drift) 5b. Right Arm: Motor (10-second hold) - 0(No drift) 6a. Left Leg: Motor (5-second hold - always test supine) - 0(No drift) 6b. Right Leg: Motor (5-second hold - always test supine) - 2(Drift, some effort against gravity) 7. Limb Ataxia (finger/nose \T\ heel/snigleton - test with eyes open) - 2(Present in two limbs) 8. Sensory Loss (pinprick arms/legs/face) - 0(Normal) 9. Best Language: Aphasia (description/naming/reading) - 1(Mild to moderate aphasia) Initials: nh2 NIH Stroke Scale - NIH Stroke Score Date: 06/16/2025 Time: 13:01 Total Score = 9 10. Dysarthria (speech clarity - read or repeat words) - 1(Mild to Moderate) 11. Extinction and Inattention (visual/tactile/auditory/spatial/personal) - 0(No abnormality) 1a. Level of Consciousness (LOC) - 0(Alert) 1b. Level of Consciousness (LOC) (Month \T\ Age) - 2(Neither) 1c. LOC Commands (Open \T\ Closes Eyes/Afterschool) - 0(Both) 2. Best Gaze (Lateral Gaze Paresis) - 0(Normal) 3. Visual Field Loss - 1(Partial hemianopia) 4. Facial Palsy - 0(Normal) 5a. Left Arm: Motor (10-second hold) - 0(No drift) 5b. Right Arm: Motor (10-second hold) - 0(No drift) 6a. Left Leg: Motor (5-second hold - always test supine) - 0(No drift) 6b. Right Leg: Motor (5-second hold - always test supine) - 2(Drift, some effort against gravity) 7. Limb Ataxia (finger/nose \T\ heel/singleton - test with eyes open) - 2(Present in two limbs) 8. Sensory Loss (pinprick arms/legs/face) - 0(Normal) 9. Best Language: Aphasia (description/naming/reading) - 1(Mild to moderate aphasia) Initials: nh2 NIH Stroke Scale - NIH Stroke Score Date: 06/16/2025 Time: 13:31 Total Score = 9 10. Dysarthria (speech clarity - read or repeat words) - 1(Mild to Moderate) 11. Extinction and Inattention (visual/tactile/auditory/spatial/personal) - 0(No abnormality) 1a. Level of Consciousness (LOC) - 0(Alert) 1b. Level of Consciousness (LOC) (Month \T\ Age) - 2(Neither) 1c. LOC Commands (Open \T\ Closes Eyes/Afterschool) - 0(Both) 2. Best Gaze (Lateral Gaze Paresis) - 0(Normal) 3. Visual Field Loss - 1(Partial hemianopia) 4. Facial Palsy - 0(Normal) 5a. Left Arm: Motor (10-second hold) - 0(No drift) 5b. Right Arm: Motor (10-second hold) - 0(No drift) 6a. Left Leg: Motor (5-second hold - always test supine) - 0(No drift) 6b. Right Leg: Motor (5-second hold - always test supine) - 2(Drift, some effort against gravity) 7. Limb Ataxia (finger/nose \T\ heel/singleton - test with eyes open) - 2(Present in two limbs) 8. Sensory Loss (pinprick arms/legs/face) - 0(Normal) 9. Best Language: Aphasia (description/naming/reading) - 1(Mild to moderate aphasia) Initials: nh2 Signatures: Dispatcher [employer] EDMS Akilah Silver RN RN ap3 Roopa Saleh Marcus, DO DO ms3 Vince Kay Jr, RN RN nh2 Corrections: (The following items were deleted from the chart) 10:55 10:55 Neck Angio+CT.RAD.BRZ ordered. EDMS EDMS 10:55 10:55 CT-STROKE BRAIN W/O CONTRAST+CT.RAD.BRZ ordered. EDMS EDMS 10:55 10:55 Chest Single View+RAD.RAD.BRZ ordered. EDMS EDMS 12:23 11:58 ms3 eb
[2025-06-16] MEDS ORDERED: IPRATROPIUM BROM 0.5MG/2.5ML NEB PRN (12:07)
[2025-06-16] MEDS ORDERED: ALBUTEROL 2.5 MG/3 ML NEB SOL NEB PRN (12:07)
--- NOTE | 2025-06-16 12:17 | P.HP ---
Certification for Inpatient Patient admitted to: Observation With expected LOS: <2 Midnights Practitioner: I am a practitioner with admitting privileges, knowledge of patient current condition, hospital course, and medical plan of care. Services: Services provided to patient in accordance with Admission requirements found in Title 42 Section 412.3 of the Code of Federal Regulations Patient History Date of Service: 06/16/25 Reason for admission: Stroke symptoms History of Present Illness: Patient is a 84-year-old male with known history of atrial fibrillation on chronic anticoagulation but noncompliant, hypertension and a recent lacunar stroke involving the left basal ganglia. Patient was discharged on Eliquis, folic acid, lovastatin and BP meds. 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 Patient has a NIH stroke scale of 9. Found to have dysarthria and right hemiparesis. tPA contraindicated due to recent CVA. CT head redemonstrated subacute lacunar stroke involving the left basal ganglia. No hemorrhage. CTA head and neck are negative for large vessel occlusion except a stable focal narrowing of the distal left M1 segment. Patient is being admitted due to worsening neurologic function. Allergies No Known Allergies Allergy (Unverified 05/20/12 18:57) Home Medications: Amlodipine [Norvasc*] 5 mg PO DAILY 02/02/20 Lovastatin 20 mg PO BEDTIME 02/02/20 Losartan Potassium [Cozaar] 25 mg PO DAILY 30 Days #30 tablet 02/03/20 Folic Acid 1 mg PO DAILY 06/12/25 Gabapentin [Neurontin*] 100 mg PO BID 06/12/25 Metoprolol Succinate [Toprol Xl*] 50 mg PO BID 06/12/25 Thiamine HCl [Vitamin B-1*] 100 mg PO DAILY 06/12/25 Apixaban [Eliquis] 5 mg PO BID #60 tablet 06/13/25 - Past Medical/Surgical History Diabetic: No -: Hypertension -: GERD -: Hyperlipidemia -: Atrial fibrillation on chronic anticoagulation Psychosocial/ Personal History: Patient lives at home with family. - Social History Alcohol use: No CD- Drugs: No Caffeine use: No Physical Examination - Physical Exam General: Acute distress HEENT: Atraumatic, Normocephalic Respiratory: Clear to auscultation bilaterally, Normal air movement Cardiovascular: No edema, Normal pulses, No murmurs, Irregular heart rate/rhythm Gastrointestinal: Soft and benign, Non-distended Neurological: Other (visual deficits), Abnormal gait, Abnormal speech, Abnormal strength - Studies Laboratory Data (last 24 hrs) 06/16/25 06/16/25 11:10 11:10 WBC 5.00 Hgb 16.0 Hct 46.5 Plt Count 169 PT 19.7 H INR 1.77 APTT 33.1 Assessment and Plan - Plan Assessment Patient is a 84-year-old male with known history of recent left basal ganglier lacunar stroke who returns to the hospital a few days later complaining of slurred speech and right-sided weakness. His CT head revealed stable, known subacute infarct of the left basal ganglia. Patient had an NIH stroke scale of 9. tPA contraindicated due to recent CVA. He is currently with new neurologic deficits including visual deficits, expressive aphasia and worsening R sided weakness. 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
--- NOTE | 2025-06-16 12:18 | RAD REPORT ---
EXAMINATION: ONE VIEW CHEST XR CLINICAL INDICATION: Male, 84 years old.,stroke alert TECHNIQUE: Frontal chest projection is submitted. Examination is limited by patient positioning and t echnique. COMPARISON: 06/12/2025 FINDINGS: The lungs are grossly clear apart from left basilar atelectasis, although suboptimal inspiratory effo rt somewhat limits evaluation. No pneumothorax or sizable effusion. The heart is normal in size. Mediastinal contours are unremarkable. IMPRESSION: No acute intrathoracic abnormalities.
[2025-06-16 12:26] LABS: ALT/SGPT 21.0 U/L (16-61); AST/SGOT 22.0 U/L (15-37); Albumin 3.2 g/dL (3.4-5.0); Albumin/Globulin Ratio 0.9 (1.1-1.8); Alkaline Phosphatase 49.0 U/L (45-117); Anion Gap 8.7 mEq/L (5.0-15.0); BUN Blood Urea Nitrogen 10.0 mg/dL (7-18); Bilirubin Indirect, Calculated 0.5 mg/dL (0.2-0.8); Globulin 3.5 g/dL (2.3-3.5); Glucose Level 84.0 mg/dL (74-106); Magnesium 2.0 mg/dL (1.6-2.4); Potassium 3.7 mEq/L (3.5-5.1); Troponin High Sensitivity 8.0 pg/mL (<58.9)
[2025-06-16] MEDS: NA CHLORIDE 0.9% 1,000 ML IV SCH (14:53)
--- NOTE | 2025-06-16 16:56 | RAD REPORT ---
EXAMINATION: Brain Wo Cont CLINICAL INDICATION: Male, 84 years old. cva TECHNIQUE: Multiplanar multisequence MR images of the brain were obtained without intravenous contras t. Unless otherwise specified, incidental findings do not require dedicated imaging follow-up. [id number]. COMPARISON: MRI 06/13/2025, same-day head CT FINDINGS: INTRACRANIAL: Diffusion restriction at the left basal ganglia again noted to with increased diffusion restriction likely reflecting new areas of acute infarct. This is in the region of the internal capsule. No significant mass effect or midline shift.No hydrocephalus. Moderate chronic small vesse l ischemic changes.Moderate cerebral atrophy. VASCULATURE: Normal signal voids in the larger intracranial arteries and dural venous sinuses. SINUSES: The paranasal sinuses are predominantly clear.No mastoid effusions. BONE: The marrow signal pattern is within normal limits. IMPRESSION: Acute left basal ganglia lacunar infarct with some interval infarct extension compared with 06/13/2025 .
[2025-06-16] MEDS: LORazepam 2 MG/ML VIAL ONE (19:43)
[2025-06-16] MEDS: LORazepam 2 MG/ML VIAL IV ONE (19:53)
[2025-06-16] MEDS: ATORVASTATIN 80 MG TAB PO SCH (21:00)
[2025-06-17 07:51] LABS: Absolute Lymphocytes (CBC) 0.8 K/uL (0.7-4.9); Hematocrit 40.1 % (39.6-49.0); Hemoglobin 13.6 g/dL (13.6-17.9); MCH 32.7 pg (27.0-35.0); MCHC 34.0 g/dL (32.0-36.0); MCV 96.0 fL (80-100); MPV 9.7 fL (7.6-11.3); Nucleated RBC Absolute Count 0.0 (0-0); Nucleated Red Blood Cells % 0.1 % (0-0); RBC Red Blood Cell Count 4.17 M/uL (4.33-5.43); White Blood Count 4.80 thou/uL (4.3-10.9)
[2025-06-17 08:11] LABS: Anion Gap 9.6 mEq/L (5.0-15.0); BUN Blood Urea Nitrogen 6.0 mg/dL (7-18)
[2025-06-17 08:16] LABS: Glucose Level 52.0 mg/dL (74-106); Potassium 2.6 mEq/L (3.5-5.1)
[2025-06-17] MEDS ORDERED: ALBUTEROL 2.5 MG/3 ML NEB SOL NEB PRN (08:30)
[2025-06-17 08:46] LABS: Magnesium 1.3 mg/dL (1.6-2.4)
[2025-06-17] MEDS: ASPIRIN EC 81 MG TAB PO SCH (09:00)
[2025-06-17] MEDS: Magnesium Sulfate 2gm IVPB 2 G/50 ML BAG IV ONE (09:58)
[2025-06-17] MEDS: POTASSIUM PHOS IN 0.9 % NACL 15 MMOL/250 ML BAG IV ONE (11:59)
[2025-06-17] MEDS ORDERED: AA 4.25 %/D5W/ELECTROLYTES 2,000 ML IV SCH (15:00)
[2025-06-17] MEDS: AA 4.25 %/D5W/ELECTROLYTES 2,000 ML IV SCH (15:18)
--- NOTE | 2025-06-17 15:56 | P.PN ---
Subjective Date of Service: 06/17/25 Chief Complaint: Stroke symptoms Subjective: No new changes (Patient is n.p.o. pending swallow evaluation. He is more alert and awake, alert and oriented x 1 at least.) Physical Examination - Vital Signs Temperature: 97.8 F Blood Pressure: 127/86 Pulse: 83 Respirations: 16 Pulse Ox (%): 98 - Physical Exam General: Alert, In no apparent distress, Cooperative HEENT: Atraumatic, Normocephalic Cardiovascular: No edema, Normal pulses, Normal S1 S2, Irregular heart rate/rhythm Gastrointestinal: Soft and benign, Non-distended Neurological: Other (Visual defect), Abnormal speech, Abnormal strength Assessment And Plan - Plan Assessment Patient is a 84-year-old male with known history of recent left basal ganglia lacunar stroke who returns to the hospital a few days later complaining of slurred speech and right-sided weakness. His CT head revealed stable, known subacute infarct of the left basal ganglia. Patient had an NIH stroke scale of 9. tPA contraindicated due to recent CVA. He is currently with new neurologic deficits including visual deficits, expressive aphasia and worsening R sided weakness. Strokelike symptoms Subacute stroke Atrial fibrillation on chronic anticoagulationEliquis Hypokalemia Hypoglycemia Hypophosphatemia Hypomagnesemia Hypertension Hyperlipidemia Plan: Brain MRI redemonstrated left basal ganglia lacunar stroke Currently n.p.o. 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
[2025-06-17] MEDS: POTASSIUM CL 40 MEQ in NA CHLORIDE 0.9% 500 ML IV SCH (16:04)
[2025-06-17 21:03] LABS: Magnesium 2.2 mg/dL (1.6-2.4); Potassium 4.7 mEq/L (3.5-5.1)
[2025-06-17] MEDS: LORazepam 2 MG/ML VIAL IV ONE (23:45)
[2025-06-18] MEDS: LORazepam 2 MG/ML VIAL IV ONE ×2 (01:54→11:50)
[2025-06-18 06:48] LABS: Magnesium 2.2 mg/dL (1.6-2.4); Potassium 3.9 mEq/L (3.5-5.1)
[2025-06-18] MEDS: POTASSIUM PHOS IN 0.9 % NACL 15 MMOL/250 ML BAG IV ONE (08:00)
--- NOTE | 2025-06-18 13:08 | P.PN ---
Subjective Date of Service: 06/18/25 Chief Complaint: Stroke symptoms Subjective: No new changes Unable to meaningfully assess ROS due to patient's mental status <Venkata Hayes - Last Filed: 06/18/25 13:00> Date of Service: 06/18/25 <Rosie Hussein Alessandra - Last Filed: 06/19/25 00:03> Review of Systems is unable to be obtained <Venkata Hayes - Last Filed: 06/18/25 13:00> Physical Examination - Vital Signs Temperature: 97.6 F Blood Pressure: 123/93 Pulse: 88 Respirations: 16 Pulse Ox (%): 96 - Physical Exam General: In no apparent distress (Responsive to tactile stimuli), Obese HEENT: Atraumatic, Normocephalic, Mucous membr. moist/pink Neck: Supple, 2+ carotid pulse no bruit, JVD not distended, No Thyromegaly Respiratory: Clear to auscultation bilaterally, Normal air movement, Diminished (bases) Cardiovascular: No edema, Normal pulses, Regular rate/rhythm, Normal S1 S2 Gastrointestinal: Normal bowel sounds, Soft and benign, Non-distended Musculoskeletal: No clubbing, No swelling, No contractures, No erythema, No tenderness, No warmth Integumentary: No rashes, No breakdown, No significant lesion, No tenderness/swelling, No erythema, No warmth, No cyanosis Neurological: Normal tone, Abnormal sensation (moves L extremities with tactile stimulation, no mvmt on ride extremities) Lymphatics: No axilla or inguinal lymphadenopathy External genitalia: Deferred Rectal: Deferred - Studies Medications List Reviewed: No <Venkata Hayes - Last Filed: 06/18/25 13:00> Assessment And Plan - Plan Assessment Patient is a 84-year-old male with known history of recent left basal ganglia lacunar stroke who returns to the hospital a few days later complaining of slurred speech and right-sided weakness. His CT head revealed stable, known subacute infarct of the left basal ganglia. Patient had an NIH stroke scale of 9. tPA contraindicated due to recent CVA. He is currently with new neurologic deficits including visual deficits, expressive aphasia and worsening R sided we akness. Plan: Strokelike symptoms Subacute stroke R sided functional deficits Dysphagia - Brain MRI redemonstrated left basal ganglia lacunar stroke - Currently n.p.o. pending swallow evaluation - PT/OT following -OPTO MECHANICAL TECHNICIAN following Atrial fibrillation on chronic anticoagulationEliquis - Resume Eliquis after passing swallow study -Currently on heparin 3 times daily 5000 mg Hypokalemia Hypophosphatemia Hypomagnesemia - electrolyte replacement protocol - Magnesium, phosphorus and potassium are being replaced - Monitor BMP daily Hypoglycemia - Started on Clinimix infusion to avoid hypoglycemia Hypertension Hyperlipidemia - Allow permissive hypertension - No need to repeat 2D echo -Resume statin after passes swallow study Dispo: -Rehab - OPTO MECHANICAL TECHNICIAN eval anticipated Thursday Discharge Plan: Skilled Nursing Plan to discharge in: 24 Hours <Venkata Hayes - Last Filed: 06/18/25 13:00> Date of Service: 06/18/25 Patient was seen and examined. Events of the last 24 hours have been noted. Spoke with with YAZMIN regarding patient's clinical picture after evaluating and examining the patient independently. I performed a substantial part of the MDM during this patient's care today. I personally made or approved the documented management plan and acknowledge its risk of complications. I agree with the findings and documentation provided in the YAZMIN's notes. Patient status post basal ganglia infarct. Patient with significant weakness on the right side. Patient is also slightly aphasic but no evidence of stroke in the left MCA territory. Patient walked 80 ft with physical therapy. Patient is a great candidate for inpatient rehab. Patient has some contractures of the right upper extremity which are new. Patient will continue on anticoagulation with Eliquis as well as anti-platelet regimen and statin therapy. Continue with monitoring blood pressure closely and gradually reduce blood pressure to normal control. Continue with current plan of care at this time. Will try to get approval to inpatient rehab. <Rosie Hussein - Last Filed: 06/19/25 00:03>
[2025-06-18] MEDS: DIAZEPAM 5 MG TABLET PO PRN (18:22)
[2025-06-19] MEDS: METOPROLOL TAR 25 MG TAB PO ONE (05:46)
[2025-06-19 06:29] LABS: Anion Gap 6.8 mEq/L (5.0-15.0); BUN Blood Urea Nitrogen 31.0 mg/dL (7-18); Glucose Level 173.0 mg/dL (74-106); Potassium 3.8 mEq/L (3.5-5.1)
[2025-06-19] MEDS: THIAMINE HCL 100 MG TABLET PO SCH (08:36)
[2025-06-19] MEDS: FOLIC ACID 1 MG TABLET PO SCH (08:36)
[2025-06-19] MEDS: METOPROLOL TAR 25 MG TAB PO SCH (11:20)
--- NOTE | 2025-06-19 12:18 | P.PN ---
Date of Service: 06/19/25 Subjective Date of Service: 06/19/25 Chief Complaint: Stroke symptoms Subjective: No new changes Unable to meaningfully assess ROS due to patient's mental status. Patient was minimally responsive with 1-2 word difficult understanding responses on assessment. at the bedside Review of Systems Patient denies any acute complaints, but accuracy uncertain due to patient's mental status. Physical Examination Temp Pulse Resp BP Pulse Ox 98.0 F 122 H 18 156/99 H 99 06/19/25 08:00 06/19/25 08:00 06/19/25 08:00 06/19/25 08:00 06/19/25 08:00 - Physical Exam General: In no apparent distress (Responsive to tactile stimuli), Obese, minimal verbalizations HEENT: Atraumatic, Normocephalic, Mucous membr. moist/pink Neck: Supple, 2+ carotid pulse no bruit, JVD not distended, No Thyromegaly Respiratory: Clear to auscultation bilaterally, Normal air movement, Diminished (bases) Cardiovascular: No edema, Normal pulses, Regular rate/rhythm, Normal S1 S2 Gastrointestinal: Normal bowel sounds, Soft and benign, Non-distended Musculoskeletal: No clubbing, No swelling, No contractures, No erythema, No tenderness, No warmth Integumentary: No rashes, No breakdown, No significant lesion, No tenderness/swelling, No erythema, No warmth, No cyanosis Neurological: Normal tone, Abnormal sensation (moves L extremities with tactile stimulation, no mvmt on ride extremities) Lymphatics: No axilla or inguinal lymphadenopathy External genitalia: Deferred Rectal: Deferred - Studies Medications List Reviewed: No Assessment And Plan - Plan Assessment Patient is a 84-year-old male with known history of recent left basal ganglia lacunar stroke who returns to the hospital a few days later complaining of slurred speech and right-sided weakness. His CT head revealed stable, known subacute infarct of the left basal ganglia. Patient had an NIH stroke scale of 9. tPA contraindicated due to recent CVA. He is currently with new neurologic deficits including visual deficits, expressive aphasia and worsening R sided weakness. Plan: Strokelike symptoms Subacute stroke R sided functional deficits Dysphagia - Brain MRI redemonstrated left basal ganglia lacunar stroke - Currently tolerating pured diet pending repeat swallow evaluation - PT/OT following -AUDIT MGR following, expect reeval for swallow today Atrial fibrillation on chronic anticoagulationEliquis - Resume Eliquis after passing swallow study -Currently on heparin 3 times daily 5000 mg Hypokalemia Hypophosphatemia Hypomagnesemia - electrolyte replacement protocol - Magnesium, phosphorus and potassium are being replaced - Monitor BMP daily Hypoglycemia -Continue on Clinimix infusion to avoid hypoglycemia Hypertension Hyperlipidemia - Allow permissive hypertension - No need to repeat 2D echo -Resume statin after passes swallow study Dispo: -SNF, pending selection from spouse - AUDIT MGR eval anticipated today <Venkata Hayes - Last Filed: 06/19/25 12:15> I have reviewed the progress note as documented by Venkata Hayes, and I attest that it is accurately reflects my assessment, plan of care, and medical decision making. I agree with the documentation as written <La Christian - Last Filed: 06/19/25 16:42>
[2025-06-19] MEDS: ENOXAPARIN 40 MG/0.4 ML SQ SCH (16:25)
[2025-06-19] MEDS: AA 4.25 %/D5W/ELECTROLYTES 2,000 ML, Lipids 20% 250 ML with MULTIVITAMINS INJ 10 ML IV SCH (16:29)
[2025-06-19] MEDS: ATORVASTATIN 10 MG TAB PO SCH (21:00)
[2025-06-19] MEDS ORDERED: HOME MED 1 EA UNK (Lovastatin [Lovastatin] 20 MG Tablet) PO SCH (21:00)
[2025-06-19] MEDS: METOPROLOL XL 25 MG TAB PO SCH (21:00)
[2025-06-19] MEDS: LORazepam 2 MG/ML VIAL ONE (22:22)
[2025-06-19] MEDS: LORazepam 2 MG/ML VIAL IV ONE (22:30)
[2025-06-20] MEDS: APIXABAN 5 MG TABLET PO SCH (09:00)
[2025-06-20 11:18] LABS: Absolute Lymphocytes (CBC) 1.0 K/uL (0.7-4.9); Hematocrit 51.8 % (39.6-49.0); Hemoglobin 17.4 g/dL (13.6-17.9); MCH 32.0 pg (27.0-35.0); MCHC 33.5 g/dL (32.0-36.0); MCV 95.5 fL (80-100); MPV 10.1 fL (7.6-11.3); Nucleated RBC Absolute Count 0.0 (0-0); Nucleated Red Blood Cells % 0.4 % (0-0); RBC Red Blood Cell Count 5.42 M/uL (4.33-5.43); White Blood Count 5.30 thou/uL (4.3-10.9)
[2025-06-20 11:34] LABS: ALT/SGPT 18.0 U/L (16-61); AST/SGOT 22.0 U/L (15-37); Albumin 2.9 g/dL (3.4-5.0); Albumin/Globulin Ratio 0.7 (1.1-1.8); Alkaline Phosphatase 49.0 U/L (45-117); Anion Gap 10.8 mEq/L (5.0-15.0); BUN Blood Urea Nitrogen 15.0 mg/dL (7-18); Globulin 4.0 g/dL (2.3-3.5); Glucose Level 91.0 mg/dL (74-106); Potassium 3.8 mEq/L (3.5-5.1)
--- NOTE | 2025-06-20 11:56 | P.DS ---
Admission Date: 06/16/25 Discharge Date: 06/20/25 Reason for Admission: Stroke symptoms Consultations: NeurologyDr. Espino PT/OT/speech catering convention services manager Procedures: None Brief History of Present Illness: Patient is a 84-year-old male with known history of atrial fibrillation on chronic anticoagulation but noncompliant, hypertension and a recent lacunar stroke involving the left basal ganglia. Patient was discharged on Eliquis, folic acid, lovastatin and BP meds. He now returns 3 days later following discharge with slurred speech, right-sided weakness and visual disturbance that started 2 hours SUPERVISOR ALTERATION WORKROOM. Patient has a NIH stroke scale of 9. Found to have dysarthria and right hemiparesis. tPA contraindicated due to recent CVA. CT head redemonstrated subacute lacunar stroke involving the left basal ganglia. No hemorrhage. CTA head and neck are negative for large vessel occlusion except a stable focal narrowing of the distal left M1 segment. Patient is being admitted due to worsening neurologic function. Hospital Course: Strokelike symptoms Subacute stroke R sided functional deficits Dysphagia - Brain MRI redemonstrated left basal ganglia lacunar stroke - Initially NPO, now tolerating pured diet pending repeat swallow evaluation - PT/OT following - INSTRUMENT AND CONTROL TECHNICIAN following, expect reeval for swallow today Atrial fibrillation on chronic anticoagulationEliquis - Resumed Eliquis after passing swallow study - DC heparin 3 times daily 5000 mg Hypokalemia Hypophosphatemia Hypomagnesemia - electrolyte replacement protocol - Magnesium, phosphorus and potassium replaced PRN - Monitored BMP Hypoglycemia -Continued on Clinimix infusion to avoid hypoglycemia - Now tolerating PO intake - Can DC as PO intake amount improves Hypertension Hyperlipidemia - Allowed permissive hypertension - No need to repeat 2D echo -Resumed statin after passes swallow study <Venkata Hayes - Last Filed: 06/20/25 11:51> Admission Date: 06/16/25 Discharge Date: 06/20/25 Hospital Course: I personally saw and evaluated the patient on 06/20/2025. I reviewed Venkata Hayes's documentation and agree with the findings and plan of care as documented. I have discussed the case with the clinician and provided direct guidance as appropriate. Any additions clarifications are noted in my documentation. I spent a total of 35 minutes on this encounter, including direct patient care, counseling, coordination of care, and documentation <La Christian - Last Filed: 06/20/25 16:31> Disposition: ROUTINE DISCHARGE Discharge Condition: FAIR Vital Signs/Physical Exam: Temp Pulse Resp BP Pulse Ox 97.0 F 108 H 16 158/83 H 98 06/20/25 08:00 06/20/25 08:00 06/20/25 08:00 06/20/25 08:00 06/20/25 08:00 General: Alert (Unable to assess orientation), In no apparent distress, Obese HEENT: Atraumatic, Normocephalic, PERRLA, Mucous membr. moist/pink Neck: Supple, JVD not distended, No Thyromegaly Respiratory: Normal air movement, Diminished Cardiovascular: Normal pulses, Regular rate/rhythm, Normal S1 S2 Capillary refill: <2 Seconds Gastrointestinal: Normal bowel sounds, Soft and benign, Non-distended Musculoskeletal: No clubbing, No swelling, No contractures Integumentary: No rashes, No breakdown, No significant lesion Neurological: Normal tone, Abnormal strength (Right deficit upper and lower extremities), Abnormal sensation (Right Epicyn upper and lower extremity) External genitalia: Deferred Rectal: Deferred Laboratory Data at Discharge: WBC 5.30 thou/uL (4.3-10.9) 06/20/25 10:36 Hgb 17.4 g/dL (13.6-17.9) 06/20/25 10:36 Hct 51.8 % (39.6-49.0) H 06/20/25 10:36 Plt Count 149 thou/uL (152-406) L 06/20/25 10:36 PT 19.7 SECONDS (10-13.0) H 06/16/25 11:10 INR 1.77 06/16/25 11:10 APTT 33.1 SECONDS (27.2-37.4) 06/16/25 11:10 Sodium 139 mEq/L (136-145) 06/20/25 10:36 Potassium 3.8 mEq/L (3.5-5.1) 06/20/25 10:36 BUN 15 mg/dL (7-18) 06/20/25 10:36 Creatinine 0.79 mg/dL (0.70-1.30) 06/20/25 10:36 Glucose 91 mg/dL (74-106) 06/20/25 10:36 Phosphorus 3.8 mg/dL (2.5-4.9) 06/19/25 05:52 Magnesium 2.2 mg/dL (1.6-2.4) 06/18/25 05:55 Total Bilirubin 0.7 mg/dL (0.2-1.0) 06/20/25 10:36 AST 22 U/L (15-37) 06/20/25 10:36 ALT 18 U/L (16-61) 06/20/25 10:36 Alkaline Phosphatase 49 U/L (45-117) 06/20/25 10:36 LDL Cholesterol Direct 82 mg/dL (100-129) L 06/19/25 15:38 <Venkata Hayes - Last Filed: 06/20/25 11:51> Vital Signs/Physical Exam: Temp Pulse Resp BP Pulse Ox 97.0 F 108 H 16 140/81 97 06/20/25 16:00 06/20/25 16:00 06/20/25 16:00 06/20/25 16:00 06/20/25 16:00 Laboratory Data at Discharge: WBC 5.30 thou/uL (4.3-10.9) 06/20/25 10:36 Hgb 17.4 g/dL (13.6-17.9) 06/20/25 10:36 Hct 51.8 % (39.6-49.0) H 06/20/25 10:36 Plt Count 149 thou/uL (152-406) L 06/20/25 10:36 PT 19.7 SECONDS (10-13.0) H 06/16/25 11:10 INR 1.77 06/16/25 11:10 APTT 33.1 SECONDS (27.2-37.4) 06/16/25 11:10 Sodium 139 mEq/L (136-145) 06/20/25 10:36 Potassium 3.8 mEq/L (3.5-5.1) 06/20/25 10:36 BUN 15 mg/dL (7-18) 06/20/25 10:36 Creatinine 0.79 mg/dL (0.70-1.30) 06/20/25 10:36 Glucose 91 mg/dL (74-106) 06/20/25 10:36 Phosphorus 3.8 mg/dL (2.5-4.9) 06/19/25 05:52 Magnesium 2.2 mg/dL (1.6-2.4) 06/18/25 05:55 Total Bilirubin 0.7 mg/dL (0.2-1.0) 06/20/25 10:36 AST 22 U/L (15-37) 06/20/25 10:36 ALT 18 U/L (16-61) 06/20/25 10:36 Alkaline Phosphatase 49 U/L (45-117) 06/20/25 10:36 LDL Cholesterol Direct 82 mg/dL (100-129) L 06/19/25 15:38 <La Christian - Last Filed: 06/20/25 16:31> Diet: Pure Activity: Ad codie (With assistance) Time spent managing pt's care (in minutes): 42 <Venkata Hayes - Last Filed: 06/20/25 11:51> <La Christian - Last Filed: 06/20/25 16:31> Home Medications: Folic Acid 1 mg PO DAILY 06/12/25 Metoprolol Succinate [Toprol Xl*] 75 mg PO BID 06/12/25 Thiamine HCl [Vitamin B-1*] 100 mg PO DAILY 06/12/25 Apixaban [Eliquis] 5 mg PO BID #60 tablet 06/13/25 Atorvastatin Calcium [Lipitor*] 10 mg PO BEDTIME tab 06/20/25 diazePAM [Valium*] 5 mg PO Q6H PRN tab 06/20/25 Physician Discharge Instructions: PROBLEM: Stroke, dysphagia, right sided functional deficits, chronic atrial fibrillation, electrolyte abnormalities, hypoglycemia, hypertension, hyperlipidemia GOAL: Clear understanding of disease process, participation with rehab, improve mobility and strength INSTRUCTIONS: Participate with rehab to the best your ability. Continue to take your medications as prescribed. Upon discharge from physical therapy, ensure that you follow-up with your primary care. Diet: Pure Activity: As tolerated with PT/OT Followup: NONE,NONE [Primary Care Provider] -
--- NOTE | 2025-06-20 13:16 | RAD REPORT ---
EXAM: CT brain without contrast HISTORY: R/O evolution of stroke COMPARISON: 06/16/2025 TECHNIQUE: Multiple contiguous axial images were obtained and a CT of the brain without contrast. Sag ittal and coronal reformats were performed. One or more of the following dose reduction techniques were used: Automated exposure control, adjust ment of the mA and/or kV according to patient size, and/or iterative reconstruction. FINDINGS: No evidence of hydrocephalus, intracranial hemorrhage, or extra-axial fluid collection. Moderate brain atrophy with moderate periventricular and deep white matter chronic microvascular isc hemic changes present. Left basal ganglial infarct again seen without evidence of hemorrhagic conversion. No evidence of midline shift or areas of brain edema. The calvarium is intact. The visualized paranasal sinuses and mastoid air cells are essentially clear . IMPRESSION: No evidence of acute intracranial abnormality. No evidence of hemorrhagic conversion of left-sided basal ganglia infarction.
[2025-06-20] MEDS: LABETALOL 20 MG/4ML SYRINGE IV PRN (13:24)
--- NOTE | 2025-06-20 20:06 | CON ---
Date of Consultation: 06/20/2025 Time Of Service: 2:00 p.m. Reason For Consultation: Consultation was called because of stroke. History Of Present Illness: Mr. Chavez is an 84-year-old patient with atrial fibrillation, on chronic anticoagulation; hypertension with a recent left basal ganglia lacunar infarct was admitted to the [facility] at that point on 06/16/2025. He recovered somewhat from his left basal ganglia stroke with h is right-sided weakness, incoordination, and was discharged on the . The patient had worsening r ight-sided weakness, incoordination, poor communication and came back on the to hospital where t he imaging scan, which was a CT scan of the head without contrast, which was done on 06/16 at 4:54 p. m. showed the acute left basal ganglia lacunar infarct with some interval infarct extension compared to the . The patient is admitted for management. He did receive hydration, aspirin, Eliquis 5 m g twice daily, Lipitor 10 mg at night, folic acid 1 mg daily. Blood pressure was managed permissibly given the acute stroke. Since his re-hospitalization, he has had episodes of worsening confusion, u nable to get words out, may be able to say 1 or 2 words without meaning, has been more aggressive, an d at times somewhat combative. As the family gave the notes, at times, patient's at the bedside may be able to get more cooperation from him; however, at times, he may have staring off and not res pond to questions, move arms, legs, or to follow the moving objects in front of him. Past Medical History: Atrial fibrillation, hypertension, dyslipidemia, gastroesophageal reflux disea se, prostate cancer, and of course the left basal ganglia stroke with right-sided weakness. Allergies: NO KNOWN DRUG ALLERGIES. Current Medications: Thiamine 100 mg daily, Zofran 4 mg every 6 hours as needed, Lopressor 75 mg twi ce daily, Toprol 75 mg twice daily, Trandate mg every 6 hours as needed, Atrovent 0.5 mg n ebulizer every 6 hours, folic acid 1 mg daily, diazepam 5 mg every 6 hours, albuterol nebulizer 2.5 m g every 6 hours, Eliquis 5 mg twice daily, aspirin 81 mg daily. Family History: Noncontributory. Social History: The patient does live at home with his in a single-family home and no ongoing a lcohol, tobacco, or IV use. Review of Systems: Unable to complete as the patient is not responding to verbal commands, no meaningful verbalization. He shouts few nonsensical words. Physical Examination: Vital Signs: Blood pressure is now in the range 158 to 196 over 83 to 90, his pulse 108 up to 125, a nd respiratory rate 16, temperature 97.0, oxygen saturation 98% on room air. General: Mr. Chavez is resting in bed, eyes open. Neuro: He does respond to visual threat, but is not following when asked to move the hand s independently, he would not, but then spontaneously subsequently move his arms towards his chest. His legs unable to fully evaluate. He did not do voluntary movement of the legs. His right upper an d lower extremity appear to be less mobile than the than the left potentially related to the lacunar infarct that is extended in the left basal ganglia. Laboratory Studies: His complete blood count with differential is essentially unremarkable. Normal white blood cell count, normal hemoglobin, hematocrit, normal platelets, actually slightly low 149. INR 1.77. His sodium is 139, potassium 3.8, chloride 106, carbon dioxide 26, BUN 15, creatinine 0.79 . His glucose ranged from 104 to 115, calcium 8.8. Total bilirubin 0.7, AST 22, ALT 18, alkaline ph osphatase 49. Albumin is 6.9. X-ray/imaging: CT scan of his head done on 06/20, which is earlier today shows no evidence of hemorr hagic conversion, left-sided basal ganglia infarct. There was moderate brain atrophy, moderate periv entricular deep and chronic white matter ischemic changes, and the left basal ganglia infarct is seen without evidence of hemorrhagic conversion. No midline shift. Assessment And Plan: Mr. Chavez is an 84-year-old patient with acute now to subacute stroke involving the left basal ganglia and has some mild extension. He does have right-sided incoordination and wea kness per his presentation. At this point, he is lying in bed, very little meaningful communication. The potential for a poststroke seizure may be considered. No evidence of an infection. In terms o f white blood cell count being normal and the chest x-ray there is no evidence of aspirati on pneumonia, no evidence of a cellulitis or other source of infection. He is still encephalopathic. He does have hypertension, history of alcohol use. He does have elevated heart rate and blood pres sure and he may benefit from potentially loading antiepileptic such as perhaps Depakote or daily Kepp ra. Plan: Prior to starting any antiepileptic, we will schedule routine electroencephalogram. Continue supportive care. Continue with stroke risk reduction with Eliquis 5 mg twice daily and with neuropat hic pain, being aggressive, gabapentin, folic acid, and aspirin for stroke risk reduction prophylaxis and continue with his statin for dyslipidemia. The patient is planning on discharge to go to acute rehab today; however, patient states, he is unable to follow any instructions or commands . We will have an EEG on him first and if the patient is amenable to have an antiepileptic medicatio n, which can be helpful, at that point may be considered for acute rehab admission. ELISABET/SAMANTHA Voice ID: [id number] Report ID: [id number]
[2025-06-20] MEDS: LORazepam 2 MG/ML VIAL IV ONE (20:12)
--- NOTE | 2025-06-21 07:53 | RAD REPORT ---
EXAMINATION: ONE VIEW CHEST XR CLINICAL INDICATION: hemoptysis TECHNIQUE: Frontal chest projection is submitted. Examination is limited by patient positioning and t echnique. COMPARISON: 06/16/2025, 06/12/2025 FINDINGS: The lungs are well inflated and clear. The heart is moderately enlarged in size. No displaced fractur es identified. IMPRESSION: No acute intrathoracic abnormalities.
--- NOTE | 2025-06-21 09:31 | P.PN ---
Subjective Date of Service: 06/21/25 Chief Complaint: Stroke symptoms Subjective: Other (Patient is unable to follow instructions. Hiccups) Physical Examination - Vital Signs Temperature: 97.7 F Blood Pressure: 109/85 Pulse: 113 Respirations: 12 Pulse Ox (%): 93 - Physical Exam General: Confused HEENT: Atraumatic, Normocephalic Respiratory: Clear to auscultation bilaterally, Normal air movement Cardiovascular: No edema, Normal pulses, Regular rate/rhythm, Normal S1 S2 Neurological: Other (unable to follow commands) - Studies Medications List Reviewed: No Assessment And Plan - Plan Assessment Patient is a 84-year-old male with known history of recent left basal ganglia lacunar stroke who returns to the hospital a few days later complaining of slurred speech and right-sided weakness. His CT head revealed stable, known subacute infarct of the left basal ganglia. Patient had an NIH stroke scale of 9. tPA contraindicated due to recent CVA. He is currently with new neurologic deficits including visual deficits, expressive aphasia and worsening R sided weakness. Strokelike symptoms Subacute stroke Atrial fibrillation on chronic anticoagulationEliquis Hypokalemia Hypoglycemia Hypophosphatemia Hypomagnesemia Hypertension Hyperlipidemia Plan: Brain MRI redemonstrated left basal ganglia lacunar stroke He passed his swallow evaluation but appears unable to follow commands this morning BUSINESS ACCOUNT SPECIALIST for cognitive evaluation If he passes his swallow evaluation, will continue Aspirin, atorvastatin, folic acid, statin and Eliquis EEG ordered by Neurology to rule out seizures. EEG done, report pending He is on electrolyte replacement protocol Plan is to transfer to IP rehab Continue PT/OT/BUSINESS ACCOUNT SPECIALIST while in-house
[2025-06-21] MEDS: LACTULOSE 20 GM/30 ML UCUP PO ONE (09:49)
[2025-06-21] MEDS ORDERED: LACTULOSE 20 GM/30 ML UCUP PO PRN (10:01)
[2025-06-21 10:32] LABS: Absolute Lymphocytes (CBC) 1.3 K/uL (0.7-4.9); Hematocrit 50.4 % (39.6-49.0); Hemoglobin 17.3 g/dL (13.6-17.9); MCH 32.7 pg (27.0-35.0); MCHC 34.4 g/dL (32.0-36.0); MCV 95.2 fL (80-100); MPV 10.3 fL (7.6-11.3); Nucleated RBC Absolute Count 0.2 (0-0); Nucleated Red Blood Cells % 1.9 % (0-0); RBC Red Blood Cell Count 5.30 M/uL (4.33-5.43); White Blood Count 8.60 thou/uL (4.3-10.9)
[2025-06-21 10:37] LABS: White Blood Cell Scan OK (OK)
[2025-06-21 10:38] LABS: Blood Morphology Comment NOT SEEN (NOT SEEN)
[2025-06-21 12:03] LABS: Anion Gap 7.5 mEq/L (5.0-15.0); BUN Blood Urea Nitrogen 19.0 mg/dL (7-18); Glucose Level 107.0 mg/dL (74-106)
[2025-06-21 12:04] LABS: Magnesium 2.2 mg/dL (1.6-2.4); Potassium 4.5 mEq/L (3.5-5.1)
[2025-06-21] MEDS: LACTULOSE 20 GM/30 ML UCUP PR ONE (14:43)
--- NOTE | 2025-06-21 15:29 | P.PN ---
Date of Service: 06/21/25 Subjective: Still very sleepy. His is at bedside this morning. She states he has been a drinker all of his life. His last known drink was last Thursday. He was given a dose of Ativan last night. Review of Systems Patient denies any acute complaints, but accuracy uncertain due to patient's mental status. Physical Examination Temp Pulse Resp BP Pulse Ox 98.0 F 122 H 18 156/99 H 99 06/19/25 08:00 06/19/25 08:00 06/19/25 08:00 06/19/25 08:00 06/19/25 08:00 - Physical Exam General: In no apparent distress (Responsive to tactile stimuli), Obese, minimal verbalizations HEENT: Atraumatic, Normocephalic, Mucous membr. moist/pink Neck: Supple, 2+ carotid pulse no bruit, JVD not distended, No Thyromegaly Respiratory: Clear to auscultation bilaterally, Normal air movement, Diminished (bases) Cardiovascular: No edema, Normal pulses, Regular rate/rhythm, Normal S1 S2 Gastrointestinal: Normal bowel sounds, Soft and benign, Non-distended Musculoskeletal: No clubbing, No swelling, No contractures, No erythema, No tenderness, No warmth Integumentary: No rashes, No breakdown, No significant lesion, No tenderness/swelling, No erythema, No warmth, No cyanosis Neurological: Normal tone, Abnormal sensation (moves L extremities with tactile stimulation, no mvmt on ride extremities) Lymphatics: No axilla or inguinal lymphadenopathy External genitalia: Deferred Rectal: Deferred - Studies Medications List Reviewed: No Assessment And Plan - Plan Assessment Patient is a 84-year-old male with known history of recent left basal ganglia lacunar stroke who returns to the hospital a few days later complaining of slurred speech and right-sided weakness. His CT head revealed stable, known subacute infarct of the left basal ganglia. Patient had an NIH stroke scale of 9. tPA contraindicated due to recent CVA. He is currently with new neurologic deficits including visual deficits, expressive aphasia and worsening R sided weakness. 06/21 - Await EEG results, appreciate neurology recommendations - Trial lactulose suppositories - Avoid benzos if possible, and other sedating meds - Labs reviewed without gross abnormalities - Chest x-ray today with no acute abnormality - Continue Lopressor and Eliquis Strokelike symptoms Subacute stroke R sided functional deficits Dysphagia - Brain MRI redemonstrated left basal ganglia lacunar stroke - Currently tolerating pured diet pending repeat swallow evaluation - PT/OT following -INSULATION CUTTER following, expect reeval for swallow today Atrial fibrillation on chronic anticoagulationEliquis - Resume Eliquis after passing swallow study Hypokalemia Hypophosphatemia Hypomagnesemia - All resolved - electrolyte replacement protocol - Magnesium, phosphorus and potassium are being replaced - Monitor BMP daily Hypoglycemia -Continue on Clinimix infusion to avoid hypoglycemia Hypertension Hyperlipidemia - Allow permissive hypertension - No need to repeat 2D echo -Resume statin after passes swallow study Dispo: -SNF, pending selection from spouse - INSULATION CUTTER eval anticipated today
[2025-06-21] MEDS: ONDANSETRON 4 MG/2 ML VIAL IV PRN (22:35)
[2025-06-22 03:05] LABS: Absolute Lymphocytes (CBC) 0.9 K/uL (0.7-4.9); Hematocrit 53.4 % (39.6-49.0); Hemoglobin 18.3 g/dL (13.6-17.9); MCH 32.7 pg (27.0-35.0); MCHC 34.3 g/dL (32.0-36.0); MCV 95.2 fL (80-100); MPV 10.3 fL (7.6-11.3); Nucleated RBC Absolute Count 0.1 (0-0); Nucleated Red Blood Cells % 0.8 % (0-0); RBC Red Blood Cell Count 5.60 M/uL (4.33-5.43); White Blood Count 14.50 thou/uL (4.3-10.9)
[2025-06-22 03:14] LABS: PT Prothrombin Time 15.2 SECONDS (10-13.0); Protime INR 1.36
[2025-06-22 04:11] LABS: Differential Total Cells Count 100; Segmented Neutrophils 82 % (40-80)
[2025-06-22 04:12] LABS: Blood Morphology Comment NOT SEEN (NOT SEEN)
[2025-06-22] MEDS: METOCLOPRAMIDE 10 MG/2mL INJ IV PRN (05:10)
[2025-06-22] MEDS ORDERED: SODIUM CHLORIDE 0.9% 10ML INJ IV PRN (06:12)
[2025-06-22] MEDS: PANTOPRAZOLE 40 MG INJ IVP SCH (06:46)
--- NOTE | 2025-06-22 07:19 | RAD REPORT ---
EXAMINATION: ONE VIEW CHEST XR CLINICAL INDICATION: Male, 84 years old.,Cough TECHNIQUE: Frontal chest projection is submitted. Examination is limited by patient positioning and t echnique. COMPARISON: 06/21/2025 FINDINGS: The lungs are grossly clear although suboptimal inspiratory effort somewhat limits evaluation. No pn eumothorax or sizable effusion. The heart is normal in size. Mediastinal contours are unremarkable. IMPRESSION: No acute intrathoracic abnormalities.
[2025-06-22] MEDS: FOLIC ACID 1 MG, MULTIVITAMINS INJ 10 ML, THIAMINE HCL 100 MG in NA CHLORIDE 0.9% 1,000 ML IV SCH (09:00)
[2025-06-22 10:40] LABS: Absolute Lymphocytes (CBC) 0.6 K/uL (0.7-4.9); Hematocrit 49.6 % (39.6-49.0); Hemoglobin 16.8 g/dL (13.6-17.9); MCH 32.3 pg (27.0-35.0); MCHC 33.9 g/dL (32.0-36.0); MCV 95.3 fL (80-100); MPV 10.3 fL (7.6-11.3); Nucleated RBC Absolute Count 0.0 (0-0); Nucleated Red Blood Cells % 0.1 % (0-0); RBC Red Blood Cell Count 5.21 M/uL (4.33-5.43); White Blood Count 13.40 thou/uL (4.3-10.9)
[2025-06-22 10:54] LABS: ALT/SGPT 41.0 U/L (16-61); AST/SGOT 48.0 U/L (15-37); Albumin 3.1 g/dL (3.4-5.0); Albumin/Globulin Ratio 0.7 (1.1-1.8); Alkaline Phosphatase 68.0 U/L (45-117); Anion Gap 10.4 mEq/L (5.0-15.0); BUN Blood Urea Nitrogen 35.0 mg/dL (7-18); Globulin 4.2 g/dL (2.3-3.5); Glucose Level 143.0 mg/dL (74-106); Potassium 4.4 mEq/L (3.5-5.1)
--- NOTE | 2025-06-22 16:57 | P.PN ---
Date of Service: 06/22/25 Subjective: Continues to be sleepy. He worked with PT today. Discussed scheduling lactose twice daily Review of Systems Patient denies any acute complaints, but accuracy uncertain due to patient's mental status. Physical Examination Temp Pulse Resp BP Pulse Ox 98.0 F 122 H 18 156/99 H 99 06/19/25 08:00 06/19/25 08:00 06/19/25 08:00 06/19/25 08:00 06/19/25 08:00 - Physical Exam General: In no apparent distress (Responsive to tactile stimuli), Obese, minimal verbalizations HEENT: Atraumatic, Normocephalic, Mucous membr. moist/pink Neck: Supple, 2+ carotid pulse no bruit, JVD not distended, No Thyromegaly Respiratory: Clear to auscultation bilaterally, Normal air movement, Diminished (bases) Cardiovascular: No edema, Normal pulses, Regular rate/rhythm, Normal S1 S2 Gastrointestinal: Normal bowel sounds, Soft and benign, Non-distended Musculoskeletal: No clubbing, No swelling, No contractures, No erythema, No tenderness, No warmth Integumentary: No rashes, No breakdown, No significant lesion, No tenderness /swelling, No erythema, No warmth, No cyanosis Neurological: Normal tone, Abnormal sensation (moves L extremities with tactile stimulation, no mvmt on ride extremities) Lymphatics: No axilla or inguinal lymphadenopathy External genitalia: Deferred Rectal: Deferred - Studies Medications List Reviewed: No Assessment And Plan - Plan Assessment Patient is a 84-year-old male with known history of recent left basal ganglia lacunar stroke who returns to the hospital a few days later complaining of slurred speech and right-sided weakness. His CT head revealed stable, known subacute infarct of the left basal ganglia. Patient had an NIH stroke scale of 9. tPA contraindicated due to recent CVA. He is currently with new neurologic deficits including visual deficits, expressive aphasia and worsening R sided weakness. 06/22 - History of alcoholism per the . schedule lactulose twice daily. Give rectally - Continue to avoid benzos - Now with leukocytosis. Chest x-ray reviewed without any abnormality. White count jumped to 13.4 -Urinalysis pending. start Rocephin - Blood sugar within desired range 06/21 - Await EEG results, appreciate neurology recommendations - Trial lactulose suppositories - Avoid benzos if possible, and other sedating meds - Labs reviewed without gross abnormalities - Chest x-ray today with no acute abnormality - Continue Lopressor and Eliquis Strokelike symptoms Subacute stroke R sided functional deficits Dysphagia - Brain MRI redemonstrated left basal ganglia lacunar stroke - Currently tolerating pured diet pending repeat swallow evaluation - PT/OT following -COMPLIANCE REVIEWER following, expect reeval for swallow today Atrial fibrillation on chronic anticoagulationEliquis - Resume Eliquis after passing swallow study Hypokalemia Hypophosphatemia Hypomagnesemia - All resolved - electrolyte replacement protocol - Magnesium, phosphorus and potassium are being replaced - Monitor BMP daily Hypoglycemia -Continue on Clinimix infusion to avoid hypoglycemia Hypertension Hyperlipidemia - Allow permissive hypertension - No need to repeat 2D echo -Resume statin after passes swallow study Dispo: -SNF, pending selection from spouse - COMPLIANCE REVIEWER eval anticipated today
[2025-06-22] MEDS: LACTULOSE 20 GM/30 ML UCUP PO SCH (21:01)
[2025-06-22 22:07] LABS: Urine Microscopic Reflex YN NO UMIC
[2025-06-23] MEDS ORDERED: LACTULOSE 20 GM/30 ML UCUP PO SCH (09:00)
[2025-06-23] MEDS: CEFTRIAXONE 2,000 MG in NA CHLORIDE 0.9% 100 ML IV SCH (09:00)
[2025-06-23] MEDS: LACTULOSE 20 GM/30 ML UCUP PO SCH (09:00)
[2025-06-23 09:12] LABS: Absolute Lymphocytes (CBC) 1.3 K/uL (0.7-4.9); Hematocrit 47.9 % (39.6-49.0); Hemoglobin 16.0 g/dL (13.6-17.9); MCH 32.0 pg (27.0-35.0); MCHC 33.4 g/dL (32.0-36.0); MCV 95.7 fL (80-100); MPV 9.9 fL (7.6-11.3); Nucleated RBC Absolute Count 0.0 (0-0); Nucleated Red Blood Cells % 0.1 % (0-0); RBC Red Blood Cell Count 5.01 M/uL (4.33-5.43); White Blood Count 11.70 thou/uL (4.3-10.9)
[2025-06-23 09:39] LABS: ALT/SGPT 31.0 U/L (16-61); AST/SGOT 25.0 U/L (15-37); Albumin 2.9 g/dL (3.4-5.0); Albumin/Globulin Ratio 0.7 (1.1-1.8); Alkaline Phosphatase 65.0 U/L (45-117); Anion Gap 12.7 mEq/L (5.0-15.0); BUN Blood Urea Nitrogen 29.0 mg/dL (7-18); Globulin 4.1 g/dL (2.3-3.5); Glucose Level 108.0 mg/dL (74-106); Potassium 4.7 mEq/L (3.5-5.1)
--- NOTE | 2025-06-23 13:40 | EEG ---
CHART: [id number] TEST ID#: [id number] DATE OF STUDY: 06/20/2025 THE EEG WAS RECORDED PORTABLE IN THE PATIENT'S ROOM ON A 17 CHANNEL MACHINE. ELECTRODES WERE APPLIED IN THE USUAL MANNER USING THE INTERNATIONAL 10-20 SYSTEM. THE WAKING BACKGROUND RHYTHM IN THIS RECORD CONSISTS OF POORLY DEVELOPED AND POORLY ORGANIZED WAVES OF 7 HZ., MAXIMAL IN THE POSTERIOR HEAD REGIONS WHICH ATTENUATE NORMALLY WITH EYE OPENING. LOW-VOLTAGE 15-18 HZ ACTIVITY IS EXPRESSED IN THE FRONTAL REGIONS. OCCASIONAL 1.5-3 HZ ACTIVITY IS EXPRESSED IN THE FRONTAL REGIONS. THERE ARE NO FOCAL OR LATERALIZING FEATURES. NO EPILEPTIFORM ACTIVITY APPEARS. SLEEP DID NOT OCCUR. IN ADDITION TO NORMAL SLEEP PATTERNS ARE PRESENT. HYPERVENTILATION WAS NOT PERFORMED. PHOTIC STIMULATION PRODUCED NO DRIVING BILATERALLY. IMPRESSION: THIS IS A MILDLY ABNORMAL AWAKE AND ASLEEP ROUTINE EEG DUE TO A MILDLY SLOW BACKGROUND. THIS IS A NON-SPECIFIC FINDING INDICATING THE PRESENCE OF A MILD DIFFUSE DISTRUBANCE IN CEREBRAL FUNCTION.
--- NOTE | 2025-06-23 15:34 | P.PN ---
Date of Service: 06/23/25 Subjective: He is alert and and tries to mumbles answers upon questioning. He is quite difficult to understand his speech. No family at bedside. Discussed with nursing staff. No acute events overnight. Tachycardic overnight Review of Systems Patient denies any acute complaints, but accuracy uncertain due to patient's mental status. Physical Examination Temp Pulse Resp BP Pulse Ox 98.0 F 122 H 18 156/99 H 99 06/19/25 08:00 06/19/25 08:00 06/19/25 08:00 06/19/25 08:00 06/19/25 08:00 - Physical Exam General: In no apparent distress (Responsive to tactile stimuli), Obese, minimal verbalizations HEENT: Atraumatic, Normocephalic, Mucous membr. moist/pink Neck: Supple, 2+ carotid pulse no bruit, JVD not distended, No Thyromegaly Respiratory: Clear to auscultation bilaterally, Normal air movement, Diminished (bases) Cardiovascular: No edema, Normal pulses, Regular rate/rhythm, Normal S1 S2 Gastrointestinal: Normal bowel sounds, Soft and benign, Non-distended Musculoskeletal: No clubbing, No swelling, No contractures, No erythema, No tenderness, No warmth Integumentary: No rashes, No breakdown, No significant lesion, No tenderness/swelling, No erythema, No warmth, No cyanosis Neurological: Normal tone, Abnormal sensation (moves L extremities with tactile stimulation, no mvmt on ride extremities) Lymphatics: No axilla or inguinal lymphadenopathy External genitalia: Deferred Rectal: Deferred - Studies Medications List Reviewed: No Assessment And Plan - Plan Assessment Patient is a 84-year-old male with known history of recent left basal ganglia lacunar stroke who returns to the hospital a few days later complaining of slurred speech and right-sided weakness. His CT head revealed stable, known subacute infarct of the left basal ganglia. Patient had an NIH stroke scale of 9. tPA contraindicated due to recent CVA. He is currently with new neurologic deficits including visual deficits, expressive aphasia and worsening R sided weakness. 06/23 - Tachycardic overnight. Start gentle fluids - He is more alert today - Continue to mobilize - Avoid sedatives like benzos, sleeping aids, muscle relaxants - Schedule lactulose 3 times daily - Leukocytosis improving - Blood sugar control improved - Urinalysis negative - Encouraged to eat and drink more 06/22 - History of alcoholism per the . schedule lactulose twice daily. Give rectally - Continue to avoid benzos - Now with leukocytosis. Chest x-ray reviewed without any abnormality. White count jumped to 13.4 -Urinalysis pending. start Rocephin - Blood sugar within desired range 06/21 - Await EEG results, appreciate neurology recommendations - Trial lactulose suppositories - Avoid benzos if possible, and other sedating meds - Labs reviewed without gross abnormalities - Chest x-ray today with no acute abnormality - Continue Lopressor and Eliquis Strokelike symptoms Subacute stroke R sided functional deficits Dysphagia - Brain MRI redemonstrated left basal ganglia lacunar stroke - Currently tolerating pured diet pending repeat swallow evaluation - PT/OT following -TANK CAR LOADER following, expect reeval for swallow today Atrial fibrillation on chronic anticoagulationEliquis - Resume Eliquis after passing swallow study Hypokalemia Hypophosphatemia Hypomagnesemia - All resolved - electrolyte replacement protocol - Magnesium, phosphorus and potassium are being replaced - Monitor BMP daily Hypoglycemia -Continue on Clinimix infusion to avoid hypoglycemia Hypertension Hyperlipidemia - Allow permissive hypertension - No need to repeat 2D echo -Resume statin after passes swallow study Dispo: -SNF, pending selection from spouse - TANK CAR LOADER eval anticipated today
[2025-06-23] MEDS: NA CHLORIDE 0.9% 1,000 ML ONE (15:48)
[2025-06-23] MEDS: NA CHLORIDE 0.9% 1,000 ML IV SCH (15:55)
[2025-06-23] MEDS: CHLORPROMAZINE 25 MG TAB PO PRN (17:36)
--- NOTE | 2025-06-24 16:26 | P.PN ---
Date of Service: 06/24/20 Subjective: No acute events. Hiccups are improving. He is able to answer questions but it is difficult to understand his words. is here today. No fevers or chills Review of Systems Patient denies any acute complaints, but accuracy uncertain due to patient's mental status. Physical Examination Temp Pulse Resp BP Pulse Ox 98.0 F 122 H 18 156/99 H 99 06/19/25 08:00 06/19/25 08:00 06/19/25 08:00 06/19/25 08:00 06/19/25 08:00 - Physical Exam General: In no apparent distress (Responsive to tactile stimuli), Obese, minimal verbalizations HEENT: Atraumatic, Normocephalic, Mucous membr. moist/pink Neck: Supple, 2+ carotid pulse no bruit, JVD not distended, No Thyromegaly Respiratory: Clear to auscultation bilaterally, Normal air movement, Diminished (bases) Cardiovascular: No edema, Normal pulses, Regular rate/rhythm, Normal S1 S2 Gastrointestinal: Normal bowel sounds, Soft and benign, Non-distended Musculoskeletal: No clubbing, No swelling, No contractures, No erythema, No tenderness, No warmth Integumentary: No rashes, No breakdown, No significant lesion, No tenderness/swelling, No erythema, No warmth, No cyanosis Neurological: Normal tone, Abnormal sensation (moves L extremities with tactile stimulation, no mvmt on ride extremities) Lymphatics: No axilla or inguinal lymphadenopathy External genitalia: Deferred Rectal: Deferred - Studies Medications List Reviewed: No Assessment And Plan - Plan Assessment Patient is a 84-year-old male with known history of recent left basal ganglia lacunar stroke who returns to the hospital a few days later complaining of slurred speech and right-sided weakness. His CT head revealed stable, known subacute infarct of the left basal ganglia. Patient had an NIH stroke scale of 9. tPA contraindicated due to recent CVA. He is currently with new neurologic deficits including visual deficits, expressive aphasia and worsening R sided weakness. 06/24 - Became a bit more agitated last night - Labs still pending late in the afternoon early evening - Spoke with and he appears to be improving slightly. He was more talkative earlier and was able to eat something. - He largely remains sleepy. - Continue Rocephin as leukocytosis improved 06/23 - Tachycardic overnight. Start gentle fluids - He is more alert today - Continue to mobilize - Avoid sedatives like benzos, sleeping aids, muscle relaxants - Schedule lactulose 3 times daily - Leukocytosis improving - Blood sugar control improved - Urinalysis negative - Encouraged to eat and drink more 06/22 - History of alcoholism per the . schedule lactulose twice daily. Give rectally - Continue to avoid benzos - Now with leukocytosis. Chest x-ray reviewed without any abnormality. White count jumped to 13.4 -Urinalysis pending. start Rocephin - Blood sugar within desired range 06/21 - Await EEG results, appreciate neurology recommendations - Trial lactulose suppositories - Avoid benzos if possible, and other sedating meds - Labs reviewed without gross abnormalities - Chest x-ray today with no acute abnormality - Continue Lopressor and Eliquis Strokelike symptoms Subacute stroke R sided functional deficits Dysphagia - Brain MRI redemonstrated left basal ganglia lacunar stroke - Currently tolerating pured diet pending repeat swallow evaluation - PT/OT following -RETAIL COSMETICS SALES BEAUTY ADVISOR following, expect reeval for swallow today Atrial fibrillation on chronic anticoagulationEliquis - Resume Eliquis after passing swallow study Hypokalemia Hypophosphatemia Hypomagnesemia - All resolved - electrolyte replacement protocol - Magnesium, phosphorus and potassium are being replaced - Monitor BMP daily Hypoglycemia -Continue on Clinimix infusion to avoid hypoglycemia Hypertension Hyperlipidemia - Allow permissive hypertension - No need to repeat 2D echo -Resume statin after passes swallow study Dispo: -SNF, pending selection from spouse - RETAIL COSMETICS SALES BEAUTY ADVISOR eval anticipated today
[2025-06-24 16:59] LABS: Absolute Lymphocytes (CBC) 0.5 K/uL (0.7-4.9); Hematocrit 40.0 % (39.6-49.0); Hemoglobin 13.8 g/dL (13.6-17.9); MCH 32.8 pg (27.0-35.0); MCHC 34.4 g/dL (32.0-36.0); MCV 95.3 fL (80-100); MPV 10.5 fL (7.6-11.3); Nucleated RBC Absolute Count 0.0 (0-0); Nucleated Red Blood Cells % 0.3 % (0-0); RBC Red Blood Cell Count 4.19 M/uL (4.33-5.43); White Blood Count 5.30 thou/uL (4.3-10.9)
[2025-06-24 17:27] LABS: ALT/SGPT 30.0 U/L (16-61); AST/SGOT 34.0 U/L (15-37); Albumin 2.5 g/dL (3.4-5.0); Albumin/Globulin Ratio 0.7 (1.1-1.8); Alkaline Phosphatase 60.0 U/L (45-117); Anion Gap 10.2 mEq/L (5.0-15.0); BUN Blood Urea Nitrogen 15.0 mg/dL (7-18); Globulin 3.5 g/dL (2.3-3.5); Glucose Level 96.0 mg/dL (74-106); Potassium 4.2 mEq/L (3.5-5.1)
[2025-06-25 06:41] LABS: Absolute Lymphocytes (CBC) 0.6 K/uL (0.7-4.9); Hematocrit 38.6 % (39.6-49.0); Hemoglobin 13.2 g/dL (13.6-17.9); MCH 32.8 pg (27.0-35.0); MCHC 34.2 g/dL (32.0-36.0); MCV 95.8 fL (80-100); MPV 10.2 fL (7.6-11.3); Nucleated RBC Absolute Count 0.0 (0-0); Nucleated Red Blood Cells % 0.1 % (0-0); RBC Red Blood Cell Count 4.03 M/uL (4.33-5.43); White Blood Count 5.80 thou/uL (4.3-10.9)
[2025-06-25 07:01] LABS: ALT/SGPT 26.0 U/L (16-61); AST/SGOT 43.0 U/L (15-37); Albumin 2.3 g/dL (3.4-5.0); Albumin/Globulin Ratio 0.7 (1.1-1.8); Alkaline Phosphatase 56.0 U/L (45-117); Anion Gap 8.1 mEq/L (5.0-15.0); BUN Blood Urea Nitrogen 14.0 mg/dL (7-18); Globulin 3.2 g/dL (2.3-3.5); Glucose Level 97.0 mg/dL (74-106); Potassium 4.1 mEq/L (3.5-5.1)
--- NOTE | 2025-06-25 15:27 | P.PN ---
Date of Service: 06/25/25 Subjective: No acute events. He is not taking his chlorpromazine he is able to answer questions but it is difficult to understand his words. is here today. No fevers or chills Review of Systems Patient denies any acute complaints, but accuracy uncertain due to patient's mental status. Physical Examination Temp Pulse Resp BP Pulse Ox 98.0 F 122 H 18 156/99 H 99 06/19/25 08:00 06/19/25 08:00 06/19/25 08:00 06/19/25 08:00 06/19/25 08:00 - Physical Exam General: In no apparent distress (Responsive to tactile stimuli), Obese, minimal verbalizations HEENT: Atraumatic, Normocephalic, Mucous membr. moist/pink Neck: Supple, 2+ carotid pulse no bruit, JVD not distended, No Thyromegaly Respiratory: Clear to auscultation bilaterally, Normal air movement, Diminished (bases) Cardiovascular: No edema, Normal pulses, Regular rate/rhythm, Normal S1 S2 Gastrointestinal: Normal bowel sounds, Soft and benign, Non-distended Musculoskeletal: No clubbing, No swelling, No contractures, No erythema, No tenderness, No warmth Integumentary: No rashes, No breakdown, No significant lesion, No tenderness/swelling, No erythema, No warmth, No cyanosis Neurological: Normal tone, Abnormal sensation (moves L extremities with tactile stimulation, no mvmt on ride extremities) Lymphatics: No axilla or inguinal lymphadenopathy External genitalia: Deferred Rectal: Deferred - Studies Medications List Reviewed: No Assessment And Plan - Plan Assessment Patient is a 84-year-old male with known history of recent left basal ganglia lacunar stroke who returns to the hospital a few days later complaining of slurred speech and right-sided weakness. His CT head revealed stable, known subacute infarct of the left basal ganglia. Patient had an NIH stroke scale of 9. tPA contraindicated due to recent CVA. He is currently with new neurologic deficits including visual deficits, expressive aphasia and worsening R sided weakness. 06/25 - Remains tachycardic overnight. Start fluids 50 cc and will stop tomorrow. Start Klonopin twice daily as needed - Add losartan for improved blood pressure control - Continue Rocephin started on 06/23. - Resume home medication - Await acceptance to rehab - [facility] for hiccups - Continue lactulose 06/24 - Became a bit more agitated last night - Labs still pending late in the afternoon early evening - Spoke with and he appears to be improving slightly. He was more talkative earlier and was able to eat something. - He largely remains sleepy. - Continue Rocephin as leukocytosis improved 06/23 - Tachycardic overnight. Start gentle fluids - He is more alert today - Continue to mobilize - Avoid sedatives like benzos, sleeping aids, muscle relaxants - Schedule lactulose 3 times daily - Leukocytosis improving - Blood sugar control improved - Urinalysis negative - Encouraged to eat and drink more 06/22 - History of alcoholism per the . schedule lactulose twice daily. Give rectally - Continue to avoid benzos - Now with leukocytosis. Chest x-ray reviewed without any abnormality. White count jumped to 13.4 -Urinalysis pending. start Rocephin - Blood sugar within desired range 06/21 - Await EEG results, appreciate neurology recommendations - Trial lactulose suppositories - Avoid benzos if possible, and other sedating meds - Labs reviewed without gross abnormalities - Chest x-ray today with no acute abnormality - Continue Lopressor and Eliquis Strokelike symptoms Subacute stroke R sided functional deficits Dysphagia - Brain MRI redemonstrated left basal ganglia lacunar stroke - Currently tolerating pured diet pending repeat swallow evaluation - PT/OT following -COLLECTION SYSTEMS MODELER following, expect reeval for swallow today Atrial fibrillation on chronic anticoagulationEliquis - Resume Eliquis after passing swallow study Hypokalemia Hypophosphatemia Hypomagnesemia - All resolved - electrolyte replacement protocol - Magnesium, phosphorus and potassium are being replaced - Monitor BMP daily Hypoglycemia -Continue on Clinimix infusion to avoid hypoglycemia Hypertension Hyperlipidemia - Allow permissive hypertension - No need to repeat 2D echo -Resume statin after passes swallow study Dispo: -SNF, pending selection from spouse
[2025-06-25] MEDS: NA CHLORIDE 0.9% 1,000 ML IV SCH (16:17)
[2025-06-25] MEDS: clonazePAM 0.5 MG TAB PO PRN (19:04)
[2025-06-26 05:23] VITALS: BMI 26.8
[2025-06-26] MEDS: LOSARTAN POTASSIUM 50 MG TABLET PO SCH (08:50)
[2025-06-26] MEDS ORDERED: IPRATROPIUM BROM 0.5MG/2.5ML NEB PRN (12:09)
[2025-06-27 05:59] LABS: Absolute Lymphocytes (CBC) 0.8 K/uL (0.7-4.9); Hematocrit 39.7 % (39.6-49.0); Hemoglobin 13.6 g/dL (13.6-17.9); MCH 32.6 pg (27.0-35.0); MCHC 34.3 g/dL (32.0-36.0); MCV 94.9 fL (80-100); MPV 9.3 fL (7.6-11.3); Nucleated RBC Absolute Count 0.0 (0-0); Nucleated Red Blood Cells % 0.0 % (0-0); RBC Red Blood Cell Count 4.19 M/uL (4.33-5.43); White Blood Count 5.40 thou/uL (4.3-10.9)
[2025-06-27 06:13] LABS: Anion Gap 7.8 mEq/L (5.0-15.0); BUN Blood Urea Nitrogen 13.0 mg/dL (7-18); Glucose Level 106.0 mg/dL (74-106); Potassium 3.8 mEq/L (3.5-5.1)
[2025-06-28] MEDS ORDERED: THIAMINE 200 MG/2 ML INJ ONE (02:22)
[2025-06-28] MEDS ORDERED: MULTIVITAMINS 10 ML VIAL (INJ) IV ONE (02:23)
[2025-06-28] MEDS ORDERED: FOLIC ACID 5 MG/ML VIAL ONE (02:24)
[2025-06-28] MEDS ORDERED: NA CHLORIDE 0.9% 1,000 ML ONE (02:25)
[2025-06-28] MEDS: MELATONIN 3 MG TABLET PO ONE (20:57)
[2025-06-29] MEDS ORDERED: IPRATROPIUM BROM 0.5MG/2.5ML NEB PRN (14:35)
[2025-06-29] MEDS: MELATONIN 3 MG TABLET PO PRN (20:35)
[2025-06-30] MEDS: ENSURE ENLIVE 237 ML CAN PO SCH (13:42)
[2025-06-30] MEDS: PANTOPRAZOLE 40MG TABLET PO SCH (17:56)
[2025-06-30] MEDS: D5 0.45 NS 1,000 ML IV SCH (17:56)
--- NOTE | 2025-07-03 05:42 | P.PN ---
Date of Service: 06/26/25 Subjective Patient was seen and examined. Events of the last 24 hours have been noted. Patient status post basal ganglia infarct. Patient with significant weakness on the right side. Patient is also slightly aphasic but no evidence of stroke in the left MCA territory. Patient walked 80 ft with physical therapy. Patient is a great candidate for inpatient rehab. Patient has some contractures of the right upper extremity which are new. Patient will continue on anticoagulation with Eliquis as well as anti-platelet regimen and statin therapy. Continue with monitoring blood pressure closely and gradually reduce blood pressure to normal control. Continue with current plan of care at this time. Will try to get approval to inpatient rehab. Physical Examination - Vitals Reviewed - Physical Exam General: In no apparent distress (Responsive to voice and tactile stimuli), minimal verbalizations Respiratory: Clear to auscultation bilaterally, Normal air movement, Diminished (bases) Cardiovascular: Regular rate/rhythm, Normal S1 S2 Gastrointestinal: Normal bowel sounds, Soft and benign, Non-distended Musculoskeletal: No clubbing, No swelling, No contractures, No erythema, No tenderness, No warmth Integumentary: No rashes, No breakdown, No significant lesion, No tendernes s/swelling, No erythema, No warmth, No cyanosis Neurological: weakness with contractures of right upper ext. Assessment And Plan - Assessment/Plan Assessment Patient is a 84-year-old male with known history of recent left basal ganglia lacunar stroke who returns to the hospital a few days later complaining of slurred speech and right-sided weakness. His CT head revealed stable, known subacute infarct of the left basal ganglia. Patient had an NIH stroke scale of 9. tPA contraindicated due to recent CVA. He is currently with new neurologic deficits including visual deficits, expressive aphasia and worsening R sided weakness. Plan: Strokelike symptoms Subacute stroke R sided functional deficits Dysphagia - Brain MRI redemonstrated left basal ganglia lacunar stroke - Currently tolerating pured diet pending repeat swallow evaluation - PT/OT following -SEEDLING PULLER following, expect reeval for swallow today Atrial fibrillation on chronic anticoagulationEliquis - Resume Eliquis Hypokalemia Hypophosphatemia Hypomagnesemia - electrolyte replacement protocol - Magnesium, phosphorus and potassium are being replaced - Monitor BMP daily Hypoglycemia -wean off Clinimix infusion; diet as tolerated Hypertension Hyperlipidemia - Allow permissive hypertension - No need to repeat 2D echo -Resume statin after passes swallow study Dispo: -SNF, pending selection from spouse -SEEDLING PULLER eval anticipated today
--- NOTE | 2025-07-03 05:44 | P.PN ---
Date of Service: 06/27/25 Subjective Chart reviewed; pt stable-awaiting placement Physical Examination - Vitals Reviewed - Physical Exam General: In no apparent distress (Responsive to voice and tactile stimuli), minimal verbalizations Gastrointestinal: Normal bowel sounds, Soft and benign, Non-distended Musculoskeletal: No clubbing, No swelling, No contractures, No erythema, No tenderness, No warmth Neurological: weakness with contractures of right upper ext. Assessment And Plan - Assessment/Plan Assessment Patient is a 84-year-old male with known history of recent left basal ganglia lacunar stroke who returns to the hospital a few days later complaining of slurred speech and right-sided weakness. His CT head revealed stable, known subacute infarct of the left basal ganglia. Patient had an NIH stroke scale of 9. tPA contraindicated due to recent CVA. He is currently with new neurologic deficits including visual deficits, expressive aphasia and worsening R sided weakness. Plan Strokelike symptoms Subacute stroke R sided functional deficits Dysphagia - awaiting rehab placement Atrial fibrillation on chronic anticoagulationEliquis - Resume Eliquis Hypokalemia Hypophosphatemia Hypomagnesemia - electrolyte replacement protocol - Magnesium, phosphorus and potassium are being replaced - Monitor BMP daily Hypoglycemia -plan to wean off Clinimix infusion; diet as tolerated Hypertension Hyperlipidemia - Allow permissive hypertension - No need to repeat 2D echo - Resume statin Dispo: -SNF vs IPR
--- NOTE | 2025-07-03 05:45 | P.PN ---
Date of Service: 06/28/25 Subjective Awaiting placement Physical Examination - Vitals Reviewed - Physical Exam General: In no apparent distress (Responsive to voice and tactile stimuli), minimal verbalizations Gastrointestinal: Normal bowel sounds, Soft and benign, Non-distended Musculoskeletal: No clubbing, No swelling, No contractures, No erythema, No tenderness, No warmth Neurological: weakness with contractures of right upper ext. Assessment And Plan - Assessment/Plan Assessment Patient is a 84-year-old male with known history of recent left basal ganglia lacunar stroke who returns to the hospital a few days later complaining of slurred speech and right-sided weakness. His CT head revealed stable, known subacute infarct of the left basal ganglia. Patient had an NIH stroke scale of 9. tPA contraindicated due to recent CVA. He is currently with new neurologic deficits including visual deficits, expressive aphasia and worsening R sided weakness. Plan Strokelike symptoms Subacute stroke Rt sided functional deficits Dysphagia - awaiting rehab vs SNF placement Atrial fibrillation on chronic anticoagulationEliquis - Resume Eliquis Hypokalemia Hypophosphatemia Hypomagnesemia - electrolyte replacement protocol - Magnesium, phosphorus and potassium are being replaced - Monitor BMP daily Hypoglycemia -plan to wean off Clinimix infusion; diet as tolerated Hypertension Hyperlipidemia - Allow permissive hypertension - No need to repeat 2D echo - Resume statin Dispo: -SNF vs IPR
--- NOTE | 2025-07-03 05:47 | P.PN ---
Date of Service: 06/30/25 Subjective Awaiting placement; eating without difficulty; no longer requiring 1:1 supervision-may go to [place] or [facility] Physical Examination - Vitals Reviewed - Physical Exam General: In no apparent distress (Responsive to voice and tactile stimuli), minimal verbalizations Gastrointestinal: Normal bowel sounds, Soft and benign, Non-distended Musculoskeletal: No clubbing, No swelling, No contractures, No erythema, No tenderness, No warmth Neurological: weakness with contractures of right upper ext. Assessment And Plan - Assessment/Plan Assessment Patient is a 84-year-old male with known history of recent left basal ganglia lacunar stroke who returns to the hospital a few days later complaining of slurred speech and right-sided weakness. His CT head revealed stable, known subacute infarct of the left basal ganglia. Patient had an NIH stroke scale of 9. tPA contraindicated due to recent CVA. He is currently with new neurologic deficits including visual deficits, expressive aphasia and worsening R sided weakness. Plan Strokelike symptoms Subacute stroke Rt sided functional deficits Dysphagia - awaiting rehab vs SNF placement; tolerating diet; participating some what with PT Atrial fibrillation on chronic anticoagulationEliquis - Resume Eliquis Hypokalemia Hypophosphatemia Hypomagnesemia - electrolyte replacement protocol - Magnesium, phosphorus and potassium are being replaced - Monitor BMP daily Hypoglycemia -plan to wean off Clinimix infusion; diet as tolerated Hypertension Hyperlipidemia - Allow permissive hypertension - No need to repeat 2D echo - Resume statin Dispo: -SNF vs [facility]
--- NOTE | 2025-07-03 05:47 | P.PN ---
Date of Service: 06/29/25 Subjective Awaiting placement; eating without difficulty; no longer requiring 1:1 supervision Physical Examination - Vitals Reviewed - Physical Exam General: In no apparent distress (Responsive to voice and tactile stimuli), minimal verbalizations Gastrointestinal: Normal bowel sounds, Soft and benign, Non-distended Musculoskeletal: No clubbing, No swelling, No contractures, No erythema, No tenderness, No warmth Neurological: weakness with contractures of right upper ext. Assessment And Plan - Assessment/Plan Assessment Patient is a 84-year-old male with known history of recent left basal ganglia lacunar stroke who returns to the hospital a few days later complaining of slurred speech and right-sided weakness. His CT head revealed stable, known subacute infarct of the left basal ganglia. Patient had an NIH stroke scale of 9. tPA contraindicated due to recent CVA. He is currently with new neurologic deficits including visual deficits, expressive aphasia and worsening R sided weakness. Plan Strokelike symptoms Subacute stroke Rt sided functional deficits Dysphagia - awaiting rehab vs SNF placement; tolerating diet; participating some what with PT Atrial fibrillation on chronic anticoagulationEliquis - Resume Eliquis Hypokalemia Hypophosphatemia Hypomagnesemia - electrolyte replacement protocol - Magnesium, phosphorus and potassium are being replaced - Monitor BMP daily Hypoglycemia -plan to wean off Clinimix infusion; diet as tolerated Hypertension Hyperlipidemia - Allow permissive hypertension - No need to repeat 2D echo - Resume statin Dispo: -SNF vs IPR
--- NOTE | 2025-07-03 05:48 | P.PN ---
Date of Service: 07/01/25 Subjective Awaiting placement; eating without difficulty; no longer requiring 1:1 supervision-may go to [place] or [facility]. ori tries to get out of bed but is able to be redirected Physical Examination - Vitals Reviewed - Physical Exam General: In no apparent distress (Responsive to voice and tactile stimuli), minimal verbalizations Gastrointestinal: Normal bowel sounds, Soft and benign, Non-distended Musculoskeletal: No clubbing, No swelling, No contractures, No erythema, No tenderness, No warmth Neurological: weakness with contractures of right upper ext. Assessment And Plan - Assessment/Plan Assessment Patient is a 84-year-old male with known history of recent left basal ganglia lacunar stroke who returns to the hospital a few days later complaining of slurred speech and right-sided weakness. His CT head revealed stable, known subacute infarct of the left basal ganglia. Patient had an NIH stroke scale of 9. tPA contraindicated due to recent CVA. He is currently with new neurologic deficits including visual deficits, expressive aphasia and worsening R sided weakness. Plan Strokelike symptoms Subacute stroke Rt sided functional deficits Dysphagia - awaiting rehab vs SNF placement; tolerating diet; participating some what with PT Atrial fibrillation on chronic anticoagulationEliquis - Resume Eliquis Hypokalemia Hypophosphatemia Hypomagnesemia - electrolyte replacement protocol - Magnesium, phosphorus and potassium are being replaced - Monitor BMP daily Hypoglycemia -plan to wean off Clinimix infusion; diet as tolerated Hypertension Hyperlipidemia - Allow permissive hypertension - No need to repeat 2D echo - Resume statin Dispo: -[facility] vs [facility]
--- NOTE | 2025-07-03 05:51 | P.PN ---
Date of Service: 07/02/25 Subjective Still awaiting placement; eating without difficulty; surses state hes tolerating pureed meals; eats about 50%; minimal activity but participates with PT; does better when is available. cannot have 1:1 supervision to go to rehab or SNF; easily redirected-may go to [place] or [facility]. Physical Examination - Vitals Reviewed - Physical Exam General: In no apparent distress (Responsive to voice and tactile stimuli), minimal verbalizations Gastrointestinal: Normal bowel sounds, Soft and benign, Non-distended Musculoskeletal: No clubbing, No swelling, No contractures, No erythema, No tenderness, No warmth Neurological: weakness with contractures of right upper ext. participating with PT Assessment And Plan - Assessment/Plan Assessment Patient is a 84-year-old male with known history of recent left basal ganglia lacunar stroke who returns to the hospital a few days later complaining of slurred speech and right-sided weakness. His CT head revealed stable, known subacute infarct of the left basal ganglia. Patient had an NIH stroke scale of 9. tPA contraindicated due to recent CVA. He is currently with new neurologic deficits including visual deficits, expressive aphasia and worsening R sided weakness. Plan Strokelike symptoms Subacute stroke Rt sided functional deficits Dysphagia - awaiting rehab vs SNF placement; tolerating diet; participating some what with PT Atrial fibrillation on chronic anticoagulationEliquis - Resume Eliquis Hypokalemia Hypophosphatemia Hypomagnesemia - electrolyte replacement protocol - Magnesium, phosphorus and potassium are being replaced - Monitor BMP daily Hypoglycemia -plan to wean off Clinimix infusion; diet as tolerated Hypertension Hyperlipidemia - Allow permissive hypertension - No need to repeat 2D echo - Resume statin Dispo: -SNF vs [facility]
[2025-07-03 07:59] LABS: ALT/SGPT 52.0 U/L (16-61); AST/SGOT 35.0 U/L (15-37); Albumin 2.6 g/dL (3.4-5.0); Albumin/Globulin Ratio 0.7 (1.1-1.8); Alkaline Phosphatase 82.0 U/L (45-117); Anion Gap 10.8 mEq/L (5.0-15.0); BUN Blood Urea Nitrogen 6.0 mg/dL (7-18); Globulin 3.7 g/dL (2.3-3.5); Glucose Level 97.0 mg/dL (74-106); Potassium 3.8 mEq/L (3.5-5.1)
[2025-07-03 08:26] LABS: Absolute Lymphocytes (CBC) 0.9 K/uL (0.7-4.9); Hematocrit 43.8 % (39.6-49.0); Hemoglobin 15.2 g/dL (13.6-17.9); MCH 32.7 pg (27.0-35.0); MCHC 34.7 g/dL (32.0-36.0); MCV 94.3 fL (80-100); MPV 10.2 fL (7.6-11.3); Nucleated RBC Absolute Count 0.0 (0-0); Nucleated Red Blood Cells % 0.2 % (0-0); RBC Red Blood Cell Count 4.64 M/uL (4.33-5.43); White Blood Count 6.50 thou/uL (4.3-10.9)
--- NOTE | 2025-07-03 17:31 | P.PN ---
Subjective Date of Service: 07/03/25 Chief Complaint: Stroke symptoms No major issues reported last night. No major changes from yesterday. No reported agitation. Physical Examination - Vital Signs Temperature: 98.0 F Blood Pressure: 142/97 Pulse: 135 Respirations: 16 Pulse Ox (%): 95 - Studies Medications List Reviewed: No Assessment And Plan - Plan Physical examination General: Alert and oriented x 1, NAD, Neck: Supple, no elevated JVD Heart: Heart sounds 1 and 2 normal, regular rhythm, normal rate, no pedal edema Lungs: Clear to auscultation bilaterally, adequate breath sounds bilaterally, no rhonchi or crackles. Abdomen: Soft, nondistended, nontender, normal bowel sounds. Extremities: No tenderness. Neuro: Right-sided weakness Psychiatry: Normal mood, no agitation. Plan Strokelike symptoms Subacute stroke Rt sided functional deficits Dysphagia awaiting rehab vs SNF placement; tolerating diet; Continue PT. Continue aspirin, Eliquis and Lipitor Atrial fibrillation on chronic anticoagulationEliquis Continue Eliquis and metoprolol Cardiology consult for uncontrolled A-fib. Hypokalemia Hypophosphatemia Hypomagnesemia Replace electrolytes as needed Monitor BMP daily Hypoglycemia Off Clinimix. Patient is tolerating pured diet. No more hypoglycemia episodes Hypertension Hyperlipidemia Patient is on statin and metoprolol. Titrate metoprolol for BP control Dispo: -SNF vs IPR
[2025-07-03] MEDS: POTASSIUM CL SA 10 MEQ TAB PO ONE (21:00)
[2025-07-03] MEDS: KCL 20 MEQ/100 mL IVPB 20 MEQ/100 ML BAG IV ONE (21:28)
--- NOTE | 2025-07-04 11:00 | P.PN ---
Date of Service: 07/04/25 Subjective: HR up to 140s today minimal /PO intake confused, oriented to self Physical Exam: Gen: Alert, Oriented x1, NAD CV: afib, no edema Pulm: Nonlabored respirations on room air, clear bilaterally Abdomen: Soft, nontender, nondistended Neuro: Right-sided weakness Problem List: Acute left basal ganglia lacunar infarct with right sided deficits Dysphagia Uncontrolled A-fib on chronic anticoagulation Hypokalemia Hypophosphatemia Hypomagnesemia Hypertension Hyperlipidemia Acute left basal ganglia lacunar infarct with right sided deficits Dysphagia MRI brain (06/16): Acute left basal ganglia lacunar infarct with some interval infarct extension compared with 06/13/2025 EEG showed mildly abnormal EEG due to slow background. Stable. Awaiting rehab vs SNF placement tolerating diet without issues Continue PT Continue folic acid, thiamine, statin Of note, Patient last received Eliquis/Aspirin on 06/21. There seems to have been some concern for aspiration given his increased lethargic state at the time and coughing episode. Per prior notes was waiting for swallow study before restarting but hes taking other oral meds currently. Unsure why still on hold. resume eliquis, asa 81mg Uncontrolled A-fib on chronic anticoagulation Cardiology consulted Dr. Dias recommending increasing metoprolol to 100 mg BID Load IV amio and start IV amio drip Place on telemetry and get echo resume eliquis Hypokalemia Hypophosphatemia Hypomagnesemia monitor and replete electrolytes as needed Hypertension Hyperlipidemia continue statin, metoprolol VTE: resume eliquis Code: Full Dispo: SNF vs rehab pending better rate and rhythm control
--- NOTE | 2025-07-04 11:41 | P.CNS ---
Date of Consult: 07/04/25 Chief Complaint: Stroke symptoms History of Present Illness: Patient was admitted to the hospital for stroke, had long hospital stay, patient is hard to wake up, cardiology was consulted for atrial fibrillation, RVR. Allergies No Known Allergies Allergy (Unverified 05/20/12 18:57) Home medications list reviewed: Yes Home Medications: Folic Acid 1 mg PO DAILY 06/12/25 Metoprolol Succinate [Toprol Xl*] 75 mg PO BID 06/12/25 Thiamine HCl [Vitamin B-1*] 100 mg PO DAILY 06/12/25 Apixaban [Eliquis] 5 mg PO BID #60 tablet 06/13/25 Atorvastatin Calcium [Lipitor*] 10 mg PO BEDTIME tab 06/20/25 diazePAM [Valium*] 5 mg PO Q6H PRN tab 06/20/25 - Past Medical/Surgical History Diabetic: No -: Hypertension -: GERD -: Hyperlipidemia -: Atrial fibrillation on chronic anticoagulation Psychosocial/ Personal History: Patient lives at home with family. - Social History Smoking Status: Unknown if ever smoked Alcohol use: Yes CD- Drugs: No Caffeine use: Yes Place of Residence: Home Review of Systems 10-point ROS is otherwise unremarkable Physical Examination Temp Pulse Resp BP Pulse Ox 97.3 F 125 H 16 159/95 H 96 07/04/25 08:00 07/04/25 08:00 07/04/25 08:00 07/04/25 08:00 07/04/25 08:00 General: In no apparent distress, Delirious HEENT: Atraumatic, PERRLA, Mucous membr. moist/pink, EOMI, Sclerae nonicteric Neck: Supple, 2+ carotid pulse no bruit, No LAD, Without JVD or thyroid abnormality Respiratory: Clear to auscultation bilaterally, Normal air movement Cardiovascular: Regular rate/rhythm, Normal S1 S2 Gastrointestinal: Normal bowel sounds, No tenderness Musculoskeletal: No tenderness Integumentary: No rashes Neurological: Normal gait, Normal speech, Normal tone, Normal affect Lymphatics: No axilla or inguinal lymphadenopathy - Problems (1) Atrial fibrillation Current Visit: Yes Status: Acute Plan: please place patient on tele monitor Amiodarone 150 mg IV x1 then continue drip per protocol increase lopressor to 100 mg po BID Continue Eliquis 5 mg po BID Get Echo (2) HTN (hypertension) Current Visit: Yes Status: Acute Plan: increase lopressor to 100 mg po BID Continue losartan.
[2025-07-04] MEDS ORDERED: AMIODARONE HCL 450 MG in D5W 241 ML IV SCH (14:00)
[2025-07-04] MEDS: AMIODARONE HCL 150 MG in D5W 100 ML IV STA (14:29)
[2025-07-04] MEDS: METOPROLOL TAR 50 MG TAB PO SCH (18:00)
[2025-07-05 12:10] VITALS: O2SAT 94
--- NOTE | 2025-07-05 12:17 | P.PN ---
Subjective Date of Service: 07/05/25 Chief Complaint: Stroke symptoms Subjective: No new changes Review of Systems 10-point ROS is otherwise unremarkable Physical Examination - Vital Signs Temperature: 96.3 F Blood Pressure: 150/97 Pulse: 114 Respirations: 18 Pulse Ox (%): 94 - Physical Exam General: In no apparent distress HEENT: Atraumatic, PERRLA, EOMI Neck: Supple, JVD not distended Respiratory: Clear to auscultation bilaterally, Normal air movement Cardiovascular: Normal S1 S2, Irregular heart rate/rhythm Gastrointestinal: Normal bowel sounds, No tenderness Musculoskeletal: No tenderness Integumentary: No rashes Neurological: Normal speech, Normal tone, Normal affect Lymphatics: No axilla or inguinal lymphadenopathy - Studies Medications List Reviewed: No Assessment And Plan - Current Problems (Diagnosis) (1) Atrial fibrillation Current Visit: Yes Status: Acute Plan: please place patient on tele monitor continue amiodarone drip per protocol lopressor to 100 mg po BID Continue Eliquis 5 mg po BID Get Echo (2) HTN (hypertension) Current Visit: Yes Status: Acute Plan: continue lopressor 100 mg po BID Continue losartan.
[2025-07-05] MEDS: AMIODARONE HCL 900 MG in Dextrose 5%-Water 482 ML IV SCH ×2 (13:24→16:00)
[2025-07-05] MEDS: DIGOXIN 0.25 MG/ML AMP IV ONE (17:40)
[2025-07-06] MEDS: DIGOXIN 0.25 MG/ML AMP ONE (06:03)
[2025-07-06] MEDS: DIGOXIN 0.25 MG/ML AMP IV ONE (06:06)
[2025-07-06] MEDS: AMIODARONE HCL 200 MG TAB PO SCH (08:02)
[2025-07-06 08:31] VITALS: TEMP 98
[2025-07-06 08:53] LABS: Absolute Lymphocytes (CBC) 1.0 K/uL (0.7-4.9); Hematocrit 45.8 % (39.6-49.0); Hemoglobin 15.5 g/dL (13.6-17.9); MCH 31.9 pg (27.0-35.0); MCHC 33.9 g/dL (32.0-36.0); MCV 94.1 fL (80-100); MPV 9.7 fL (7.6-11.3); Nucleated RBC Absolute Count 0.0 (0-0); Nucleated Red Blood Cells % 0.1 % (0-0); RBC Red Blood Cell Count 4.86 M/uL (4.33-5.43); White Blood Count 11.30 thou/uL (4.3-10.9)
[2025-07-06 09:03] LABS: Anion Gap 10.0 mEq/L (5.0-15.0); BUN Blood Urea Nitrogen 6.0 mg/dL (7-18); Glucose Level 88.0 mg/dL (74-106); Potassium 4.0 mEq/L (3.5-5.1)
--- NOTE | 2025-07-06 10:06 | P.PN ---
Subjective Date of Service: 07/06/25 Chief Complaint: Stroke symptoms Subjective: No new changes Review of Systems 10-point ROS is otherwise unremarkable Physical Examination - Vital Signs Temperature: 98 F Blood Pressure: 183/113 Pulse: 99 Respirations: 15 Pulse Ox (%): 97 - Physical Exam General: Alert, In no apparent distress HEENT: Atraumatic, PERRLA, EOMI Neck: Supple, JVD not distended Respiratory: Clear to auscultation bilaterally, Normal air movement Cardiovascular: Regular rate/rhythm, Normal S1 S2 Gastrointestinal: Normal bowel sounds, No tenderness Musculoskeletal: No tenderness Integumentary: No rashes Neurological: Normal speech, Normal tone, Normal affect Lymphatics: No axilla or inguinal lymphadenopathy - Studies Medications List Reviewed: No Assessment And Plan - Current Problems (Diagnosis) (1) Atrial fibrillation Current Visit: Yes Status: Acute Plan: please place patient on tele monitor Amiodarone 200 mg po BID lopressor to 100 mg po BID Continue Eliquis 5 mg po BID (2) HTN (hypertension) Current Visit: Yes Status: Acute Plan: continue lopressor 100 mg po BID Continue losartan. echo show low normal LV systolic function.
[2025-07-06 10:34] VITALS: BP 162/88
--- NOTE | 2025-07-06 10:42 | RAD REPORT ---
EXAMINATION: ONE VIEW CHEST XR CLINICAL INDICATION: Prior to going to rehab TECHNIQUE: Frontal chest projection is submitted. Examination is limited by patient positioning and t echnique. COMPARISON: 06/22/2025 FINDINGS: Lungs are grossly clear. Heart is moderately enlarged. No displaced fractures identified. Tortuous t horacic aorta. IMPRESSION: No acute intrathoracic abnormalities.
[2025-07-06] MEDS ORDERED: AMIODARONE HCL 900 MG in Dextrose 5%-Water 482 ML IV SCH (13:30)
== END 2025-07-06 11:08 | DRG 65 ==
LOC: ER 10:48 → 4TH 12:07 → OBSVTOIN 12:54 → 4TH 14:22
PROVIDERS: ADMIT Internal Medicine; ATTEND Hospitalist
PROC: 05HB33Z Insertion of Infusion Device into Right Basilic Vein, Percutaneous Approach (ICD-10-PCS; principal; 2025-06-24)
DX: I63.9 Cerebral infarction, unspecified (principal); I48.20 Chronic atrial fibrillation, unspecified; I69.351 Hemiplegia and hemiparesis following cerebral infarction affecting right dominant side; E87.6 Hypokalemia; E83.42 Hypomagnesemia; E16.2 Hypoglycemia, unspecified; E78.00 Pure hypercholesterolemia, unspecified; I10 Essential (primary) hypertension; H53.9 Unspecified visual disturbance; E66.9 Obesity, unspecified; E83.39 Other disorders of phosphorus metabolism; K21.9 Gastro-esophageal reflux disease without esophagitis; T45.516A Underdosing of anticoagulants, initial encounter; R13.10 Dysphagia, unspecified; R47.1 Dysarthria and anarthria; R47.01 Aphasia; R00.0 Tachycardia, unspecified; R47.81 Slurred speech; R29.709 NIHSS score 9; Z68.26 Body mass index [BMI] 26.0-26.9, adult; Z79.01 Long term (current) use of anticoagulants; Z85.46 Personal history of malignant neoplasm of prostate; Z79.899 Other long term (current) drug therapy; Z91.148 Patient's other noncompliance with medication regimen for other reason
CPT/HCPCS: 36415; 70450; 70496; 70498; 70551; 71045; 80048; 80053; 80076; 81003; 82140; 82565; 82947; 83605; 83735; 84100; 84132; 84443; 84484; 85025; 85610; 85730; 92610; 93005; 93306; 95816; 97110; 97116; 97161; 97165; 97530; 99285; G0378; J0282; J0696; J1160; J1650; J2405; J2470; J2765; J3411; J3475; J3480; J7030; J7040; J7060; J7613; J7644; J7799; Q0161; Q9967

== ENCOUNTER 2025-07-06 08:41 | Inpatient (IN) | payer OTHER ==
--- OUTSIDE RECORDS SUMMARY | 2025-07-06 09:38 | XMS REPORT | Continuity of Care Document ---
Author Name Unknown Address [address] [place] [address] [facility] [place] Address [address] [place] [address] Care Team Providers Care Machine Biller Name Role Phone [facility] NATA, [facility] Primary Care Physician BON NORMAN Attending Clinician Unavailable Rivka Ureña Attending Clinician [phone] DK ACE Attending Clinician Unavailable Dk Ace MD Attending Clinician +- [phone] Doctor Unassigned, [place] Attending Clinician U Cesar Woods Attending Clinician +- [phone] CESAR MERCEDES Attending Clinician Unavailable 2, [facility] Attending Clinician Unavailable Vaccine, [facility] Attending Clinician Unavailable TOMMY KRAUS Attending Clinician Unavailable Tommy Kraus MD Attending Clinician [phone] Savage Lopez MD Attending Clinician [phone] Tommy Paez MD Attending Clinician [phone] TOMMY PAEZ Attending Clinician UnavailLORETA Whittaker Attending Clinician UnavailLoreta Whittaker MD Attending Clinician [phone] Julia Varner RN Attending Clinician Unavailable MIRTHA JOHNSON Attending Clinician UnavailYadiel Weir MD Attending Clinician Mariann LI, Mirtha Ca Attending Clinician TOMMY KRAUS Admitting Clinician Unavailable MIRTHA JOHNSON Admitting Clinician Unavailab jesenia Johnson MD, Mirtha Ca Admitting Clinician Payers Payer Name Policy Type Policy Number Effective Date Expirati on Date Source [place] [id number] 2021 00:00:00 Problems Condition Name Condition Details Condition Category Status Onset Date Resolution Date Last Treatment Date Treating Clinician Comments Source Mixed hyperlipid emia Mixed hyperlipid emia Disease Active 5-17 00:00: 00 [facility] Low vitamin D level Low vitamin D level Disease Active 5-17 00:00: 00 [facility] Arthritis, multiple joint involvemen t Arthritis, multiple joint involvemen t Disease Active 5-17 00:00: 00 [facility] Tachycardi a Tachycardi a Disease Active 7-05 00:00: 00 [facility] Chronic liver disease Chronic liver disease Disease Active 4- 00:00: 00 [facility] Calculus of gallbladde r without cholecysti tis without obstructio n Calculus of gallbladde r without cholecysti tis without obstructio n Disease Active 4-01 00:00: 00 [facility] Chronic alcohol use Chronic alcohol use Disease Active 4- 00:00: 00 [facility] Prostate carcinoma Prostate carcinoma Disease Active 4-01 00:00: 00 [facility] Chronic atrial fibrillati on Chronic atrial fibrillati on Disease Active 4-01 00:00: 00 [facility] Essential hypertensi on Essential hypertensi on Disease Active 4-01 00:00: 00 [facility] 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 Disease Active 3-13 00:00: 00 [facility] Allergies, Adverse Reactions, Alerts Allergy Name Allergy Type Status Severity Reaction(s) Onset Date Inactive Date Treating Clinician Comments Source none (Not Checked) Propensi ty to adverse reaction to drug Active 01-25 00:00: 00 Eric Stanton NO KNOWN ALLERGIE S Drug Class Active [facility] Social History Social Habit Start Date Stop Date Quantity Comments Source Gender identity [facility] Alcohol Frequency [facility] History SDOH Alcohol Std Drinks [facility] History SDOH Alcohol Binge [facility] Alcohol intake 2023-09-08 00:00:00 2023-09-08 00:00:00 Current drinker of alcohol (finding) [facility] Alcoholic beverage intake 2023-09-08 00:00:00 2023-09-08 00:00:00 Current drinker of alcohol (finding) [facility] Exposure to SARS-CoV-2 (event) 2023-02-01 00:00:00 2023-02-11 07:47:00 Not sure [facility] History of Social function 2022-10-14 00:00:00 2022-10-14 00:00:00 [facility] Tobacco use and exposure 2021-12-08 00:00:00 2021-12-08 00:00:00 Smokeless tobacco non-user [facility] Alcohol Comment 2021-12-08 00:00:00 2021-12-08 00:00:00 heavy hard liquor usage 2-3 xweek [facility] Sex assigned at 1940 00:00:00 1940 00:00:00 [facility] Smoking Status Start Date Stop Date Source Never smoked tobacco [facility] Medications Ordered Medication Name Filled Medication Name [...] capsule 4-16 00:00: 00 Yes 1mg Eric Stanton amlodipine 5 mg tablet 2023-09 2- 00:00: [...] 100 mg tablet 3 00:00: 00 Yes [id number] 100mg TAKE 1 TABLET BY MOUTH EVERY DAY IN THE MORNING [facility] thiamine HCl (vitamin B1) 100 mg tablet 12-06 00:00: 00 Yes mg Eric Stanton amlodipine 5 mg tablet 2- 00:00: 00 Yes mg Eric Stanton amLODIPine 5 mg tablet 2022-09 2 00:00: 00 Yes [id number] 5mg Take 1 tablet by mouth in the morning. [facility] furosemide 20 mg tablet 2022-09 00:00: 00 Yes [id number] 20mg Take 1 tablet by mouth in the morning. [facility] gabapentin 100 mg capsule 2022-09 00:00: 00 Yes [id number] 100mg Take 1 capsule by mouth in the morning and 1 capsule at noon and 1 capsule in the evening. [facility] losartan 25 mg tablet 2022-0915 00:00: 00 Yes [id number] 25mg Take 1 tablet by mouth in the morning. [facility] lovastatin 20 mg tablet 2022-09 00:00: 00 Yes [id number] 20mg Take 1 tablet by mouth at bedtime. [facility] metoprolol succinate XL 25 mg 24 hr tablet 2022-09 00:00: 00 Yes [id number] TAKE 3 TABLES BY MOUTH TWICE A DAY [facility] pantoprazol e 40 mg EC tablet 2022-09 00:00: 00 Yes [id number] 40mg Take 1 tablet by mouth in the morning and 1 tablet in the evening. [facility] TAKE 1 TABLET BY MOUTH EVERYDAY AT BEDTIME 2022-09 00:00: 00 Yes Eric tSanton TAKE 1 TABLET BY MOUTH EVERY DAY [...] 10mg Take 10 mg by mouth daily. [facility] metoprolol succinate ER 25 mg tablet,exte nded release 24 hr 2022-09 00:00: 00 Yes mg Eric Stanton gabapentin 100 mg capsule 2022-09 00:00: 00 09-11 00:00 :00 No [id number] TAKE 1 CAPSULE BY MOUTH THREE TIMES A DAY, MORNING, NOON, AND EVENING [facility] TAKE 3 TABLETS BY MOUTH TWICE A DAY 06-03 00:00: 00 Yes Eric Stanton TAKE 1 TABLET DAILY. 03-11 00:00: 00 02-08 00:00 :00 No 20 Eric Stanton TAKE 5 ML EVERY 4 TO 6 HOURS NEEDED. 03-11 00:00: 00 02-08 00:00 :00 No [id number] Eric Stanton TAKE 2 TABLETS ON DAY 1 THEN TAKE 1 TABLET A DAY FOR 4 DAYS. 03-11 00:00: 00 02-08 00:00 :00 No 250 Eric Stanton 1 CAP EVERY 8 HOURS NEEDED FOR COUGH 03-11 00:00: 00 02-08 00:00 :00 No 200 Eric Stanton gabapentin 100 mg capsule 02-12 00:00: 00 Yes mg Eric Stanton furosemide 20 mg tablet 02-11 [...] 02-11 00:00: 00 12-06 00:00 :00 No [id number] 100mg Take 1 tablet by mouth in the morning. [facility] pantoprazol e 40 mg EC tablet 02-11 00:00: 00 09-11 00:00 :00 No [id number] 40mg Take 1 tablet by mouth in the morning and 1 tablet in the evening. [facility] losartan 25 mg tablet 02-11 00:00: 00 09-11 00:00 :00 No [id number] 25mg Take 1 tablet by mouth in the morning. [facility] furosemide 20 mg tablet 02-11 00:00: 00 09-11 00:00 :00 No [id number] 20mg Take 1 tablet by mouth in the morning. [facility] amLODIPine 5 mg tablet 02-11 00:00: 00 09-11 00:00 :00 No [id number] 5mg Take 1 tablet by mouth in the morning. [facility] lovastatin 20 mg tablet 02-11 00:00: 00 2023- 12-15 00:00 :00 No [id number] 20mg Take 1 tablet by mouth at bedtime. [facility] gabapentin 100 mg capsule -17 00:00: 00 09-08 00:00 :00 No [id number] 103 100mg Take 1 capsule by mouth in the morning and 1 capsule at noon and 1 capsule in the evening. [facility] lovastatin 20 mg tablet 5-16 00:00: 00 [...] 10-14 00:00: 00 02-11 00:00 :00 No [id number] 20mg Take 1 tablet by mouth at bedtime. [facility] TAKE 1 TABLET BY MOUTH EVERY DAY -09 00:00: 00 Yes Eric Stanton TAKE 1 TABLET BID 2021-09 00:00: 00 02-08 00:00 :00 No 5 Eric Stanton TAKE 1 TABLET DAILY. 2021-09- 00:00: 00 02-08 00:00 :00 No 5 Eric Stanton TAKE 1 TABLET BY MOUTH EVERY DAY 2021-09- 00:00: 00 No Dose Unknown 2021-09 00:00: 00 Yes Eric Stanton METOPROLOL SUCCINATE ER 50MG ER TAB 2021-09 0-18 00:00: 00 No METOPROLOL SUCCINATE ER 50MG ER TAB 2021-09 018 00:00: 00 Yes Eric Stanton TAKE 1 TABLET BY MOUTH EVERY MORNING 2021-09 00:00: 00 Yes Eric Stanton vitamin B-12 (B-12 DOTS) 500 mcg tablet 2021-09 0 09:38: 45 07-02 00:00 :00 No 500ug Take 500 mcg by mouth daily. [facility] foLIC acid 1 mg tablet 2021-09 00:00: 00 Yes [id number] 1mg Take 1 tablet by mouth in the morning. [facility] calcium carbonate (CALCIUM 500) 500 mg calcium (1,250 mg) tablet 2021-09 00:00: 00 Yes [id number] 500mg Take 1 tablet by mouth in the morning. [facility] vitamin B-12 (B-12 DOTS) 500 mcg tablet 2021-09 00:00: 00 Yes [id number] 500ug Take 1 tablet by mouth in the morning. [facility] Diclofenac Sodium (VOLTAREN) 1 % gel 2021-09 00:00: 00 Yes [id number] 103 Apply 4g to affected area QID [facility] Lidocaine 5 % cream 2021-09 00:00: 00 Yes [id number] 103 Apply to area(s) 2 (two) times daily as needed for Pain (scale 4-6). Apply 5g to affected areas BID PRN [facility] TAKE 1 TABLET BY MOUTH EVERY DAY IN THE MORNING 2021-09 00:00: 00 Yes Eric Stanton TAKE 1 TABLET BY MOUTH EVERY DAY IN THE MORNING 2021-09 00:00: 00 Yes Eric Stanton thiamine 100 mg tablet 2021-09 0 00:00: 00 02-11 00:00 :00 No [id number] 100mg Take 1 tablet by mouth in the morning. [facility] pantoprazol e 40 mg EC tablet 2021-09 00:00: 00 02-11 00:00 :00 No [id number] 40mg Take 1 tablet by mouth in the morning and 1 tablet in the evening. [facility] apixaban (ELIQUIS) 2.5 mg tablet 2021-09 00:00: 00 02-11 00:00 :00 No [id number] 5mg Take 2 tablets by mouth in the morning and 2 tablets in the evening. Indication s: atrial fibrillati on [facility] amLODIPine 5 mg tablet 2021-09 0-05 00:00: 00 02-11 00:00 :00 No [id number] 5mg Take 1 tablet by mouth in the morning. [facility] furosemide 20 mg tablet 2021-09 0- 00:00: 00 02-11 00:00 :00 No [id number] 20mg Take 1 tablet by mouth in the morning. [facility] losartan 25 mg tablet 2021-09 0 00:00: 00 02-11 00:00 :00 No [id number] 25mg Take 1 tablet by mouth in the morning. [facility] gabapentin 100 mg capsule 2021-09 0 00:00: 00 02-11 00:00 :00 No [id number] 100mg Take 1 capsule by mouth in the morning and 1 capsule at noon and 1 capsule in the evening. [facility] metoprolol succinate XL 25 mg 24 hr tablet 2021-09 00:00: 00 01-14 00:00 :00 No [id number] 50mg Take 2 tablets by mouth in the morning and 2 tablets in the evening. [facility] METOPROLOL SUCCINATE XL 25 mg 24 hr tablet 04-17 00:00: 00 07-02 00:00 :00 No [id number] TAKE 3 TABLETS BY MOUTH 2 TIMES DAILY. [facility] ELIQUIS 5MG 04-14 00:00: 00 Yes 5000 Eric Stanton AMLODIPINE BESYLATE 5MG TAB 04-07 00:00: 00 No TAKE 1 TABLET BY MOUTH EVERY DAY 04-07 00:00: 00 No 100 AMLODIPINE BESYLATE 5MG TAB 04-07 00:00: 00 Yes Eric Stanton TAKE 1 TABLET BY MOUTH EVERY DAY 04-07 00:00: 00 Yes 100 Eric Stanton METOPROLOL SUCCINATE ER 25MG ER 04-05 00:00: 00 Yes [id number] Eric Stanton multivitami n tablet 04-01 00:00: 00 Yes [id number] 1{tbl} Take 1 tablet by mouth daily. [facility] metoprolol succinate XL 25 mg 24 hr tablet 04-01 00:00: 00 Yes [id number] 75mg Take 3 tablets by mouth 2 (two) times daily. [facility] FUROSEMIDE 20MG 04-01 00:00: 00 Yes Eric Stanton PANTOPRAZOL E SODIUM 40MG DR 04-01 00:00: 00 Yes Eric Stanton TAKE 1 TABLET BY MOUTH EVERY DAY 04-01 00:00: 00 Yes Eric Stanton TAKE 1 TABLET BY MOUTH EVERY DAY 04-01 00:00: 00 Yes Eric Stanton TAKE 1 TABLET BY MOUTH EVERY DAY 04-01 00:00: 00 Yes Eric Stanton apixaban (ELIQUIS) 2.5 mg tablet 04-01 00:00: 00 07-02 00:00 :00 No [id number] 5mg Take 2 tablets by mouth 2 (two) times daily. Indication s: atrial fibrillati on [facility] losartan 25 mg tablet 04-01 00:00: 00 07-02 00:00 :00 No [id number] 25mg Take 1 tablet by mouth daily. [facility] furosemide 20 mg tablet 04-01 00:00: 00 07-02 00:00 :00 No [id number] 20mg Take 1 tablet by mouth daily. [facility] amLODIPine 5 mg tablet 04-01 00:00: 00 07-02 00:00 :00 No [id number] 5mg Take 1 tablet by mouth daily. [facility] thiamine 100 mg tablet 04-01 00:00: 00 07-02 00:00 :00 No [id number] 100mg Take 1 tablet by mouth daily. [facility] pantoprazol e 40 mg EC tablet 04-01 00:00: 00 07-02 00:00 :00 No [id number] 40mg Take 1 tablet by mouth 2 (two) times daily. [facility] foLIC acid 1 mg tablet 05 00:00: 00 07-02 00:00 :00 No [id number] 1mg Take 1 tablet by mouth daily. [facility] AMLODIPINE BESYLATE 5MG 01-21 00:00: 00 Yes 5000 Eric Stanton cetirizine 10 mg tablet 12-27 14:03: 37 Yes 10mg Take 10 mg by mouth daily. [facility] Cholecalcif obi, Vitamin D3, 25 mcg (1,000 unit) capsule 12-27 14:03: 37 Yes 1{saqibu le} Take 1 capsule by mouth. [facility] NON-FORMULA RY MEDICATION 12-27 14:03: 37 Yes 1250mg 1,250 mg daily. Elderberry Sambucus [facility] vitamin B-12 (B-12 DOTS) 500 mcg tablet 12-27 14:03: 37 Yes 500ug Take 500 mcg by mouth daily. [facility] amLODIPine 5 mg tablet 12-27 00:00: 00 04-01 00:00 :00 No [id number] 5mg Take 1 tablet by mouth daily. [facility] apixaban (ELIQUIS) 2.5 mg tablet 12-27 00:00: 00 04-01 00:00 :00 No [id number] 5mg Take 2 tablets by mouth 2 (two) times daily. Indication s: atrial fibrillati on [facility] furosemide 20 mg tablet 12-27 00:00: 00 04-01 00:00 :00 No [id number] 20mg Take 1 tablet by mouth daily. [facility] losartan 25 mg tablet 12-27 00:00: 00 04-01 00:00 :00 No [id number] 25mg Take 1 tablet by mouth daily. [facility] foLIC acid 1 mg tablet 3-16 00:00: 00 04-01 00:00 :00 No [id number] 1mg Take 1 tablet by mouth daily. [facility] multivitami n tablet 12-11 00:00: 00 04-01 00:00 :00 No [id number] 1{tbl} Take 1 tablet by mouth daily. [facility] thiamine 100 mg tablet 12-11 00:00: 00 04-01 00:00 :00 No [id number] 100mg Take 1 tablet by mouth daily. [facility] METOPROLOL SUCCINATE ER 25MG ER 12-10 00:00: 00 Yes [id number] Eric Stanton TAKE 1 TABLET BY MOUTH EVERY DAY 12-10 00:00: 00 Yes Eric Stanton TAKE 1 TABLET BY MOUTH EVERY DAY 12-10 00:00: 00 Yes Eric Stanton metoprolol succinate XL 25 mg 24 hr tablet 12-10 00:00: 00 04-01 00:00 :00 No [id number] 75mg Take 3 tablets by mouth 2 (two) times daily. [facility] pantoprazol e 40 mg EC tablet 12-10 00:00: 00 04-01 00:00 :00 No [id number] 40mg Take 1 tablet by mouth 2 (two) times daily. [facility] pantoprazol e 40 mg tablet,carole yed release 2019-09 00:00: 00 No 1mg furosemide 20 mg tablet 2019-09 00:00: 00 No 1mg pantoprazol e 40 mg tablet,carole yed release 2019-09 00:00: 00 Yes 1mg Eric Stanton furosemide 20 mg tablet 2019-09 00:00: 00 Yes 1mg Eric Stanton metoprolol succinate ER 50 mg tablet,exte nded release 24 hr 02-05 00:00: 00 No 1mg Eliquis 5 mg tablet 02-05 00:00: 00 No 1mg metoprolol succinate ER 50 mg tablet,exte nded release 24 hr 02-05 00:00: 00 Yes 1mg Eric Stanton Eliquis 5 mg tablet 02-05 00:00: 00 Yes 1mg Eric Stanton ProAir HFA 90 mcg/actuati on aerosol inhaler 310 00:00: 00 No 12mcg/a lorino samy amlodipine 5 mg tablet 12-05 00:00: 00 No 1mg lovastatin 20 mg tablet 12-05 00:00: 00 No 1mg losartan 25 mg tablet 3 00:00: 00 No 1mg metoprolol tartrate 50 mg tablet 12-05 00:00: 00 No 1mg ProAir HFA 90 mcg/actuati on aerosol inhaler 12-05 00:00: 00 Yes 12mcg/a laylaalonzo Stanton amlodipine 5 mg tablet 12-05 00:00: 00 Yes 1mg Eric Stanton lovastatin 20 mg tablet 12-05 00:00: 00 Yes 1mg Eric Stanton losartan 25 mg tablet 12-05 00:00: 00 Yes 1mg Eric Stanton metoprolol tartrate 50 mg tablet 12-05 00:00: 00 Yes 1mg Eric Stanton amlodipine 5 mg tablet 2018-09 0 00:00: 00 No 1mg lovastatin 20 mg tablet 2018-09 0 00:00: 00 No 1mg losartan 25 mg [...] mg tablet 03-23 00:00: 00 No 1mg amlodipine 5 mg tablet 03-23 00:00: 00 Yes 1mg Eric Stanton lovastatin 20 mg tablet 03-23 00:00: 00 Yes 1mg Eric Stanton metoprolol tartrate 50 mg tablet 03-23 00:00: 00 Yes 1mg Eric Stanton chlorpromaz ine 25 mg tablet 10-08 00:00: 00 No 1mg chlorpromaz ine 25 mg tablet 10-08 00:00: 00 Yes 1mg Eric Stanton amlodipine [...] 03-04 00:00: 00 Yes 1mg Eric Stanton pantoprazol e 20 mg tablet,carole yed release 03-03 00:00: 00 No 1mg lisinopril 10 mg tablet 03-03 00:00: 00 No 1mg metoprolol tartrate 50 mg tablet 03-03 00:00: 00 No 1mg pantoprazol e 20 mg tablet,carole yed release 03-03 00:00: 00 Yes 1mg Eric Stanton lisinopril 10 mg tablet 03-03 00:00: 00 Yes 1mg Eric Stanton metoprolol tartrate 50 mg tablet 03-03 00:00: 00 Yes 1mg Eric Stanton pantoprazol e 40 mg tablet,carole yed release 12-10 00:00: 00 No 1mg metoprolol tartrate 50 mg tablet 12-10 00:00: 00 No 1mg pantoprazol e 40 [...] Im,preserve Free 65+ (FLUAD) 2023-12-07 00:00:00 Completed [facility] Pneumococcal Polysaccharide, PPSV23 (PNEUMOVAX) 2023-12-07 00:00:00 Completed [facility] SARS-COV-2 COVID-19 MODERNA 12+ YRS VACCINE 2023-12-07 00:00:00 Completed [facility] SARS-COV-2 COVID-19 VACCINE 12 YRS+, BIVALENT 0.5ML, IM, (MODERNA-BLUE TOP) 2023-12-07 00:00:00 Completed [facility] Pneumococcal 20 Conjugate, PCV20 (Prevnar 20) 2023-12-07 00:00:00 Completed [facility] Influenza Virus Vaccine,quad Im,preserve Free 65+ (FLUAD) 2023-09-23 00:00:00 Completed [facility] Pneumococcal Polysaccharide, PPSV23 (PNEUMOVAX) 2023-09-23 00:00:00 Completed [facility] SARS-COV-2 COVID-19 MODERNA 12+ YRS VACCINE 2023-09-23 00:00:00 Completed [facility] SARS-COV-2 COVID-19 VACCINE 12 YRS+, BIVALENT 0.5ML, IM, (MODERNA-BLUE TOP) 2023-09-23 00:00:00 Completed [facility] Pneumococcal 20 Conjugate, PCV20 (Prevnar 20) 2023-09-23 00:00:00 Completed [facility] Influenza Virus Vaccine,quad Im,preserve Free 65+ (FLUAD) 2023-09-11 00:00:00 Completed [facility] Pneumococcal Polysaccharide, PPSV23 (PNEUMOVAX) 2023-09-11 00:00:00 Completed [facility] SARS-COV-2 COVID-19 MODERNA 12+ YRS VACCINE 2023-09-11 00:00:00 Completed [facility] SARS-COV-2 COVID-19 VACCINE 12 YRS+, BIVALENT 0.5ML, IM, (MODERNA-BLUE TOP) 2023-09-11 00:00:00 Completed [facility] Pneumococcal 20 Conjugate, PCV20 (Prevnar 20) 2023-09-11 00:00:00 Completed [facility] Influenza Virus Vaccine,quad Im,preserve Free 65+ (FLUAD) 2023-09-10 00:00:00 Completed [facility] Pneumococcal Polysaccharide, PPSV23 (PNEUMOVAX) 2023-09-10 00:00:00 Completed [facility] SARS-COV-2 COVID-19 MODERNA 12+ YRS VACCINE 2023-09-10 00:00:00 Completed [facility] SARS-COV-2 COVID-19 VACCINE 12 YRS+, BIVALENT 0.5ML, IM, (MODERNA-BLUE TOP) 2023-09-10 00:00:00 Completed [facility] Pneumococcal 20 Conjugate, PCV20 (Prevnar 20) 2023-09-10 00:00:00 Completed [facility] Pneumococcal Polysaccharide, PPSV23 (PNEUMOVAX) 2023-09-08 09:00:00 Completed [facility] SARS-COV-2 COVID-19 VACCINE 12 YRS+, BIVALENT 0.5ML, IM, (MODERNA-BLUE TOP) 2023-09-08 09:00:00 Completed [facility] Pneumococcal 20 Conjugate, PCV20 (Prevnar 20) 2023-09-08 09:00:00 Completed [facility] Influenza Virus Vaccine,quad Im,preserve Free 65+ (FLUAD) 2023-09-08 09:00:00 Completed [facility] SARS-COV-2 COVID-19 MODERNA 12+ YRS VACCINE 2023-09-08 09:00:00 Completed [facility] Influenza Virus Vaccine,quad Im,preserve Free 65+ (FLUAD) 2023-09-08 00:00:00 Completed [facility] Pneumococcal Polysaccharide, PPSV23 (PNEUMOVAX) 2023-09-08 00:00:00 Completed [facility] SARS-COV-2 COVID-19 MODERNA 12+ YRS VACCINE 2023-09-08 00:00:00 Completed [facility] SARS-COV-2 COVID-19 VACCINE 12 YRS+, BIVALENT 0.5ML, IM, (MODERNA-BLUE TOP) 2023-09-08 00:00:00 Completed [facility] Pneumococcal 20 Conjugate, PCV20 (Prevnar 20) 2023-09-08 00:00:00 Completed [facility] Influenza Virus Vaccine,quad Im,preserve Free 65+ (FLUAD) 2023-09-08 00:00:00 Completed [facility] Pneumococcal Polysaccharide, PPSV23 (PNEUMOVAX) 2023-09-08 00:00:00 Completed [facility] SARS-COV-2 COVID-19 MODERNA 12+ YRS VACCINE 2023-09-08 00:00:00 Completed [facility] SARS-COV-2 COVID-19 VACCINE 12 YRS+, BIVALENT 0.5ML, IM, (MODERNA-BLUE TOP) 2023-09-08 00:00:00 Completed [facility] Pneumococcal 20 Conjugate, PCV20 (Prevnar 20) 2023-09-08 00:00:00 Completed [facility] Influenza Virus Vaccine,quad Im,preserve Free 65+ (FLUAD) 2023-09-08 00:00:00 Completed [facility] Pneumococcal 20 Conjugate, PCV20 (Prevnar 20) 2023-09-08 00:00:00 Completed Influenza Virus Vaccine,quad Im,preserve Free 65+ (FLUAD) 2023-09-07 00:00:00 Completed [facility] Pneumococcal Polysaccharide, PPSV23 (PNEUMOVAX) 2023-09-07 00:00:00 Completed [facility] SARS-COV-2 COVID-19 MODERNA 12+ YRS VACCINE 2023-09-07 00:00:00 Completed [facility] SARS-COV-2 COVID-19 VACCINE 12 YRS+, BIVALENT 0.5ML, IM, (MODERNA-BLUE TOP) 2023-09-07 00:00:00 Completed [facility] Influenza Virus Vaccine,quad Im,preserve Free 65+ 2022-10-14 00:00:00 Completed [facility] SARS-COV-2 COVID-19 VACCINE 12 YRS+, BIVALENT 0.5ML, IM, (MODERNA) 2022-10-14 00:00:00 Completed [facility] Influenza Virus Vaccine,quad Im,preserve Free 65+ 2022-10-14 00:00:00 Completed [facility] SARS-COV-2 COVID-19 VACCINE 12 YRS+, BIVALENT 0.5ML, IM, (MODERNA-BLUE TOP) 2022-10-14 00:00:00 Completed [facility] Influenza Virus Vaccine,quad Im,preserve Free 65+ 2022-10-14 00:00:00 Completed [facility] SARS-COV-2 COVID-19 VACCINE 12 YRS+, BIVALENT 0.5ML, IM, (MODERNA-BLUE TOP) 2022-10-14 00:00:00 Completed [facility] Influenza Virus Vaccine,quad Im,preserve Free 65+ (FLUAD) 2022-10-14 00:00:00 Completed [facility] SARS-COV-2 COVID-19 VACCINE 12 YRS+, BIVALENT 0.5ML, IM, (MODERNA-BLUE TOP) 2022-10-14 00:00:00 Completed [facility] Influenza Virus Vaccine,quad Im,preserve Free 65+ (FLUAD) 2022-10-14 00:00:00 Completed SARS-COV-2 COVID-19 VACCINE 12 YRS+, BIVALENT 0.5ML, IM, (MODERNA-BLUE TOP) 2022-10-14 00:00:00 Completed Influenza Virus Vaccine,quad Im,preserve Free 65+ 2022-10-14 00:00:00 Completed [facility] SARS-COV-2 COVID-19 VACCINE 12 YRS+, BIVALENT 0.5ML, IM, (MODERNA BOOSTER) 2022-10-14 00:00:00 Completed [facility] [facility] Influenza Virus Vaccine,quad Im,preserve Free 65+ 2022-10-14 00:00:00 Completed [facility] SARS-COV-2 COVID-19 VACCINE 12 YRS+, BIVALENT 0.5ML, IM, (MODERNA BOOSTER) 2022-10-14 00:00:00 Completed [facility] Influenza Virus Vaccine,quad Im,preserve Free 65+ 2022-10-14 00:00:00 Completed [facility] SARS-COV-2 COVID-19 VACCINE 12 YRS+, BIVALENT 0.5ML, IM, (MODERNA BOOSTER) 2022-10-14 00:00:00 Completed [facility] SARS-COV-2 COVID-19 MODERNA 12+ YRS VACCINE 2022-04-05 00:00:00 Completed [facility] SARS-COV-2 COVID-19 MODERNA 12+ YRS VACCINE 2022-04-05 00:00:00 Completed [facility] SARS-COV-2 COVID-19 MODERNA 12+ YRS VACCINE 2022-04-05 00:00:00 Completed [facility] SARS-COV-2 COVID-19 MODERNA 12+ YRS VACCINE 2022-04-05 00:00:00 Completed [facility] SARS-COV-2 COVID-19 MODERNA 12+ YRS VACCINE 2022-04-05 00:00:00 Completed SARS-COV-2 COVID-19 MODERNA 12+ YRS VACCINE 2022-04-05 00:00:00 Completed [facility] SARS-COV-2 COVID-19 MODERNA 12+ YRS VACCINE 2022-04-05 00:00:00 Completed [facility] SARS-COV-2 COVID-19 MODERNA 12+ YRS VACCINE 2022-04-05 00:00:00 Completed [facility] SARS-COV-2 COVID-19 MODERNA 12+ YRS VACCINE 2022-04-05 00:00:00 Completed [facility] SARS-COV-2 COVID-19 MODERNA 12+ YRS VACCINE 2022-04-05 00:00:00 Completed [facility] SARS-COV-2 COVID-19 MODERNA 12+ YRS VACCINE 2022-04-05 00:00:00 Completed [facility] Influenza Virus Vaccine,quad Im,preserve Free 2021 00:00:00 Completed [facility] Pneumococcal Polysaccharide, PPSV23 (PNEUMOVAX) 2021 00:00:00 Completed [facility] Influenza Virus Vaccine,quad Im,preserve Free 2021 00:00:00 Completed [facility] Pneumococcal Polysaccharide, PPSV23 (PNEUMOVAX) 2021 00:00:00 Completed [facility] Influenza Virus Vaccine,quad Im,preserve Free 65+ 2021 00:00:00 Completed [facility] Pneumococcal Polysaccharide, PPSV23 (PNEUMOVAX) 2021 00:00:00 Completed [facility] Influenza Virus Vaccine,quad Im,preserve Free 65+ (FLUAD) 2021 00:00:00 Completed [facility] Pneumococcal Polysaccharide, PPSV23 (PNEUMOVAX) 2021 00:00:00 Completed [facility] Influenza Virus Vaccine,quad Im,preserve Free 65+ (FLUAD) 2021 00:00:00 Completed [facility] Pneumococcal Polysaccharide, PPSV23 (PNEUMOVAX) 2021 00:00:00 Completed Influenza Virus Vaccine,quad Im,preserve Free 65+ 2021 00:00:00 Completed [facility] Pneumococcal Polysaccharide, PPSV23 (PNEUMOVAX) 2021 00:00:00 Completed [facility] Influenza Virus Vaccine,quad Im,preserve Free 65+ 2021 00:00:00 Completed [facility] Pneumococcal Polysaccharide, PPSV23 (PNEUMOVAX) 2021 00:00:00 Completed [facility] Influenza Virus Vaccine,quad Im,preserve Free 65+ 2021 00:00:00 Completed [facility] Pneumococcal Polysaccharide, PPSV23 (PNEUMOVAX) 2021 00:00:00 Completed [facility] Influenza Virus Vaccine,quad Im,preserve Free 65+ 2021 00:00:00 Completed [facility] Pneumococcal Polysaccharide, PPSV23 (PNEUMOVAX) 2021 00:00:00 Completed [facility] Influenza Virus Vaccine,quad Im,preserve Free 65+ 2021 00:00:00 Completed [facility] Pneumococcal Polysaccharide, PPSV23 (PNEUMOVAX) 2021 00:00:00 Completed [facility] Influenza Virus Vaccine,quad Im,preserve Free 65+ 2021 00:00:00 Completed [facility] Pneumococcal Polysaccharide, PPSV23 (PNEUMOVAX) 2021 00:00:00 Completed [facility] Influenza Virus Vaccine,quad Im,preserve Free + 2021 00:00:00 Completed [facility] Pneumococcal Polysaccharide, PPSV23 (PNEUMOVAX) 2021 00:00:00 Completed [facility] Influenza Virus Vaccine,quad Im,preserve Free 65+ 2021 00:00:00 Completed [facility] Pneumococcal Polysaccharide, PPSV23 (PNEUMOVAX) 2021 00:00:00 Completed [facility] SARS-COV-2 COVID-19 MODERNA 12+ YRS VACCINE 2021-08-26 00:00:00 Completed [facility] SARS-COV-2 COVID-19 MODERNA 12+ YRS VACCINE 2021-08-26 00:00:00 Completed [facility] SARS-COV-2 COVID-19 MODERNA 12+ YRS VACCINE 2021-08-26 00:00:00 Completed [facility] SARS-COV-2 COVID-19 MODERNA 12+ YRS VACCINE 2021-08-26 00:00:00 Completed [facility] SARS-COV-2 COVID-19 MODERNA 12+ YRS VACCINE 2021-08-26 00:00:00 Completed SARS-COV-2 COVID-19 MODERNA 12+ YRS VACCINE 2021-08-26 00:00:00 Completed [facility] SARS-COV-2 COVID-19 MODERNA 12+ YRS VACCINE 2021-08-26 00:00:00 Completed [facility] SARS-COV-2 COVID-19 MODERNA 12+ YRS VACCINE 2021-08-26 00:00:00 Completed [facility] SARS-COV-2 COVID-19 MODERNA 12+ YRS VACCINE 2021-08-26 00:00:00 Completed [facility] SARS-COV-2 COVID-19 MODERNA 12+ YRS VACCINE 2021-08-26 00:00:00 Completed [facility] SARS-COV-2 COVID-19 MODERNA 12+ YRS VACCINE 2021-08-26 00:00:00 Completed [facility] Moderna COVID-19 Vaccine Moderna COVID-19 Vaccine 2020-12-08 00:00:00 Completed Eric [facility] Moderna COVID-19 Vaccine 2020-12-08 00:00:00 Completed SARS-COV-2 COVID-19 MODERNA 12+ YRS VACCINE 2020-12-07 00:00:00 Completed [facility] SARS-COV-2 COVID-19 MODERNA 12+ YRS VACCINE 2020-12-07 00:00:00 Completed [facility] SARS-COV-2 COVID-19 MODERNA 12+ YRS VACCINE 2020-12-07 00:00:00 Completed [facility] SARS-COV-2 COVID-19 MODERNA 12+ YRS VACCINE 2020-12-07 00:00:00 Completed [facility] SARS-COV-2 COVID-19 MODERNA 12+ YRS VACCINE 2020-12-07 00:00:00 Completed SARS-COV-2 COVID-19 MODERNA 12+ YRS VACCINE 2020-12-07 00:00:00 Completed [facility] SARS-COV-2 COVID-19 MODERNA 12+ YRS VACCINE 2020-12-07 00:00:00 Completed [facility] SARS-COV-2 COVID-19 MODERNA 12+ YRS VACCINE 2020-12-07 00:00:00 Completed [facility] SARS-COV-2 COVID-19 MODERNA 12+ YRS VACCINE 2020-12-07 00:00:00 Completed [facility] SARS-COV-2 COVID-19 MODERNA 12+ YRS VACCINE 2020-12-07 00:00:00 Completed [facility] SARS-COV-2 COVID-19 MODERNA 12+ YRS VACCINE 2020-12-07 00:00:00 Completed [facility] SARS-COV-2 COVID-19 MODERNA 12+ YRS VACCINE 2020-11-02 00:00:00 Completed [facility] SARS-COV-2 COVID-19 MODERNA 12+ YRS VACCINE 2020-11-02 00:00:00 Completed [facility] SARS-COV-2 COVID-19 MODERNA 12+ YRS VACCINE 2020-11-02 00:00:00 Completed [facility] SARS-COV-2 COVID-19 MODERNA 12+ YRS VACCINE 2020-11-02 00:00:00 Completed [facility] SARS-COV-2 COVID-19 MODERNA 12+ YRS VACCINE 2020-11-02 00:00:00 Completed SARS-COV-2 COVID-19 MODERNA 12+ YRS VACCINE 2020-11-02 00:00:00 Completed [facility] SARS-COV-2 COVID-19 MODERNA 12+ YRS VACCINE 2020-11-02 00:00:00 Completed [facility] SARS-COV-2 COVID-19 MODERNA 12+ YRS VACCINE 2020-11-02 00:00:00 Completed [facility] SARS-COV-2 COVID-19 MODERNA 12+ YRS VACCINE 2020-11-02 00:00:00 Completed [facility] SARS-COV-2 COVID-19 MODERNA 12+ YRS VACCINE 2020-11-02 00:00:00 Completed [facility] SARS-COV-2 COVID-19 MODERNA 12+ YRS VACCINE 2020-11-02 00:00:00 Completed [facility] Influenza, seasonal, inj Influenza, seasonal, inj 2018-08-05 00:00:00 Completed Eric [facility] Influenza, seasonal, inj 2018-08-05 00:00:00 Completed Tdap Tdap 2018-06-04 00:00:00 Completed Eric [facility] pneumococcal polysacchar pneumococcal polysacchar 2018-06-04 00:00:00 Completed Eric Stanton Tdap 2018-06-04 00:00:00 Completed pneumococcal polysacchar 2018-06-04 00:00:00 Completed Vital Signs Vital Name Observation Time Observation Value Comments S ource Systolic blood pressure 2023-09-08 14:49:00 121 mm[Hg] [facility] Diastolic blood pressure 2023-09-08 14:49:00 87 mm[Hg] [facility] Heart rate 2023-09-08 14:49:00 90 /min [facility] Body temperature 2023-09-08 14:49:00 36.11 Jackie [facility] Body height 2023-09-08 14:49:00 167.6 cm [facility] Body weight 2023-09-08 14:49:00 75.297 kg [facility] BMI 2023-09-08 14:49:00 26.79 kg/m2 [facility] Oxygen saturation in Arterial blood by Pulse oximetry 2023-09-08 14:49:00 97 /min [facility] Oxygen saturation in Arterial blood by Pulse oximetry 2023-02-11 13:11:00 95 /min [facility] Systolic blood pressure 2023-02-11 13:11:00 104 mm[Hg] [facility] Diastolic blood pressure 2023-02-11 13:11:00 71 mm[Hg] [facility] Heart rate 2023-02-11 13:11:00 85 /min Un[facility] Respiratory rate 2023-02-11 13:11:00 18 /min [facility] Body height 2023-02-11 13:11:00 165.1 cm [facility] Body weight 2023-02-11 13:11:00 74.934 kg [facility] BMI 2023-02-11 13:11:00 27.49 kg/m2 [facility] Systolic blood pressure 2022-10-14 15:09:00 136 mm[Hg] [facility] Diastolic blood pressure 2022-10-14 15:09:00 83 mm[Hg] [facility] Heart rate 2022-10-14 15:09:00 109 /min [facility] Body temperature 2022-10-14 15:09:00 36.89 Jackie [facility] Respiratory rate 2022-10-14 15:09:00 18 /min [facility] Body height 2022-10-14 15:09:00 167.6 cm [facility] Body weight 2022-10-14 15:09:00 77.565 kg [facility] BMI 2022-10-14 15:09:00 27.60 kg/m2 [facility] Oxygen saturation in Arterial blood by Pulse oximetry 2022-10-14 15:09:00 94 /min [facility] Systolic blood pressure 2022-07-02 13:56:00 123 mm[Hg] [facility] Diastolic blood pressure 2022-07-02 13:56:00 77 mm[Hg] [facility] Heart rate 2022-07-02 13:56:00 80 /min [facility] Body temperature 2022-07-02 13:56:00 36.44 Jackie [facility] Respiratory rate 2022-07-02 13:56:00 18 /min [facility] Body height 2022-07-02 13:56:00 167.6 cm [facility] Body weight 2022-07-02 13:56:00 76.975 kg [facility] BMI 2022-07-02 13:56:00 27.39 kg/m2 [facility] Oxygen saturation in Arterial blood by Pulse oximetry 2022-07-02 13:56:00 98 /min [facility] Systolic blood pressure 2022-04-01 14:13:00 123 mm[Hg] [facility] Diastolic blood pressure 2022-04-01 14:13:00 85 mm[Hg] [facility] Heart rate 2022-04-01 14:13:00 97 /min [facility] Body temperature 2022-04-01 14:13:00 36.06 Jackie [facility] Respiratory rate 2022-04-01 14:13:00 18 /min [facility] Body height 2022-04-01 14:13:00 165.1 cm [facility] Body weight 2022-04-01 14:13:00 77.111 kg [facility] BMI 2022-04-01 14:13:00 28.29 kg/m2 [facility] Oxygen saturation in Arterial blood by Pulse oximetry 2022-04-01 14:13:00 94 /min [facility] BP Systolic 2025-04-18 08:38:00 105 mm[Hg] Ruy Stanton BP Diastolic 2025-04-18 08:38:00 74 mm[Hg] Yung Stanton Weight Measured 2025-04-18 08:38:00 167.80 pounds Eric Stanton Height Measured 2025-04-18 08:38:00 Eric Stanton Body Temperature 2025-04-18 08:38:00 98.10 degrees Eric Stanton Heart Rate 2025-04-18 08:38:00 82.00 /min Kristen en F Maximino Respiratory Rate 2025-04-18 08:38:00 18.00 /min Eric [...] Rate 2025-01-11 10:24:00 18.00 /min Eric F Maximino BP Systolic 2024-08-29 14:03:00 125 mm[Hg] Step [...] 2020-02-06 15:58:00 90.00 /min Kristen en F Maximino Respiratory Rate 2020-02-06 15:58:00 18.00 /min Eric [...] EXTERNAL PROVIDER RECORDS 2023-09-23 06:01:00 Doctor Unassigned, [place] [facility] FLU VACC(),65+YR,0. 5 ML,IM,ADJUVANTED,QUAD([place] UAD) 2023-09-08 15:13:17 Cesar Mercedes [facility] PNEUMOCOCCAL 20 CONJUGATE (PREVNAR 20) VACCINE 2023-09-08 15:13:17 Cesar Mercedes [facility] AUTHORIZATION TO RELEASE PHI TO [facility] 2023-09-08 06:01:00 Doctor Unassigned, [place] [facility] ASSIGNMENT OF BENEFITS 2023-02-11 12:47:03 Docto r Unassigned, [place] [facility] SARS-COV-2 COVID-19 VACCINE 12 YRS+, BIVALENT 0.5ML, IM (MODERNA BOOSTER) 2022-10-14 15:36:37 Doctor Unassigned, [place] [facility] FLU VACC(),65+YR,0. 5 ML,IM,ADJUVANTED,QUAD([place] UAD) 2022-10-14 15:21:52 Cesar Mercedes [facility] NOTICE OF BILLING PRACTICES FOR MEDICARE PATIENTS 2022-10-14 14:59:14 Doctor Unassigned, [place] [facility] [address]19 Ecg Routine Ecg W/least 12 Lds W/i r 2016-12-09 00:00:00 Eric Stanton 21294 Ecg Routine Ecg W/least 12 Lds W/i r 2016-11-11 00:00:00 Eric Stanton Plan of Care Planned Activity Planned Date Details Comments Source Goal Plan of Care Note [code = 70705-3] Goal Plan of Care Note [code = 97661-0] Goal Plan of Care Note [code = 08855-8] Goal Plan of Care Note [code = 21380-3] Goal Plan of Care Note [code = 69362-3] Goal Plan of Care Note [code = 75241-0] Goal Plan of Care Note [code = 89625-9] Goal Plan of Care Note [code = 61651-7] Goal Plan of Care Note [code = 17973-8] Goal Plan of Care Note [code = 97964-6] Goal Plan of Care Note [code = 09411-5] Goal Plan of Care Note [code = 71628-4] Goal Plan of Care Note [code = 66932-9] Goal Plan of Care Note [code = 78459-2] Goal Plan of Care Note [code = 38501-8] Goal Plan of Care Note [code = 66968-9] Goal Plan of Care Note [code = 56403-7] Goal Plan of Care Note [code = 75784-5] Goal Plan of Care Note [code = 47984-7] Goal Plan of Care Note [code = 37493-3] Goal Plan of Care Note [code = 67917-4] Goal Plan of Care Note [code = 76615-7] Goal Plan of Care Note [code = 98721-9] Goal Plan of Care Note [code = 58549-8] Goal Plan of Care Note [code = 23013-1] Goal Plan of Care Note [code = 53092-6] Goal Plan of Care Note [code = 29476-9] Encounters Start Date/Time End Date/Time Encounter Type Admission Type Attending Clinicians Care Facility Care Department Encounter ID Source 2025-05-23 14:30:00 2025-05-23 14:30:00 Outpatient R [facility] [id number] [facility] 2025-05-17 00:00:00 2025-05-17 17:08:42 Letter (Out) Rivka Ureña [facility] ([place]) 1.2.840.114 350.1.13.10 4.2.7.2.686 [id number] [facility] 2025-04-18 08:38:09 2025-04-18 08:38:09 Outpatient SFA [facility] [id number] Eric Stanton 2025-04-18 00:00:00 2025-04-18 00:00:00 Outpatient Visit [facility] [id number] Eric Stanton 2025-03-22 14:16:49 2025-03-22 14:16:49 Outpatient SFA S[facility] [id number] Eric Stanton 2025-03-22 00:00:00 2025-03-22 00:00:00 Outpatient Visit S[facility] [id number] Eric Stanton 2025-03-06 10:41:41 2025-03-06 10:41:41 Outpatient SFA SFA [id number] Eric Stanton 2025-02-14 14:41:08 2025-02-14 14:41:08 Outpatient SFA S[facility] [id number] Eric Stanton 2025-01-24 11:31:44 2025-01-24 11:31:44 Outpatient SFA SFA [id number] Eric Stanton 2025-01-19 14:51:44 2025-01-19 14:51:44 Outpatient SFA S[facility] [id number] Eric Stanton 2025-01-11 10:17:26 2025-01-11 10:17:26 Outpatient SFA S[facility] [id number] Eric Estrada Maximino 2025-01-11 00:00:00 2025-01-11 00:00:00 Outpatient Visit SFA [id number] Eric Stanton 2024-08-29 13:50:30 2024-08-29 13:50:30 Outpatient SFA SFA [id number] Eric Estrada Maximino 2024-08-29 00:00:00 2024-08-29 00:00:00 Outpatient Visit [facility] [id number] Eric Stanton 2024-07-12 00:00:00 2024-07-12 00:00:00 Outpatient Visit [facility] [id number] Eric Stanton 2024-07-08 11:19:08 2024-07-08 11:19:08 Outpatient SFA [facility] [id number] Eric Stanton 2024-07-08 00:00:00 2024-07-08 00:00:00 Outpatient Visit [facility] [id number] Eric Stanton 2024-03-09 08:40:00 2024-03-09 08:40:00 Outpatient R DK [facility] [id number] [facility] 2024-01-26 08:20:32 2024-01-26 08:20:32 Outpatient SFA [facility] [id number] Eric Stanton 2024-01-26 00:00:00 2024-01-26 00:00:00 Outpatient Visit [facility] [id number] Eric Stanton 2024-01-22 13:09:31 2024-01-22 13:09:31 Outpatient SFA [facility] [id number] Eric Estrada Maximino 2023-12-07 00:00:00 2023-12-07 00:00:00 Refill Dk Ace [facility] .840.114 350.1.13.10 4.2.7.2.686 [id number] [facility] 2023-09-23 00:00:00 2023-09-23 00:00:00 Orders Only Doctor Unassigned, [place] [facility] .840.114 350.1.13.10 4.2.7.2.686 [id number] [facility] 2023-09-11 00:00:00 2023-09-11 00:00:00 Telephone Cesar Mercedes [facility] 1.2.840.114 350.1.13.10 4.2.7.2.686 [id number] [facility] 2023-09-10 00:00:00 2023-09-10 00:00:00 Refill Dk Ace [facility] 1.2840.114 350.1.13.10 4.2.7.2.686 [id number] [facility] 2023-09-08 09:00:00 2023-09-08 09:26:43 Outpatient R [facility] [id number] [facility] 2023-09-08 09:00:00 2023-09-08 09:26:43 Office Visit Cesar Mercedes [facility] 1.2840.114 350.1.13.10 4.2.7.2.686 [id number] [facility] 2023-09-08 00:00:00 2023-09-08 00:00:00 Telephone Dk Ace [facility] 1.2.840.114 350.1.13.10 4.2.7.2.686 [id number] [facility] 2023-09-08 00:00:00 2023-09-08 00:00:00 Orders Only Doctor Unassigned, [place] [facility] 1.2840.114 350.1.13.10 4.2.7.2.686 [id number] [facility] 2023-09-07 00:00:00 2023-09-07 00:00:00 Refill Ed[place], Peter [facility] 1.2.840.114 350.1.13.10 4.2.7.2.686 [id number] [facility] 2023-08-14 08:40:00 2023-08-14 08:40:00 Outpatient R DK ACE [facility] [id number] [facility] 2023-06-03 00:00:00 2023-06-03 00:00:00 Refill Dk Ace [facility] 1.2.840.114 350.1.13.10 4.2.7.2.686 [id number] [facility] 2023-03-11 14:19:18 2023-03-11 14:19:18 Outpatient SFA [facility] [id number] Eric Stanton 2023-03-10 13:00:00 2023-03-10 13:00:00 Outpatient R [facility] [id number] [facility] 2023-02-11 08:00:00 2023-02-11 08:47:03 Office Visit Dk Ace [facility] 1.2.840.114 350.1.13.10 4.2.7.2.686 [id number] [facility] 2023-02-11 08:00:00 2023-02-11 08:47:03 Outpatient R DK ACE [facility] [id number] [facility] 2023-02-11 00:00:00 2023-02-11 00:00:00 Orders Only Doctor Unassigned, [place] [facility] 1.2.840.114 350.1.13.10 4.2.7.2.686 [id number] [facility] 2023-02-05 10:15:00 2023-02-05 10:30:00 Lead Web Developer Visit 2, Adc Lab [place], Peter [facility] 1..840.114 350.1.13.10 4.2.7.2.686 [id number] [facility] 2023-02-05 10:15:00 2023-02-05 09:24:17 Outpatient R DK ACE [facility] [id number] [facility] 2023-01-14 00:00:00 2023-01-14 00:00:00 Refill Dk Ace [facility] 1.2840.114 350.1.13.10 4.2.7.2.686 [id number] [facility] 2022-11-07 16:44:39 2022-11-07 16:44:39 Outpatient SFA [facility] [id number] Eric Stanton 2022-10-14 09:00:00 2022-10-14 09:41:53 Outpatient R [facility] [id number] [facility] 2022-10-14 09:00:00 2022-10-14 09:41:53 [facility] 1.284.114 350.1.13.10 4.2.7.2.686 [id number] [facility] 2022-10-14 09:30:00 2022-10-14 09:30:00 Imm/Inj Visit Vaccine, [facility] Family Medicine Cesar Mercedes [facility] 1.284.114 350.1.13.10 4.2.7.2.686 [id number] [facility] 2022-10-14 00:00:00 2022-10-14 00:00:00 Orders Only Doctor Unassigned, [place] [facility] 1.20.114 350.1.13.10 4.2.7.2.686 [id number] [facility] 2022-10-07 10:15:00 2022-10-07 10:51:39 Outpatient R DK ACE [facility] [id number] [facility] 2022-10-07 10:15:00 2022-10-07 10:30:00 Lead Web Developer Visit 2, Adc [facility]k [facility] 1..840.114 350.1.13.10 4.2.7.2.686 [id number] [facility] 2022-09-30 08:00:00 2022-09-30 08:00:00 Outpatient R DK ACE [facility] [id number] [facility] 2022-08-07 16:36:46 2022-08-07 16:36:46 Outpatient SFA [facility] [id number] Eric Stanton 2022-08-07 00:00:00 2022-08-07 00:00:00 Outpatient Visit [id number] 2022-07-02 08:40:00 2022-07-02 09:51:53 Outpatient R DK ACE [facility] [id number] [facility] 2022-07-02 08:40:00 2022-07-02 09:51:53 [facility] 1..840.114 350.1.13.10 4.2.7.2.686 [id number] [facility] 2022-04-16 00:00:00 2022-04-16 00:00:00 Ref[facility] Db [facility] 1..840.114 350.1.13.10 4.2.7.2.686 [id number] [facility] 2022-04-01 09:00:00 2022-04-01 10:04:30 Outpatient R DK [facility] [id number] [facility] 2022-04-01 09:00:00 2022-04-01 10:04:30 [facility] [id number] 350.1.13.10 [id number] [id number] [facility] 2022-04-01 09:00:00 2022-04-01 10:04:30 Outpatient R DK [facility] [id number] [facility] 2022-04-01 09:00:00 2022-04-01 09:00:00 Outpatient R DK [facility] [id number] [facility] 2022-04-01 09:00:00 2022-04-01 09:00:00 Outpatient R DK [facility] [id number] [facility] 2022-04-01 09:00:00 2022-04-01 09:00:00 Outpatient R DK [facility] [id number] [facility] 2022-04-01 09:00:00 2022-04-01 09:00:00 Outpatient R DK [facility] [id number] [facility] 2022-04-01 00:00:00 2022-04-01 00:00:00 Telephone Dk Ace [facility] 1.2.840.114 350.1.13.10 4.2.7.2.686 [id number] [facility] 2022-02-20 13:35:05 2022-02-20 23:59:00 Outpatient R TOMMY KRAUS [facility] [id number] [facility] 2022-02-20 13:35:05 2022-02-20 23:59:00 Hospital [facility] Tommy Kraus [facility] 1..840.114 350.1.13.10 4.2.7.2.686 [id number] [facility] 2022-02-03 00:00:00 2022-02-03 00:00:00 Outpatient TOMMY VUONG [facility] [id number] [facility] 2022-01-30 11:00:00 2022-01-30 11:30:00 Office Visit Savage Lopez [facility] 1..840.114 350.1.13.10 4.2.7.2.686 [id number] [facility] 2022-01-30 11:00:00 2022-01-30 11:00:00 Outpatient R TOMMY PAEZ [facility] [id number] [facility] 2022-01-30 11:00:00 2022-01-30 11:00:00 Outpatient R TOMMY PAEZ [facility] [id number] [facility] 2022-01-30 11:00:00 2022-01-30 11:00:00 Outpatient R TOMMY PAEZ [facility] [id number] [facility] 2022-01-30 11:00:00 2022-01-30 11:00:00 Outpatient R TOMMY PAEZ [facility] [id number] [facility] 2022-01-14 11:00:00 2022-01-14 12:54:08 Outpatient R LORETA BAE [facility] [id number] [facility] 2022-01-14 11:00:00 2022-01-14 12:54:08 Office Visit Loreta Bae [facility] 1..840.114 350.1.13.10 4.2.7.2.686 [id number] [facility] 2022-01-14 11:00:00 2022-01-14 12:54:08 Outpatient R LORETA BAE [facility] [id number] [facility] 2022-01-14 11:00:00 2022-01-14 12:54:08 Outpatient R LORETA BAE [facility] [id number] [facility] 2022-01-14 11:00:00 2022-01-14 11:00:00 Outpatient R LORETA BAE [facility] [id number] [facility] 2022-01-14 11:00:00 2022-01-14 11:00:00 Outpatient R LORETA BAE [facility] [id number] [facility] 2022-01-14 09:00:00 2022-01-14 09:55:24 Office Visit Tommy Kraus [facility] 1.2.840.114 350.1.13.10 4.2.7.2.686 [id number] [facility] 2022-01-14 09:00:00 2022-01-14 09:55:24 Outpatient R TOMMY KRAUS [facility] [id number] [facility] 2022-01-14 09:00:00 2022-01-14 09:55:24 Outpatient R TOMMY KRAUS [facility] [id number] [facility] 2022-01-14 09:00:00 2022-01-14 09:55:24 Outpatient R TOMMY KRAUS [facility] [id number] [facility] 2022-01-14 09:00:00 2022-01-14 09:55:24 Outpatient R TOMMY KRAUS [facility] [id number] [facility] 2021 14:40:00 2021 15:28:37 Outpatient R DK ACE [facility] [id number] [facility] 2021 14:40:00 2021 15:28:37 Office Visit Dk Ace [facility] 1.2.840.114 350.1.13.10 4.2.7.2.686 [id number] [facility] 2021 14:00:00 2021 15:21:12 Outpatient R DK ACE [facility] [id number] [facility] 2021 14:00:00 2021 15:21:12 Office Visit Dk Ace [facility] 1.2840.114 350.1.13.10 4.2.7.2.686 [id number] [facility] 2021 14:00:00 2021 15:21:12 Outpatient R DK CAE [facility] [id number] [facility] 2021 14:00:00 2021 15:21:12 Outpatient R DK ACE [facility] [id number] [facility] 2021 14:00:00 2021 15:21:12 Outpatient R DK ACE [facility] [id number] [facility] 2021-12-23 00:00:00 2021-12-23 00:00:00 Orders Only Doctor Unassigned, [place] [facility] 1.840.114 350.1.13.10 4.2.7.2.686 [id number] [facility] 2021-12-11 00:00:00 2021-12-11 00:00:00 Transition of Care Julia Varner 1.84.114 350.1.13.10 4.2.7.2.686 [id number] [facility] 2021-12-08 17:56:00 2021-12-10 17:51:00 Outpatient MIRTHA SHARMA [facility] [id number] [facility] 2021-12-08 17:56:00 2021-12-10 17:51:00 Hospital Encounter Yadiel Kulkarni Owen Li-Young [facility] 1.2.840.114 350.1.13.10 4.2.7.2.686 [id number] [facility] 2021-12-08 17:56:00 2021-12-10 17:51:00 Outpatient MIRTHA SHARMA [facility] [id number] [facility] 2021-12-08 17:56:00 2021-12-10 17:51:00 Outpatient MIRTHA SHARMA [facility] [id number] [facility] 2021-12-08 17:56:00 2021-12-10 17:51:00 Outpatient MIRTHA SHARMA [facility] [id number] [facility] Results Test Description Test Time Test Comments Results Result Co mments Source Eric StantonPSA (FREE AND TOTAL)2025-03-08 00:00:00* Test Item Value Reference Range Interpretation Comme nts PSA, TOTAL (test code = 2857-1) 6.8 ng/mL PSA, FREE (test code = 95047-8) 0.8 ng/mL PSA, % FREE (test code = 70346-0) 12 %(calc) Eric StantonVITAMIN B1 (THIAMINE), BLOOD, LC/MS/[id number] 00:00:00* Test Item Value Reference Range Interpretation Comme nts VITAMIN B1 (THIAMINE), BLOOD , LC/MS/MS (test code = 49624-9) 63 nmol/L Eric StantonVITAMIN B1 (THIAMINE), BLOOD, LC/MS/[id number] 00:00:00* Test Item Value Reference Range Interpretation Comme nts VITAMIN B1 (THIAMINE), BLOOD , LC/MS/MS (test code = 49247-5) 63 nmol/L Eric CaballeroA, [id number] 00:00:00* Test Item Value Reference Range Interpretation Comme nts PSA, TOTAL (test code = 2857-1) 5.20 ng/mL Eric StantonFOLATE, [id number] 00:00:00* Test Item Value Reference Range Interpretation Comme nts FOLATE, SERUM (test code = 2284-8) >24.0 ng/mL Eric StantonPSA, [id number] 00:00:00* Test Item Value Reference Range Interpretation Comme nts PSA, TOTAL (test code = 2857-1) 5.20 ng/mL Eric StantonFOLATE, [id number] 00:00:00* Test Item Value Reference Range Interpretation Comme nts FOLATE, SERUM (test code = 2284-8) >24.0 ng/mL Eric StantonCOMPREHENSIVE METABOLIC [id number] 00:00:00* Test Item Value Reference Range Interpretation Comme nts GLUCOSE (test code = 2345-7) 103 mg/dL UREA NITROGEN (BUN) (test code = 3094-0) 11 mg/dL CREATININE (test code = 2160-0) 0.87 mg/dL EGFR (test code = 11082-2) 86 mL/min/1.73m2 BUN/CREATININE RATIO (test code = 3097-3) SEE NOTE: (calc) SODIUM (test code = 2951-2) 140 mmol/L POTASSIUM (test code = 2823-3) 4.4 mmol/L CHLORIDE (test code = 2075-0) 103 mmol/L CARBON DIOXIDE (test code = 2027-9) 27 mmol/L CALCIUM (test code = 27612-3) 9.7 mg/dL PROTEIN, TOTAL (test code = 2885-2) 6.8 g/dL ALBUMIN (test code = 1751-7) 3.5 g/dL GLOBULIN (test code = 51421-7) 3.3 g/dL(calc) ALBUMIN/GLOBULIN RATIO (test code = 1759-0) 1.1 (calc) BILIRUBIN, TOTAL (test code = 1975-2) 0.8 mg/dL ALKALINE PHOSPHATASE (test code = 6768-6) 68 U/L AST (test code = 1920-8) 23 U/L ALT (test code = 1742-6) 17 U/L Eric StantonHEMOGLOBIN [id number] 00:00:00* Test Item Value Reference Range Interpretation Comme charo HEMOGLOBIN A1c (test code = 4548-4) 5.6 % Eric StantonLIPID [id number] 00:00:00* Test Item Value Reference Range Interpretation Comme nts CHOLESTEROL, TOTAL (test cod e = 2093-3) 170 mg/dL HDL CHOLESTEROL (test code = 2085-9) 52 mg/dL TRIGLYCERIDES (test code = 2571-8) 77 mg/dL LDL-CHOLESTEROL (test code = 93594-1) 101 mg/dL(calc) CHOL/HDLC RATIO (test code = 9830-1) 3.3 (calc) NON HDL CHOLESTEROL (test code = 06581-2) 118 mg/dL(calc) Eric StantonCOMPREHENSIVE METABOLIC [id number] 00:00:00* Test Item Value Reference Range Interpretation Comme nts GLUCOSE (test code = 2345-7) 103 mg/dL UREA NITROGEN (BUN) (test code = 3094-0) 11 mg/dL CREATININE (test code = 2160-0) 0.87 mg/dL EGFR (test code = 90848-9) 86 mL/min/1.73m2 BUN/CREATININE RATIO (test code = 3097-3) SEE NOTE: (calc) SODIUM (test code = 2951-2) 140 mmol/L POTASSIUM (test code = 2823-3) 4.4 mmol/L CHLORIDE (test code = 2075-0) 103 mmol/L CARBON DIOXIDE (test code = 2027-9) 27 mmol/L CALCIUM (test code = 84111-2) 9.7 mg/dL PROTEIN, TOTAL (test code = 2885-2) 6.8 g/dL ALBUMIN (test code = 1751-7) 3.5 g/dL GLOBULIN (test code = 01082-3) 3.3 g/dL(calc) ALBUMIN/GLOBULIN RATIO (test code = 1759-0) 1.1 (calc) BILIRUBIN, TOTAL (test code = 1975-2) 0.8 mg/dL ALKALINE PHOSPHATASE (test code = 6768-6) 68 U/L AST (test code = 1920-8) 23 U/L ALT (test code = 1742-6) 17 U/L Eric StantonHEMOGLOBIN [id number] 00:00:00* Test Item Value Reference Range Interpretation Comme nts HEMOGLOBIN A1c (test code = 4548-4) 5.6 % Eric StantonLIPID [id number] 00:00:00* Test Item Value Reference Range Interpretation Comme nts CHOLESTEROL, TOTAL (test cod e = 2093-3) 170 mg/dL HDL CHOLESTEROL (test code = 2085-9) 52 mg/dL TRIGLYCERIDES (test code = 2571-8) 77 mg/dL LDL-CHOLESTEROL (test code = 52237-5) 101 mg/dL(calc) CHOL/HDLC RATIO (test code = 9830-1) 3.3 (calc) NON HDL CHOLESTEROL (test code = 64387-6) 118 mg/dL(calc) Eric StantonCOMPREHENSIVE METABOLIC [id number] 06:32:39* Test Item Value Reference Range Interpretation Comme nts GLUCOSE (test code = 7) 83 MG/DL 70-99 BUN (test code = 8) 13 MG/DL 8-23 CREATININE (test code = 2214) 0.96 MG/DL 0.80-1.40 eGFR (2020 CKD-EPI) (test co de = 14515) 79 ML/MIN/1.73 >60 CALC BUN/CREAT (test code [...] code = 2219) 17 U/L 5-50 LIPID [id number] 06:32:39* Test Item Value Reference Range Interpretation [...] SPECIMENS. FOR MOREINFORMATION, SEE CLIENT ANNOUNCEMENT AT [email or web address] /[email or web address] RISK RATIO LDL/HDL (test code = 2238) 2.61 RATIO <3.55 UNLESS OTHERW ISE INDICATED, ALL TESTING PERFORMED AT [facility] [address] [place] [address] SECURITY ANALYST: TAE JC M.D. [place] NUMBER [id number] [facility] [place]. [id number] COMPREHENSIVE METABOLIC [id number] 00:00:00* Test Item Value Reference Range Interpretation Comme nts GLUCOSE (test code = 2217) 83 MG/DL BUN (test code = 2208) 13 MG/DL CREATININE (test code = 2214) 0.96 MG/DL eGFR (2020 CKD-EPI) (test co de = 52067) 79 ML/MIN/1.73 CALC BUN/CREAT (test code = [...] code = 2219) 17 U/L Eric StantonLIPID [id number] 00:00:00* Test Item Value Reference Range Interpretation Comme nts CHOLESTEROL (test code = 2210) 173 MG/DL TRIGLYCERIDES (test code = 2232) 56 MG/DL HDL CHOLESTEROL (test code = 2220) 44 MG/DL CALC LDL CHOL (test code = 2237) 115 MG/DL RISK RATIO LDL/HDL (test cod e = 2238) 2.61 RATIO Eric StantonCOMPREHENSIVE METABOLIC [id number] 00:00:00* Test Item Value Reference Range Interpretation Comme nts GLUCOSE (test code = 2217) 83 MG/DL BUN (test code = 2208) 13 MG/DL CREATININE (test code = 2214) 0.96 MG/DL eGFR (2020 CKD-EPI) (test co de = 49580) 79 ML/MIN/1.73 CALC BUN/CREAT (test code = [...] code = 2219) 17 U/L Eric StantonLIPID [id number] 00:00:00* Test Item Value Reference Range Interpretation Comme nts CHOLESTEROL (test code = 2210) 173 MG/DL TRIGLYCERIDES (test code = 2232) 56 MG/DL HDL CHOLESTEROL (test code = 2220) 44 MG/DL CALC LDL CHOL (test code = 2237) 115 MG/DL RISK RATIO LDL/HDL (test cod e = 2238) 2.61 RATIO Eric F AustinCOMPREHENSIVE METABOLIC [id number] 00:00:00* Test Item Value Reference Range Interpretation Comme nts GLUCOSE (test code = 2217) 83 MG/DL BUN (test code = 2208) 13 MG/DL CREATININE (test code = 2214) 0.96 MG/DL eGFR (2020 CKD-EPI) (test co de = 74521) 79 ML/MIN/1.73 CALC BUN/CREAT (test code = [...] = 2219) 17 U/L Eric Estrada AustinLIPID [id number] 00:00:00* Test Item Value Reference Range Interpretation Comme nts CHOLESTEROL (test code = 2210) 173 MG/DL TRIGLYCERIDES (test code = 2232) 56 MG/DL HDL CHOLESTEROL (test code = 2220) 44 MG/DL CALC LDL CHOL (test code = 2237) 115 MG/DL RISK RATIO LDL/HDL (test cod e = 2238) 2.61 RATIO Eric Estrada AustinCOMPREHENSIVE METABOLIC [id number] 00:00:00* Test Item Value Reference Range Interpretation Comme nts GLUCOSE (test code = 2217) 83 MG/DL BUN (test code = 2208) 13 MG/DL CREATININE (test code = 2214) 0.96 MG/DL eGFR (2020 CKD-EPI) (test co de = 94725) 79 ML/MIN/1.73 CALC BUN/CREAT (test code = [...] code = 2219) 17 U/L Eric Estrada White HallLIPID [id number] 00:00:00* Test Item Value Reference Range Interpretation Comme nts CHOLESTEROL (test code = 2210) 173 MG/DL TRIGLYCERIDES (test code = 2232) 56 MG/DL HDL CHOLESTEROL (test code = 2220) 44 MG/DL CALC LDL CHOL (test code = 2237) 115 MG/DL RISK RATIO LDL/HDL (test cod e = 2238) 2.61 RATIO Eric Estrada MaximinoCOMPREHENSIVE METABOLIC [id number] 00:00:00* Test Item Value Reference Range Interpretation Comme nts GLUCOSE (test code = 2217) 83 MG/DL BUN (test code = 2208) 13 MG/DL CREATININE (test code = 2214) 0.96 MG/DL eGFR (2020 CKD-EPI) (test co de = 47608) 79 ML/MIN/1.73 CALC BUN/CREAT (test code = [...] code = 2219) 17 U/L Eric StantonLIPID [id number] 00:00:00* Test Item Value Reference Range Interpretation Comme nts CHOLESTEROL (test code = 2210) 173 MG/DL TRIGLYCERIDES (test code = 2232) 56 MG/DL HDL CHOLESTEROL (test code = 2220) 44 MG/DL CALC LDL CHOL (test code = 2237) 115 MG/DL RISK RATIO LDL/HDL (test cod e = 2238) 2.61 RATIO Eric StantonCOMPREHENSIVE METABOLIC [id number] 00:00:00* Test Item Value Reference Range Interpretation Comme nts GLUCOSE (test code = 2217) 83 MG/DL BUN (test code = 2208) 13 MG/DL CREATININE (test code = 2214) 0.96 MG/DL eGFR (2020 CKD-EPI) (test co de = 15444) 79 ML/MIN/1.73 CALC BUN/CREAT (test code = [...] = 2219) 17 U/L Eric Estrada AustinLIPID [id number] 00:00:00* Test Item Value Reference Range Interpretation Comme nts CHOLESTEROL (test code = 2210) 173 MG/DL TRIGLYCERIDES (test code = 2232) 56 MG/DL HDL CHOLESTEROL (test code = 2220) 44 MG/DL CALC LDL CHOL (test code = 2237) 115 MG/DL RISK RATIO LDL/HDL (test cod e = 2238) 2.61 RATIO Eric Estrada AustinVITAMIN [id number] 18:05:18* Test Item Value Reference Range Interpretation Comme nts VITAMIN B1 (test code = 4952) 232 nmol/L 64-201 H This test was de veloped and its performance characteristicsdetermined by [facility] ([facility]). It has not beencleared or approved by the U.S. Food and Drug Administration (FDA).The FDA has determined that such clearance or approval is notnecessary. This test is used for clinical purposes and should not beregarded as investigational or for research. [facility] is qualified toperform high complexity testing under the Clinical LaboratoryImprovement Amendments (CLIA). TESTING PERFORMED AT [facility] [address] [place] [address], [address], [place] [id number] CLIA NO: [id number] VITAMIN [id number] 00:00:00* Test Item Value Reference Range Interpretation Comme nts VITAMIN B1 (test code = 4952) 232 nmol/L Eric Estrada AustinVITAMIN [id number] 00:00:00* Test Item Value Reference Range Interpretation Comme nts VITAMIN B1 (test code = 4952) 232 nmol/L Eric Estrada AustinVITAMIN [id number] 00:00:00* Test Item Value Reference Range Interpretation Comme nts VITAMIN B1 (test code = 4952) 232 nmol/L Eric Estrada AustinVITAMIN [id number] 00:00:00* Test Item Value Reference Range Interpretation Comme nts VITAMIN B1 (test code = 4952) 232 nmol/L Eric Estrada AustinVITAMIN [id number] 00:00:00* Test Item Value Reference Range Interpretation Comme nts VITAMIN B1 (test code = 4952) 232 nmol/L Eric Estrada AustinVITAMIN [id number] 00:00:00* Test Item Value Reference Range Interpretation Comme nts VITAMIN B1 (test code = 4952) 232 nmol/L Eric StantonFOLIC [id number] 04:57:54* Test Item Value Reference Range Interpretation [...] . . . . UG/L >=6.0 PSA, [id number] 04:57:02* Test Item Value Reference Range Interpretation Comme nts PSA, TOTAL (test code = 2606) 7.24 NG/ML <=4.00 H NOTE: Methodolog y is Angelica Padmaja Electrochemiluminescence Immunoassay traceable to WHO reference standard 96/760. HEMOGLOBIN [id number] 03:14:08* Test Item Value Reference Range Interpretation Comme nts HEMOGLOBIN A1c (test code = 87051) 5.7 % 4.2-5.6 H [employer] GUIDELINES FOR HGB A1C: [...] TESTING PERFORMED AT [facility] [address] [place] [address] SECURITY ANALYST: TAE JC M.D. CLIA NUMBER [id number] [facility] [place]. [id number] FOLIC [id number] 00:00:00* Test Item Value Reference Range Interpretation Comme nts FOLIC ACID (test code = 2695) 9.4 UG/L Eric StantonPSA, [id number] 00:00:00* Test Item Value Reference Range Interpretation Comme nts PSA, TOTAL (test code = 2606) 7.24 NG/ML Eric StantonHEMOGLOBIN [id number] 00:00:00* Test Item Value Reference Range Interpretation Comme nts HEMOGLOBIN A1c (test code = 75013) 5.7 % Eric StantonFOLIC [id number] 00:00:00* Test Item Value Reference Range Interpretation Comme nts FOLIC ACID (test code = 2695) 9.4 UG/L Eric StantonPSA, [id number] 00:00:00* Test Item Value Reference Range Interpretation Comme nts PSA, TOTAL (test code = 2606) 7.24 NG/ML Eric Estrada AustinHEMOGLOBIN [id number] 00:00:00* Test Item Value Reference Range Interpretation Comme nts HEMOGLOBIN A1c (test code = 97349) 5.7 % Eric Estrada AustinFOLIC [id number] 00:00:00* Test Item Value Reference Range Interpretation Comme nts FOLIC ACID (test code = 2695) 9.4 UG/L Eric StantonPSA, [id number] 00:00:00* Test Item Value Reference Range Interpretation Comme nts PSA, TOTAL (test code = 2606) 7.24 NG/ML Eric Estrada AustinHEMOGLOBIN [id number] 00:00:00* Test Item Value Reference Range Interpretation Comme nts HEMOGLOBIN A1c (test code = 32729) 5.7 % Eric Estrada AustinFOLIC [id number] 00:00:00* Test Item Value Reference Range Interpretation Comme nts FOLIC ACID (test code = 2695) 9.4 UG/L Eric StantonPSA, [id number] 00:00:00* Test Item Value Reference Range Interpretation Comme nts PSA, TOTAL (test code = 2606) 7.24 NG/ML Eric Estrada AustinHEMOGLOBIN [id number] 00:00:00* Test Item Value Reference Range Interpretation Comme nts HEMOGLOBIN A1c (test code = 19497) 5.7 % Eric Estrada AustinFOLIC [id number] 00:00:00* Test Item Value Reference Range Interpretation Comme nts FOLIC ACID (test code = 2695) 9.4 UG/L Eric StantonPSA, [id number] 00:00:00* Test Item Value Reference Range Interpretation Comme nts PSA, TOTAL (test code = 2606) 7.24 NG/ML Eric Estrada AustinHEMOGLOBIN [id number] 00:00:00* Test Item Value Reference Range Interpretation Comme nts HEMOGLOBIN A1c (test code = 85170) 5.7 % Eric Estrada AustinFOLIC [id number] 00:00:00* Test Item Value Reference Range Interpretation Comme charo FOLIC ACID (test code = 2695) 9.4 UG/L Eric StantonPSA, [id number] 00:00:00* Test Item Value Reference Range Interpretation Comme charo PSA, TOTAL (test code = 2606) 7.24 NG/ML Eric StantonHEMOGLOBIN [id number] 00:00:00* Test Item Value Reference Range Interpretation Comme charo HEMOGLOBIN A1c (test code = 33295) 5.7 % Eric StantonCOMPREHENSIVE METABOLIC [id number] 04:19:21* Test Item Value Reference Range Interpretation Comme charo GLUCOSE (test code = 7) 96 MG/DL 70-99 BUN (test code = 2207) 11 MG/DL 8-23 CREATININE (test code = 2214) 0.86 MG/DL 0.80-1.40 eGFR (2020 CKD-EPI) (test code = 06192) 88 ML/MIN/1.73 >60 CALC BUN/CREAT (test code [...] code = 2219) 17 U/L 5-50 LIPID [id number] 04:19:21* Test Item Value Reference Range Interpretation [...] SPECIMENS. FOR MOREINFORMATION, SEE CLIENT ANNOUNCEMENT AT [email or web address] /CalcLDL-C RISK RATIO LDL/HDL (test code = 2238) 3.15 RATIO <3.55 [facility] has i mportant pathology staff changes effective 11/26/2022. New pathology staff will provide uninterrupted, excellent patient care and clinical consultation. See URL: [email or web address]. UNLESS OTHERWISE INDICATED, ALL TESTING PERFORMED AT [facility] [address] [place] [address] CLIA: [id number], CAP: [id number] LIPID [id number] 00:00:00* Test Item Value Reference Range Interpretation Comme nts CHOLESTEROL (test code = 2210) 235 MG/DL TRIGLYCERIDES (test code = 2232) 82 MG/DL HDL CHOLESTEROL (test code = 2220) 52 MG/DL CALC LDL CHOL (test code = 2237) 164 MG/DL RISK RATIO LDL/HDL (test cod e = 2238) 3.15 RATIO Eric StantonCOMPREHENSIVE METABOLIC [id number] 00:00:00* Test Item Value Reference Range Interpretation Comme nts GLUCOSE (test code = 2217) 96 MG/DL BUN (test code = 2208) 11 MG/DL CREATININE (test code = 2214) 0.86 MG/DL eGFR (2020 CKD-EPI) (test co de = 70771) 88 ML/MIN/1.73 CALC BUN/CREAT (test code = [...] code = 2219) 17 U/L Eric StantonLIPID [id number] 00:00:00* Test Item Value Reference Range Interpretation Comme nts CHOLESTEROL (test code = 2210) 235 MG/DL TRIGLYCERIDES (test code = 2232) 82 MG/DL HDL CHOLESTEROL (test code = 2220) 52 MG/DL CALC LDL CHOL (test code = 2237) 164 MG/DL RISK RATIO LDL/HDL (test cod e = 2238) 3.15 RATIO Eric StantonCOMPREHENSIVE METABOLIC [id number] 00:00:00* Test Item Value Reference Range Interpretation Comme nts GLUCOSE (test code = 2217) 96 MG/DL BUN (test code = 2208) 11 MG/DL CREATININE (test code = 2214) 0.86 MG/DL eGFR (2020 CKD-EPI) (test co de = 00984) 88 ML/MIN/1.73 CALC BUN/CREAT (test code = [...] = 2219) 17 U/L Eric Estrada AustinLIPID [id number] 00:00:00* Test Item Value Reference Range Interpretation Comme nts CHOLESTEROL (test code = 2210) 235 MG/DL TRIGLYCERIDES (test code = 2232) 82 MG/DL HDL CHOLESTEROL (test code = 2220) 52 MG/DL CALC LDL CHOL (test code = 2237) 164 MG/DL RISK RATIO LDL/HDL (test cod e = 2238) 3.15 RATIO Eric StantonCOMPREHENSIVE METABOLIC [id number] 00:00:00* Test Item Value Reference Range Interpretation Comme nts GLUCOSE (test code = 2217) 96 MG/DL BUN (test code = 2208) 11 MG/DL CREATININE (test code = 2214) 0.86 MG/DL eGFR (2020 CKD-EPI) (test co de = 34927) 88 ML/MIN/1.73 CALC BUN/CREAT (test code = [...] = 2219) 17 U/L Eric Estrada [place] [id number] 00:00:00* Test Item Value Reference Range Interpretation Comme nts CHOLESTEROL (test code = 2210) 235 MG/DL TRIGLYCERIDES (test code = 2232) 82 MG/DL HDL CHOLESTEROL (test code = 2220) 52 MG/DL CALC LDL CHOL (test code = 2237) 164 MG/DL RISK RATIO LDL/HDL (test cod e = 2238) 3.15 RATIO Eric StantonCOMPREHENSIVE METABOLIC [id number] 00:00:00* Test Item Value Reference Range Interpretation Comme nts GLUCOSE (test code = 2217) 96 MG/DL BUN (test code = 2208) 11 MG/DL CREATININE (test code = 2214) 0.86 MG/DL eGFR (2020 CKD-EPI) (test co de = 84063) 88 ML/MIN/1.73 CALC BUN/CREAT (test code = [...] = 2219) 17 U/L Eric Estrada [place] [id number] 00:00:00* Test Item Value Reference Range Interpretation Comme nts CHOLESTEROL (test code = 2210) 235 MG/DL TRIGLYCERIDES (test code = 2232) 82 MG/DL HDL CHOLESTEROL (test code = 2220) 52 MG/DL CALC LDL CHOL (test code = 2237) 164 MG/DL RISK RATIO LDL/HDL (test cod e = 2238) 3.15 RATIO Eric Estrada AustinCOMPREHENSIVE METABOLIC [id number] 00:00:00* Test Item Value Reference Range Interpretation Comme nts GLUCOSE (test code = 2217) 96 MG/DL BUN (test code = 2208) 11 MG/DL CREATININE (test code = 2214) 0.86 MG/DL eGFR (2020 CKD-EPI) (test co de = 45739) 88 ML/MIN/1.73 CALC BUN/CREAT (test code = [...] code = 2219) 17 U/L Eric Estrada [place] [id number] 00:00:00* Test Item Value Reference Range Interpretation Comme nts CHOLESTEROL (test code = 2210) 235 MG/DL TRIGLYCERIDES (test code = 2232) 82 MG/DL HDL CHOLESTEROL (test code = 2220) 52 MG/DL CALC LDL CHOL (test code = 2237) 164 MG/DL RISK RATIO LDL/HDL (test cod e = 2238) 3.15 RATIO Eric StantonCOMPREHENSIVE METABOLIC [id number] 00:00:00* Test Item Value Reference Range Interpretation Comme nts GLUCOSE (test code = 2217) 96 MG/DL BUN (test code = 2208) 11 MG/DL CREATININE (test code = 2214) 0.86 MG/DL eGFR (2020 CKD-EPI) (test co de = 40987) 88 ML/MIN/1.73 CALC BUN/CREAT (test code = [...] = 2219) 17 U/L Eric Estrada AustinLIPID [id number] 00:00:00* Test Item Value Reference Range Interpretation Comme nts CHOLESTEROL (test code = 2210) 235 MG/DL TRIGLYCERIDES (test code = 2232) 82 MG/DL HDL CHOLESTEROL (test code = 2220) 52 MG/DL CALC LDL CHOL (test code = 2237) 164 MG/DL RISK RATIO LDL/HDL (test cod e = 2238) 3.15 RATIO Eric StantonCOMPREHENSIVE METABOLIC [id number] 00:00:00* Test Item Value Reference Range Interpretation Comme nts GLUCOSE (test code = 2217) 96 MG/DL BUN (test code = 2208) 11 MG/DL CREATININE (test code = 2214) 0.86 MG/DL eGFR (2020 CKD-EPI) (test co de = 50071) 88 ML/MIN/1.73 CALC BUN/CREAT (test code = [...] nts HEPATITIS A IgM (test code = 67263) NON-REACTIVE HEPATITIS B CORE IgM (test code = 4644) NON-REACTIVE HEPATITIS B SURF AG (test code = 2739) REACTIVE HBSAG CONFIRMATION TEST (test code = 2741) CONFIRMED REACTIVE HEPATITIS C ANTIBODY (test code = 4675) NON-REACTIVE INTERPRETATION HEPATITIS A: (test code = 2552) (NOTE) INTERPRETATION HEPATITIS B: (test code = 76396) (NOTE) INTERPRETATION HEPATITIS C: (test code = 92265) (NOTE) Eric Estrada AustinHEPATITIS PANEL, ACUTE [ADDED]2020-08-16 00:00:00* Test Item Value Reference Range Interpretation Comme nts HEPATITIS A IgM (test code = 57201) NON-REACTIVE HEPATITIS B CORE IgM (test code = 4644) NON-REACTIVE HEPATITIS B SURF AG (test code = 2739) REACTIVE HBSAG CONFIRMATION TEST (test code = 2741) CONFIRMED REACTIVE HEPATITIS C ANTIBODY (test code = 4675) NON-REACTIVE INTERPRETATION HEPATITIS A: (test code = 2552) (NOTE) INTERPRETATION HEPATITIS B: (test code = 03890) (NOTE) INTERPRETATION HEPATITIS C: (test code = 13157) (NOTE) Eric StantonHEPATITIS PANEL, ACUTE [ADDED]2020-08-16 00:00:00* Test Item Value Reference Range Interpretation Comme nts HEPATITIS A IgM (test code = 77659) NON-REACTIVE HEPATITIS B CORE IgM (test code = 4644) NON-REACTIVE HEPATITIS B SURF AG (test code = 2739) REACTIVE HBSAG CONFIRMATION TEST (test code = 2741) CONFIRMED REACTIVE HEPATITIS C ANTIBODY (test code = 4675) NON-REACTIVE INTERPRETATION HEPATITIS A: (test code = 2552) (NOTE) INTERPRETATION HEPATITIS B: (test code = 46549) (NOTE) INTERPRETATION HEPATITIS C: (test code = 04204) (NOTE) Eric Estrada White HallHEPATITIS PANEL, ACUTE [ADDED]2020-08-16 00:00:00* Test Item Value Reference Range Interpretation Comme nts HEPATITIS A IgM (test code = 01672) NON-REACTIVE HEPATITIS B CORE IgM (test code = 4644) NON-REACTIVE HEPATITIS B SURF AG (test code = 2739) REACTIVE HBSAG CONFIRMATION TEST (test code = 2741) CONFIRMED REACTIVE HEPATITIS C ANTIBODY (test code = 4675) NON-REACTIVE INTERPRETATION HEPATITIS A: (test code = 2552) (NOTE) INTERPRETATION HEPATITIS B: (test code = 62884) (NOTE) INTERPRETATION HEPATITIS C: (test code = 35346) (NOTE) Eric Estrada AustinHEPATITIS PANEL, ACUTE [ADDED]2020-08-16 00:00:00* Test Item Value Reference Range Interpretation Comme nts HEPATITIS A IgM (test code = 37009) NON-REACTIVE HEPATITIS B CORE IgM (test code = 4644) NON-REACTIVE HEPATITIS B SURF AG (test code = 2739) REACTIVE HBSAG CONFIRMATION TEST (test code = 2741) CONFIRMED REACTIVE HEPATITIS C ANTIBODY (test code = 4675) NON-REACTIVE INTERPRETATION HEPATITIS A: (test code = 2552) (NOTE) INTERPRETATION HEPATITIS B: (test code = 61514) (NOTE) INTERPRETATION HEPATITIS C: (test code = 05786) (NOTE) Eric StantonHEPATITIS PANEL, ACUTE [ADDED]2020-08-16 00:00:00* Test Item Value Reference Range Interpretation Comme nts HEPATITIS A IgM (test code = 56836) NON-REACTIVE HEPATITIS B CORE IgM (test code = 4644) NON-REACTIVE HEPATITIS B SURF AG (test code = 2739) REACTIVE HBSAG CONFIRMATION TEST (test code = 2741) CONFIRMED REACTIVE HEPATITIS C ANTIBODY (test code = 4675) NON-REACTIVE INTERPRETATION HEPATITIS A: (test code = 2552) (NOTE) INTERPRETATION HEPATITIS B: (test code = 04614) (NOTE) INTERPRETATION HEPATITIS C: (test code = 12938) (NOTE) HEPATITIS PANEL, ACUTE [ADDED]2020-08-16 00:00:00* Test Item Value Reference Range Interpretation Comme nts HEPATITIS A IgM (test code = 53115) NON-REACTIVE HEPATITIS B CORE IgM (test code = 4644) NON-REACTIVE HEPATITIS B SURF AG (test code = 2739) REACTIVE HBSAG CONFIRMATION TEST (test code = 2741) CONFIRMED REACTIVE HEPATITIS C ANTIBODY (test code = 4675) NON-REACTIVE INTERPRETATION HEPATITIS A: (test code = 2552) (NOTE) INTERPRETATION HEPATITIS B: (test code = 94545) (NOTE) INTERPRETATION HEPATITIS C: (test code = 05768) (NOTE) Eric StantonHEPATITIS PANEL, ACUTE [ADDED]2020-08-16 00:00:00* Test Item Value Reference Range Interpretation Comme nts HEPATITIS A IgM (test code = 61166) NON-REACTIVE HEPATITIS B CORE IgM (test code = 4644) NON-REACTIVE HEPATITIS B SURF AG (test code = 2739) REACTIVE HBSAG CONFIRMATION TEST (test code = 2741) CONFIRMED REACTIVE HEPATITIS C ANTIBODY (test code = 4675) NON-REACTIVE INTERPRETATION HEPATITIS A: (test code = 2552) (NOTE) INTERPRETATION HEPATITIS B: (test code = 07080) (NOTE) INTERPRETATION HEPATITIS C: (test code = 96266) (NOTE) Eric StantonLIPID [id number] 00:00:00* Test Item Value Reference Range Interpretation Comme nts CHOLESTEROL (test code = 2210) 185 MG/DL TRIGLYCERIDES (test code = 2232) 50 MG/DL HDL CHOLESTEROL (test code = 2220) 61 MG/DL CALC LDL CHOL (test code = 2237) 111 MG/DL RISK RATIO LDL/HDL (test cod e = 2238) 1.82 RATIO Eric StantonCOMPREHENSIVE METABOLIC [id number] 00:00:00* Test Item Value Reference Range Interpretation Comme nts GLUCOSE (test code = 2217) 91 MG/DL BUN (test code = 2208) 12 MG/DL CREATININE (test code = 2214) 1.04 MG/DL eGFR AMER. (test cod e = 49806) 79 ML/MIN/1.73 eGFR NON- AMER. (test code = 09709) 68 ML/MIN/1.73 CALC BUN/CREAT (test code = [...] code = 2219) 18 U/L Eric StantonPSA, [id number] 00:00:00* Test Item Value Reference Range Interpretation Comme nts PSA, TOTAL (test code = 2606) 5.74 NG/ML Eric StantonCBC W/AUTO [id number] 00:00:00* Test Item Value Reference Range Interpretation [...] code = 1015) 201 K/UL Eric StantonHEMOGLOBIN [id number] 00:00:00* Test Item Value Reference Range Interpretation Comme nts HEMOGLOBIN A1c (test code = 26546) 5.7 % Eric StantonLIPID [id number] 00:00:00* Test Item Value Reference Range Interpretation Comme nts CHOLESTEROL (test code = 2210) 185 MG/DL TRIGLYCERIDES (test code = 2232) 50 MG/DL HDL CHOLESTEROL (test code = 2220) 61 MG/DL CALC LDL CHOL (test code = 2237) 111 MG/DL RISK RATIO LDL/HDL (test cod e = 2238) 1.82 RATIO Eric StantonCOMPREHENSIVE METABOLIC [id number] 00:00:00* Test Item Value Reference Range Interpretation Comme nts GLUCOSE (test code = 2217) 91 MG/DL BUN (test code = 2208) 12 MG/DL CREATININE (test code = 2214) 1.04 MG/DL eGFR AMER. (test cod e = 75244) 79 ML/MIN/1.73 eGFR NON- AMER. (test code = 82429) 68 ML/MIN/1.73 CALC BUN/CREAT (test code = [...] code = 2219) 18 U/L Eric StantonPSA, [id number] 00:00:00* Test Item Value Reference Range Interpretation Comme nts PSA, TOTAL (test code = 2606) 5.74 NG/ML Eric StantonCBC W/AUTO [id number] 00:00:00* Test Item Value Reference Range Interpretation [...] code = 1015) 201 K/UL Eric StantonHEMOGLOBIN [id number] 00:00:00* Test Item Value Reference Range Interpretation Comme nts HEMOGLOBIN A1c (test code = 92886) 5.7 % Eric StantonLIPID [id number] 00:00:00* Test Item Value Reference Range Interpretation Comme nts CHOLESTEROL (test code = 2210) 185 MG/DL TRIGLYCERIDES (test code = 2232) 50 MG/DL HDL CHOLESTEROL (test code = 2220) 61 MG/DL CALC LDL CHOL (test code = 2237) 111 MG/DL RISK RATIO LDL/HDL (test cod e = 2238) 1.82 RATIO Eric StantonCOMPREHENSIVE METABOLIC [id number] 00:00:00* Test Item Value Reference Range Interpretation Comme nts GLUCOSE (test code = 2217) 91 MG/DL BUN (test code = 2208) 12 MG/DL CREATININE (test code = 2214) 1.04 MG/DL eGFR AMER. (test cod e = 94298) 79 ML/MIN/1.73 eGFR NON- AMER. (test code = 94340) 68 ML/MIN/1.73 CALC BUN/CREAT (test code = [...] code = 2219) 18 U/L Eric StantonPSA, [id number] 00:00:00* Test Item Value Reference Range Interpretation Comme nts PSA, TOTAL (test code = 2606) 5.74 NG/ML Eric StantonCBC W/AUTO [id number] 00:00:00* Test Item Value Reference Range Interpretation [...] code = 1015) 201 K/UL Eric StantonHEMOGLOBIN [id number] 00:00:00* Test Item Value Reference Range Interpretation Comme nts HEMOGLOBIN A1c (test code = 51653) 5.7 % HEMOGLOBIN [id number] 00:00:00* Test Item Value Reference Range Interpretation Comme nts HEMOGLOBIN A1c (test code = 57295) 5.7 % Eric StantonLIPID [id number] 00:00:00* Test Item Value Reference Range Interpretation Comme nts CHOLESTEROL (test code = 2210) 185 MG/DL TRIGLYCERIDES (test code = 2232) 50 MG/DL HDL CHOLESTEROL (test code = 2220) 61 MG/DL CALC LDL CHOL (test code = 2237) 111 MG/DL RISK RATIO LDL/HDL (test cod e = 2238) 1.82 RATIO Eric StantonCOMPREHENSIVE METABOLIC [id number] 00:00:00* Test Item Value Reference Range Interpretation Comme nts GLUCOSE (test code = 2217) 91 MG/DL BUN (test code = 2208) 12 MG/DL CREATININE (test code = 2214) 1.04 MG/DL eGFR AMER. (test cod e = 79081) 79 ML/MIN/1.73 eGFR NON- AMER. (test code = 29583) 68 ML/MIN/1.73 CALC BUN/CREAT (test code = [...] code = 2219) 18 U/L Eric StantonPSA, [id number] 00:00:00* Test Item Value Reference Range Interpretation Comme nts PSA, TOTAL (test code = 2606) 5.74 NG/ML Eric StantonCBC W/AUTO [id number] 00:00:00* Test Item Value Reference Range Interpretation [...] COUNT (test code = 1015) 201 K/UL rEic StantonLIPID [id number] 00:00:00* Test Item Value Reference Range Interpretation Comme nts CHOLESTEROL (test code = 2210) 185 MG/DL TRIGLYCERIDES (test code = 2232) 50 MG/DL HDL CHOLESTEROL (test code = 2220) 61 MG/DL CALC LDL CHOL (test code = 2237) 111 MG/DL RISK RATIO LDL/HDL (test cod e = 2238) 1.82 RATIO HEMOGLOBIN [id number] 00:00:00* Test Item Value Reference Range Interpretation Comme nts HEMOGLOBIN A1c (test code = 72443) 5.7 % Eric StantonLIPID [id number] 00:00:00* Test Item Value Reference Range Interpretation Comme nts CHOLESTEROL (test code = 2210) 185 MG/DL TRIGLYCERIDES (test code = 2232) 50 MG/DL HDL CHOLESTEROL (test code = 2220) 61 MG/DL CALC LDL CHOL (test code = 2237) 111 MG/DL RISK RATIO LDL/HDL (test cod e = 2238) 1.82 RATIO Eric StantonCOMPREHENSIVE METABOLIC [id number] 00:00:00* Test Item Value Reference Range Interpretation Comme nts GLUCOSE (test code = 2217) 91 MG/DL BUN (test code = 2208) 12 MG/DL CREATININE (test code = 2214) 1.04 MG/DL eGFR AMER. (test cod e = 34902) 79 ML/MIN/1.73 eGFR NON- AMER. (test code = 54737) 68 ML/MIN/1.73 CALC BUN/CREAT (test code = [...] code = 2219) 18 U/L Eric StantonPSA, [id number] 00:00:00* Test Item Value Reference Range Interpretation Comme nts PSA, TOTAL (test code = 2606) 5.74 NG/ML Eric StantonCOMPREHENSIVE METABOLIC [id number] 00:00:00* Test Item Value Reference Range Interpretation Comme nts GLUCOSE (test code = 2217) 91 MG/DL BUN (test code = 2208) 12 MG/DL CREATININE (test code = 2214) 1.04 MG/DL eGFR AMER. (test cod e = 09864) 79 ML/MIN/1.73 eGFR NON- AMER. (test code = 20612) 68 ML/MIN/1.73 CALC BUN/CREAT (test code = [...] ALT (test code = 2219) 18 U/L CBC W/AUTO [id number] 00:00:00* Test Item Value Reference Range Interpretation [...] code = 1015) 201 K/UL Eric Estrada MaximinoPSA, [id number] 00:00:00* Test Item Value Reference Range Interpretation Comme nts PSA, TOTAL (test code = 2606) 5.74 NG/ML CBC W/AUTO [id number] 00:00:00* Test Item Value Reference Range Interpretation [...] COUNT (test code = 1015) 201 K/UL HEMOGLOBIN [id number] 00:00:00* Test Item Value Reference Range Interpretation Comme nts HEMOGLOBIN A1c (test code = 04216) 5.7 % Eric Estrada [place] HallLIPID [id number] 00:00:00* Test Item Value Reference Range Interpretation Comme nts CHOLESTEROL (test code = 2210) 185 MG/DL TRIGLYCERIDES (test code = 2232) 50 MG/DL HDL CHOLESTEROL (test code = 2220) 61 MG/DL CALC LDL CHOL (test code = 2237) 111 MG/DL RISK RATIO LDL/HDL (test cod e = 2238) 1.82 RATIO Eric StantonCOMPREHENSIVE METABOLIC [id number] 00:00:00* Test Item Value Reference Range Interpretation Comme nts GLUCOSE (test code = 2217) 91 MG/DL BUN (test code = 2208) 12 MG/DL CREATININE (test code = 2214) 1.04 MG/DL eGFR AMER. (test cod e = 25288) 79 ML/MIN/1.73 eGFR NON- AMER. (test code = 42446) 68 ML/MIN/1.73 CALC BUN/CREAT (test code = [...] code = 2219) 18 U/L Eric StantonPSA, [id number] 00:00:00* Test Item Value Reference Range Interpretation Comme nts PSA, TOTAL (test code = 2606) 5.74 NG/ML Eric StantonCBC W/AUTO [id number] 00:00:00* Test Item Value Reference Range Interpretation [...] code = 1015) 201 K/UL Eric StantonHEMOGLOBIN [id number] 00:00:00* Test Item Value Reference Range Interpretation Comme nts HEMOGLOBIN A1c (test code = 53802) 5.7 % Eric StantonLIPID [id number] 00:00:00* Test Item Value Reference Range Interpretation Comme nts CHOLESTEROL (test code = 2210) 185 MG/DL TRIGLYCERIDES (test code = 2232) 50 MG/DL HDL CHOLESTEROL (test code = 2220) 61 MG/DL CALC LDL CHOL (test code = 2237) 111 MG/DL RISK RATIO LDL/HDL (test cod e = 2238) 1.82 RATIO Eric StantonCOMPREHENSIVE METABOLIC [id number] 00:00:00* Test Item Value Reference Range Interpretation Comme nts GLUCOSE (test code = 2217) 91 MG/DL BUN (test code = 2208) 12 MG/DL CREATININE (test code = 2214) 1.04 MG/DL eGFR AMER. (test cod e = 91927) 79 ML/MIN/1.73 eGFR NON- AMER. (test code = 37218) 68 ML/MIN/1.73 CALC BUN/CREAT (test code = [...] code = 2219) 18 U/L Eric StantonPSA, [id number] 00:00:00* Test Item Value Reference Range Interpretation Comme nts PSA, TOTAL (test code = 2606) 5.74 NG/ML Eric StantonCBC W/AUTO [id number] 00:00:00* Test Item Value Reference Range Interpretation [...] = 1015) 201 K/UL Eric Estrada AustinHEMOGLOBIN [id number] 00:00:00* Test Item Value Reference Range Interpretation Comme nts HEMOGLOBIN A1c (test code = 45019) 5.7 % Eric Estrada CxocfqBERN-EmY-1 (COVID-19) by RT-PCR (HIGH RISK)2020-04-14 00:00:00* Test Item Value Reference Range Interpretation Comme nts SARS-CoV-2 INTERPRETATION (test code = 14523) NEGATIVE SOURCE (test code = 91792) NASOPHARYNGEAL Eric Estrada [id number] (COVID-19) by RT-PCR (HIGH RISK)2020-04-14 00:00:00* Test Item Value Reference Range Interpretation Comme nts SARS-CoV-2 INTERPRETATION (test code = 93145) NEGATIVE SOURCE (test code = 07001) NASOPHARYNGEAL Eric F ZcstwjVFZL-WwW-0 (COVID-19) by RT-PCR (HIGH RISK)2020-04-14 00:00:00* Test Item Value Reference Range Interpretation Comme nts SARS-CoV-2 INTERPRETATION (test code = 38448) NEGATIVE SOURCE (test code = 98960) NASOPHARYNGEAL Eric Estrada BhjgmcSQEP-PhE-4 (COVID-19) by RT-PCR (HIGH RISK)2020-04-14 00:00:00* Test Item Value Reference Range Interpretation Comme nts SARS-CoV-2 INTERPRETATION (test code = 78610) NEGATIVE SOURCE (test code = 18184) NASOPHARYNGEAL Eric F BmtkqzDZAS-WuQ-4 (COVID-19) by RT-PCR (HIGH RISK)2020-04-14 00:00:00* Test Item Value Reference Range Interpretation Comme nts SARS-CoV-2 INTERPRETATION (test code = 28585) NEGATIVE SOURCE (test code = 82025) NASOPHARYNGEAL Eric F NuyisqCOVI-RvF-1 (COVID-19) by RT-PCR (HIGH RISK)2020-04-14 00:00:00* Test Item Value Reference Range Interpretation Comme nts SARS-CoV-2 INTERPRETATION (test code = 93579) NEGATIVE SOURCE (test code = 61401) NASOPHARYNGEAL SARS-CoV-2 (COVID-19) by RT-PCR (HIGH RISK)2020-04-14 00:00:00* Test Item Value Reference Range Interpretation Comme nts SARS-CoV-2 INTERPRETATION (test code = 03980) NEGATIVE SOURCE (test code = 08231) NASOPHARYNGEAL Eric F DfgyxeSNMU-TfC-5 (COVID-19) by RT-PCR (HIGH RISK)2020-04-14 00:00:00* Test Item Value Reference Range Interpretation Comme nts SARS-CoV-2 INTERPRETATION (test code = 66943) NEGATIVE SOURCE (test code = 91085) NASOPHARYNGEAL Eric F VporecVDZL-FkA-1 (COVID-19) by RT-PCR (HIGH RISK)2020-04-05 00:00:00* Test Item Value Reference Range Interpretation Comme nts SARS-CoV-2 INTERPRETATION (test code = 05162) INCONCLUSIVE SOURCE (test code = 25977) NASOPHARYNGEAL Eric F ZzhubuHPEC-WgE-8 (COVID-19) by RT-PCR (HIGH RISK)2020-04-05 00:00:00* Test Item Value Reference Range Interpretation Comme nts SARS-CoV-2 INTERPRETATION (test code = 34704) INCONCLUSIVE SOURCE (test code = 19102) NASOPHARYNGEAL Eric F YseziyOIYF-GwQ-6 (COVID-19) by RT-PCR (HIGH RISK)2020-04-05 00:00:00* Test Item Value Reference Range Interpretation Comme nts SARS-CoV-2 INTERPRETATION (test code = 08701) INCONCLUSIVE SOURCE (test code = 74538) NASOPHARYNGEAL Eric F WvcjerQIRQ-FdC-5 (COVID-19) by RT-PCR (HIGH RISK)2020-04-05 00:00:00* Test Item Value Reference Range Interpretation Comme nts SARS-CoV-2 INTERPRETATION (test code = 57709) INCONCLUSIVE SOURCE (test code = 46836) NASOPHARYNGEAL Eric F XfgfbiIVNU-JvT-3 (COVID-19) by RT-PCR (HIGH RISK)2020-04-05 00:00:00* Test Item Value Reference Range Interpretation Comme nts SARS-CoV-2 INTERPRETATION (test code = 12694) INCONCLUSIVE SOURCE (test code = 42687) NASOPHARYNGEAL Eric F TfihumQTYJ-PdH-3 (COVID-19) by RT-PCR (HIGH RISK)2020-04-05 00:00:00* Test Item Value Reference Range Interpretation Comme nts SARS-CoV-2 INTERPRETATION (test code = 79764) INCONCLUSIVE SOURCE (test code = 23942) NASOPHARYNGEAL SARS-CoV-2 (COVID-19) by RT-PCR (HIGH RISK)2020-04-05 00:00:00* Test Item Value Reference Range Interpretation Comme nts SARS-CoV-2 INTERPRETATION (test code = 33062) INCONCLUSIVE SOURCE (test code = 04758) NASOPHARYNGEAL Eric F JxbjroBZND-HlC-2 (COVID-19) by RT-PCR (HIGH RISK)2020-04-05 00:00:00* Test Item Value Reference Range Interpretation Comme nts SARS-CoV-2 INTERPRETATION (test code = 27799) INCONCLUSIVE SOURCE (test code = 28562) NASOPHARYNGEAL Eric StantonHEMOGLOBIN [id number] 00:00:00* Test Item Value Reference Range Interpretation Comme nts HEMOGLOBIN A1c (test code = 27713) 5.7 % Eric StantonCOMPREHENSIVE METABOLIC [id number] 00:00:00* Test Item Value Reference Range Interpretation Comme nts GLUCOSE (test code = 2217) 118 MG/DL BUN (test code = 2208) 10 MG/DL CREATININE (test code = 2214) 0.87 MG/DL eGFR AMER. (test cod e = 85310) 96 ML/MIN/1.73 eGFR NON- AMER. (test code = 34535) 83 ML/MIN/1.73 CALC BUN/CREAT (test code = [...] (test code = 2219) 17 U/L Eric tSantonCBC W/AUTO [id number] 00:00:00* Test Item Value Reference Range Interpretation [...] code = 1015) 205 K/UL Eric StantonLIPID [id number] 00:00:00* Test Item Value Reference Range Interpretation Comme nts CHOLESTEROL (test code = 2210) 166 MG/DL TRIGLYCERIDES (test code = 2232) 60 MG/DL HDL CHOLESTEROL (test code = 2220) 58 MG/DL CALC LDL CHOL (test code = 2237) 96 MG/DL RISK RATIO LDL/HDL (test cod e = 2238) 1.66 RATIO Eric StantonHEMOGLOBIN [id number] 00:00:00* Test Item Value Reference Range Interpretation Comme charo HEMOGLOBIN A1c (test code = 00962) 5.7 % Eric StanotnCOMPREHENSIVE METABOLIC [id number] 00:00:00* Test Item Value Reference Range Interpretation Comme nts GLUCOSE (test code = 2217) 118 MG/DL BUN (test code = 2208) 10 MG/DL CREATININE (test code = 2214) 0.87 MG/DL eGFR AMER. (test cod e = 73897) 96 ML/MIN/1.73 eGFR NON- AMER. (test code = 37886) 83 ML/MIN/1.73 CALC BUN/CREAT (test code = [...] = 2219) 17 U/L Eric StantonCBC W/AUTO [id number] 00:00:00* Test Item Value Reference Range Interpretation [...] code = 1015) 205 K/UL Eric StantonLIPID [id number] 00:00:00* Test Item Value Reference Range Interpretation Comme nts CHOLESTEROL (test code = 2210) 166 MG/DL TRIGLYCERIDES (test code = 2232) 60 MG/DL HDL CHOLESTEROL (test code = 2220) 58 MG/DL CALC LDL CHOL (test code = 2237) 96 MG/DL RISK RATIO LDL/HDL (test cod e = 2238) 1.66 RATIO Eric StantonHEMOGLOBIN [id number] 00:00:00* Test Item Value Reference Range Interpretation Comme nts HEMOGLOBIN A1c (test code = 62027) 5.7 % Eric StantonCOMPREHENSIVE METABOLIC [id number] 00:00:00* Test Item Value Reference Range Interpretation Comme nts GLUCOSE (test code = 2217) 118 MG/DL BUN (test code = 2208) 10 MG/DL CREATININE (test code = 2214) 0.87 MG/DL eGFR AMER. (test cod e = 91345) 96 ML/MIN/1.73 eGFR NON- AMER. (test code = 88130) 83 ML/MIN/1.73 CALC BUN/CREAT (test code = [...] = 2219) 17 U/L Eric StantonCBC W/AUTO [id number] 00:00:00* Test Item Value Reference Range Interpretation [...] code = 1015) 205 K/UL Eric StantonLIPID [id number] 00:00:00* Test Item Value Reference Range Interpretation Comme nts CHOLESTEROL (test code = 2210) 166 MG/DL TRIGLYCERIDES (test code = 2232) 60 MG/DL HDL CHOLESTEROL (test code = 2220) 58 MG/DL CALC LDL CHOL (test code = 2237) 96 MG/DL RISK RATIO LDL/HDL (test cod e = 2238) 1.66 RATIO Eric StantonHEMOGLOBIN [id number] 00:00:00* Test Item Value Reference Range Interpretation Comme nts HEMOGLOBIN A1c (test code = 02392) 5.7 % Eric StantonCOMPREHENSIVE METABOLIC [id number] 00:00:00* Test Item Value Reference Range Interpretation Comme nts GLUCOSE (test code = 2217) 118 MG/DL BUN (test code = 2208) 10 MG/DL CREATININE (test code = 2214) 0.87 MG/DL eGFR AMER. (test cod e = 29772) 96 ML/MIN/1.73 eGFR NON- AMER. (test code = 91595) 83 ML/MIN/1.73 CALC BUN/CREAT (test code = [...] = 2219) 17 U/L Eric Estrada AustinLIPID [id number] 00:00:00* Test Item Value Reference Range Interpretation Comme nts CHOLESTEROL (test code = 2210) 166 MG/DL TRIGLYCERIDES (test code = 2232) 60 MG/DL HDL CHOLESTEROL (test code = 2220) 58 MG/DL CALC LDL CHOL (test code = 2237) 96 MG/DL RISK RATIO LDL/HDL (test cod e = 2238) 1.66 RATIO CBC W/AUTO [id number] 00:00:00* Test Item Value Reference Range Interpretation [...] = 1015) 205 K/UL Eric Estrada AustinLIPID [id number] 00:00:00* Test Item Value Reference Range Interpretation Comme nts CHOLESTEROL (test code = 2210) 166 MG/DL TRIGLYCERIDES (test code = 2232) 60 MG/DL HDL CHOLESTEROL (test code = 2220) 58 MG/DL CALC LDL CHOL (test code = 2237) 96 MG/DL RISK RATIO LDL/HDL (test cod e = 2238) 1.66 RATIO Eric Estrada AustinHEMOGLOBIN [id number] 00:00:00* Test Item Value Reference Range Interpretation Comme nts HEMOGLOBIN A1c (test code = 52540) 5.7 % Eric Estrada AustinHEMOGLOBIN [id number] 00:00:00* Test Item Value Reference Range Interpretation Comme nts HEMOGLOBIN A1c (test code = 13543) 5.7 % COMPREHENSIVE METABOLIC [id number] 00:00:00* Test Item Value Reference Range Interpretation Comme nts GLUCOSE (test code = 2217) 118 MG/DL BUN (test code = 2208) 10 MG/DL CREATININE (test code = 2214) 0.87 MG/DL eGFR AMER. (test cod e = 78705) 96 ML/MIN/1.73 eGFR NON- AMER. (test code = 40050) 83 ML/MIN/1.73 CALC BUN/CREAT (test code = [...] (test code = 2219) 17 U/L Eric Sean White HallCOMPREHENSIVE METABOLIC [id number] 00:00:00* Test Item Value Reference Range Interpretation Comme nts GLUCOSE (test code = 2217) 118 MG/DL BUN (test code = 2208) 10 MG/DL CREATININE (test code = 2214) 0.87 MG/DL eGFR AMER. (test cod e = 29308) 96 ML/MIN/1.73 eGFR NON- AMER. (test code = 41672) 83 ML/MIN/1.73 CALC BUN/CREAT (test code = [...] ALT (test code = 2219) 17 U/L CBC W/AUTO [id number] 00:00:00* Test Item Value Reference Range Interpretation [...] (test code = 1015) 205 K/UL Eric sEtrada AustinLIPID [id number] 00:00:00* Test Item Value Reference Range Interpretation Comme nts CHOLESTEROL (test code = 2210) 166 MG/DL TRIGLYCERIDES (test code = 2232) 60 MG/DL HDL CHOLESTEROL (test code = 2220) 58 MG/DL CALC LDL CHOL (test code = 2237) 96 MG/DL RISK RATIO LDL/HDL (test cod e = 2238) 1.66 RATIO Eric StantonHEMOGLOBIN [id number] 00:00:00* Test Item Value Reference Range Interpretation Comme nts HEMOGLOBIN A1c (test code = 87147) 5.7 % Eric StantonCOMPREHENSIVE METABOLIC [id number] 00:00:00* Test Item Value Reference Range Interpretation Comme nts GLUCOSE (test code = 2217) 118 MG/DL BUN (test code = 2208) 10 MG/DL CREATININE (test code = 2214) 0.87 MG/DL eGFR AMER. (test cod e = 96133) 96 ML/MIN/1.73 eGFR NON- AMER. (test code = 63311) 83 ML/MIN/1.73 CALC BUN/CREAT (test code = [...] code = 2219) 17 U/L Eric Estrada MaximinoCBC W/AUTO [id number] 00:00:00* Test Item Value Reference Range Interpretation [...] code = 1015) 205 K/UL CBC W/AUTO [id number] 00:00:00* Test Item Value Reference Range Interpretation [...] code = 1015) 205 K/UL Eric Estrada White HallLIPID [id number] 00:00:00* Test Item Value Reference Range Interpretation Comme nts CHOLESTEROL (test code = 2210) 166 MG/DL TRIGLYCERIDES (test code = 2232) 60 MG/DL HDL CHOLESTEROL (test code = 2220) 58 MG/DL CALC LDL CHOL (test code = 2237) 96 MG/DL RISK RATIO LDL/HDL (test cod e = 2238) 1.66 RATIO Eric StantonHEMOGLOBIN [id number] 00:00:00* Test Item Value Reference Range Interpretation Comme nts HEMOGLOBIN A1c (test code = 19702) 5.7 % Eric StantonCOMPREHENSIVE METABOLIC [id number] 00:00:00* Test Item Value Reference Range Interpretation Comme nts GLUCOSE (test code = 2217) 118 MG/DL BUN (test code = 2208) 10 MG/DL CREATININE (test code = 2214) 0.87 MG/DL eGFR AMER. (test cod e = 58225) 96 ML/MIN/1.73 eGFR NON- AMER. (test code = 77445) 83 ML/MIN/1.73 CALC BUN/CREAT (test code = [...] = 2219) 17 U/L Eric StantonCBC W/AUTO [id number] 00:00:00* Test Item Value Reference Range Interpretation [...] code = 1015) 205 K/UL Eric StantonLIPID [id number] 00:00:00* Test Item Value Reference Range Interpretation Comme nts CHOLESTEROL (test code = 2210) 166 MG/DL TRIGLYCERIDES (test code = 2232) 60 MG/DL HDL CHOLESTEROL (test code = 2220) 58 MG/DL CALC LDL CHOL (test code = 2237) 96 MG/DL RISK RATIO LDL/HDL (test cod e = 2238) 1.66 RATIO Eric StantonCOMPREHENSIVE METABOLIC [id number] 00:00:00* Test Item Value Reference Range Interpretation Comme nts GLUCOSE (test code = 2217) 96 MG/DL BUN (test code = 2208) 12 MG/DL CREATININE (test code = 2214) 0.90 MG/DL eGFR AMER. (test cod e = 97864) 96 ML/MIN/1.73 eGFR NON- AMER. (test code = 60074) 83 ML/MIN/1.73 CALC BUN/CREAT (test code = [...] code = 2219) 17 U/L Eric F White HallCOMPREHENSIVE METABOLIC [id number] 00:00:00* Test Item Value Reference Range Interpretation Comme nts GLUCOSE (test code = 2217) 96 MG/DL BUN (test code = 2208) 12 MG/DL CREATININE (test code = 2214) 0.90 MG/DL eGFR AMER. (test cod e = 65618) 96 ML/MIN/1.73 eGFR NON- AMER. (test code = 25756) 83 ML/MIN/1.73 CALC BUN/CREAT (test code = [...] code = 2219) 17 U/L Eric F White HallCOMPREHENSIVE METABOLIC [id number] 00:00:00* Test Item Value Reference Range Interpretation Comme nts GLUCOSE (test code = 2217) 96 MG/DL BUN (test code = 2208) 12 MG/DL CREATININE (test code = 2214) 0.90 MG/DL eGFR AMER. (test cod e = 18771) 96 ML/MIN/1.73 eGFR NON- AMER. (test code = 14783) 83 ML/MIN/1.73 CALC BUN/CREAT (test code = [...] code = 2219) 17 U/L Eric Estrada White HallCOMPREHENSIVE METABOLIC [id number] 00:00:00* Test Item Value Reference Range Interpretation Comme nts GLUCOSE (test code = 2217) 96 MG/DL BUN (test code = 2208) 12 MG/DL CREATININE (test code = 2214) 0.90 MG/DL eGFR AMER. (test cod e = 98820) 96 ML/MIN/1.73 eGFR NON- AMER. (test code = 65838) 83 ML/MIN/1.73 CALC BUN/CREAT (test code = [...] code = 2219) 17 U/L [facility]strada [facility] [id number] 00:00:00* Test Item Value Reference Range Interpretation Comme nts GLUCOSE (test code = 2217) 96 MG/DL BUN (test code = 2208) 12 MG/DL CREATININE (test code = 2214) 0.90 MG/DL eGFR AMER. (test cod e = 30942) 96 ML/MIN/1.73 eGFR NON- AMER. (test code = 07867) 83 ML/MIN/1.73 CALC BUN/CREAT (test code = [...] code = 2219) 17 U/L Eric Estrada [facility] RegionPRE[facility] [id number] 00:00:00* Test Item Value Reference Range Interpretation Comme nts GLUCOSE (test code = 2217) 96 MG/DL BUN (test code = 2208) 12 MG/DL CREATININE (test code = 2214) 0.90 MG/DL eGFR AMER. (test cod e = 81479) 96 ML/MIN/1.73 eGFR NON- AMER. (test code = 57704) 83 ML/MIN/1.73 CALC BUN/CREAT (test code = [...] code = 2219) 17 U/L COMPREHENSIVE METABOLIC [id number] 00:00:00* Test Item Value Reference Range Interpretation Comme nts GLUCOSE (test code = 2217) 96 MG/DL BUN (test code = 2208) 12 MG/DL CREATININE (test code = 2214) 0.90 MG/DL eGFR AMER. (test cod e = 77865) 96 ML/MIN/1.73 eGFR NON- AMER. (test code = 43927) 83 ML/MIN/1.73 CALC BUN/CREAT (test code = [...] = 2219) 17 U/L Eric StantonCOMPREHENSIVE METABOLIC [id number] 00:00:00* Test Item Value Reference Range Interpretation Comme nts GLUCOSE (test code = 2217) 96 MG/DL BUN (test code = 2208) 12 MG/DL CREATININE (test code = 2214) 0.90 MG/DL eGFR AMER. (test cod e = 83620) 96 ML/MIN/1.73 eGFR NON- AMER. (test code = 07272) 83 ML/MIN/1.73 CALC BUN/CREAT (test code = [...] 17 U/L Eric F AustinPSA, FREE AND [id number] 00:00:00* Test Item Value Reference Range Interpretation Comme nts PROSTATIC SPECIFIC AG (test code = 265220) 7.12 NG/ML FREE PSA (test code = 702444) 1.45 NG/ML % FREE PSA (test code = 381143) 20 % Eric F AustinPSA, FREE AND [id number] 00:00:00* Test Item Value Reference Range Interpretation Comme nts PROSTATIC SPECIFIC AG (test code = 693865) 7.12 NG/ML FREE PSA (test code = 276557) 1.45 NG/ML % FREE PSA (test code = 305814) 20 % Eric F AustinPSA, FREE AND [id number] 00:00:00* Test Item Value Reference Range Interpretation Comme nts PROSTATIC SPECIFIC AG (test code = 699691) 7.12 NG/ML FREE PSA (test code = 534387) 1.45 NG/ML % FREE PSA (test code = 624428) 20 % Eric Estrada AustinPSA, FREE AND [id number] 00:00:00* Test Item Value Reference Range Interpretation Comme nts PROSTATIC SPECIFIC AG (test code = 221158) 7.12 NG/ML FREE PSA (test code = 998944) 1.45 NG/ML % FREE PSA (test code = 562311) 20 % Eric Estrada AustinPSA, FREE AND [id number] 00:00:00* Test Item Value Reference Range Interpretation Comme nts PROSTATIC SPECIFIC AG (test code = 603469) 7.12 NG/ML FREE PSA (test code = 679039) 1.45 NG/ML % FREE PSA (test code = 016844) 20 % Eric Estrada AustinPSA, FREE AND [id number] 00:00:00* Test Item Value Reference Range Interpretation Comme nts PROSTATIC SPECIFIC AG (test code = 217035) 7.12 NG/ML FREE PSA (test code = 142538) 1.45 NG/ML % FREE PSA (test code = 328596) 20 % PSA, FREE AND [id number] 00:00:00* Test Item Value Reference Range Interpretation Comme nts PROSTATIC SPECIFIC AG (test code = 911501) 7.12 NG/ML FREE PSA (test code = 636729) 1.45 NG/ML % FREE PSA (test code = 282136) 20 % Eric Estrada AustinPSA, FREE AND [id number] 00:00:00* Test Item Value Reference Range Interpretation Comme nts PROSTATIC SPECIFIC AG (test code = 780696) 7.12 NG/ML FREE PSA (test code = 422836) 1.45 NG/ML % FREE PSA (test code = 647485) 20 % Eric Estrada AustinLIPID [id number] 00:00:00* Test Item Value Reference Range Interpretation Comme nts CHOLESTEROL (test code = 2210) 170 MG/DL TRIGLYCERIDES (test code = 2232) 58 MG/DL HDL CHOLESTEROL (test code = 2220) 62 MG/DL CALC LDL CHOL (test code = 2237) 96 MG/DL RISK RATIO LDL/HDL (test cod e = 2238) 1.55 RATIO Eric F [id number] 00:00:00* Test Item Value Reference Range Interpretation Comme nts TSH, THIRD GENERATION (test code = 2821) 3.030 UIU/ML Eric StantonPSA, [id number] 00:00:00* Test Item Value Reference Range Interpretation Comme nts PSA, TOTAL (test code = 2606) 6.37 NG/ML Eric StantonCOMPREHENSIVE METABOLIC [id number] 00:00:00* Test Item Value Reference Range Interpretation Comme nts GLUCOSE (test code = 2217) 103 MG/DL BUN (test code = 2208) 10 MG/DL CREATININE (test code = 2214) 0.90 MG/DL eGFR AMER. (test cod e = 08823) 96 ML/MIN/1.73 eGFR NON- AMER. (test code = 29137) 83 ML/MIN/1.73 CALC BUN/CREAT (test code = [...] code = 2219) 31 U/L Eric StantonLIPID [id number] 00:00:00* Test Item Value Reference Range Interpretation Comme nts CHOLESTEROL (test code = 2210) 170 MG/DL TRIGLYCERIDES (test code = 2232) 58 MG/DL HDL CHOLESTEROL (test code = 2220) 62 MG/DL CALC LDL CHOL (test code = 2237) 96 MG/DL RISK RATIO LDL/HDL (test cod e = 2238) 1.55 RATIO Eric [id number] 00:00:00* Test Item Value Reference Range Interpretation Comme nts TSH, THIRD GENERATION (test code = 2821) 3.030 UIU/ML Eric StantonPSA, [id number] 00:00:00* Test Item Value Reference Range Interpretation Comme nts PSA, TOTAL (test code = 2606) 6.37 NG/ML Eric StantonCOMPREHENSIVE METABOLIC [id number] 00:00:00* Test Item Value Reference Range Interpretation Comme nts GLUCOSE (test code = 2217) 103 MG/DL BUN (test code = 2208) 10 MG/DL CREATININE (test code = 2214) 0.90 MG/DL eGFR AMER. (test cod e = 25117) 96 ML/MIN/1.73 eGFR NON- AMER. (test code = 72535) 83 ML/MIN/1.73 CALC BUN/CREAT (test code = [...] code = 2219) 31 U/L Eric StantonLIPID [id number] 00:00:00* Test Item Value Reference Range Interpretation Comme nts CHOLESTEROL (test code = 2210) 170 MG/DL TRIGLYCERIDES (test code = 2232) 58 MG/DL HDL CHOLESTEROL (test code = 2220) 62 MG/DL CALC LDL CHOL (test code = 2237) 96 MG/DL RISK RATIO LDL/HDL (test cod e = 2238) 1.55 RATIO Eric [id number] 00:00:00* Test Item Value Reference Range Interpretation Comme nts TSH, THIRD GENERATION (test code = 2821) 3.030 UIU/ML Eric StantonPSA, [id number] 00:00:00* Test Item Value Reference Range Interpretation Comme nts PSA, TOTAL (test code = 2606) 6.37 NG/ML Eric StantonCOMPREHENSIVE METABOLIC [id number] 00:00:00* Test Item Value Reference Range Interpretation Comme nts GLUCOSE (test code = 2217) 103 MG/DL BUN (test code = 2208) 10 MG/DL CREATININE (test code = 2214) 0.90 MG/DL eGFR AMER. (test cod e = 06754) 96 ML/MIN/1.73 eGFR NON- AMER. (test code = 21908) 83 ML/MIN/1.73 CALC BUN/CREAT (test code = [...] code = 2219) 31 U/L Eric StantonLIPID [id number] 00:00:00* Test Item Value Reference Range Interpretation Comme nts CHOLESTEROL (test code = 2210) 170 MG/DL TRIGLYCERIDES (test code = 2232) 58 MG/DL HDL CHOLESTEROL (test code = 2220) 62 MG/DL CALC LDL CHOL (test code = 2237) 96 MG/DL RISK RATIO LDL/HDL (test cod e = 2238) 1.55 RATIO Eric StantonLIPID [id number] 00:00:00* Test Item Value Reference Range Interpretation Comme nts CHOLESTEROL (test code = 2210) 170 MG/DL TRIGLYCERIDES (test code = 2232) 58 MG/DL HDL CHOLESTEROL (test code = 2220) 62 MG/DL CALC LDL CHOL (test code = 2237) 96 MG/DL RISK RATIO LDL/HDL (test cod e = 2238) 1.55 RATIO [id number] 00:00:00* Test Item Value Reference Range Interpretation Comme nts TSH, THIRD GENERATION (test code = 2821) 3.030 UIU/ML Eric StantonPSA, [id number] 00:00:00* Test Item Value Reference Range Interpretation Comme nts PSA, TOTAL (test code = 2606) 6.37 NG/ML Eric StantonCOMPREHENSIVE METABOLIC [id number] 00:00:00* Test Item Value Reference Range Interpretation Comme nts GLUCOSE (test code = 2217) 103 MG/DL BUN (test code = 2208) 10 MG/DL CREATININE (test code = 2214) 0.90 MG/DL eGFR AMER. (test cod e = 80038) 96 ML/MIN/1.73 eGFR NON- AMER. (test code = 20428) 83 ML/MIN/1.73 CALC BUN/CREAT (test code = [...] code = 2219) 31 U/L Eric StantonLIPID [id number] 00:00:00* Test Item Value Reference Range Interpretation Comme nts CHOLESTEROL (test code = 2210) 170 MG/DL TRIGLYCERIDES (test code = 2232) 58 MG/DL HDL CHOLESTEROL (test code = 2220) 62 MG/DL CALC LDL CHOL (test code = 2237) 96 MG/DL RISK RATIO LDL/HDL (test cod e = 2238) 1.55 RATIO Eric [id number] 00:00:00* Test Item Value Reference Range Interpretation Comme nts TSH, THIRD GENERATION (test code = 2821) 3.030 UIU/ML Eric StantonPSA, [id number] 00:00:00* Test Item Value Reference Range Interpretation Comme nts PSA, TOTAL (test code = 2606) 6.37 NG/ML Eric [id number] 00:00:00* Test Item Value Reference Range Interpretation Comme nts TSH, THIRD GENERATION (test code = 2821) 3.030 UIU/ML PSA, [id number] 00:00:00* Test Item Value Reference Range Interpretation Comme nts PSA, TOTAL (test code = 2606) 6.37 NG/ML COMPREHENSIVE METABOLIC [id number] 00:00:00* Test Item Value Reference Range Interpretation Comme nts GLUCOSE (test code = 2217) 103 MG/DL BUN (test code = 2208) 10 MG/DL CREATININE (test code = 2214) 0.90 MG/DL eGFR AMER. (test cod e = 28159) 96 ML/MIN/1.73 eGFR NON- AMER. (test code = 14249) 83 ML/MIN/1.73 CALC BUN/CREAT (test code = [...] code = 2219) 31 U/L Eric StantonLIPID [id number] 00:00:00* Test Item Value Reference Range Interpretation Comme nts CHOLESTEROL (test code = 2210) 170 MG/DL TRIGLYCERIDES (test code = 2232) 58 MG/DL HDL CHOLESTEROL (test code = 2220) 62 MG/DL CALC LDL CHOL (test code = 2237) 96 MG/DL RISK RATIO LDL/HDL (test cod e = 2238) 1.55 RATIO Eric [id number] 00:00:00* Test Item Value Reference Range Interpretation Comme nts TSH, THIRD GENERATION (test code = 2821) 3.030 UIU/ML Eric StantonPSA, [id number] 00:00:00* Test Item Value Reference Range Interpretation Comme nts PSA, TOTAL (test code = 2606) 6.37 NG/ML Eric StantonCOMPREHENSIVE METABOLIC [id number] 00:00:00* Test Item Value Reference Range Interpretation Comme nts GLUCOSE (test code = 2217) 103 MG/DL BUN (test code = 2208) 10 MG/DL CREATININE (test code = 2214) 0.90 MG/DL eGFR AMER. (test cod e = 72525) 96 ML/MIN/1.73 eGFR NON- AMER. (test code = 72822) 83 ML/MIN/1.73 CALC BUN/CREAT (test code = [...] code = 2219) 31 U/L COMPREHENSIVE METABOLIC [id number] 00:00:00* Test Item Value Reference Range Interpretation Comme nts GLUCOSE (test code = 2217) 103 MG/DL BUN (test code = 2208) 10 MG/DL CREATININE (test code = 2214) 0.90 MG/DL eGFR AMER. (test cod e = 30284) 96 ML/MIN/1.73 eGFR NON- AMER. (test code = 68635) 83 ML/MIN/1.73 CALC BUN/CREAT (test code = [...] code = 2219) 31 U/L Eric StantonLIPID [id number] 00:00:00* Test Item Value Reference Range Interpretation Comme nts CHOLESTEROL (test code = 2210) 170 MG/DL TRIGLYCERIDES (test code = 2232) 58 MG/DL HDL CHOLESTEROL (test code = 2220) 62 MG/DL CALC LDL CHOL (test code = 2237) 96 MG/DL RISK RATIO LDL/HDL (test cod e = 2238) 1.55 RATIO Eric [id number] 00:00:00* Test Item Value Reference Range Interpretation Comme nts TSH, THIRD GENERATION (test code = 2821) 3.030 UIU/ML Eric StantonPSA, [id number] 00:00:00* Test Item Value Reference Range Interpretation Comme nts PSA, TOTAL (test code = 2606) 6.37 NG/ML Eric StantonCOMPREHENSIVE METABOLIC [id number] 00:00:00* Test Item Value Reference Range Interpretation Comme nts GLUCOSE (test code = 2217) 103 MG/DL BUN (test code = 2208) 10 MG/DL CREATININE (test code = 2214) 0.90 MG/DL eGFR AMER. (test cod e = 90946) 96 ML/MIN/1.73 eGFR NON- AMER. (test code = 96773) 83 ML/MIN/1.73 CALC BUN/CREAT (test code = [...] = 2219) 31 U/L Eric StantonCBC W/AUTO [id number] 00:00:00* Test Item Value Reference Range Interpretation [...] = 1015) 186 K/UL Eric Estrada AustinHEMOGLOBIN [id number] 00:00:00* Test Item Value Reference Range Interpretation Comme nts HEMOGLOBIN A1c (test code = 12562) 5.8 % Eric Estrada AustinCBC W/AUTO [id number] 00:00:00* Test Item Value Reference Range Interpretation [...] code = 1015) 186 K/UL Eric StantonHEMOGLOBIN [id number] 00:00:00* Test Item Value Reference Range Interpretation Comme nts HEMOGLOBIN A1c (test code = 94461) 5.8 % Eric StantonCBC W/AUTO [id number] 00:00:00* Test Item Value Reference Range Interpretation [...] = 1015) 186 K/UL Eric Estrada AustinHEMOGLOBIN [id number] 00:00:00* Test Item Value Reference Range Interpretation Comme nts HEMOGLOBIN A1c (test code = 15546) 5.8 % Eric Estrada AustinCBC W/AUTO [id number] 00:00:00* Test Item Value Reference Range Interpretation [...] code = 1015) 186 K/UL Eric Estrada White HallCBC W/AUTO [id number] 00:00:00* Test Item Value Reference Range Interpretation [...] (test code = 1015) 186 K/UL HEMOGLOBIN [id number] 00:00:00* Test Item Value Reference Range Interpretation Comme nts HEMOGLOBIN A1c (test code = 81008) 5.8 % Eric Estrada AustinCBC W/AUTO [id number] 00:00:00* Test Item Value Reference Range Interpretation [...] = 1015) 186 K/UL Eric Estrada AustinHEMOGLOBIN [id number] 00:00:00* Test Item Value Reference Range Interpretation Comme [facility] HEMOGLOBIN A1c (test code = 23213) 5.8 % Eric Estrada AustinCBC W/AUTO [id number] 00:00:00* Test Item Value Reference Range Interpretation [...] = 1015) 186 K/UL Eric Estrada AustinHEMOGLOBIN [id number] 00:00:00* Test Item Value Reference Range Interpretation Comme nts HEMOGLOBIN A1c (test code = 24658) 5.8 % HEMOGLOBIN [id number] 00:00:00* Test Item Value Reference Range Interpretation Comme nts HEMOGLOBIN A1c (test code = 20923) 5.8 % Eric StantonCBC W/AUTO [id number] 00:00:00* Test Item Value Reference Range Interpretation [...] code = 1015) 186 K/UL Eric StantonHEMOGLOBIN [id number] 00:00:00* Test Item Value Reference Range Interpretation Comme nts HEMOGLOBIN A1c (test code = 51099) 5.8 % Eric StantonCOMPREHENSIVE METABOLIC [id number] 00:00:00* Test Item Value Reference Range Interpretation Comme nts GLUCOSE (test code = 2217) 98 MG/DL BUN (test code = 2208) 11 MG/DL CREATININE (test code = 2214) 0.83 MG/DL eGFR AMER. (test cod e = 75978) 100 ML/MIN/1.73 eGFR NON- AMER. (test code = 82127) 86 ML/MIN/1.73 CALC BUN/CREAT (test code = [...] = 2219) 11 U/L Eric Estrada AustinLIPID [id number] 00:00:00* Test Item Value Reference Range Interpretation Comme nts CHOLESTEROL (test code = 2210) 160 MG/DL TRIGLYCERIDES (test code = 2232) 37 MG/DL HDL CHOLESTEROL (test code = 2220) 48 MG/DL CALC LDL CHOL (test code = 2237) 105 MG/DL RISK RATIO LDL/HDL (test cod e = 2238) 2.18 RATIO Eric StantonCOMPREHENSIVE METABOLIC [id number] 00:00:00* Test Item Value Reference Range Interpretation Comme nts GLUCOSE (test code = 2217) 98 MG/DL BUN (test code = 2208) 11 MG/DL CREATININE (test code = 2214) 0.83 MG/DL eGFR AMER. (test cod e = 13207) 100 ML/MIN/1.73 eGFR NON- AMER. (test code = 97093) 86 ML/MIN/1.73 CALC BUN/CREAT (test code = [...] (test code = 2219) 11 U/L Eric StantonLIPID [id number] 00:00:00* Test Item Value Reference Range Interpretation Comme nts CHOLESTEROL (test code = 2210) 160 MG/DL TRIGLYCERIDES (test code = 2232) 37 MG/DL HDL CHOLESTEROL (test code = 2220) 48 MG/DL CALC LDL CHOL (test code = 2237) 105 MG/DL RISK RATIO LDL/HDL (test cod e = 2238) 2.18 RATIO Eric StantonCOMPREHENSIVE METABOLIC [id number] 00:00:00* Test Item Value Reference Range Interpretation Comme nts GLUCOSE (test code = 2217) 98 MG/DL BUN (test code = 2208) 11 MG/DL CREATININE (test code = 2214) 0.83 MG/DL eGFR AMER. (test cod e = 50554) 100 ML/MIN/1.73 eGFR NON- AMER. (test code = 05230) 86 ML/MIN/1.73 CALC BUN/CREAT (test code = [...] = 2219) 11 U/L Eric Estrada AustinLIPID [id number] 00:00:00* Test Item Value Reference Range Interpretation Comme nts CHOLESTEROL (test code = 2210) 160 MG/DL TRIGLYCERIDES (test code = 2232) 37 MG/DL HDL CHOLESTEROL (test code = 2220) 48 MG/DL CALC LDL CHOL (test code = 2237) 105 MG/DL RISK RATIO LDL/HDL (test cod e = 2238) 2.18 RATIO Eric F AustinLIPID [id number] 00:00:00* Test Item Value Reference Range Interpretation Comme nts CHOLESTEROL (test code = 2210) 160 MG/DL TRIGLYCERIDES (test code = 2232) 37 MG/DL HDL CHOLESTEROL (test code = 2220) 48 MG/DL CALC LDL CHOL (test code = 2237) 105 MG/DL RISK RATIO LDL/HDL (test cod e = 2238) 2.18 RATIO COMPREHENSIVE METABOLIC [id number] 00:00:00* Test Item Value Reference Range Interpretation Comme nts GLUCOSE (test code = 2217) 98 MG/DL BUN (test code = 2208) 11 MG/DL CREATININE (test code = 2214) 0.83 MG/DL eGFR AMER. (test cod e = 63013) 100 ML/MIN/1.73 eGFR NON- AMER. (test code = 90823) 86 ML/MIN/1.73 CALC BUN/CREAT (test code = [...] (test code = 2219) 11 U/L Eric StantonLIPID [id number] 00:00:00* Test Item Value Reference Range Interpretation Comme nts CHOLESTEROL (test code = 2210) 160 MG/DL TRIGLYCERIDES (test code = 2232) 37 MG/DL HDL CHOLESTEROL (test code = 2220) 48 MG/DL CALC LDL CHOL (test code = 2237) 105 MG/DL RISK RATIO LDL/HDL (test cod e = 2238) 2.18 RATIO Eric StantonCOMPREHENSIVE METABOLIC [id number] 00:00:00* Test Item Value Reference Range Interpretation Comme nts GLUCOSE (test code = 2217) 98 MG/DL BUN (test code = 2208) 11 MG/DL CREATININE (test code = 2214) 0.83 MG/DL eGFR AMER. (test cod e = 10949) 100 ML/MIN/1.73 eGFR NON- AMER. (test code = 30940) 86 ML/MIN/1.73 CALC BUN/CREAT (test code = [...] = 2219) 11 U/L Eric Estrada AustinLIPID [id number] 00:00:00* Test Item Value Reference Range Interpretation Comme nts CHOLESTEROL (test code = 2210) 160 MG/DL TRIGLYCERIDES (test code = 2232) 37 MG/DL HDL CHOLESTEROL (test code = 2220) 48 MG/DL CALC LDL CHOL (test code = 2237) 105 MG/DL RISK RATIO LDL/HDL (test cod e = 2238) 2.18 RATIO Eric Estrada AustinCOMPREHENSIVE METABOLIC [id number] 00:00:00* Test Item Value Reference Range Interpretation Comme nts GLUCOSE (test code = 2217) 98 MG/DL BUN (test code = 2208) 11 MG/DL CREATININE (test code = 2214) 0.83 MG/DL eGFR AMER. (test cod e = 23262) 100 ML/MIN/1.73 eGFR NON- AMER. (test code = 57602) 86 ML/MIN/1.73 CALC BUN/CREAT (test code = [...] code = 2219) 11 U/L Eric Estrada White HallLIPID [id number] 00:00:00* Test Item Value Reference Range Interpretation Comme nts CHOLESTEROL (test code = 2210) 160 MG/DL TRIGLYCERIDES (test code = 2232) 37 MG/DL HDL CHOLESTEROL (test code = 2220) 48 MG/DL CALC LDL CHOL (test code = 2237) 105 MG/DL RISK RATIO LDL/HDL (test cod e = 2238) 2.18 RATIO Eric StantonCOMPREHENSIVE METABOLIC [id number] 00:00:00* Test Item Value Reference Range Interpretation Comme nts GLUCOSE (test code = 2217) 98 MG/DL BUN (test code = 2208) 11 MG/DL CREATININE (test code = 2214) 0.83 MG/DL eGFR AMER. (test cod e = 61916) 100 ML/MIN/1.73 eGFR NON- AMER. (test code = 89113) 86 ML/MIN/1.73 CALC BUN/CREAT (test code = [...] ALT (test code = 2219) 11 U/L COMPREHENSIVE METABOLIC [id number] 00:00:00* Test Item Value Reference Range Interpretation Comme nts GLUCOSE (test code = 2217) 98 MG/DL BUN (test code = 2208) 11 MG/DL CREATININE (test code = 2214) 0.83 MG/DL eGFR AMER. (test cod e = 70578) 100 ML/MIN/1.73 eGFR NON- AMER. (test code = 44390) 86 ML/MIN/1.73 CALC BUN/CREAT (test code = [...] (test code = 2219) 11 U/L Eric Sean AustinLIPID [id number] 00:00:00* Test Item Value Reference Range Interpretation Comme nts CHOLESTEROL (test code = 2210) 160 MG/DL TRIGLYCERIDES (test code = 2232) 37 MG/DL HDL CHOLESTEROL (test code = 2220) 48 MG/DL CALC LDL CHOL (test code = 2237) 105 MG/DL RISK RATIO LDL/HDL (test cod e = 2238) 2.18 RATIO Eric F AustinCOMPREHENSIVE METABOLIC [id number] 00:00:00* Test Item Value Reference Range Interpretation Comme nts GLUCOSE (test code = 2217) 112 MG/DL BUN (test code = 2208) 9 MG/DL CREATININE (test code = 2214) 0.78 MG/DL eGFR AMER. (test cod e = 16915) 102 ML/MIN/1.73 eGFR NON- AMER. (test code = 15973) 88 ML/MIN/1.73 CALC BUN/CREAT (test code = [...] = 2219) 22 U/L Eric Estrada AustinLIPID [id number] 00:00:00* Test Item Value Reference Range Interpretation Comme nts CHOLESTEROL (test code = 2210) 190 MG/DL TRIGLYCERIDES (test code = 2232) 63 MG/DL HDL CHOLESTEROL (test code = 2220) 67 MG/DL CALC LDL CHOL (test code = 2237) 110 MG/DL RISK RATIO LDL/HDL (test cod e = 2238) 1.65 RATIO Eric Estrada [facility] HallCOM[facility]ENSIVE MET[facility] [id number] 00:00:00* Test Item Value Reference Range Interpretation Comme nts GLUCOSE (test code = 2217) 112 MG/DL BUN (test code = 2208) 9 MG/DL CREATININE (test code = 2214) 0.78 MG/DL eGFR AMER. (test cod e = 55880) 102 ML/MIN/1.73 eGFR NON- AMER. (test code = 59318) 88 ML/MIN/1.73 CALC BUN/CREAT (test code = [...] code = 2219) 22 U/L Eric Estrada White HallLIPID [id number] 00:00:00* Test Item Value Reference Range Interpretation Comme nts CHOLESTEROL (test code = 2210) 190 MG/DL TRIGLYCERIDES (test code = 2232) 63 MG/DL HDL CHOLESTEROL (test code = 2220) 67 MG/DL CALC LDL CHOL (test code = 2237) 110 MG/DL RISK RATIO LDL/HDL (test cod e = 2238) 1.65 RATIO Eric StantonCOMPREHENSIVE METABOLIC [id number] 00:00:00* Test Item Value Reference Range Interpretation Comme nts GLUCOSE (test code = 2217) 112 MG/DL BUN (test code = 2208) 9 MG/DL CREATININE (test code = 2214) 0.78 MG/DL eGFR AMER. (test cod e = 64502) 102 ML/MIN/1.73 eGFR NON- AMER. (test code = 74575) 88 ML/MIN/1.73 CALC BUN/CREAT (test code = [...] = 2219) 22 U/L Eric Estrada AustinLIPID [id number] 00:00:00* Test Item Value Reference Range Interpretation Comme nts CHOLESTEROL (test code = 2210) 190 MG/DL TRIGLYCERIDES (test code = 2232) 63 MG/DL HDL CHOLESTEROL (test code = 2220) 67 MG/DL CALC LDL CHOL (test code = 2237) 110 MG/DL RISK RATIO LDL/HDL (test cod e = 2238) 1.65 RATIO Eric StantonCOMPREHENSIVE METABOLIC [id number] 00:00:00* Test Item Value Reference Range Interpretation Comme nts GLUCOSE (test code = 2217) 112 MG/DL BUN (test code = 2208) 9 MG/DL CREATININE (test code = 2214) 0.78 MG/DL eGFR AMER. (test cod e = 79024) 102 ML/MIN/1.73 eGFR NON- AMER. (test code = 86704) 88 ML/MIN/1.73 CALC BUN/CREAT (test code = [...] code = 2219) 22 U/L Eric StantonLIPID [id number] 00:00:00* Test Item Value Reference Range Interpretation Comme nts CHOLESTEROL (test code = 2210) 190 MG/DL TRIGLYCERIDES (test code = 2232) 63 MG/DL HDL CHOLESTEROL (test code = 2220) 67 MG/DL CALC LDL CHOL (test code = 2237) 110 MG/DL RISK RATIO LDL/HDL (test cod e = 2238) 1.65 RATIO Eric StantonCOMPREHENSIVE METABOLIC [id number] 00:00:00* Test Item Value Reference Range Interpretation Comme nts GLUCOSE (test code = 2217) 112 MG/DL BUN (test code = 2208) 9 MG/DL CREATININE (test code = 2214) 0.78 MG/DL eGFR AMER. (test cod e = 26079) 102 ML/MIN/1.73 eGFR NON- AMER. (test code = 65512) 88 ML/MIN/1.73 CALC BUN/CREAT (test code = [...] code = 2219) 22 U/L Eric StantonLIPID [id number] 00:00:00* Test Item Value Reference Range Interpretation Comme nts CHOLESTEROL (test code = 2210) 190 MG/DL TRIGLYCERIDES (test code = 2232) 63 MG/DL HDL CHOLESTEROL (test code = 2220) 67 MG/DL CALC LDL CHOL (test code = 2237) 110 MG/DL RISK RATIO LDL/HDL (test cod e = 2238) 1.65 RATIO Eric StantonCOMPREHENSIVE METABOLIC [id number] 00:00:00* Test Item Value Reference Range Interpretation Comme nts GLUCOSE (test code = 2217) 112 MG/DL BUN (test code = 2208) 9 MG/DL CREATININE (test code = 2214) 0.78 MG/DL eGFR AMER. (test cod e = 28434) 102 ML/MIN/1.73 eGFR NON- AMER. (test code = 51787) 88 ML/MIN/1.73 CALC BUN/CREAT (test code = [...] code = 2219) 22 U/L COMPREHENSIVE METABOLIC [id number] 00:00:00* Test Item Value Reference Range Interpretation Comme nts GLUCOSE (test code = 2217) 112 MG/DL BUN (test code = 2208) 9 MG/DL CREATININE (test code = 2214) 0.78 MG/DL eGFR AMER. (test cod e = 29985) 102 ML/MIN/1.73 eGFR NON- AMER. (test code = 56114) 88 ML/MIN/1.73 CALC BUN/CREAT (test code = [...] = 2219) 22 U/L Eric Estrada AustinLIPID [id number] 00:00:00* Test Item Value Reference Range Interpretation Comme nts CHOLESTEROL (test code = 2210) 190 MG/DL TRIGLYCERIDES (test code = 2232) 63 MG/DL HDL CHOLESTEROL (test code = 2220) 67 MG/DL CALC LDL CHOL (test code = 2237) 110 MG/DL RISK RATIO LDL/HDL (test cod e = 2238) 1.65 RATIO Eric Estrada AustinLIPID [id number] 00:00:00* Test Item Value Reference Range Interpretation Comme nts CHOLESTEROL (test code = 2210) 190 MG/DL TRIGLYCERIDES (test code = 2232) 63 MG/DL HDL CHOLESTEROL (test code = 2220) 67 MG/DL CALC LDL CHOL (test code = 2237) 110 MG/DL RISK RATIO LDL/HDL (test cod e = 2238) 1.65 RATIO COMPREHENSIVE METABOLIC [id number] 00:00:00* Test Item Value Reference Range Interpretation Comme nts GLUCOSE (test code = 2217) 112 MG/DL BUN (test code = 2208) 9 MG/DL CREATININE (test code = 2214) 0.78 MG/DL eGFR AMER. (test cod e = 82579) 102 ML/MIN/1.73 eGFR NON- AMER. (test code = 01872) 88 ML/MIN/1.73 CALC BUN/CREAT (test code = [...] code = 2219) 22 U/L Eric StantonLIPID [id number] 00:00:00* Test Item Value Reference Range Interpretation Comme nts CHOLESTEROL (test code = 2210) 190 MG/DL TRIGLYCERIDES (test code = 2232) 63 MG/DL HDL CHOLESTEROL (test code = 2220) 67 MG/DL CALC LDL CHOL (test code = 2237) 110 MG/DL RISK RATIO LDL/HDL (test cod e = 2238) 1.65 RATIO Eric StantonCOMPREHENSIVE METABOLIC [id number] 00:00:00* Test Item Value Reference Range Interpretation Comme nts GLUCOSE (test code = 2217) 102 MG/DL BUN (test code = 2208) 7 MG/DL CREATININE (test code = 2214) 0.76 MG/DL eGFR AMER. (test cod e = 89576) 103 ML/MIN/1.73 eGFR NON- AMER. (test code = 48542) 89 ML/MIN/1.73 CALC BUN/CREAT (test code = [...] = 2219) 19 U/L Eric Estrada AustinLIPID [id number] 00:00:00* Test Item Value Reference Range Interpretation Comme nts CHOLESTEROL (test code = 2210) 205 MG/DL TRIGLYCERIDES (test code = 2232) 49 MG/DL HDL CHOLESTEROL (test code = 2220) 68 MG/DL CALC LDL CHOL (test code = 2237) 127 MG/DL RISK RATIO LDL/HDL (test cod e = 2238) 1.87 RATIO Eric Estrada AustinCOMPREHENSIVE METABOLIC [id number] 00:00:00* Test Item Value Reference Range Interpretation Comme nts GLUCOSE (test code = 2217) 102 MG/DL BUN (test code = 2208) 7 MG/DL CREATININE (test code = 2214) 0.76 MG/DL eGFR AMER. (test cod e = 10710) 103 ML/MIN/1.73 eGFR NON- AMER. (test code = 60422) 89 ML/MIN/1.73 CALC BUN/CREAT (test code = [...] = 2219) 19 U/L Eric Estrada AustinLIPID [id number] 00:00:00* Test Item Value Reference Range Interpretation Comme nts CHOLESTEROL (test code = 2210) 205 MG/DL TRIGLYCERIDES (test code = 2232) 49 MG/DL HDL CHOLESTEROL (test code = 2220) 68 MG/DL CALC LDL CHOL (test code = 2237) 127 MG/DL RISK RATIO LDL/HDL (test cod e = 2238) 1.87 RATIO Eric F AustinCOMPREHENSIVE METABOLIC [id number] 00:00:00* Test Item Value Reference Range Interpretation Comme nts GLUCOSE (test code = 2217) 102 MG/DL BUN (test code = 2208) 7 MG/DL CREATININE (test code = 2214) 0.76 MG/DL eGFR AMER. (test cod e = 77271) 103 ML/MIN/1.73 eGFR NON- AMER. (test code = 41590) 89 ML/MIN/1.73 CALC BUN/CREAT (test code = [...] code = 2219) 19 U/L Eric StantonLIPID [id number] 00:00:00* Test Item Value Reference Range Interpretation Comme nts CHOLESTEROL (test code = 2210) 205 MG/DL TRIGLYCERIDES (test code = 2232) 49 MG/DL HDL CHOLESTEROL (test code = 2220) 68 MG/DL CALC LDL CHOL (test code = 2237) 127 MG/DL RISK RATIO LDL/HDL (test cod e = 2238) 1.87 RATIO LIPID [id number] 00:00:00* Test Item Value Reference Range Interpretation Comme nts CHOLESTEROL (test code = 2210) 205 MG/DL TRIGLYCERIDES (test code = 2232) 49 MG/DL HDL CHOLESTEROL (test code = 2220) 68 MG/DL CALC LDL CHOL (test code = 2237) 127 MG/DL RISK RATIO LDL/HDL (test cod e = 2238) 1.87 RATIO Eric StantonCOMPREHENSIVE METABOLIC [id number] 00:00:00* Test Item Value Reference Range Interpretation Comme nts GLUCOSE (test code = 2217) 102 MG/DL BUN (test code = 2208) 7 MG/DL CREATININE (test code = 2214) 0.76 MG/DL eGFR AMER. (test cod e = 01332) 103 ML/MIN/1.73 eGFR NON- AMER. (test code = 16045) 89 ML/MIN/1.73 CALC BUN/CREAT (test code = [...] = 2219) 19 U/L Eric Estrada AustinLIPID [id number] 00:00:00* Test Item Value Reference Range Interpretation Comme nts CHOLESTEROL (test code = 2210) 205 MG/DL TRIGLYCERIDES (test code = 2232) 49 MG/DL HDL CHOLESTEROL (test code = 2220) 68 MG/DL CALC LDL CHOL (test code = 2237) 127 MG/DL RISK RATIO LDL/HDL (test cod e = 2238) 1.87 RATIO Eric StantonCOMPREHENSIVE METABOLIC [id number] 00:00:00* Test Item Value Reference Range Interpretation Comme nts GLUCOSE (test code = 2217) 102 MG/DL BUN (test code = 2208) 7 MG/DL CREATININE (test code = 2214) 0.76 MG/DL eGFR AMER. (test cod e = 18105) 103 ML/MIN/1.73 eGFR NON- AMER. (test code = 15989) 89 ML/MIN/1.73 CALC BUN/CREAT (test code = [...] code = 2219) 19 U/L Eric Estrada White HallLIPID [id number] 00:00:00* Test Item Value Reference Range Interpretation Comme nts CHOLESTEROL (test code = 2210) 205 MG/DL TRIGLYCERIDES (test code = 2232) 49 MG/DL HDL CHOLESTEROL (test code = 2220) 68 MG/DL CALC LDL CHOL (test code = 2237) 127 MG/DL RISK RATIO LDL/HDL (test cod e = 2238) 1.87 RATIO Eric StantonCOMPREHENSIVE METABOLIC [id number] 00:00:00* Test Item Value Reference Range Interpretation Comme nts GLUCOSE (test code = 2217) 102 MG/DL BUN (test code = 8) 7 MG/DL CREATININE (test code = 2214) 0.76 MG/DL eGFR AMER. (test cod e = 16620) 103 ML/MIN/1.73 eGFR NON- AMER. (test code = 90753) 89 ML/MIN/1.73 CALC BUN/CREAT (test code = [...] code = 2219) 19 U/L Eric F AustinCOMPREHENSIVE METABOLIC [id number] 00:00:00* Test Item Value Reference Range Interpretation Comme nts GLUCOSE (test code = 2217) 102 MG/DL BUN (test code = 2208) 7 MG/DL CREATININE (test code = 2214) 0.76 MG/DL eGFR AMER. (test cod e = 25398) 103 ML/MIN/1.73 eGFR NON- AMER. (test code = 36114) 89 ML/MIN/1.73 CALC BUN/CREAT (test code = [...] (test code = 2219) 19 U/L LIPID [id number] 00:00:00* Test Item Value Reference Range Interpretation Comme nts CHOLESTEROL (test code = 2210) 205 MG/DL TRIGLYCERIDES (test code = 2232) 49 MG/DL HDL CHOLESTEROL (test code = 2220) 68 MG/DL CALC LDL CHOL (test code = 2237) 127 MG/DL RISK RATIO LDL/HDL (test cod e = 2238) 1.87 RATIO Eric F AustinCOMPREHENSIVE METABOLIC [id number] 00:00:00* Test Item Value Reference Range Interpretation Comme nts GLUCOSE (test code = 2217) 102 MG/DL BUN (test code = 2208) 7 MG/DL CREATININE (test code = 2214) 0.76 MG/DL eGFR AMER. (test cod e = 84235) 103 ML/MIN/1.73 eGFR NON- AMER. (test code = 51034) 89 ML/MIN/1.73 CALC BUN/CREAT (test code = [...] code = 2219) 19 U/L Eric Estrada White HallLIPID [id number] 00:00:00* Test Item Value Reference Range Interpretation Comme nts CHOLESTEROL (test code = 2210) 205 MG/DL TRIGLYCERIDES (test code = 2232) 49 MG/DL HDL CHOLESTEROL (test code = 2220) 68 MG/DL CALC LDL CHOL (test code = 2237) 127 MG/DL RISK RATIO LDL/HDL (test cod e = 2238) 1.87 RATIO Eric Estrada White HallCOMPREHENSIVE METABOLIC [id number] 00:00:00* Test Item Value Reference Range Interpretation Comme nts GLUCOSE (test code = 2217) 100 MG/DL BUN (test code = 2208) 10 MG/DL CREATININE (test code = 2214) 0.89 MG/DL eGFR AMER. (test cod e = 25378) 98 ML/MIN/1.73 eGFR NON- AMER. (test code = 28483) 84 ML/MIN/1.73 CALC BUN/CREAT (test code = [...] code = 2219) 18 U/L Eric StantonLIPID [id number] 00:00:00* Test Item Value Reference Range Interpretation [...] = 2821) 2.13 UIU/ML Eric Sean MaximinoHEMOGLOBIN [id number] 00:00:00* Test Item Value Reference Range Interpretation Comme nts HEMOGLOBIN A1c (test code = 14606) 5.8 % Eric F MaximinoCBC W/AUTO [id number] 00:00:00* Test Item Value Reference Range Interpretation [...] = 1015) 170 K/UL Eric StantonCOMPREHENSIVE METABOLIC [id number] 00:00:00* Test Item Value Reference Range Interpretation Comme nts GLUCOSE (test code = 2217) 100 MG/DL BUN (test code = 2208) 10 MG/DL CREATININE (test code = 2214) 0.89 MG/DL eGFR AMER. (test cod e = 85260) 98 ML/MIN/1.73 eGFR NON- AMER. (test code = 27223) 84 ML/MIN/1.73 CALC BUN/CREAT (test code = [...] = 2219) 18 U/L Eric Estrada AustinLIPID [id number] 00:00:00* Test Item Value Reference Range Interpretation [...] code = 2821) 2.13 UIU/ML Eric StantonHEMOGLOBIN [id number] 00:00:00* Test Item Value Reference Range Interpretation Comme charo HEMOGLOBIN A1c (test code = 65340) 5.8 % Eric StantonCBC W/AUTO [id number] 00:00:00* Test Item Value Reference Range Interpretation [...] = 1015) 170 K/UL Eric StantonCOMPREHENSIVE METABOLIC [id number] 00:00:00* Test Item Value Reference Range Interpretation Comme nts GLUCOSE (test code = 2217) 100 MG/DL BUN (test code = 2208) 10 MG/DL CREATININE (test code = 2214) 0.89 MG/DL eGFR AMER. (test cod e = 82688) 98 ML/MIN/1.73 eGFR NON- AMER. (test code = 98850) 84 ML/MIN/1.73 CALC BUN/CREAT (test code = [...] code = 2219) 18 U/L Eric StantonLIPID [id number] 00:00:00* Test Item Value Reference Range Interpretation [...] = 2821) 2.13 UIU/ML Eric Sean MaximinoHEMOGLOBIN [id number] 00:00:00* Test Item Value Reference Range Interpretation Comme nts HEMOGLOBIN A1c (test code = 04895) 5.8 % Eric F MaximinoCBC W/AUTO [id number] 00:00:00* Test Item Value Reference Range Interpretation [...] = 1015) 170 K/UL Eric StantonCOMPREHENSIVE METABOLIC [id number] 00:00:00* Test Item Value Reference Range Interpretation Comme nts GLUCOSE (test code = 2217) 100 MG/DL BUN (test code = 2208) 10 MG/DL CREATININE (test code = 2214) 0.89 MG/DL eGFR AMER. (test cod e = 22787) 98 ML/MIN/1.73 eGFR NON- AMER. (test code = 12622) 84 ML/MIN/1.73 CALC BUN/CREAT (test code = [...] = 2219) 18 U/L Eric Estrada AustinLIPID [id number] 00:00:00* Test Item Value Reference Range Interpretation [...] code = 2821) 2.13 UIU/ML Eric StantonHEMOGLOBIN [id number] 00:00:00* Test Item Value Reference Range Interpretation Comme charo HEMOGLOBIN A1c (test code = 77780) 5.8 % Eric StantonCBC W/AUTO [id number] 00:00:00* Test Item Value Reference Range Interpretation [...] = 1015) 170 K/UL Eric StantonCOMPREHENSIVE METABOLIC [id number] 00:00:00* Test Item Value Reference Range Interpretation Comme nts GLUCOSE (test code = 2217) 100 MG/DL BUN (test code = 2208) 10 MG/DL CREATININE (test code = 2214) 0.89 MG/DL eGFR AMER. (test cod e = 09392) 98 ML/MIN/1.73 eGFR NON- AMER. (test code = 36268) 84 ML/MIN/1.73 CALC BUN/CREAT (test code = [...] ALT (test code = 2219) 18 U/L COMPREHENSIVE METABOLIC [id number] 00:00:00* Test Item Value Reference Range Interpretation Comme nts GLUCOSE (test code = 2217) 100 MG/DL BUN (test code = 2208) 10 MG/DL CREATININE (test code = 2214) 0.89 MG/DL eGFR AMER. (test cod e = 56158) 98 ML/MIN/1.73 eGFR NON- AMER. (test code = 33935) 84 ML/MIN/1.73 CALC BUN/CREAT (test code = [...] code = 2219) 18 U/L Eric StantonLIPID [id number] 00:00:00* Test Item Value Reference Range Interpretation [...] code = 2821) 2.13 UIU/ML Eric StantonHEMOGLOBIN [id number] 00:00:00* Test Item Value Reference Range Interpretation Comme nts HEMOGLOBIN A1c (test code = 33162) 5.8 % Eric StantonLIPID [id number] 00:00:00* Test Item Value Reference Range Interpretation [...] code = 2821) 2.13 UIU/ML CBC W/AUTO [id number] 00:00:00* Test Item Value Reference Range Interpretation [...] = 1015) 170 K/UL Eric StantonCOMPREHENSIVE METABOLIC [id number] 00:00:00* Test Item Value Reference Range Interpretation Comme nts GLUCOSE (test code = 2217) 100 MG/DL BUN (test code = 2208) 10 MG/DL CREATININE (test code = 2214) 0.89 MG/DL eGFR AMER. (test cod e = 47484) 98 ML/MIN/1.73 eGFR NON- AMER. (test code = 01960) 84 ML/MIN/1.73 CALC BUN/CREAT (test code = [...] = 2219) 18 U/L Eric Estrada AustinLIPID [id number] 00:00:00* Test Item Value Reference Range Interpretation [...] code = 2821) 2.13 UIU/ML Eric StantonHEMOGLOBIN [id number] 00:00:00* Test Item Value Reference Range Interpretation Comme nts HEMOGLOBIN A1c (test code = 47082) 5.8 % Eric StantonHEMOGLOBIN [id number] 00:00:00* Test Item Value Reference Range Interpretation Comme nts HEMOGLOBIN A1c (test code = 01412) 5.8 % CBC W/AUTO [id number] 00:00:00* Test Item Value Reference Range Interpretation [...] (test code = 1015) 170 K/UL Eric StantonCBC W/AUTO [id number] 00:00:00* Test Item Value Reference Range Interpretation [...] COUNT (test code = 1015) 170 K/UL COMPREHENSIVE METABOLIC [id number] 00:00:00* Test Item Value Reference Range Interpretation Comme nts GLUCOSE (test code = 2217) 100 MG/DL BUN (test code = 2208) 10 MG/DL CREATININE (test code = 2214) 0.89 MG/DL eGFR AMER. (test cod e = 65203) 98 ML/MIN/1.73 eGFR NON- AMER. (test code = 31097) 84 ML/MIN/1.73 CALC BUN/CREAT (test code = [...] = 2219) 18 U/L Eric Estrada AustinLIPID [id number] 00:00:00* Test Item Value Reference Range Interpretation [...] code = 2821) 2.13 UIU/ML Eric StantonHEMOGLOBIN [id number] 00:00:00* Test Item Value Reference Range Interpretation Comme [facility] HEMOGLOBIN A1c (test code = 76724) 5.8 % Eric StantonCBC W/AUTO [id number] 00:00:00* Test Item Value Reference Range Interpretation [...] = 1015) 170 K/UL Eric StantonCOMPREHENSIVE METABOLIC [id number] 00:00:00* Test Item Value Reference Range Interpretation Comme nts GLUCOSE (test code = 2217) 94 MG/DL BUN (test code = 2208) 13 MG/DL CREATININE (test code = 2214) 0.98 MG/DL eGFR AMER. (test cod e = 53849) 88 ML/MIN/1.73 eGFR NON- AMER. (test code = 39824) 76 ML/MIN/1.73 CALC BUN/CREAT (test code = [...] = 2219) 14 U/L Eric StantonCOMPREHENSIVE METABOLIC [id number] 00:00:00* Test Item Value Reference Range Interpretation Comme nts GLUCOSE (test code = 2217) 94 MG/DL BUN (test code = 2208) 13 MG/DL CREATININE (test code = 2214) 0.98 MG/DL eGFR AMER. (test cod e = 40446) 88 ML/MIN/1.73 eGFR NON- AMER. (test code = 42195) 76 ML/MIN/1.73 CALC BUN/CREAT (test code = [...] code = 2219) 14 U/L Eric Sean White HallCOMPREHENSIVE METABOLIC [id number] 00:00:00* Test Item Value Reference Range Interpretation Comme nts GLUCOSE (test code = 2217) 94 MG/DL BUN (test code = 2208) 13 MG/DL CREATININE (test code = 2214) 0.98 MG/DL eGFR AMER. (test cod e = 62156) 88 ML/MIN/1.73 eGFR NON- AMER. (test code = 41271) 76 ML/MIN/1.73 CALC BUN/CREAT (test code = [...] code = 2219) 14 U/L Eric F White HallCOMPREHENSIVE METABOLIC [id number] 00:00:00* Test Item Value Reference Range Interpretation Comme nts GLUCOSE (test code = 2217) 94 MG/DL BUN (test code = 2208) 13 MG/DL CREATININE (test code = 2214) 0.98 MG/DL eGFR AMER. (test cod e = 64991) 88 ML/MIN/1.73 eGFR NON- AMER. (test code = 52499) 76 ML/MIN/1.73 CALC BUN/CREAT (test code = [...] code = 2219) 14 U/L Eric Sean White HallCOMPREHENSIVE METABOLIC [id number] 00:00:00* Test Item Value Reference Range Interpretation Comme nts GLUCOSE (test code = 2217) 94 MG/DL BUN (test code = 2208) 13 MG/DL CREATININE (test code = 2214) 0.98 MG/DL eGFR AMER. (test cod e = 22954) 88 ML/MIN/1.73 eGFR NON- AMER. (test code = 21549) 76 ML/MIN/1.73 CALC BUN/CREAT (test code = [...] 2219) 14 U/L Eric F AustinCOMPREHENSIVE METABOLIC [id number] 00:00:00* Test Item Value Reference Range Interpretation Comme nts GLUCOSE (test code = 2217) 94 MG/DL BUN (test code = 2208) 13 MG/DL CREATININE (test code = 2214) 0.98 MG/DL eGFR AMER. (test cod e = 37505) 88 ML/MIN/1.73 eGFR NON- AMER. (test code = 66741) 76 ML/MIN/1.73 CALC BUN/CREAT (test code = [...] code = 2219) 14 U/L Eric F MaximinoCOMPREHENSIVE METABOLIC [id number] 00:00:00* Test Item Value Reference Range Interpretation Comme nts GLUCOSE (test code = 2217) 94 MG/DL BUN (test code = 2208) 13 MG/DL CREATININE (test code = 2214) 0.98 MG/DL eGFR AMER. (test cod e = 75117) 88 ML/MIN/1.73 eGFR NON- AMER. (test code = 74873) 76 ML/MIN/1.73 CALC BUN/CREAT (test code = [...] code = 2219) 14 U/L COMPREHENSIVE METABOLIC [id number] 00:00:00* Test Item Value Reference Range Interpretation Comme nts GLUCOSE (test code = 2217) 94 MG/DL BUN (test code = 2208) 13 MG/DL CREATININE (test code = 2214) 0.98 MG/DL eGFR AMER. (test cod e = 68260) 88 ML/MIN/1.73 eGFR NON- AMER. (test code = 64522) 76 ML/MIN/1.73 CALC BUN/CREAT (test code = [...] code = 2219) 14 U/L Eric Stanton Notes Date/Time Note Provider Source Eric Rollins [facility]2025-06-25 00:00:00 Eric Rollins [facility]2025-04-16 00:00:00 Eric Sbe [facility]2024-12-02 00:00:00 [facility]2024-10-15 00:00:00 Eric Seb [facility]2024-10-11 00:00:00 Eric Seb [facility]2024-04-30 00:00:00 [facility]2024-03-11 11:50:18 Images from the original note were [...] Ace MD Last refill: 09/22/2023 Rx #: [id number] Vitamins Vcnlyp8012/07/2023 10:13 AM Protocol Details Valid encounter within last 12 months To be filled at: [facility]/pharmacy #[id number] - [place], [place] - [address] [place] [address] Last Refilled: 09/22/2023 Recent Visits Date Type Provider Dept 09/08/23 Office Visit Cesar Mercedes FNP [facility] 02/11/23 Office Visit Dk Ace MD [facility] 10/14/22 Office Visit Cesar Mercedes FNP [facility] 07/02/22 Office Visit Dk Ace MD [facility] Showing recent visits within past 540 days with a meds authorizing provider and meeting all other requirements Future Appointments Date Type Provider Dept 03/09/24 Appointment Dk Ace MD [facility] Showing future appointments within next 150 days with a meds authorizing provider and meeting all other requirements [id number]:06:56 90 day supply request from [facility]
[2025-07-06] MEDS ORDERED: IPRATROPIUM BROM 0.5MG/2.5ML NEB PRN (11:46)
[2025-07-06] MEDS ORDERED: MELATONIN 3 MG TABLET PO PRN (11:46)
[2025-07-06] MEDS: ENSURE ENLIVE 237 ML CAN PO SCH (14:00)
[2025-07-06] MEDS: NIFEdipine 10 MG CAP PO SCH (14:00)
--- NOTE | 2025-07-06 14:37 | RAD REPORT ---
EXAM: CT Head Brain Wo Cont HISTORY: lethargic COMPARISON: 06/20/2025 TECHNIQUE: Multiple contiguous axial images were obtained for a CT of the brain without contrast. Sag ittal and coronal reformats were performed. One or more of the following dose reduction techniques were used: Automated exposure control, adjus tment of the mA and kV according to patient size, and iterative reconstruction. Unless otherwise specified, incidental findings do not require dedicated imaging follow-up. FINDINGS: No evidence of hydrocephalus, intracranial hemorrhage, or extra-axial fluid collection. Moderate brain atrophy with moderate periventricular and deep white matter chronic microvascular isc hemic changes, stable. The calvarium is intact. The visualized paranasal sinuses and mastoid air cells are essentially clear . IMPRESSION: No evidence of acute intracranial abnormality.
[2025-07-06 14:55] LABS: Blood O2 Saturation 93.6 % (92.0-98.5)
[2025-07-06] MEDS: PANTOPRAZOLE 40MG TABLET PO SCH (16:30)
[2025-07-06] MEDS: METOPROLOL TAR 50 MG TAB PO SCH (17:23)
[2025-07-06] MEDS: LOSARTAN POTASSIUM 50 MG TABLET PO SCH (20:00)
[2025-07-06] MEDS: AMIODARONE HCL 200 MG TAB PO SCH (20:00)
[2025-07-06] MEDS: APIXABAN 5 MG TABLET PO SCH (20:00)
[2025-07-06 20:12] LABS: Sqamous Epithelial None Seen /HPF (None Seen); Urine Crystals Unidentified Few /HPF (None Seen); Urine Culture Reflex Order REFLEXED; Urine Granular Casts 0-5 /LPF (None Seen); Urine Microscopic Reflex YN ORDER UMIC
[2025-07-06] MEDS: ATORVASTATIN 10 MG TAB PO SCH (21:00)
[2025-07-07] MEDS: clonazePAM 0.5 MG TAB PO PRN
--- NOTE | 2025-07-07 01:19 | HP ---
Date of Admission: 07/06/2025 Time: 1 p.m. Chief Complaint: Mr. Chavez is actually somewhat sleepy, he was aroused and said "I want to be left a lone," but his who was in the room noted slurred speech and stroke. History Of Present Illness: Mr. Chavez is an again 84-year-old patient with multiple stroke risk fact ors including atrial fibrillation, hypertension, dyslipidemia. He was brought again due to sudden on set slurred speech, right-sided weakness, visual disturbance that occurred approximately 2 hours prio r to arrival. The patient has been discharged actually 3 days previously for a lacunar infarct in th e left basal ganglia, did receive TNKs. For the new stroke, imaging also showed the left basal gangl ia lacunar infarct with right-sided deficits, dysphagia, atrial fibrillation, hypokalemia, hypophosph atemia, hypomagnesemia, dyslipidemia, and hypertension. He was hospitalized and evaluated by the Cardiology Service and was treated with IV amiodarone in add ition prior to having Eliquis and aspirin for stroke and DVT risk reduction. He is on statin for blo od pressure with permissive hypertension to reduce the risk of stroke completion. He was put on a pu catherine diet with thin liquids, close supervision, upright feeding. He did begin to participate in phys ical and occupational therapy and was found to have significant functional decline, communication def icits, difficulty with his mobilization, transfers, and upper and lower body dressing. On evaluation, he did have worsening difficulty with communication, more expressive and receptive aph megan, and inability to follow commands along with atrial fibrillation with rapid response. He was fo und to be in significant global decline by the Physical Therapy Service. Prior to hospitalization, Mr. Chavez was fully independent, ambulating without an assistive device, wa lking up to a mile a day, taking care of his activities of daily independently. Currently, he requir es moderate assistance to contact guard assistance for ambulation using a front wheeled walker and ma nimum assistance for activities of daily living. Given the difficulty with communication, which has likely an expressive and receptive aphasia or transcortical aphasia, he does require continuous cuing and redirecting to participate in therapy. It is necessary for him to be admitted to the inpatient rehabilitation unit for aggressive therapy while his medical conditions managed as if he is discharge d to a penitentiary or home, he is likely not to thrive, but worsened and would potentially not brooks ve good gains. Inpatient rehabilitation will help him return to his prior level of functioning and r educe risk of rehospitalization. Past Medical History: As noted above. Allergies: NO KNOWN DRUG ALLERGIES. Medications: Amiodarone 200 mg twice daily, Eliquis 5 mg twice daily, Lipitor 10 mg at bedtime, Klon opin 0.5 mg twice daily as needed, folic acid 1 mg daily, Atrovent nebulizer 0.5 mg every 6 hours as needed, Cozaar 50 mg twice daily, melatonin 3 mg at bedtime, Lopressor 100 mg twice daily, nifedipine 10 mg 3 times daily, Ensure Enlive 237 mL 3 times daily, Protonix 40 mg daily, and thiamine 100 mg d aily. Laboratory Studies: He did have arterial blood gas done today, pH of 7.48, pCO2 of 35, pO2 low at 63 , HCO3 26.1. His urinalysis today did show 1+ urobilinogen, greater than 50 red blood cells, 10 to 2 0 white blood cells, 3+ blood, 2+ ketones, extreme turbidity, trace total protein. Otherwise, white blood cell count 11.3, hemoglobin 15.5, hematocrit 45.8, platelets 212, potassium 4.0, glucose 87, BU N 6, creatinine 0.83, calcium 8.9, sodium 140. X-ray/imaging: MRI of the brain done on 06/16/2025 shows acute left basal ganglia lacunar infarct wi th some minimal infarct extension compared to 06/13/2025. CT scan on 06/16, known left basal ganglia subacute infarct, small wide basal ganglia remote infarct versus prominent perivascular space which is stable. No evidence of acute intracranial hemorrhage or mass effect. Chest x-ray from 06/16 show s no intrathoracic abnormalities. A CT angiogram of the head on 06/16, stable focal narrowing of the distal M1 segment and proximal left M2 segment. No large vessel occlusion. CT angiogram of the nec k on 06/16 shows no significant flow abnormalities in the neck vessels. CT scan of the head on 06/20 , no evidence of acute intracranial abnormalities. No evidence of hemorrhagic conversion, left-sided basal ganglia infarct. Chest x-ray on 07/06 shows no acute intrathoracic abnormalities. Family History: Noncontributory. Social History: No alcohol, tobacco, or IV drug use. The patient did all his activities of daily li ving independently at home with family. is attentive to the patient. Review of Systems: Difficult to fully assess at this point. The patient did have his head down while I was evaluating h im. He did waive his hands when around and said he was not ready to do any exercise. He did eat jus t above the third of his lunch that was a pureed diet. did come in and encourage him and again more animated and did begin to follow some instructions. Current Level Of Functioning: Currently, Mr. Chavez requires maximum assistance for his eating, groom ing, bathing, upper body dressing, lower body dressing, toileting, moderate assistance for transfer f rom bed to chair to wheelchair and to ambulate about 80 feet, needed moderate assistance and wheelcha ir to 90 feet, moderate assistance. Physical Examination: Vital Signs: Blood pressure is 144/98, pulse 82, respiratory rate 17, temperature 97.6, oxygen satur ation 97%. Weight is 166 pounds, height 5 feet 6 inches, BMI 26.8. General: Mr. Olvera is resting in a chair. He is beside the bed. HEENT: He is normocephalic, atraumatic. Does have poor dentition. Head was kind of held down in ky photic posture, otherwise difficult to fully assess for his weakness. He was not fully cooperative t o move the arms and legs and the basal ganglia stroke, which is on the left with his right-sided weak ness which is moderate, arms and legs, and some apparent expressive aphasia is noted otherwise. Abdomen: Soft. Extremities: No significant edema in the extremities. Rehab And Medical Assessment And Plan: Mr. Chavez is an 84-year-old patient admitted to the inpatient rehabilitation unit with impairment category 01, stroke. His impairment group code is 01.2, right b melony involvement, left brain. 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 His plan will be to have physical, occupational, and speech therapy 3.5 hours, 5 of 7 days. For a trial fibrillation, we will continue Eliquis 5 mg twice daily, amiodarone 200 mg twice daily for hear t rate control, Lipitor 10 mg at bedtime for dyslipidemia, Klonopin for anxiety, folic acid for strok e risk reduction, albuterol nebulizer for shortness of breath, Cozaar for hypertension control, elie onin for insomnia, Lopressor as well for heart rate and blood pressure control along with nifedipine. He will continue Ensure Enlive for poor nutrition, Protonix for GE reflux, and vitamin B1, findings also on board. Comorbid Conditions That Are Impacting His Rehabilitation: Given the difficulty with expression and comprehension, following instructions will be a challenge, already worked with speech to increase edward lity to understand what his stroke has done and how to mitigate that with his therapy and to make saf e decisions and mobilizing. He has of course atrial fibrillation with rapid ventricular response and is on anticoagulation, puts him at risk of bleeding if he hits a noncompressible site such as fallin g and hitting his head. Fall precautions to be adhered to at all times. Rehab Specific Plan: Mr. Chavez will have physical, occupational, and speech therapy 3.5 hours, 5 of 7 days, to improve his ability to transfer from the bed to a chair, to a wheelchair, to a rolling wal ker, on and off the toilet, in and out of shower, dress upper and lower body, donning and doffing gabriela twear. The therapist will work with him to improve his performance of activities of daily living, to begin to return to his long distances of walking and to make safe decisions in terms of speech thera py, helping him with that. Mr. Chavez and his have a fair understanding of the process of admission to the inpatient rehabil itation unit and how he will benefit from physical, occupational, and speech therapy. He will have 2 4 hours a day, 7 days a week, skilled rehabilitation and nursing, daily physician evaluation and dary gement, and social service evaluation and management for discharge planning, home equipment with cont inued therapy after his discharge. If need be, help will be sought from the Hospitalist Service. Barriers To Discharge: Given the patient's at this time somewhat sleepiness and lethargy, he is aparna g to actually have a B12 shot and B12 orally to help. If he continues to have difficulty with his ab ility to engage and to maintain therapy, he may have a difficult time going home, may have to have an extended stay in inpatient rehabilitation or go to penitentiary before going home. Length Of Stay: About 2 weeks. Disposition: Suspected to be back home and continue therapy at home with Home Health. Prognosis: Fair. Code Status: Full code. Rehab Specific Goals: 1. To become independent with upper and lower body dressing and donning and doffing footwear. 2. Independently mobilize a wheelchair 250 feet. 3. Independently ambulate with a rolling walker 250 feet. 4. Independently go up 10 steps with bilateral handrails. 5. Perform cognitive functioning perhaps with supervision. 6. To swallow and to protect airway and eat independently. The above goals were reviewed with Mr. Chavez and his and they are in agreement. By signing this document, I acknowledge I have personally performed a full physical examination on Mr Seb Chavez no later than 24 hours after his admission to the inpatient rehabilitation unit and determine d that he is able to tolerate the above course of treatment at an intensive level for a reasonable pe riod of time. A detailed individualized plan of care for him will be completed by hospital day 4 bas ed on the preadmission screen, history and physical, and therapy evaluations. JOSETTE Voice ID: [id number]
[2025-07-07] MEDS: FOLIC ACID 1 MG TABLET PO SCH (07:35)
[2025-07-07] MEDS: METOPROLOL TAR 50 MG TAB PO SCH (07:35)
[2025-07-07 07:36] LABS: Absolute Lymphocytes (CBC) 0.8 K/uL (0.7-4.9); Hematocrit 42.6 % (39.6-49.0); Hemoglobin 14.9 g/dL (13.6-17.9); MCH 32.8 pg (27.0-35.0); MCHC 34.9 g/dL (32.0-36.0); MCV 93.7 fL (80-100); MPV 9.3 fL (7.6-11.3); Nucleated RBC Absolute Count 0.0 (0-0); Nucleated Red Blood Cells % 0.0 % (0-0); RBC Red Blood Cell Count 4.54 M/uL (4.33-5.43); White Blood Count 10.60 thou/uL (4.3-10.9)
[2025-07-07] MEDS: THIAMINE HCL 100 MG TABLET PO SCH (07:36)
--- NOTE | 2025-07-07 07:49 | RAD REPORT ---
EXAM: AP view(s) of the abdomen Abdomen 1 View (KUB) HISTORY: r/o constipation COMPARISON: None FINDINGS: Nonobstructive bowel gas pattern.. No suspicious calcifications are seen. No acute osseous abnormality. Other: n/a IMPRESSION: Nonobstructive bowel gas pattern.
[2025-07-07 07:55] LABS: Albumin 2.7 g/dL (3.4-5.0); Anion Gap 10.8 mEq/L (5.0-15.0); BUN Blood Urea Nitrogen 9.0 mg/dL (7-18); Glucose Level 79.0 mg/dL (74-106); Magnesium 1.7 mg/dL (1.6-2.4); Potassium 3.8 mEq/L (3.5-5.1); Prealbumin 11.3 mg/dL (20-40)
--- NOTE | 2025-07-07 13:23 | P.RH.PN ---
Estimated Length of Stay: 22 Expected Discharge Date: 07/25/25 Discharge Disposition Plan: Home Family Support: Yes Detention Goal: Mobility, Transfers, Self Care Vital Signs: Last Vital Signs Temp 97.2 F 07/07/25 07:04 Pulse 115 H 07/07/25 07:04 Resp 18 07/07/25 07:04 BP 136/90 07/07/25 07:04 Pulse Ox 97 07/07/25 07:04 Laboratory: Laboratory Last Values WBC 10.60 thou/uL (4.3-10.9) 07/07/25 07:24 RBC 4.54 M/uL (4.33-5.43) 07/07/25 07:24 Hgb 14.9 g/dL (13.6-17.9) 07/07/25 07:24 Hct 42.6 % (39.6-49.0) 07/07/25 07:24 MCV 93.7 fL (80-100) 07/07/25 07:24 MCH 32.8 pg (27.0-35.0) 07/07/25 07:24 MCHC 34.9 g/dL (32.0-36.0) 07/07/25 07:24 RDW 13.5 % (12.1-15.2) 07/07/25 07:24 Plt Count 192 thou/uL (152-406) 07/07/25 07:24 MPV 9.3 fL (7.6-11.3) 07/07/25 07:24 Neutrophils % 81.9 % (41.7-73.7) H 07/07/25 07:24 Lymphocytes % 8.0 % (15.3-44.8) L 07/07/25 07:24 Monocytes % 9.0 % (3.3-12.3) 07/07/25 07:24 Eosinophils % 0.8 % (0-4.4) 07/07/25 07:24 Basophils % 0.3 % (0-1.3) 07/07/25 07:24 Absolute Neutrophils 8.7 K/uL (1.8-8.0) H 07/07/25 07:24 Absolute Lymphocytes 0.8 K/uL (0.7-4.9) 07/07/25 07:24 Absolute Monocytes 0.9 K/uL (0.1-1.3) 07/07/25 07:24 Absolute Eosinophils 0.1 K/uL (0-0.5) 07/07/25 07:24 Absolute Basophils 0.0 K/uL (0-0.5) 07/07/25 07:24 pH 7.48 (7.35-7.45) H 07/06/25 14:36 pCO2 35 mmHg (35-45) 07/06/25 14:36 pO2 63 mmHg (75-100) L 07/06/25 14:36 HCO3 26.1 mmol/L (22.0-28.0) 07/06/25 14:36 Base Excess 2.6 mmol/L (-2.0-3.0) 07/06/25 14:36 ABG O2 Sat (Measured) 93.6 % (92.0-98.5) 07/06/25 14:36 Sodium 140 mEq/L (136-145) 07/07/25 07:24 Potassium 3.8 mEq/L (3.5-5.1) 07/07/25 07:24 Chloride 108 mEq/L (98-107) H 07/07/25 07:24 Carbon Dioxide 25 mEq/L (21-32) 07/07/25 07:24 Anion Gap 10.8 mEq/L (5.0-15.0) 07/07/25 07:24 BUN 9 mg/dL (7-18) 07/07/25 07:24 Creatinine 0.78 mg/dL (0.70-1.30) 07/07/25 07:24 Est GFR (CKD-EPI) 88 ml/min (=/>90) L 07/07/25 07:24 Glucose 79 mg/dL (74-106) 07/07/25 07:24 Calcium 8.9 mg/dL (8.5-10.1) 07/07/25 07:24 Magnesium 1.7 mg/dL (1.6-2.4) 07/07/25 07:24 Albumin 2.7 g/dL (3.4-5.0) L 07/07/25 07:24 Prealbumin 11.3 mg/dL (20-40) L 07/07/25 07:24 Urine Color Light-orange (Yellow) 07/06/25 19:49 Urine Clarity Extremely turbid (Clear) H 07/06/25 19:49 Urine pH 5.5 (5.0-7.0) 07/06/25 19:49 Ur Specific [place] 1.020 (1.005-1.030) 07/06/25 19:49 Glucose (UA)(Auto) Negative (Negative) 07/06/25 19:49 Urine Ketones 2+ (Negative) H 07/06/25 19:49 Urine Blood 3+ (over) (Negative) H 07/06/25 19:49 Urine Nitrite Negative (Negative) 07/06/25 19:49 Urine Bilirubin Negative (Negative) 07/06/25 19:49 Urine Urobilinogen 1+ (Normal) H 07/06/25 19:49 Ur Leukocyte Esterase Negative Brittany/uL (Negative) 07/06/25 19:49 Urine RBC >50 /HPF (None Seen) H 07/06/25 19:49 Urine WBC 10-20 /HPF (<5) H 07/06/25 19:49 Ur Squamous Epith Cells None seen /HPF (None Seen) 07/06/25 19:49 U Non-Squamous Epi Cells <5 /HPF (None Seen) 07/06/25 19:49 Unidentified Crystals Few /HPF (None Seen) 07/06/25 19:49 Urine Bacteria <20 /HPF (<20) 07/06/25 19:49 Granular Casts 0-5 /LPF (None Seen) 07/06/25 19:49 Urine Mucus 2+ /HPF (None Seen) 07/06/25 19:49 Urine Culture Reflexed Reflexed 07/06/25 19:49 Urine Total Protein Trace (Negative) H 07/06/25 19:49 Weight: 166 lb Physician Update: Labs reviewed and are stable. Poor eating 10% of meals. Will add megace 40 mg bid. Incontinent of bowel and bladder. On anticoagulation for atrial fibrillation. Poor cognition, aphasia and dysphagia. Poor energy will add B12. Did not do BIMS due to fatigue. Right visual field deficit. Max bed mobility, RW 15' max, 3 stairs max assist. Dependent with all ADLs, max assist for ADL transfers. Summary: Patient's care plan and detention goals have been reviewed and revised as necessary. Please see the Rehabilitation Signature page for all necessary signatures.
[2025-07-07] MEDS: MEGESTROL 40 MG TAB PO SCH (19:58)
[2025-07-08] MEDS: CYANOCOBALAMIN 1,000 MCG TAB PO SCH (07:59)
[2025-07-08] MEDS: DIVALPROEX NA 125 MG CAP PO SCH (12:56)
[2025-07-09] MEDS: MAGNESIUM HYDROXIDE 8% 30 ML PO PRN (04:34)
[2025-07-09] MEDS: BISACODYL 10 MG RECTAL SUPP PR PRN (04:34)
[2025-07-09] MEDS ORDERED: DIVALPROEX DR 250 MG TAB PO SCH (08:00)
[2025-07-09] MEDS: POLYETHYL GLY 3350 17 GM/DOSE PO SCH (08:21)
[2025-07-09] MEDS: DOCUSATE NA/SENNA CONC 1 TAB PO SCH (08:21)
[2025-07-10] MEDS ORDERED: DIVALPROEX NA 125 MG CAP FT SCH (21:00)
[2025-07-10] MEDS: MEGESTROL 400 MG/10 ML UCUP PO SCH (21:06)
--- NOTE | 2025-07-10 22:07 | PN ---
Date of Progress Note: 07/10/2025 Time: 1:00 p.m. Subjective: Mr. Chavez was getting around due do physical therapy with therapist. is at the bed side. Significant difficulty getting from sit to stand, max assistance with gait belt and rolling wa lker. Does have a very kyphotic type posture. Does not easily lift his head and has a walker extend ed in front of him. Review of Systems: The patient's no recent fevers or chills, myalgias or arthralgias. However, there is poor energy and some difficulty sleeping at night. Physical Examination: Vital Signs: Blood pressure 140/86, respiratory rate 18, pulse 83, temperature 97.5, oxygen saturati on 100%. Neuro: Mr. Chavez is standing and he took about 3 steps, very difficult to move the right leg forward , had to be coached and was then able to sit back in a chair and we attempted ambulation again. 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 Laboratory Studies: No new laboratory studies. X-ray/imaging: No new x-rays or imaging. There was a KUB study on 07/07/2025. The study showed non obstructive bowel gas pattern. Progress Made With Physical, Occupational, And Speech Therapy: With physical therapy today, he did c omplete bed mobility with moderate assistance and maximum assistance for moving wheelchair forwards a nd backwards. Eventually, he did cover in terms of gait 80 feet 3 times, 50 feet twice, 100 feet wit h minimum assistance using a rolling walker and frequent cuing. Later on, gait, he covered 10 feet a nd 50 feet with moderate assistance in the afternoon session and he was somewhat more tired. With oc cupational therapy, supervision for [id number] transfers, transfer from bed to walker to a moderate assistance level. Maximum assistance for donning and doffing pullover shirt. Did refuse to take a shower. With speech, he was able to answer simple yes/no questions with 20% accuracy and maximum ass istance required to do confrontational naming task with only 10% accuracy and maximum verbal cues. H jessie continues to have a poor oral intake and the speech pathologist suggested possibility of a PEG tube placement or NG tube or enteral feeding as he is not necessarily managing his oral intake well. He is on Megace 40 mg twice daily that will be adjusted to mg twice daily. Other medicati ons to continue will be Eliquis 5 mg twice daily, Lipitor 10 mg at bedtime. He has clonazepam to hel p at night. He will switch the Depakote from the morning to night and that is for behavioral control where he has some aggressive behavior of biting and pulling the staff. Melatonin at night for sleep 3 mg, Senokot for constipation, Protonix for GE reflux. Plan will be to continue with physical, occ upational, and speech therapy 3.5 hours, 5 of 7 days and medication adjustments to be noted. At this point, patient is making slow improvement and will potentially require a more extended time to recov er and return to prior level of independent functioning where he was prior to his stroke. ELISABET/SAMANTHA Voice ID: [id number] Report ID: [id number]
[2025-07-11 07:48] VITALS: TEMP 98.3
[2025-07-11] MEDS: LIDOCAINE 4% PATCH TOP SCH (09:22)
[2025-07-11] MEDS: NIFEdipine 10 MG CAP PO SCH (20:00)
--- NOTE | 2025-07-11 20:22 | PN ---
Date of Progress Note: 07/11/2025 Time: 1:10. Subjective: Mr. Chavez is resting in bed, is somewhat sleepy, takes significant amount of stimulation to wake him up and having him to participate. He is also refusing therapy at this point, not eating much in terms of his breakfast or lunch and his diet is a pureed diet. The speech pathologist did d iscuss the condition with the patient's daughter, and the agreement is for a PEG tube placement and since he is not participating well for the last several days in inpatient rehabilitation, today i s his 5th day, he is to be discharged and will have a PEG tube placed and likely, we are considering Home Health or SNF depending on how the patient's feeding goals. Review of Systems: No fevers or chills, nausea, vomiting. No myalgias, arthralgias, rash, psychiatric complaints, altho ugh patient is poorly communicative. Physical Examination: Vital Signs: Blood pressure 131/94, pulse 99, respiratory rate is 18, temperature 98.3, oxygen satur ation 95%. General: Mr. Chavez again is in bed, has to be stimulated to be awake and interactive. HEENT: Does appear normocephalic, atraumatic. Sclerae anicteric. Oropharynx moist. Neuro: In terms of his stroke deficits, which is left brain right body, difficult to fully assess fo r his significant weakness. The patient is not cooperating. In his attempts to ambulate when he was able to couple of days ago, the right leg had significant difficulty moving forward and he was unabl e to maintain his full upright posture due to back muscle weakness and arm weakness, more right than left. Medications: His medications have been reviewed and are unchanged except he has lidocaine patch for pain. He has Depakote Sprinkles on board 250 mg at bedtime for behavioral disturbances, has been doi ng well with that. Laboratory Studies: No new laboratory studies today. X-ray/imaging: No new x-rays or imaging. Progress Made With Physical, Occupational, And Speech Therapy: With physical therapy today, he did d o bed mobility, turning in bed, maximum assistance needed. Multiple [id number] transfers with max imum assistance. The patient was not helping much during the transfers. [id number]-[id number] transfers done with maximum assistance. The patient is going to take a step today, maximum assistance x2 to get hi m to turn and pivot, work on wheelchair mobilization, and maximum assistance that he was requiring ne ar complete help to do any activity. With occupational therapy, maximum assistance getting out of be d and was at supervision for [id number] at 1 point, moderate assistance for upper body dressing, de pendent with donning and doffing footwear, maximum assistance for eating. With speech, he was able t o answer yes/no questions with 20% accuracy only, needing maximum assistance. Maximum assistance for confrontational naming with only 10% accuracy. Auditory word recognition in a field of 2 pictures w as 20% accurate, maximum assistance. His p.o. intake was limited with pocketing of food and spitting food out and it is noted that it is recommended nonoral means of nutrition such as PEG tube feeding is now recommended and goals will be for hydration. Assessment And Plan: Mr. Chavez is an 84-year-old patient in rehabilitation with stroke affecting lef t brain, right body. He does have significant apathy in terms of his inability to be nichole y activities. Significantly weak in terms of diffuse weakness, slightly more in the right than the l eft and not eating or swallowing much. He is a full code at this point and consideration should be _ , do not resuscitate if that is what the family and the patient would wish. He is to have a PEG tube if he will continue with nutrition. Dr. Augustine on the surgery service has agreed to perfo rm the procedure. Dr. Hussein on the inpatient service will be accepting patient. The patient will be discharged to the acute care floor to receive the procedure and likely will go to retirement fol lowing that. He will continue with list of current medications. He is n.p.o. after midnight for the surgical procedure to place the PEG tube by Dr. Augustine in the morning and will then be discharged a t some point once the tube feeding has been able to proceed and discharge will be with Home Health and followup with Dr. Augustine, primary care physician, and neurologist as sc heduled. LB/MODL Voice ID: [id number] Report ID: [id number]
[2025-07-11] MEDS: DIVALPROEX NA 125 MG CAP FT SCH (21:00)
[2025-07-11 23:04] VITALS: BP 132/84
== END 2025-07-11 23:58 | disposition short-term general hospital (02) | DRG 57 ==
LOC: UNDOADMIN 08:41 → 5TH 08:41
PROVIDERS: ADMIT Psychiatry & Neurology Neurology with Special Qualifications in Child Neurology; ATTEND Psychiatry & Neurology Neurology with Special Qualifications in Child Neurology
DX: I69.351 Hemiplegia and hemiparesis following cerebral infarction affecting right dominant side (principal); I69.320 Aphasia following cerebral infarction; I69.391 Dysphagia following cerebral infarction; R13.10 Dysphagia, unspecified; I69.398 Other sequelae of cerebral infarction; H53.8 Other visual disturbances; R53.83 Other fatigue; M62.81 Muscle weakness (generalized); I10 Essential (primary) hypertension; E78.5 Hyperlipidemia, unspecified; I48.0 Paroxysmal atrial fibrillation; K21.9 Gastro-esophageal reflux disease without esophagitis; F41.9 Anxiety disorder, unspecified; G47.00 Insomnia, unspecified; R06.02 Shortness of breath; K59.00 Constipation, unspecified; Z53.29 Procedure and treatment not carried out because of patient's decision for other reasons; Z79.01 Long term (current) use of anticoagulants
CPT/HCPCS: 36415; 36600; 70450; 74018; 80048; 81001; 82040; 82805; 83735; 84134; 85025; 87086; 87088; 92523; 92526; 92610; 93005; 97112; 97116; 97129; 97161; 97165; 97530; 97542; J2003